=== PATIENT | male | born 1940 | race Caucasian/White ===

== ENCOUNTER 2019-05-29 08:53 | Outpatient (CLI) | payer OTHER, MEDICARE, SELFPAY | END 2019-05-29 08:54 | disposition home or self-care (01) | PROVIDERS: Family Provider Emergency Medicine Emergency Medical Services; PCP Emergency Medicine Emergency Medical Services; Visit Provider Internal Medicine Hematology & Oncology | DX: Z45.2 Encounter for adjustment and management of vascular access device (principal) | CPT/HCPCS: 96523 ==

== ENCOUNTER 2019-07-01 09:05 | Outpatient (CLI) | payer OTHER, MEDICARE, SELFPAY ==
[2019-07-01 09:50] LABS: Basophils % 0.3 %; Eosinophils # 0.1 10^3/uL (0.0-0.8); Eosinophils % 1.1 %; Hematocrit 43.2 % (42.0-52.0); Hemoglobin 13.4 g/dL (11.7-16.6); Lymphocytes # 1.9 10^3/uL (0.8-4.8); Lymphocytes % 21.9 %; Mean Corpuscular Hemoglobin 29.5 pg (28.0-34.0); Mean Corpuscular Volume 95.2 fL (80-94); Mean Platelet Volume 10.2 fL (7.4-10.4); Monocytes # 0.7 10^3/uL (0.2-0.9); Monocytes % 7.6 %; Neutrophils % 68.2 %; Nucleated Red Blood Cells % 0 %; Platelet Count 297 10^3/cmm (130-400); Red Blood Count 4.54 10^6/uL (4.1-5.3); Red Cell Distribution Width 14.9 % (12.1-15.1); White Blood Count 8.8 10^3/uL (4.0-10.0)
[2019-07-01 10:12] LABS: Alanine Aminotransferase 33 U/L (0-41); Albumin Level 4.1 g/dL (3.5-5.2); Alkaline Phosphatase 98 IU/L (40-130); Anion Gap 13.8 (5-19); Aspartate Amino Transferase 20 U/L (0-40); Blood Urea Nitrogen 27 mg/dL (8-23); Calcium 9.9 mg/dL (8.5-10.5); Carbon Dioxide 29 mmol/L (22-29); Chloride 101 mmol/L (98-107); Globulin 3.2 g/dL (1.3-4.6); Glucose 110 mg/dL (65-115); Potassium 4.8 mmol/L (3.5-5.1); Sodium 139 mmol/L (136-145); Total Bilirubin 0.2 mg/dL (0.15-1.2); Total Protein 7.3 g/dL (6.6-8.7)
--- NOTE | 2019-07-01 12:40 | ONC FU_ITS ---
Dr. Ornelas follow up note Patient: Venkat Cherry Unit #: [id number]: 1940 Dicatated By: Criss Ornelas M.D.Date of Visit:Jul 01, 2019 Onc Med Follow-up/Prog Note History of Present Illness: Mr. Cherry is a 78-year-old gentleman with a [id number] history of smoking. He had presented to his primary care at the [facility] with concerns of weakness and hemoptysis. He also reported increased shortness of breath for a month. It had significantly worsened on 2 weeks prior to his presentation to the PCP. He had had progressive fluid retention at that time as well. Dr. Noe has requested workup of his concerns which included a CT of the chest at that time he had finding of a right lung mass. The CT reported right upper lobe and lower lobe mass with mesangial lymphadenopathy. He did undergo CT-guided needle biopsy of the right lung mass on 09/13/2017. 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 The pathology reported ALK rearrangement by FISH as negative and PD-L1 IHC as negative. The PD-L1 IHC 28???8 was reported as less than 1%. Mr. Cherry had PET/CT on 09/28/2017. The findings were reported as: A 1.7 cm pulmonary nodule in the right lower lobe with SUV of 6.5. A 3 x 1.7 cm lesion in the central right upper lobe with SUV of 7.2; superior and inferior right paratracheal lymphadenopathy consistent with local metastatic disease. Inferior, right paratracheal node measures 1.9 x 2.3 cm with an SUV of 9.8; other scattered mediastinal nodes are radiographically benign and FDG negative. Bilateral pleural effusions. Malignant effusions could not be excluded. on 11/25/2017. s/p concurrent therapy with weekly carboplatin and paclitaxel and radiation.to the primary and SBRT to the right lower lobe nodule . He began his first dose of weekly carboplatin and paclitaxel on 11/25/2017. till 01/08/18 . Mr Cherry was started on maintenance immunotherapy with Imfinzi on 02/24/2018. On Synthroid 25 ???g by mouth daily for newly diagnosed hypothyroidism probably due to immunotherapy He had restaging imaging with CT of the chest on 05/30/2018. There is no evidence of disease progression with overall stable appearance of the right upper and lower lobe parenchymal opacity and not hilar lymphadenopathy. Follow-up PET CT from 09/27/2018 reports near resolution of the right lung nodules and mediastinal nodes, indicating a positive response to therapy. There was resolution of bilateral pleural effusions. Mr. Cherry continues with Imfinzi treatment every 2 weeks. and Completed 24 doses on 01/12/2019 Follow-up CT PET scan done on 03/14/2019 showed central right upper lobe nodule measures roughly 9 mm with SUV of 3.5, compared to 15 x [address] PET scan done on 09/27/2018 and there has been no change in 7 mm right lung base nodule. Mild reactive activity in bilateral hilar and mediastinum is unchanged. Came for follow-up, denies any specific complaints, no fever or chills, no nausea vomiting, no diarrhea constipation, no hemoptysis or hematemesis, no jaundice, no headaches or blurred vision. No new bony pains. Medications: Atenolol 1 Tablet (of 25 mg) Tablet Oral at bedtime, Atenolol 1 Tablet (of 50 mg) Tablet Oral daily, Furosemide 1 Tablet (of 40 mg) Oral b.i.d., HydrALAZINE HCl 1 Tablet (of 50 mg) Oral t.i.d., Lipitor 1 Tablet (of 40 mg) Oral daily, Lisinopril 1.5 Tablet (of 40 mg) Oral daily, Magnesium 1 Tablet (of 400 mg) Oral at bedtime, Norvasc 1 Tablet (of 10 mg) Oral daily, Potassium Chloride ER 0.5 Tablet (of 20 meq) Capsule, controlled release Oral b.i.d., Synthroid 1 Tablet (of 50 mcg) Oral daily, Tamsulosin HCl 1 Capsule (of 0.4 mg) Oral daily, Triamcinolone Acetonide (0.5 %) Cream Topical Take as Directed, Zinc 1 Tablet (of 50 mg) Oral daily Allergies: No Known Allergies. Review of Systems: Constitutional - His energy level is fair today and spirits are good. Appetite is fair and weight is stable. No fever, chills, hot flashes, or night sweats, ENMT - No problems with hearing, no sore throat, no sinus drainage, Hematologic/Lymphatic - No abnormal bruising or bleeding, Respiratory - No dyspnea on exertion, chest pain. Positive for cough, Cardiovascular - No anginal chest pain, palpitations or orthopnea, Gastrointestinal - No nausea, vomiting, diarrhea, GI bleeding, or constipation. No change in bowel habits, no heartburn or early satiety, Genitourinary (M) - No hematuria, dysuria, increased frequency, urgency, hesitancy or incontinence, Musculoskeletal - No joint pain, swelling or redness. No decreased range of motion, Neurologic - No headache or dizziness. No numbness/paresthesias or other focal neurologic symptoms, Psychiatric - No anxiety or depression. He has chronic insomnia. Vital Signs: Performed on Jul 01, 2019 11:31 Height - 65.50 in Weight - 248.0 lbs (HIGH) BSA - 2.18 sq.m BMI - 40.64 (HIGH) Temperature - 97.8 F (LOW) Pulse - 59 /min (LOW) Respiration - 26 /min BP - 146/58 mm(hg) (HIGH) O2 Sat - 96 % Pain - 0 Performance Status: 0 - Fully active, able to carry on all predisease activities without restrictions. (ECOG) Physical Examination: ENMT - No oral exudates, ulcers, masses, thrush or mucositis. Oropharynx clear. Tongue normal, Respiratory - Lungs are clear to auscultation without rhonchi or wheezing, Cardiovascular - Regular rate and rhythm of heart, Abdomen - Non-tender, non-distended, Good bowel sounds. No guarding or rebound tenderness. No pulsatile masses, Extremities - no edema. Lab/Imaging: Test performed on Apr 01, 2019 13:03 Sodium 142 mmol/L Potassium 4.2 mmol/L Chloride 99 mmol/L CO2 31 mmol/L Anion Gap 16.2 BUN 17 mg/dL Creatinine 0.8 mg/dL Cr Clearance (Est) 123.9800 mL/min Glucose 162 mg/dl Calcium 9.7 mg/dL Protein, Total 6.8 g/dL Albumin 3.5 g/dL Globulin 3.3 gm/dL Bilirubin, Total 0.2 mg/dL ALT (SGPT) 42 U/L AST (SGOT) 22 U/L Alkaline Phosphatase 110 U/L WBC 7.8 10 3/uL RBC 3.86 10 6/uL HGB 11.7 g/dL HCT 37.9 % MCV 98.2 fl MCH 30.3 pg MCHC 30.9 g/dl RDW 13.5 % Platelet Count 262 10 3/cmm MPV 10.2 fl Neutrophils 5.7 10 3/uL Lymphocytes 1.4 10 3/uL Monocytes 0.5 10 3/uL Eosinophils 0.2 10 3/uL Basophils 0.0 10 3/uL Neutrophil % 72.8 % Lymphocyte % 17.4 % Monocyte % 6.8 % Eosinophil % 2.0 % Basophils % 0.4 % Test performed on Feb 04, 2019 11:32 TSH 2.13 uIU/mL Impression: Mr. Cherry is a 78-year-old gentleman with right upper lobe lung cancer: invasive poorly differentiated squamous cell carcinoma. This diagnosis was confirmed by CT guided biopsy of the right upper lobe on 09/13/2017. He also had an abnormal PET/CT done on 09/28/2017. The PET showed a 1.7 cm pulmonary nodule in the right lower lobe with an SUV of 6.5. There was a 3 x 1.7 cm mass in the central right upper lobe with SUV of 7.2. There was superior and inferior right paratracheal lymphadenopathy with increased FDG uptake. Although scattered the mediastinal nodules were radiographically benign and FDG negative. It was noted that he did have bilateral pleural effusion with the right being larger than the left. He underwent MRI I of the brain on 11/01/2017 there was no evidence of metastatic disease at that time. The arrangement I Fish on the lung biopsy from 11/01/2017 is reported as negative the PDL???L1 IHC is negative there is no PD-L1 expression. PD-L1 IHC 28???8 was also reported as less than 1%. Clinical stage T4 ipsilateral satellite lesion in different lobe. N 1 or 2 ,Mx stage IIIA 2. COPD 3. Glaucoma and cataracts 4. Hypercholesterolemia/hyperlipidemia 5. Hypertension 6. Chronic, controlled depression s/p combined therapy with radiation and chemotherapy. to the primary and SB RT to the right lower lobe first chemotherapy treatment on 11/25/2017. till 01/08/18 On week 4, 30 minutes after starting the Carboplatin, he developed hypertension, shortness of breath and chest pain. The Carboplatin was stopped and he was given sublingual nitroglycerin and his symptoms resolved. The Carboplatin has been stopped. He continued with paclitaxel with his last dose on 01/06/2018. He had recent admission for pneumonia and is labs at that time showed progressive anemia/dermal cytopenia. started on maintenance therapy with durvalumab. He began his first dose on 02/24/2018. The maintenance plan at this point will be every 2 weeks for 12 months. . He had restaging imaging with CT of the chest on 05/30/2018. There is no evidence of disease progression with overall stable appearance of the right upper and lower lobe parenchymal opacity and not hilar lymphadenopathy. He continues with treatment at this time. He did have elevation of the TSH is now on Synthroid. His TSH remained stable .Follow-up CT PET scan done on 09/27/2018 showed the right lower lobe nodule seen on prior study done on 09/28/2017, is now subcentimeter in size and FDG negative The central right upper lobe lesion measures 1.5 x 0.7 cm with FDG activity frequent to mediastinal blood pool, this pattern is typical for inflammation Although a small amount of residual disease cannot be excluded The inferior right paratracheal node is now largely calcified, with mild residual activity activity that may be inflammatory Sup Right paratracheal node is calcified and FDG negative Findings are indicative of good response to the therapy. He continues to tolerate the durvalumab well. Plan: Discussed with patient regarding his labs white blood count 8.8 hemoglobin 13.4 crit 43.2 platelets 297,000 with normal differential CMP within normal limit except creatinine 1.2 compared to 0.8 on 04/01/2019 Clinically, patient is doing well with no signs symptom suggestive of recurrence of disease. Lab workup within normal limit except change in creatinine, patient is on diuretics/antihypertensive combination. Patient was advised to maintain good hydration or discussed with PMD regarding adjusting diuretic dose. X At this point we'll consider follow-up CT PET scan and compare with previous PET scan done on 03/14/2019 which showed right upper lobe nodule with SUV of 3.5 and concern was recurrence. Patient return to clinic [address] PET scan done for further discussion. Signed By: Criss Ornelas M.D. <<Signature on File>>
== END 2019-07-01 09:06 | disposition home or self-care (01) ==
LOC: ONCMED 09:07
PROVIDERS: Family Provider Emergency Medicine Emergency Medical Services; PCP Emergency Medicine Emergency Medical Services; Visit Provider Internal Medicine Hematology & Oncology
DX: C34.11 Malignant neoplasm of upper lobe, right bronchus or lung (principal); E03.2 Hypothyroidism due to medicaments and other exogenous substances; T45.1X5A Adverse effect of antineoplastic and immunosuppressive drugs, initial encounter; J44.9 Chronic obstructive pulmonary disease, unspecified; H40.9 Unspecified glaucoma; H26.9 Unspecified cataract; E78.00 Pure hypercholesterolemia, unspecified; E78.5 Hyperlipidemia, unspecified; I10 Essential (primary) hypertension; F32.9 Major depressive disorder, single episode, unspecified; Z79.899 Other long term (current) drug therapy; Z92.21 Personal history of antineoplastic chemotherapy; Z92.3 Personal history of irradiation
CPT/HCPCS: 36591; 80053; 85025; 99214

== ENCOUNTER 2019-07-15 10:55 | Outpatient (CLI) | payer OTHER, MEDICARE, SELFPAY ==
[2019-07-15 11:33] LABS: Basophils % 0.4 %; Eosinophils # 0.1 10^3/uL (0.0-0.8); Eosinophils % 1.3 %; Hematocrit 40.9 % (42.0-52.0); Hemoglobin 12.7 g/dL (11.7-16.6); Lymphocytes # 1.6 10^3/uL (0.8-4.8); Lymphocytes % 19.7 %; Mean Corpuscular HGB Conc 31.1 g/dL (30.0-36.0); Mean Corpuscular Hemoglobin 30.6 pg (28.0-34.0); Mean Corpuscular Volume 98.6 fL (80-94); Mean Platelet Volume 10.2 fL (7.4-10.4); Monocytes # 0.5 10^3/uL (0.2-0.9); Monocytes % 6.7 %; Neutrophils # 5.6 10^3/uL (1.8-7.7); Neutrophils % 70.8 %; Nucleated Red Blood Cells % 0 %; Platelet Count 280 10^3/cmm (130-400); Red Blood Count 4.15 10^6/uL (4.1-5.3); Red Cell Distribution Width 14.4 % (12.1-15.1); White Blood Count 7.9 10^3/uL (4.0-10.0)
[2019-07-15 11:59] LABS: Alanine Aminotransferase 35 U/L (0-41); Albumin Level 3.3 g/dL (3.5-5.2); Alkaline Phosphatase 99 IU/L (40-130); Anion Gap 11.7 (5-19); Aspartate Amino Transferase 17 U/L (0-40); Blood Urea Nitrogen 16 mg/dL (8-23); Calcium 9.7 mg/dL (8.5-10.5); Carbon Dioxide 29 mmol/L (22-29); Chloride 102 mmol/L (98-107); Globulin 3.4 g/dL (1.3-4.6); Glucose 89 mg/dL (65-115); Potassium 4.7 mmol/L (3.5-5.1); Sodium 138 mmol/L (136-145); Total Bilirubin 0.2 mg/dL (0.15-1.2); Total Protein 6.7 g/dL (6.6-8.7)
--- NOTE | 2019-07-15 13:27 | ONC FU_ITS ---
Dr. Ornelas follow up note Patient: Venkat Cherry Unit #: [id number]: 1940 Dicatated By: Criss Ornelas M.D.Date of Visit:Jul 15, 2019 Onc Med Follow-up/Prog Note History of Present Illness: Mr. Cherry is a 78-year-old gentleman with a [id number] history of smoking. He had presented to his primary care at the [facility] with concerns of weakness and hemoptysis. He also reported increased shortness of breath for a month. It had significantly worsened on 2 weeks prior to his presentation to the PCP. He had had progressive fluid retention at that time as well. Dr. Noe has requested workup of his concerns which included a CT of the chest at that time he had finding of a right lung mass. The CT reported right upper lobe and lower lobe mass with mesangial lymphadenopathy. He did undergo CT-guided needle biopsy of the right lung mass on 09/13/2017. 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 The pathology reported ALK rearrangement by FISH as negative and PD-L1 IHC as negative. The PD-L1 IHC 28???8 was reported as less than 1%. Mr. Cherry had PET/CT on 09/28/2017. The findings were reported as: A 1.7 cm pulmonary nodule in the right lower lobe with SUV of 6.5. A 3 x 1.7 cm lesion in the central right upper lobe with SUV of 7.2; superior and inferior right paratracheal lymphadenopathy consistent with local metastatic disease. Inferior, right paratracheal node measures 1.9 x 2.3 cm with an SUV of 9.8; other scattered mediastinal nodes are radiographically benign and FDG negative. Bilateral pleural effusions. Malignant effusions could not be excluded. on 11/25/2017. s/p concurrent therapy with weekly carboplatin and paclitaxel and radiation.to the primary and SBRT to the right lower lobe nodule . He began his first dose of weekly carboplatin and paclitaxel on 11/25/2017. till 01/08/18 . Mr Cherry was started on maintenance immunotherapy with Imfinzi on 02/24/2018. On Synthroid 25 ???g by mouth daily for newly diagnosed hypothyroidism probably due to immunotherapy He had restaging imaging with CT of the chest on 05/30/2018. There is no evidence of disease progression with overall stable appearance of the right upper and lower lobe parenchymal opacity and not hilar lymphadenopathy. Follow-up PET CT from 09/27/2018 reports near resolution of the right lung nodules and mediastinal nodes, indicating a positive response to therapy. There was resolution of bilateral pleural effusions. Mr. Cherry continues with Imfinzi treatment every 2 weeks. and Completed 24 doses on 01/12/2019 Follow-up CT PET scan done on 03/14/2019 showed central right upper lobe nodule measures roughly 9 mm with SUV of 3.5, compared to 15 x [address] PET scan done on 09/27/2018 and there has been no change in 7 mm right lung base nodule. Mild reactive activity in bilateral hilar and mediastinum is unchanged. Follow-up CT PET scan done on 07/11/2019, showed decreasing FDG uptake in the right upper lobe nodule, sporting and inflammatory diagnosis, no change in reactive mediastinal lymph nodes, no evidence of distant metastatic disease. Came for follow-up, pain patient denies any specific complaints, no hemoptysis or hematemesis, no fever or chills, no nausea or vomiting, appetite is good, weight is stable. Medications: Atenolol 1 Tablet (of 50 mg) Oral daily, Atenolol 1 Tablet (of 25 mg) Tablet Oral at bedtime, Atorvastatin Calcium 1 Tablet (of 40 mg) Oral daily, Furosemide 1 Tablet (of 40 mg) Oral daily, HydrALAZINE HCl 1 Tablet (of 50 mg) Oral t.i.d., Lisinopril 1.5 Tablet (of 40 mg) Oral daily, Magnesium 1 Tablet (of 400 mg) Oral at bedtime, Potassium Chloride ER 0.5 Tablet (of 20 meq) Capsule, controlled release Oral b.i.d., Spironolactone 0.5 Tablet (of 25 mg) Oral b.i.d., Tamsulosin HCl 1 Capsule (of 0.4 mg) Oral daily, Triamcinolone Acetonide (0.5 %) Cream Topical Take as Directed, Zinc 1 Tablet (of 50 mg) Oral daily Allergies: No Known Allergies. Review of Systems: Constitutional - His energy level is fair today and spirits are good. Appetite is fair and weight is stable. No fever, chills, hot flashes, or night sweats, ENMT - No problems with hearing, no sore throat, no sinus drainage, Hematologic/Lymphatic - No abnormal bruising or bleeding, Respiratory - No dyspnea on exertion, chest pain. Positive for cough, Cardiovascular - No anginal chest pain, palpitations or orthopnea, Gastrointestinal - No nausea, vomiting, diarrhea, GI bleeding, or constipation. No change in bowel habits, no heartburn or early satiety, Genitourinary (M) - No hematuria, dysuria, increased frequency, urgency, hesitancy or incontinence, Musculoskeletal - No joint pain, swelling or redness. No decreased range of motion, Neurologic - No headache or dizziness. No numbness/paresthesias or other focal neurologic symptoms, Psychiatric - No anxiety or depression. He has chronic insomnia. Vital Signs: Performed on Jul 15, 2019 12:52 Height - 65.50 in Weight - 250.8 lbs (HIGH) BSA - 2.19 sq.m BMI - 41.10 (HIGH) Temperature - 98.6 F Pulse - 70 /min Respiration - 26 /min BP - 115/54 mm(hg) O2 Sat - 95 % (LOW) Pain - 0 Performance Status: 0 - Fully active, able to carry on all predisease activities without restrictions. (ECOG) Physical Examination: ENMT - . No oral exudates, ulcers, masses, thrush or mucositis. Oropharynx clear. Tongue normal, Respiratory - Lungs are clear to auscultation without rhonchi or wheezing, Cardiovascular - Regular rate and rhythm of heart, Abdomen - Non-tender, non-distended, Good bowel sounds. No guarding or rebound tenderness. No pulsatile masses, Extremities - no edema. Lab/Imaging: Test performed on Jul 01, 2019 09:33 Sodium 139 mmol/L Potassium 4.8 mmol/L Chloride 101 mmol/L CO2 29 mmol/L Anion Gap 13.8 BUN 27 mg/dL Creatinine 1.2 mg/dL Cr Clearance (Est) 82.6600 mL/min Glucose 110 mg/dL Calcium 9.9 mg/dL Protein, Total 7.3 g/dL Albumin 4.1 g/dL Globulin 3.2 g/dL Bilirubin, Total 0.2 mg/dL ALT (SGPT) 33 U/L AST (SGOT) 20 U/L Alkaline Phosphatase 98 IU/L WBC 8.8 10 3/uL RBC 4.54 10 6/uL HGB 13.4 g/dL HCT 43.2 % MCV 95.2 fL MCH 29.5 pg MCHC 31.0 g/dL RDW 14.9 % Platelet Count 297 10 3/cmm MPV 10.2 fL Neutrophils 6.0 10 3/uL Lymphocytes 1.9 10 3/uL Monocytes 0.7 10 3/uL Eosinophils 0.1 10 3/uL Basophils 0.0 10 3/uL Neutrophil % 68.2 % Lymphocyte % 21.9 % Monocyte % 7.6 % Eosinophil % 1.1 % Basophils % 0.3 % Test performed on Feb 04, 2019 11:32 TSH 2.13 uIU/mL Impression: Mr. Cherry is a 78-year-old gentleman with right upper lobe lung cancer: invasive poorly differentiated squamous cell carcinoma. This diagnosis was confirmed by CT guided biopsy of the right upper lobe on 09/13/2017. He also had an abnormal PET/CT done on 09/28/2017. The PET showed a 1.7 cm pulmonary nodule in the right lower lobe with an SUV of 6.5. There was a 3 x 1.7 cm mass in the central right upper lobe with SUV of 7.2. There was superior and inferior right paratracheal lymphadenopathy with increased FDG uptake. Although scattered the mediastinal nodules were radiographically benign and FDG negative. It was noted that he did have bilateral pleural effusion with the right being larger than the left. He underwent MRI I of the brain on 11/01/2017 there was no evidence of metastatic disease at that time. The arrangement I Fish on the lung biopsy from 11/01/2017 is reported as negative the PDL???L1 IHC is negative there is no PD-L1 expression. PD-L1 IHC 28???8 was also reported as less than 1%. Clinical stage T4 ipsilateral satellite lesion in different lobe. N 1 or 2 ,Mx stage IIIA 2. COPD 3. Glaucoma and cataracts 4. Hypercholesterolemia/hyperlipidemia 5. Hypertension 6. Chronic, controlled depression s/p combined therapy with radiation and chemotherapy. to the primary and SB RT to the right lower lobe first chemotherapy treatment on 11/25/2017. till 01/08/18 On week 4, 30 minutes after starting the Carboplatin, he developed hypertension, shortness of breath and chest pain. The Carboplatin was stopped and he was given sublingual nitroglycerin and his symptoms resolved. The Carboplatin has been stopped. He continued with paclitaxel with his last dose on 01/06/2018. He had recent admission for pneumonia and is labs at that time showed progressive anemia/dermal cytopenia. started on maintenance therapy with durvalumab. He began his first dose on 02/24/2018. The maintenance plan at this point will be every 2 weeks for 12 months. . He had restaging imaging with CT of the chest on 05/30/2018. There is no evidence of disease progression with overall stable appearance of the right upper and lower lobe parenchymal opacity and not hilar lymphadenopathy. He continues with treatment at this time. He did have elevation of the TSH is now on Synthroid. His TSH remained stable .Follow-up CT PET scan done on 09/27/2018 showed the right lower lobe nodule seen on prior study done on 09/28/2017, is now subcentimeter in size and FDG negative The central right upper lobe lesion measures 1.5 x 0.7 cm with FDG activity frequent to mediastinal blood pool, this pattern is typical for inflammation Although a small amount of residual disease cannot be excluded The inferior right paratracheal node is now largely calcified, with mild residual activity activity that may be inflammatory Sup Right paratracheal node is calcified and FDG negative Findings are indicative of good response to the therapy. He continues to tolerate the durvalumab well. Plan: Discussed with patient regarding his labs white blood count 7.9 hemoglobin 12.7 hematocrit 40.9 platelets 280,000 CMP within normal limits creatinine 0.9 compared to 1.2 on 07/01/2019 Clinically, patient is doing well with no signs symptoms distant recurrence of disease and his follow-up CT PET scan confirmed that, persistent right upper lobe nodule now improving SUV, finding consistent with inflammatory and stable reactive mediastinal lymphadenopathy and no new lesion seen Follow-up lab shows improvement in his renal function test with gentle oral hydration. At this point we'll continue monitor he will return to clinic in 4 months with CBC CMP and at that time we'll plan for follow-up CT PET scan in the meantime continue with monthly port maintenance Signed By: Criss Ornelas M.D. <<Signature on File>>
== END 2019-07-15 10:56 | disposition home or self-care (01) ==
LOC: ONCMED 10:57
PROVIDERS: Family Provider Emergency Medicine Emergency Medical Services; PCP Emergency Medicine Emergency Medical Services; Visit Provider Internal Medicine Hematology & Oncology
DX: Z08 Encounter for follow-up examination after completed treatment for malignant neoplasm (principal); Z85.118 Personal history of other malignant neoplasm of bronchus and lung; E03.2 Hypothyroidism due to medicaments and other exogenous substances; T45.1X5A Adverse effect of antineoplastic and immunosuppressive drugs, initial encounter; J44.9 Chronic obstructive pulmonary disease, unspecified; H40.9 Unspecified glaucoma; H26.9 Unspecified cataract; E78.00 Pure hypercholesterolemia, unspecified; E78.5 Hyperlipidemia, unspecified; I10 Essential (primary) hypertension; F32.9 Major depressive disorder, single episode, unspecified; Z92.21 Personal history of antineoplastic chemotherapy; Z92.3 Personal history of irradiation; Z92.25 Personal history of immunosuppression therapy
CPT/HCPCS: 36591; 80053; 85025; G0463

== ENCOUNTER 2019-08-25 09:06 | Outpatient (CLI) | payer OTHER, MEDICARE, SELFPAY | END 2019-08-25 09:07 | disposition home or self-care (01) | LOC: ONCMED 09:06 | PROVIDERS: Family Provider Emergency Medicine Emergency Medical Services; PCP Emergency Medicine Emergency Medical Services; Visit Provider Internal Medicine Hematology & Oncology | DX: Z45.2 Encounter for adjustment and management of vascular access device (principal) | CPT/HCPCS: 96523 ==

== ENCOUNTER 2019-09-25 08:21 | Outpatient (CLI) | payer OTHER, MEDICARE, SELFPAY | END 2019-09-25 08:22 | disposition home or self-care (01) | LOC: ONCMED 08:22 | PROVIDERS: PCP Emergency Medicine Emergency Medical Services; Visit Provider Internal Medicine Hematology & Oncology | DX: Z45.2 Encounter for adjustment and management of vascular access device (principal); C34.11 Malignant neoplasm of upper lobe, right bronchus or lung | CPT/HCPCS: 36591 ==

== ENCOUNTER 2019-10-26 10:25 | Emergency (ER) | payer OTHER, MEDICARE, SELFPAY ==
[2019-10-26 10:27] VITALS: BP 140/50; PULSE 50; RESP 26; TEMP 37; O2SAT 98; BMI 37.1
--- NOTE | 2019-10-26 11:21 | XR_ITS ---
WS: [id number] PORTABLE CHEST HISTORY: dyspnea/cough COMPARISON: 01/21/2018 LEFT subclavian Port-A-Cath tip in the distal SVC. Mild chronic emphysema. No pneumonia. No pleural effusion or pneumothorax. Cardiac size: Moderately enlarged cardiac silhouette. Mediastinum/Aorta: Normal mediastinum. No osseous abnormality seen. XR/XR chest 1V portable [id number] IMPRESSION: 1. Chronic emphysema. No no pneumonia. 2. No suspicious nodules on today's examination.
[2019-10-26 11:40] VITALS: PULSE 56; RESP 16; O2SAT 92
[2019-10-26 11:43] LABS: Basophils % 0.3 %; Hematocrit 38.6 % (42.0-52.0); Lymphocytes # 0.4 10^3/uL (0.8-4.8); Mean Corpuscular HGB Conc 31.1 g/dL (30.0-36.0); Mean Corpuscular Hemoglobin 30.8 pg (28.0-34.0); Mean Corpuscular Volume 99.2 fL (80-94); Neutrophils # 10.5 10^3/uL (1.8-7.7); Nucleated Red Blood Cells % 0 %; Platelet Count 182 10^3/cmm (130-400); Red Blood Count 3.89 10^6/uL (4.1-5.3); Red Cell Distribution Width 14.6 % (12.1-15.1); White Blood Count 11.9 10^3/uL (4.0-10.0)
--- NOTE | 2019-10-26 11:52 | PC.NURSE ---
pt concerned about insurance. registration notified pt would like to speak to them regarding [employer] insurance. registration in room at this time.
[2019-10-26] MEDS: ipratropium-albuterol 3 mL Neb INHALATION (11:55)
[2019-10-26 11:57] LABS: Alanine Aminotransferase 36 U/L (0-41); Albumin Level 3.5 g/dL (3.5-5.2); Alkaline Phosphatase 97 IU/L (40-130); Anion Gap 14.8 (5-19); Aspartate Amino Transferase 29 U/L (0-40); Blood Urea Nitrogen 26 mg/dL (8-23); Calcium 8.7 mg/dL (8.5-10.5); Carbon Dioxide 29 mmol/L (22-29); Chloride 95 mmol/L (98-107); Globulin 2.9 g/dL (1.3-4.6); Glucose 127 mg/dL (65-115); Lipase 17 U/L (13-60); Osmolality Calculated 276 mOsm/kg (285-295); Potassium 4.8 mmol/L (3.5-5.1); Sodium 134 mmol/L (136-145); Total Bilirubin 0.3 mg/dL (0.15-1.2); Total Protein 6.4 g/dL (6.6-8.7)
--- NOTE | 2019-10-26 11:57 | ED_ITS ---
HPI - Fever General: Chief Complaint: Fever Stated Complaint: fever Time Seen by Provider: 10/26/19 10:34 History of Present Illness: HPI Narrative: 73-year-old male comes in complaining of a temp up to 102 last night he did taken Tylenol and it came down. He is not complaining any specific pain denies dysuria urgency or frequency he does have chronic loose stools and sometimes doing some mild fecal incontinence during exam he shifted his weight and actually passed some stool. States he has a chronic nonproductive cough that has not really changed at all. 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 He denies any nausea vomiting or diarrhea denies any GI blood loss denies any dysuria urgency or frequency. Denies any skin sores or open areas or pressure wounds. No other family members have been sick. He is not been exposed to anyone who is known to have COVID-19. MD elicited complaint: fever Onset (ago): day(s) Measured temperature: 102 F Exacerbating factors: nothing Relieving factors: acetaminophen Associated symptoms: Reports cough (Chronic nonproductive cough unchanged); Deny abdominal pain, flank pain, chills, chest pain, confusion, diarrhea, dysuria, extremity pain, headache(s), myalgias, nasal congestion, nausea, night sweats, rash, rhinorrhea, short of breath, sinus pain, stiffness, sore throat or vomiting Treatments prior to arrival fever: acetaminophen Review of Systems Const: Denies: chills or night sweats ENMT: Denies: nasal congestion or sinus pain Card: Denies: chest pain Resp: Denies: dyspnea, productive cough or non-productive cough GI: Denies: abdominal pain, nausea, vomiting or diarrhea : Denies: flank pain or dysuria Musc: Denies: extremity pain Skin/Breast: Denies: rash or pruritus Neuro: Denies: headache(s) or confusion PFS ED PFSH: Medical History (Updated 10/26/19 @ 13:30 by Marquez Denney DO) Lung cancer Normal colonoscopy In 2018 2019 Social History Smoking and tobacco status: current every day smoker Physical Exam Const: COMMON NORMALS: no acute distress GENERAL APPEARANCE: cooperative and comfortable ORIENTATION/CONSCIOUSNESS: Yes awake, Yes oriented to person, Yes oriented to place and Yes oriented to time HENMT: COMMON NORMALS: normocephalic, atraumatic, hearing grossly normal bilaterally, external ears normal, EAC's normal, TM's normal bilaterally, Normal nasal mucous membranes and turbinates present, moist oral mucous membranes and oropharynx normal HEAD & SCALP: normocephalic and atraumatic NOSE: Normal nasal mucous membranes and turbinates present EXTERNAL EAR: Yes external ears normal EXTERNAL AUDITORY CANAL: EAC's normal TYMPANIC MEMBRANE: TM's normal bilaterally Eye: COMMON NORMALS: Equal, round and reactive pupils present, EOMs intact bilaterally, conjunctivae normal and no scleral icterus CONJUNCTIVA: Yes conjunctivae normal PUPIL: Yes Equal, round and reactive pupils present Neck/C-Spine: COMMON NORMALS: full ROM, no lymphadenopathy, supple and no JVD Lymph: LYMPHATIC: no lymphadenopathy noted and no lymphedema noted Resp: COMMON NORMALS: normal respiratory effort, No retractions, No use of accessory muscles and clear to auscultation bilaterally AUSCULTATION: clear to auscultation bilaterally Cardio: COMMON NORMALS: no JVD, regular rate, regular rhythm and No murmurs present (Cardio) RATE: regular rate RHYTHM: regular rhythm GI: COMMON NORMALS: Soft to palpation and No hepatosplenomegaly present AUSCULTATION: Yes normoactive bowel sounds PALPATION: Yes Soft to palpation, No Tenderness to palpation present (GI), No Guarding due to palpation present (GI) and Yes No hepatosplenomegaly present OTHER: Examination of the gluteal cleft there is a chronic abscess with violaceous discoloration no fluctuance nontender to the left mid buttock adjacent to the gluteal cleft. Rectal exam superficially is normal no evidence of abscess. There is moderate amount of stool present from mild fecal incontinence no GI bleeding noted grossly. No sacral ulcers noted Extremity: COMMON NORMALS: normal to inspection, capillary refill normal, no clubbing, cyanosis or edema, no calf tenderness and no pedal edema Neuro: SENSORIUM/ORIENTATION: Yes oriented to person, Yes oriented to place and Yes oriented to time Skin: COMMON NORMALS: no rashes or lesions noted GENERAL SKIN EXAM: no rashes or lesions noted Course Vital Signs: Vital signs: Vital Signs Temperature 98.6 F 10/26/19 10:27 Pulse Rate 60 10/26/19 13:52 Respiratory Rate 15 10/26/19 13:52 Blood Pressure 115/75 10/26/19 13:52 Pulse Oximetry 98 10/26/19 13:52 MDM - Fever MDM Narrative: Medical decision making narrative: Discussed the findings with the patient. A little bit concerned with his chronic cough and reported fever so we did go ahead and swab him for COVID. He does have a cystitis. He got a dose of Rocephin here will start Cipro tonight. Discussed him to remain quarantine until we call him with the results of his COVID testing. Lab Data: Labs: Lab Results 10/26/19 10/26/19 10/26/19 Range/Units 10:50 10:50 10:50 WBC 11.9 H (4.0-10.0) 10^3/ uL RBC 3.89 L (4.1-5.3) 10^6/u L Hgb 12.0 (11.7-16.6) g/dL Hct 38.6 L (42.0-52.0) % MCV 99.2 H (80-94) fL MCH 30.8 (28.0-34.0) pg MCHC 31.1 (30.0-36.0) g/dL RDW 14.6 (12.1-15.1) % Plt Count 182 (130-400) 10^3/c mm MPV 11.0 H (7.4-10.4) fL Neut % (Auto) 88.0 % Lymph % (Auto) 3.0 % [place] % (Auto) 8.0 % Eos % (Auto) 0.0 % Baso % (Auto) 0.3 % Neut # (Auto) 10.5 H (1.8-7.7) 10^3/u L Lymph # (Auto) 0.4 L (0.8-4.8) 10^3/u L [place] # (Auto) 1.0 H (0.2-0.9) 10^3/u L Eos # (Auto) 0.0 (0.0-0.8) 10^3/u L Baso # (Auto) 0.0 (0.0-0.1) 10^3/u L Nucleated RBC % (a uto) 0 % Nucleated RBCs # 0.0 /100WBC Specimen Type Sample Site ABG pH (7.35-7.45) ABG pCO2 (35-45) mmHg ABG pO2 (80.0-100.0) mmH g ABG HCO3 (22-26) mmol/L ABG O2 Saturation ABG Base Excess (-2.0-2.0) mmol/ L Edson Test A-a O2 Gradient (5-10) mmHg Hematocrit (42-52) % Hgb O2 Saturation (95-100) % Carboxyhemoglobin (0.4-20.1) %THgb Methemoglobin (0.4-1.5) % Total Hemoglobin (14-18) g/dL Ionized Calcium (1.1-1.4) mmol/L O2 Delivery Device O2 Liters/Min % FiO2 % Layout Mechanic ID Sodium 134 L (136-145) mmol/L Potassium 4.8 (3.5-5.1) mmol/L Chloride 95 L (98-107) mmol/L Carbon Dioxide 29 (22-29) mmol/L Anion Gap 14.8 (5-19) BUN 26 H (8-23) mg/dL Creatinine 1.3 H (0.7-1.2) mg/dL Glucose 127 H (65-115) mg/dL Calculated Osmolal ity 276 L (285-295) mOsm/k g Lactate (0.5-2.2) mmol/L Calcium 8.7 (8.5-10.5) mg/dL Total Bilirubin 0.3 (0.15-1.2) mg/dL AST 29 (0-40) U/L ALT 36 (0-41) U/L Alkaline Phosphata se 97 (40-130) IU/L Troponin T Baselin e 17 H (0-15) ng/L Troponin T 120 Min tejon (0-15) ng/L Delta Troponin T (0-10) ABS# Total Protein 6.4 L (6.6-8.7) g/dL Albumin 3.5 (3.5-5.2) g/dL Globulin 2.9 (1.3-4.6) g/dL Lipase 17 (13-60) U/L Urine Color (Yellow) Urine Appearance (CLEAR) Urine pH (5-7) Ur Specific Gravit y (1.005-1.030) Urine Protein (Negative) Urine Glucose (UA) (Normal) Urine Ketones (Negative) Urine Blood (Negative) Urine Nitrate (Negative) Urine Bilirubin (NEGATIVE) Urine Urobilinogen (Negative) mg/dL Ur Leukocyte Ghada ase (Negative) Urine RBC (0-2) /hpf Urine WBC (0-5) /hpf Ur Squamous Epith Cells (0-5) Amorphous Sediment Urine Bacteria (NONE) Fine Granular Cast s /lpf Urine Mucus 10/26/19 10/26/19 10/26/19 Range/Units 11:37 11:54 12:15 WBC (4.0-10.0) 10^3/ uL RBC (4.1-5.3) 10^6/u L Hgb (11.7-16.6) g/dL Hct (42.0-52.0) % MCV (80-94) fL MCH (28.0-34.0) pg MCHC (30.0-36.0) g/dL RDW (12.1-15.1) % Plt Count (130-400) 10^3/c mm MPV (7.4-10.4) fL Neut % (Auto) % Lymph % (Auto) % [place] % (Auto) % Eos % (Auto) % Baso % (Auto) % Neut # (Auto) (1.8-7.7) 10^3/u L Lymph # (Auto) (0.8-4.8) 10^3/u L [place] # (Auto) (0.2-0.9) 10^3/u L Eos # (Auto) (0.0-0.8) 10^3/u L Baso # (Auto) (0.0-0.1) 10^3/u L Nucleated RBC % (a uto) % Nucleated RBCs # /100WBC Specimen Type Arterial Sample Site Brachial, left ABG pH 7.36 (7.35-7.45) ABG pCO2 54.8 H (35-45) mmHg ABG pO2 67.8 L (80.0-100.0) mmH g ABG HCO3 31.2 H (22-26) mmol/L ABG O2 Saturation 94.2 ABG Base Excess 4.5 H (-2.0-2.0) mmol/ L Edson Test Pos A-a O2 Gradient 62.2 H (5-10) mmHg Hematocrit 37.9 L (42-52) % Hgb O2 Saturation 92.0 L (95-100) % Carboxyhemoglobin 1.6 (0.4-20.1) %THgb Methemoglobin 0.8 (0.4-1.5) % Total Hemoglobin 12.4 L (14-18) g/dL Ionized Calcium 1.2 (1.1-1.4) mmol/L O2 Delivery Device Nc O2 Liters/Min 2.0 % FiO2 28.0 % Layout Mechanic ID cak Sodium 133.0 (136-145) mmol/L Potassium 5.1 H (3.5-5.1) mmol/L Chloride (98-107) mmol/L Carbon Dioxide (22-29) mmol/L Anion Gap (5-19) BUN (8-23) mg/dL Creatinine (0.7-1.2) mg/dL Glucose 111.0 (65-115) mg/dL Calculated Osmolal ity (285-295) mOsm/k g Lactate 0.9 (0.5-2.2) mmol/L Calcium (8.5-10.5) mg/dL Total Bilirubin (0.15-1.2) mg/dL AST (0-40) U/L ALT (0-41) U/L Alkaline Phosphata se (40-130) IU/L Troponin T Baselin e (0-15) ng/L Troponin T 120 Min tejon (0-15) ng/L Delta Troponin T (0-10) ABS# Total Protein (6.6-8.7) g/dL Albumin (3.5-5.2) g/dL Globulin (1.3-4.6) g/dL Lipase (13-60) U/L Urine Color Yellow (Yellow) Urine Appearance Cloudy A (CLEAR) Urine pH 5 (5-7) Ur Specific Gravit y 1.025 (1.005-1.030) Urine Protein 1+ H (Negative) Urine Glucose (UA) Norm (Normal) Urine Ketones Negative (Negative) Urine Blood 2+ H (Negative) Urine Nitrate Negative (Negative) Urine Bilirubin 1+ H (NEGATIVE) Urine Urobilinogen 1 H (Negative) mg/dL Ur Leukocyte Ghada ase Negative (Negative) Urine RBC 0-4 H (0-2) /hpf Urine WBC 15-25 H (0-5) /hpf Ur Squamous Epith Cells 0-4 H (0-5) Amorphous Sediment 1+ Urine Bacteria 3+ H (NONE) Fine Granular Cast s 0-4 H /lpf Urine Mucus 1+ /01/06 Range/Units 12:55 WBC (4.0-10.0) 10^3/ uL RBC (4.1-5.3) 10^6/u L Hgb (11.7-16.6) g/dL Hct (42.0-52.0) % MCV (80-94) fL MCH (28.0-34.0) pg MCHC (30.0-36.0) g/dL RDW (12.1-15.1) % Plt Count (130-400) 10^3/c mm MPV (7.4-10.4) fL Neut % (Auto) % Lymph % (Auto) % [place] % (Auto) % Eos % (Auto) % Baso % (Auto) % Neut # (Auto) (1.8-7.7) 10^3/u L Lymph # (Auto) (0.8-4.8) 10^3/u L [place] # (Auto) (0.2-0.9) 10^3/u L Eos # (Auto) (0.0-0.8) 10^3/u L Baso # (Auto) (0.0-0.1) 10^3/u L Nucleated RBC % (a uto) % Nucleated RBCs # /100WBC Specimen Type Sample Site ABG pH (7.35-7.45) ABG pCO2 (35-45) mmHg ABG pO2 (80.0-100.0) mmH g ABG HCO3 (22-26) mmol/L ABG O2 Saturation ABG Base Excess (-2.0-2.0) mmol/ L Edson Test A-a O2 Gradient (5-10) mmHg Hematocrit (42-52) % Hgb O2 Saturation (95-100) % Carboxyhemoglobin (0.4-20.1) %THgb Methemoglobin (0.4-1.5) % Total Hemoglobin (14-18) g/dL Ionized Calcium (1.1-1.4) mmol/L O2 Delivery Device O2 Liters/Min % FiO2 % Layout Mechanic ID Sodium (136-145) mmol/L Potassium (3.5-5.1) mmol/L Chloride (98-107) mmol/L Carbon Dioxide (22-29) mmol/L Anion Gap (5-19) BUN (8-23) mg/dL Creatinine (0.7-1.2) mg/dL Glucose (65-115) mg/dL Calculated Osmolal ity (285-295) mOsm/k g Lactate (0.5-2.2) mmol/L Calcium (8.5-10.5) mg/dL Total Bilirubin (0.15-1.2) mg/dL AST (0-40) U/L ALT (0-41) U/L Alkaline Phosphata se (40-130) IU/L Troponin T Baselin e (0-15) ng/L Troponin T 120 Min tejon 17.24 H (0-15) ng/L Delta Troponin T 0.24 (0-10) ABS# Total Protein (6.6-8.7) g/dL Albumin (3.5-5.2) g/dL Globulin (1.3-4.6) g/dL Lipase (13-60) U/L Urine Color (Yellow) Urine Appearance (CLEAR) Urine pH (5-7) Ur Specific Gravit y (1.005-1.030) Urine Protein (Negative) Urine Glucose (UA) (Normal) Urine Ketones (Negative) Urine Blood (Negative) Urine Nitrate (Negative) Urine Bilirubin (NEGATIVE) Urine Urobilinogen (Negative) mg/dL Ur Leukocyte Ghada ase (Negative) Urine RBC (0-2) /hpf Urine WBC (0-5) /hpf Ur Squamous Epith Cells (0-5) Amorphous Sediment Urine Bacteria (NONE) Fine Granular Cast s /lpf Urine Mucus Discharge Plan Discharge Patient Disposition: Home, Self-Care Clinical Impression: Cystitis Condition: Stable Prescriptions: New Cipro 500 mg tablet 500 mg PO Q12H Qty: 14 RF: 0 No Action latanoprost 0.005 % Drops 1 drp OPHTHALMIC (EYE) DAILY RF: 0 atorvastatin 40 mg Tablet 20 mg PO DAILY RF: 0 atenolol 100 mg Tablet 100 mg PO DAILY RF: 0 lisinopril 20 mg Tablet 20 mg PO DAILY RF: 0 potassium chloride 10 mEq Tablet Extended Release 10 meq PO BID RF: 0 spironolactone 25 mg Tablet 12.5 mg PO BID RF: 0 Flomax 0.4 mg Capsule 0.4 mg PO DAILY RF: 0 levothyroxine 50 mcg Tablet 50 mcg PO DAILY RF: 0 zinc 50 mg Tablet 50 mg PO DAILY RF: 0 hydralazine 50 mg Tablet 50 mg PO TID RF: 0 magnesium 250 mg Tablet 250 mg PO DAILY RF: 0 Discharge Orders: Discharge Order (Routine); Ordered 10/26/19 Ordered By: Marquez Denney Referrals: Jose Martin Noe, [Primary Care Provider] - Discharge Diet: Advance as tolerated Discharge Activity: Increase activity as tolerated Activity Restrictions/Additional Instructions: Follow-up with your primary care doctor as needed if you are not improving or worsen recheck Discharge Date/Time: 10/26/19 13:53 Coding Level of Care Code ED [employer] Specialist for Chg Fwd Exam Comprehensive
[2019-10-26 11:59] LABS: Troponin(5th) Baseline 17 ng/L (0-15)
[2019-10-26 12:02] VITALS: PULSE 58
[2019-10-26 12:06] LABS: ABG PCO2 54.8 mmHg (35-45); ABG PH Result 7.36 (7.35-7.45); Alveolar-Arterial Oxygen Gradi 62.2 mmHg (5-10); Arterial Blood Gas Hematocrit 37.9 % (42-52); Base Excess ABG 4.5 mmol/L (-2.0-2.0); Blood Gas Allen Test Pos; Blood Gas Sample Site Brachial, left; Blood Gas Sample Type Arterial; Carboxyhemoglobin 1.6 %THgb (0.4-20.1); HCO3 ABG 31.2 mmol/L (22-26); Ionized Calcium Level - ABG 1.2 mmol/L (1.1-1.4); Methemoglobin 0.8 % (0.4-1.5); Oxygen Device NC; Oxygen Saturation ABG 94.2; PO2 ABG 67.8 mmHg (80.0-100.0); Potassium Level - ABG 5.1 mmol/L (3.5-5.0); Total Hemoglobin 12.4 g/dL (14-18)
[2019-10-26 12:08] LABS: Lactate (Lactic Acid level) 0.9 mmol/L (0.5-2.2)
--- NOTE | 2019-10-26 12:12 | PC.NURSE ---
Read and agree with assessment
--- NOTE | 2019-10-26 12:13 | PC.NURSE ---
pt given urinal at this time
[2019-10-26 12:48] LABS: Bilirubin Urine 1+ (NEGATIVE); Blood Urine 2+ (Negative); Glucose Urine UA Norm (Normal); Ketones Urine Negative (Negative); Leukocyte Esterase Urine Negative (Negative); Nitrate Urine Negative (Negative); Protein Urine 1+ (Negative); Specific Gravity, Urine 1.025 (1.005-1.030); Urine Appearance Cloudy (CLEAR); Urine Color Yellow (Yellow); Urobilinogen Urine 1 mg/dL (Negative); pH Urine 5 (5-7)
[2019-10-26 12:49] LABS: Add Urine Microscopic? YES
[2019-10-26 12:56] LABS: RBC Urine 0-4 /hpf (0-2); Squamous Epithelial Cell Urine 0-4 (0-5); WBC Urine 15-25 /hpf (0-5)
[2019-10-26 12:57] LABS: Add Urine Culture? Yes; Amorphous Sediment Urine 1+; Bacteria Urine 3+; Fine Granular Casts Urine 0-4 /lpf; Mucus Urine 1+
--- NOTE | 2019-10-26 13:21 | ECG_ITS ---
Measurements Intervals [place] Rate: 62 P: 68 NC: 203 QRS: 49 QRSD: 98 T: 123 QT: 401 QTc: [address] DEVIATION AND MODERATE T-WAVE ABNORMALITY, CONSIDER LATERAL ISCHEMIA [-0.1+ mV T WAVE IN I/aVL/V5/V6] Compared to ECG 01/19/2018 06:14:44 No significant changes Electronically Signed On 10-26-2019 19:31:41 CDT by Tita Obregon M.D. [email or web address]
[2019-10-26 13:24] LABS: Troponin 5 2HR 17.24 ng/L (0-15); Troponin 5 2HR Delta 0.24 ABS# (0-10)
[2019-10-26] MEDS: cefTRIAXone 1,000 MG in sodium chloride 0.9% (plus) 50 ML 100 MG IV (13:32)
[2019-10-26 13:52] VITALS: BP 115/75; PULSE 60; RESP 15; O2SAT 98
--- NOTE | 2019-10-26 17:21 | ECG_ITS ---
Measurements Intervals [place] Rate: 58 P: 69 MD: 192 QRS: 52 QRSD: 101 T: 136 QT: 403 QTc: [address] DEVIATION AND MODERATE T-WAVE ABNORMALITY, CONSIDER LATERAL ISCHEMIA [-0.1+ mV T WAVE IN I/aVL/V5/V6] Compared to ECG 01/19/2018 06:14:44 Sinus rhythm no longer present T-wave abnormality still present Possible ischemia still present Electronically Signed On 10-26-2019 19:31:30 CDT by Tita Obregon M.D. [email or web address]
[2019-10-27 23:02] LABS: Quest SARS-CoV-2 RNA NOT DETECTED (NOT DETECTED)
--- NOTE | 2019-10-28 14:17 | PC.NURSE ---
pt contacted and given his COVID result
== END 2019-10-26 13:53 | disposition home or self-care (01) ==
PROVIDERS: Emergency Provider Family Medicine; PCP Emergency Medicine Emergency Medical Services
DX: N30.90 Cystitis, unspecified without hematuria (principal); Z85.118 Personal history of other malignant neoplasm of bronchus and lung; F17.210 Nicotine dependence, cigarettes, uncomplicated
CPT/HCPCS: 12345; 36415; 36600; 71045; 80051; 80053; 81001; 82810; 83605; 83690; 83986; 84484; 85025; 87040; 87077; 87086; 87186; 87205; 87635; 93005; 94640; 96365; 99283; 99284; J0696

== ENCOUNTER 2019-10-28 17:37 | Inpatient (IN) | payer OTHER, MEDICARE, SELFPAY ==
[2019-10-28] VITALS (11 sets, daily range): BP systolic 99–202; BP diastolic 43–107; PULSE 49–96; RESP 10–22; TEMP 36.8–37.3; O2SAT 94–97; BMI 40.5
--- NOTE | 2019-10-28 18:19 | XR_ITS ---
WS: [id number] Chest 2 views, 10/28/2019 Clinical Data: COUGH Comparison: Orbital chest, 10/26/2019. Findings: No nodules, masses or effusions are seen. The heart is slightly enlarged. The pulmonary vas cularity is not increased. No pneumonia or pneumothorax is seen. The left Port-A-Cath is in good posi tion. XR/XR chest 2V* [id number] Impression: Cardiomegaly
--- NOTE | 2019-10-28 18:21 | ECG_ITS ---
Measurements Intervals [place] Rate: 56 P: 53 IN: 181 QRS: 48 QRSD: 101 T: 101 QT: 390 QTc: [address] & T-WAVE ABNORMALITY Compared to ECG 10/26/2019 13:28:53 Sinus rhythm no longer present Possible ischemia no longer present T-wave abnormality still present Electronically Signed On 10-29-2019 20:52:55 CDT by Sariah Donnelly M.D. [id number]
[2019-10-28] MEDS: piperacillin-tazobactam 3.375 GM in sodium chloride 0.9% (plus) 50 ML IV (18:36)
--- NOTE | 2019-10-28 18:37 | ED_ITS ---
HPI - General Adult General: Chief complaint: General Medical Stated complaint: infection/confusion Time Seen by Provider: 10/28/19 18:07 Source: patient and family Mode of arrival: ambulatory Limitations: no limitations History of Present Illness: HPI narrative: Venkat is a nice 79-year-old male who is brought in by his family after he was contacted by us for preliminary positive blood cultures. Patient was seen here 2 days ago and blood cultures were drawn. Blood culture results are gram-positive cocci in 4 out of 4 bottles. Patient states he still feels chilled but otherwise he does not feel any more ill than before. He did previously have a fever with a T-max of 102. Family states that the patient is more confused and somnolent than normal. Patient was placed on Cipro empirically but has no other symptoms that have developed since then. He was placed on Cipro for a presumptive diagnosis of cystitis. Family does state that he has had a cough but has not had a fever since leaving here on the eighth.. Has not had any known exposures to anyone ill specifically no covert exposures. A COVID test was sent from his last visit. Patient specifically denies any headache, neck pain, chest pain, worsening shortness of breath than normal. He denies abdominal pain, back pain, diarrhea or skin rashes. Patient does have a chronic wound on his buttock but he states it is no different or worse than usual. Associated symptoms: Deny chest pain, confusion, diaphoresis, dyspnea, headache(s), malaise, nausea, rash, palpitations, syncope or vomiting Review of Systems Const: Reports: chills; Denies: fever(s), body aches, fatigue, malaise or diaphoresis Eyes: Denies: change in vision, blurry vision, blind spots or photophobia ENMT: Denies: throat pain, odynophagia, hoarseness, swelling of lips/tongue, ear or mastoid pain, ear discharge, change in hearing or nasal discharge Card: Denies: chest pain, palpitations, irregular heart rhythm, edema, lightheadedness, syncope, pre-syncope, dyspnea on exertion or orthopnea Resp: Reports: non-productive cough; Denies: dyspnea, productive cough, wheezing, hemoptysis or chest congestion GI: Denies: abdominal pain, nausea, vomiting, hematemesis, coffee ground emesis, heartburn, diarrhea, constipation, GI cramping, hematochezia or melena : Denies: flank pain, dysuria, urinary frequency, urinary urgency or hematuria Musc: Denies: neck pain, back pain, extremity pain, extremity swelling, joint pain, joint swelling, joint redness, joint warmth or joint stiffness Skin/Breast: Denies: rash, pruritus, erythema, skin tenderness or jaundice Neuro: Denies: headache(s), numbness in extremities, weakness in extremities, sensory changes, lack of coordination, difficulty walking, dizziness, vertigo, confusion or Slurred speech present Murtaza/Lymph: Denies: easy bruising, easy bleeding, petechiae, purpura or enlarged lymph nodes All/Imm: Denies: urticaria, throat swelling, tongue swelling, facial swelling or acute wheezing PFSH ED PFSH: Medical History (Updated 10/28/19 @ 22:37 by Tita Thacker MD) BPH (benign prostatic hyperplasia) Cholelithiasis Depression Glaucoma Heart failure with preserved ejection fraction Hyperlipidemia Hypertension Hypothyroidism Lung cancer Lung cancer 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 Clinical stage IV ipsilateral satellite lesion in different lobes Currently in remission Normal colonoscopy In 2018 2019 Port-A-Cath in place Sigmoid diverticulosis Surgical History (Updated 10/28/19 @ 22:33 by Tita Thacker MD) No pertinent past surgical history Family History (Updated 10/28/19 @ 22:33 by Tita Thacker MD) Denies family history of Lung disease Hypertension Social History (Updated 10/28/19 @ 22:33 by Tita Thacker MD) Smoking and tobacco status: former smoker Alcohol intake: never Substance/Drug Use: never Household members: spouse Housing: House Physical Exam Const: COMMON NORMALS: no acute distress, patient oriented x3, no limitations, healthy appearing and well nourished GENERAL APPEARANCE: cooperative, well kempt and well developed HENMT: COMMON NORMALS: normocephalic, atraumatic, external ears normal, EAC's normal and Normal external nose present HEAD & SCALP: normal to inspection, normocephalic and atraumatic FACE & SINUS: normal facial exam and face symmetric NOSE: Normal external nose present and Normal nares present EXTERNAL EAR: Yes external ears normal EXTERNAL AUDITORY CANAL: EAC's normal MOUTH: Normal oral and palatal mucosa present, lip normal and tongue normal Eye: COMMON NORMALS: Equal, round and reactive pupils present and conjunctivae normal GENERAL EYE: appearance normal, both eyes and all related structures ALIGNMENT: Yes alignment normal PERIORBITAL: periorbital findings normal EYELID: eyelids normal CONJUNCTIVA: Yes conjunctivae normal SCLERA: scle justina normal PUPIL: Yes Equal, round and reactive pupils present Neck/C-Spine: COMMON NORMALS: full ROM, no lymphadenopathy, supple, no meningeal signs and no JVD GENERAL: Yes normal visual inspection and Yes trachea midline Chest: COMMONS NORMALS: normal inspection of the chest and normal palpation of entire chest wall Resp: COMMON NORMALS: normal respiratory effort, No retractions and No use of accessory muscles EFFORT & INSPECTION: Yes able to speak in complete sentences AUSCULTATION: rhonchi, wheezes and diminished lung sounds Cardio: COMMON NORMALS: no JVD, regular rate, regular rhythm, S1 normal heart sound present and S2 normal heart sound present RATE: regular rate RHYTHM: regular rhythm HEART SOUNDS: S1 normal heart sound present, S2 normal heart sound present, no click, no gallops, no murmurs, no rubs and abnormal split S2 GI: COMMON NORMALS: Soft to palpation and No hepatosplenomegaly present PALPATION: Yes Soft to palpation, No Tenderness to palpation present (GI), No Guarding due to palpation present (GI), No Rigid due to palpation, Yes No hepatosplenomegaly present, No Hernia present, No Palpable mass present and No Pulsatile mass present : COMMON NORMALS: Yes no CVA tenderness BLADDER/KIDNEY EXAM: Yes no CVA tenderness Back/Pelvis: COMMON NORMALS: no CVA tenderness, thoracic and lumbar spine normal to inspection, no thoracic nor lumbar tenderness and thoraco-lumbar ROM normal Extremity: COMMON NORMALS: normal to inspection, full ROM, capillary refill normal, no joint enlargement, no clubbing, cyanosis or edema and no calf tenderness Neuro: COMMON NORMALS: patient oriented x3, CN's II-XII intact bilaterally, moves all extremities, no focal motor deficits and no sensory deficits noted MENINGEAL SIGNS: Yes no meningeal signs SPEECH: speech normal Psych: COMMON NORMALS: mental status grossly normal, Normal thought process present, cooperative, normal affect, speech normal and activity/motor behavior normal APPEARANCE: Yes well kempt SPEECH: Yes normal speech THOUGHT PROCESS: Normal thought process present Skin: COMMON NORMALS: turgor normal, no jaundice, no petechiae and no mottling NARRATIVE SKIN EXAM: Small area of induration on left buttock. No abscess palpated or seen. GENERAL SKIN EXAM: turgor normal Course Vital Signs: Vital signs: Vital Signs Temperature 99.2 F 10/28/19 22:55 Pulse Rate 49 L 10/28/19 23:00 Respiratory Rate 22 H 10/28/19 22:55 Blood Pressure 120/53 10/28/19 22:56 Pulse Oximetry 94 10/28/19 23:00 MDM - General Adult MDM Narrative: Medical decision making narrative: Arrival -Venkat is a nice 79-year-old male who arrives with stable vital signs with a complaint of chills. He was a call back for positive blood cultures which did reveal 4 out of 4 positive blood cultures for gram-positive cocci. Patient did have a negative COVID test as well. Differential for his symptoms is concerning including se psis, pneumonia, UTI, skin abscess, occult bacteremia amongst many others. I will direct work-up toward a infectious disease type of exposure and also treat his breathing as he is wheezing. Admission -patient appears to have bacteremia and is likely septic. Is unclear whether this is a urinary source more likely a pulmonary source. He was covered with Zosyn and doxycycline anticipate the hospitalist will add vancomycin. At this time he is improved on BiPAP. I believe he will need to go to the ICU for now. The case was reviewed entirely with Dr. Thacker he is agreeable to do so. Lab Data: Labs: Lab Results 10/28/19 10/28/19 10/28/19 Range/Units 18:35 18:46 18:46 WBC 8.7 (4.0-10.0) 10^3/ uL RBC 3.88 L (4.1-5.3) 10^6/u L Hgb 11.7 (11.7-16.6) g/dL Hct 39.3 L (42.0-52.0) % MCV 101.3 H (80-94) fL MCH 30.2 (28.0-34.0) pg MCHC 29.8 L (30.0-36.0) g/dL RDW 14.7 (12.1-15.1) % Plt Count 194 (130-400) 10^3/c mm MPV 11.0 H (7.4-10.4) fL Neut % (Auto) 75.1 % Lymph % (Auto) 10.7 % Mobile % (Auto) 12.6 % Eos % (Auto) 0.7 % Baso % (Auto) 0.3 % Neut # (Auto) 6.5 (1.8-7.7) 10^3/u L Lymph # (Auto) 0.9 (0.8-4.8) 10^3/u L Mobile # (Auto) 1.1 H (0.2-0.9) 10^3/u L Eos # (Auto) 0.1 (0.0-0.8) 10^3/u L Baso # (Auto) 0.0 (0.0-0.1) 10^3/u L Nucleated RBC % (a uto) 0 % Nucleated RBCs # 0.0 /100WBC PT (10.5-13.3) SECO NDS INR (0.8-1.2) Specimen Type Arterial Sample Site Brachial, left ABG pH 7.31 L (7.35-7.45) ABG pCO2 59.2 H (35-45) mmHg ABG pO2 71.5 L (80.0-100.0) mmH g ABG HCO3 30.0 H (22-26) mmol/L ABG Base Excess 2.5 H (-2.0-2.0) mmol/ L Edson Test Pos Hematocrit 36.4 L (42-52) % O2 Delivery Device Nc O2 Liters/Min 0.0 % Room Designer ID monro Sodium 132 L (136-145) mmol/L Potassium 5.5 H (3.5-5.1) mmol/L Chloride 95 L (98-107) mmol/L Carbon Dioxide 29 (22-29) mmol/L Anion Gap 13.5 (5-19) BUN 49 H (8-23) mg/dL Creatinine 1.2 (0.7-1.2) mg/dL Glucose 104 (65-115) mg/dL Calculated Osmolal ity 272 L (285-295) mOsm/k g Lactic Acid (0.5-2.2) mmol/L Calcium 9.0 (8.5-10.5) mg/dL Magnesium 3.1 H (1.7-2.3) mg/dL Total Bilirubin 0.2 (0.15-1.2) mg/dL AST 33 (0-40) U/L ALT 48 H (0-41) U/L Alkaline Phosphata se 111 (40-130) IU/L Troponin T Baselin e (0-15) ng/L Troponin T 120 Min [place] (0-15) ng/L Delta Troponin T (0-10) ABS# NT-Pro-B Natriuret Pep 972 H (0-450) pg/mL Total Protein 6.7 (6.6-8.7) g/dL Albumin 3.5 (3.5-5.2) g/dL Globulin 3.2 (1.3-4.6) g/dL TSH (0.27-4.20) uIU/ mL 10/28/19 10/28/19 10/28/19 Range/Units 18:46 18:46 19:00 WBC (4.0-10.0) 10^3/ uL RBC (4.1-5.3) 10^6/u L Hgb (11.7-16.6) g/dL Hct (42.0-52.0) % MCV (80-94) fL MCH (28.0-34.0) pg MCHC (30.0-36.0) g/dL RDW (12.1-15.1) % Plt Count (130-400) 10^3/c mm MPV (7.4-10.4) fL Neut % (Auto) % Lymph % (Auto) % Mobile % (Auto) % Eos % (Auto) % Baso % (Auto) % Neut # (Auto) (1.8-7.7) 10^3/u L Lymph # (Auto) (0.8-4.8) 10^3/u L Mobile # (Auto) (0.2-0.9) 10^3/u L Eos # (Auto) (0.0-0.8) 10^3/u L Baso # (Auto) (0.0-0.1) 10^3/u L Nucleated RBC % (a uto) % Nucleated RBCs # /100WBC PT 12.80 (10.5-13.3) SECO NDS INR 0.93 (0.8-1.2) Specimen Type Sample Site ABG pH (7.35-7.45) ABG pCO2 (35-45) mmHg ABG pO2 (80.0-100.0) mmH g ABG HCO3 (22-26) mmol/L ABG Base Excess (-2.0-2.0) mmol/ L Edson Test Hematocrit (42-52) % O2 Delivery Device O2 Liters/Min % Room Designer ID Sodium (136-145) mmol/L Potassium (3.5-5.1) mmol/L Chloride (98-107) mmol/L Carbon Dioxide (22-29) mmol/L Anion Gap (5-19) BUN (8-23) mg/dL Creatinine (0.7-1.2) mg/dL Glucose (65-115) mg/dL Calculated Osmolal ity (285-295) mOsm/k g Lactic Acid 0.7 (0.5-2.2) mmol/L Calcium (8.5-10.5) mg/dL Magnesium (1.7-2.3) mg/dL Total Bilirubin (0.15-1.2) mg/dL AST (0-40) U/L ALT (0-41) U/L Alkaline Phosphata se (40-130) IU/L Troponin T Baselin e 13 (0-15) ng/L Troponin T 120 Min [place] (0-15) ng/L Delta Troponin T (0-10) ABS# NT-Pro-B Natriuret Pep (0-450) pg/mL Total Protein (6.6-8.7) g/dL Albumin (3.5-5.2) g/dL Globulin (1.3-4.6) g/dL TSH (0.27-4.20) uIU/ mL 10/28/19 10/28/19 Range/Units 20:55 20:55 WBC (4.0-10.0) 10^3/ uL RBC (4.1-5.3) 10^6/u L Hgb (11.7-16.6) g/dL Hct (42.0-52.0) % MCV (80-94) fL MCH (28.0-34.0) pg MCHC (30.0-36.0) g/dL RDW (12.1-15.1) % Plt Count (130-400) 10^3/c mm MPV (7.4-10.4) fL Neut % (Auto) % Lymph % (Auto) % Mobile % (Auto) % Eos % (Auto) % Baso % (Auto) % Neut # (Auto) (1.8-7.7) 10^3/u L Lymph # (Auto) (0.8-4.8) 10^3/u L Mobile # (Auto) (0.2-0.9) 10^3/u L Eos # (Auto) (0.0-0.8) 10^3/u L Baso # (Auto) (0.0-0.1) 10^3/u L Nucleated RBC % (a uto) % Nucleated RBCs # /100WBC PT (10.5-13.3) SECO NDS INR (0.8-1.2) Specimen Type Sample Site ABG pH (7.35-7.45) ABG pCO2 (35-45) mmHg ABG pO2 (80.0-100.0) mmH g ABG HCO3 (22-26) mmol/L ABG Base Excess (-2.0-2.0) mmol/ L Edson Test Hematocrit (42-52) % O2 Delivery Device O2 Liters/Min % Room Designer ID Sodium (136-145) mmol/L Potassium (3.5-5.1) mmol/L Chloride (98-107) mmol/L Carbon Dioxide (22-29) mmol/L Anion Gap (5-19) BUN (8-23) mg/dL Creatinine (0.7-1.2) mg/dL Glucose (65-115) mg/dL Calculated Osmolal ity (285-295) mOsm/k g Lactic Acid (0.5-2.2) mmol/L Calcium (8.5-10.5) mg/dL Magnesium (1.7-2.3) mg/dL Total Bilirubin (0.15-1.2) mg/dL AST (0-40) U/L ALT (0-41) U/L Alkaline Phosphata se (40-130) IU/L Troponin T Baselin e (0-15) ng/L Troponin T 120 Min [place] 15.55 H (0-15) ng/L Delta Troponin T 2.55 (0-10) ABS# NT-Pro-B Natriuret Pep (0-450) pg/mL Total Protein (6.6-8.7) g/dL Albumin (3.5-5.2) g/dL Globulin (1.3-4.6) g/dL TSH 2.34 (0.27-4.20) uIU/ mL Imaging Data^: CXR: My impression: No acute cardiopulmonary findings. EKG Data^: EKG 1: Attestation: I personally reviewed and interpreted this EKG as follows: EKG interpretation date: 10/28/19 EKG interpretation time: 19:13 Interpretation: Sinus bradycardia at 56 beats a minute, T wave inversions in aVL, otherwise nonspecific ST and T wave changes. Findings are consistent with previous EKGs. Computer generated interpretation: Head CT 10/28/19 18:44 IMPRESSION: Nonacute. Radiation Dose CTDIVOL = (mGy): DLP = 889.98 (mGy-cm) Discharge Plan Discharge Patient Disposition: Admitted As Inpatient Admit Provider: Tita Thacker Clinical Impression: Sepsis, Acute hypercapnic respiratory failure Condition: Stable Referrals: Jose Martin Noe DO [Primary Care Provider] - Discharge Date/Time: 10/28/19 22:17 Coding Level of Care Code ED Float Remover for Chg Fwd Exam Comprehensive
[2019-10-28] MEDS: ipratropium-albuterol 3 mL Neb 9 ML INHALATION (18:39)
--- NOTE | 2019-10-28 18:44 | CTR_ITS ---
PROCEDURE INFORMATION: Exam: CT Head Without Contrast Exam date and time: 10/28/2019 7:14 PM Age: 79 years old Clinical indication: Altered mental status/memory loss; Confusion or disorientation TECHNIQUE: Imaging protocol: Computed tomography of the head without contrast. Radiation optimization: All CT scans at this facility use at least one of these dose optimization techniques: automated exposure control; mA and/or kV adjustment per patient size (includes targeted exams where dose is matched to clinical indication); or iterative reconstruction. COMPARISON: No relevant prior studies available. RADIATION DOSE METRICS: Total DLP: 889.98 mGy-cm FINDINGS: Brain: No visible evidence of active or acute intracranial pathologic process. No visible intracranial hemorrhagic event. No mass effect. No generalized edema. Potential mild small vessel ischemic disease. No visible acute or subacute infarction. Ventricles: Normal. No ventriculomegaly. Bones/joints: Unremarkable. No acute fracture. Sinuses: Visualized sinuses are unremarkable. No fluid levels. Mastoid air cells: Visualized mastoid air cells are well aerated. Vasculature: Mild cerebral arterial sclerosis. Soft tissues: Unremarkable. CT/CT head wo con* [id number] IMPRESSION: Nonacute. Radiation Dose CTDIVOL = (mGy): DLP = 889.98 (mGy-cm)
[2019-10-28 18:49] LABS: ABG PCO2 59.2 mmHg (35-45); ABG PH Result 7.31 (7.35-7.45); Arterial Blood Gas Hematocrit 36.4 % (42-52); Base Excess ABG 2.5 mmol/L (-2.0-2.0); Blood Gas Allen Test Pos; Blood Gas Sample Site Brachial, left; Blood Gas Sample Type Arterial; Oxygen Device NC; PO2 ABG 71.5 mmHg (80.0-100.0)
[2019-10-28 18:55] LABS: Basophils % 0.3 %; Eosinophils # 0.1 10^3/uL (0.0-0.8); Eosinophils % 0.7 %; Hematocrit 39.3 % (42.0-52.0); Hemoglobin 11.7 g/dL (11.7-16.6); Lymphocytes # 0.9 10^3/uL (0.8-4.8); Lymphocytes % 10.7 %; Mean Corpuscular HGB Conc 29.8 g/dL (30.0-36.0); Mean Corpuscular Hemoglobin 30.2 pg (28.0-34.0); Mean Corpuscular Volume 101.3 fL (80-94); Monocytes # 1.1 10^3/uL (0.2-0.9); Monocytes % 12.6 %; Neutrophils # 6.5 10^3/uL (1.8-7.7); Neutrophils % 75.1 %; Nucleated Red Blood Cells % 0 %; Platelet Count 194 10^3/cmm (130-400); Red Blood Count 3.88 10^6/uL (4.1-5.3); Red Cell Distribution Width 14.7 % (12.1-15.1); White Blood Count 8.7 10^3/uL (4.0-10.0)
--- NOTE | 2019-10-28 19:01 | ECG_ITS ---
Measurements Intervals Pep Rate: 51 P: 75 TN: 174 QRS: 55 QRSD: 101 T: 116 QT: 396 QTc: [address] & T-WAVE ABNORMALITY Compared to ECG 10/26/2019 13:28:53 Sinus rhythm no longer present Possible ischemia no longer present T-wave abnormality still present Electronically Signed On 10-29-2019 20:53:10 CDT by Sariah Donnelly M.D. [email or web address]
[2019-10-28 19:07] LABS: INR 0.93 (0.8-1.2)
[2019-10-28 19:13] LABS: Lactic Sepsis W/Reflex 0.7 mmol/L (0.5-2.2)
[2019-10-28 19:23] LABS: Alanine Aminotransferase 48 U/L (0-41); Albumin Level 3.5 g/dL (3.5-5.2); Alkaline Phosphatase 111 IU/L (40-130); Anion Gap 13.5 (5-19); Aspartate Amino Transferase 33 U/L (0-40); Blood Urea Nitrogen 49 mg/dL (8-23); Carbon Dioxide 29 mmol/L (22-29); Chloride 95 mmol/L (98-107); Creatinine Clr Calc Pharmacy 61.1193; Globulin 3.2 g/dL (1.3-4.6); Glucose 104 mg/dL (65-115); Magnesium 3.1 mg/dL (1.7-2.3); NT Pro B Type Natriuretic Pept 972 pg/mL (0-450); Osmolality Calculated 272 mOsm/kg (285-295); Potassium 5.5 mmol/L (3.5-5.1); Sodium 132 mmol/L (136-145); Total Bilirubin 0.2 mg/dL (0.15-1.2); Total Protein 6.7 g/dL (6.6-8.7)
[2019-10-28] MEDS: doxycycline 100 MG in sodium chloride 0.9% (plus) 100 ML IV (19:48)
[2019-10-28 19:54] LABS: Troponin(5th) Baseline 13 ng/L (0-15)
--- NOTE | 2019-10-28 20:50 | PM.HP ---
Providers/Chief Complaint Primary Care Provider: Jose Martin Noe DO Chief Complaint: infection/confusion History of Present Illness Venkat Cherry is a 79 year old male who has history of poorly differentiated invasive squamous cell cancer status post chemoradiotherapy, follows up with Dr. Ornelas, was brought in by the family when ER called him after reviewing blood culture report today. He was seen in the ER 2 days ago for fever of 102, was discharged on ciprofloxacin for cystitis after COVID testing, blood and urine culture. Today his blood culture grew 4/4 gram-positive cocci, urine culture positive for staph aureus, COVID negative. is stating that since his previous visit to the ER he did not spike temperature at home, but he was more drowsy and somnolent today. Patient is stating that he has not noticed any dysuria, abdominal pain, chest pain, productive cough. He has been having loose stools for couple of years, his last colonoscopy was 1 year ago which was benign, he has had ulcers around his left gluteal region for quite some time, as per the they had been draining purulent material. Patient does not wear CPAP, uses 3 L of oxygen at baseline, today noticed that he was more confused and drowsy. No sleep study done yet. Diagnostics in the ER revealed bradycardia, blood pressure ranging between 100-120s, patient was awake and alert at the time of my interview, he was on BiPAP settings 20 and 8, awake alert oriented x3, Heart rate ranging between 50-59 Patient has a MediPort, site is nontender Review of Systems Const: Reports: fatigue, malaise and change in sleep pattern; Denies: fever(s), chills, body aches or diaphoresis Eyes: Denies: change in vision ENMT: Denies: throat pain Card: Reports: dyspnea on exertion and orthopnea; Denies: chest pain, irregular heart rhythm, edema or swelling of feet/ankles Resp: Reports: dyspnea and non-productive cough GI: Denies: abdominal pain, nausea or vomiting : Denies: flank pain Musc: Denies: neck pain or back pain Skin/Breast: Reports: new lesions and lesions (Around buttocks region) Neuro: Denies: headache(s) Psych: Denies: anxiety Endo: Denies: polyuria Murtaza/Lymph: Denies: easy bruising All/Imm: Denies: urticaria Medications/Allergies Home Medications Medication Instructions Recorded Confirmed Last Taken Type atenolol 100 mg PO DAILY 10/26/19 10/26/19 10/26/19 History atorvastatin 20 mg PO DAILY 10/26/19 10/26/19 10/25/19 History ciprofloxacin HCl [Cipro] 500 mg PO Q12H #14 tab 10/26/19 Unknown Rx hydralazine 50 mg PO TID 10/26/19 10/26/19 10/26/19 History latanoprost 1 drp OPHTHALMIC (EYE) DAILY 10/26/19 10/26/19 10/26/19 History levothyroxine 50 mcg PO DAILY 10/26/19 10/26/19 10/26/19 History lisinopril 20 mg PO DAILY 10/26/19 10/26/19 10/26/19 History magnesium 250 mg PO DAILY 10/26/19 10/26/19 10/26/19 History potassium chloride 10 meq PO BID 10/26/19 10/26/19 10/26/19 History spironolactone 12.5 mg PO BID 10/26/19 10/26/19 10/26/19 History tamsulosin [Flomax] 0.4 mg PO DAILY 10/26/19 10/26/19 10/25/19 History zinc 50 mg PO DAILY 10/26/19 10/26/19 10/26/19 History Allergies Allergy/AdvReac Type Severity Reaction Status Date / Time No Known Allergies Allergy Verified 10/28/19 17:59 PFSH Acute PFSH: Medical History (Updated 10/28/19 @ 22:37 by Tita Thacker MD) BPH (benign prostatic hyperplasia) Cholelithiasis Depression Glaucoma Heart failure with preserved ejection fraction Hyperlipidemia Hypertension Hypothyroidism Lung cancer Lung cancer 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 Clinical stage IV ipsilateral satellite lesion in different lobes Currently in remission Normal colonoscopy In 2018 2019 Port-A-Cath in place Sigmoid diverticulosis Surgical History (Updated 10/28/19 @ 22:33 by Tita Thacker MD) No pertinent past surgical history Family History (Updated 10/28/19 @ 22:33 by Tita Thacker MD) Denies family history of Lung disease Hypertension Social History (Updated 10/28/19 @ 22:33 by Tita Thacker MD) Smoking and tobacco status: former smoker Alcohol intake: never Substance/Drug Use: never Household members: spouse Housing: House Vitals/I&O/Wt Last Vital Signs Temp 98.2 F 10/28/19 17:54 Pulse 58 L 10/28/19 19:56 Resp 10 L 10/28/19 19:56 BP 99/52 10/28/19 19:56 Pulse Ox 95 10/28/19 19:56 10/28/19 10/28/19 10/28/19 06:59 14:59 22:59 Intake Total 50 / 50 Balance 50 / 50 Weight last 48 hrs Weight 113.852 kg Physical Exam Narrative: EXAM NARRATIVE: Head to toe examination Morbidly obese male lying comfortably in his bed Awake oriented x3 GCS 15 EOMI, PERRLA Neurologically nonfocal exam Multiple open skin ulcers around left gluteal region with hyperemia, I have not noticed any purulent drainage Lower extremity without any signs of edema Abdomen distended, bloated, nontender S1, S2 sinus bradycardia Thick supple neck Hard to assess JVD Bilateral assisted breath sounds BiPAP settings 20/8, good tidal volume, Data : 10/28/19 18:46 10/28/19 18:46 Micro: Microbiology 10/28/19 18:47 Blood Culture - Preliminary Blood SPECIMEN COLLECTED 10/28/19 18:46 Blood Culture - Preliminary Blood SPECIMEN COLLECTED A&P Assessment and plan (1) Bacteremia: Patient spiked fever 2 days ago 102 He was treated with ciprofloxacin Since then he has been afebrile, currently no leukocytosis, he has sinus bradycardia with normal blood pressure Most likely source of infection is open skin wound around left gluteal region and urological Patient is denying dysuria, he carries history of BPH, he has normal creatinine without leukocytosis Urine culture is growing staph aureus: It is very unusual, no recent Little catheter placement, no recent colonoscopy or cystoscopy, will get renal ultrasound to rule out hydronephrosis Blood culture 4/4 gram-positive cocci: Monitor for signs of sepsis in ICU I will start him on vancomycin and gentamicin as an empirical treatment for endocarditis Get echo in the am If his blood cultures as staph aureus Mediport will need to be removed He has received Zosyn in the ER, I would not continue anaerobic or gram-negative coverage at this point Status: Acute (2) Skin ulcer: Multiple skin ulcers at left gluteal region with mild hyperemia without purulent drainage, management as stated above Status: Acute (3) Acute hypercapnic respiratory failure: Acute hypercapnic respiratory failure with underlying CHF exacerbation Tolerating BiPAP His baseline bicarb is on 29, baseline PCO2 seems to be around 50-54 He will need sleep study on outpatient setting He is not on narcotics at home He has nonpitting edema with cushingoid appearance, I am not sure if hypothyroidism is contributing towards his symptoms Check TSH Status: Acute (4) Hypothyroidism: Dr. Ornelas recently started him on levothyroxine We will follow-up with the TSH level Status: Acute (5) Sinus bradycardia: Hold atenolol, blood pressure ranging between 100 to 120 mmHg, he is awake alert Status: Acute (6) Psoriasis: Status: Acute (7) CHF exacerbation: Preserved ejection fraction heart failure I believe is secondary to undiagnosed sleep apnea Would avoid using Lasix because of soft blood pressure at this point Clinically he has nonpitting edema Status: Acute Additional A&P Information DVT prophylaxis: Lovenox Consistent carb diet Type 2 diabetes: Moderate sliding scale BPH: Continue tamsulosin Hyperkalemia: Hold spironolactone Attestations Medical Necessity Statement*: Anticipating stay in the hospital cross more than 2 midnights currently need IV antibiotics and need echo in the morning to rule out endocarditis Time Spent in Patient Care: 60mins Coding Level of Care Code Acute Newspaper Photo Editor for Chg Fwd Diagnoses Bacteremia R78.81 Skin ulcer L98.499 Acute hypercapnic respiratory failure J96.02 Hypothyroidism E03.9 Sinus bradycardia R00.1 Psoriasis L40.9 CHF exacerbation I50.9
[2019-10-28 21:19] LABS: Troponin 5 2HR 15.55 ng/L (0-15); Troponin 5 2HR Delta 2.55 ABS# (0-10)
[2019-10-28] MEDS: enoxaparin 40 mg/0.4 mL Syringe SUBCUT (23:32)
[2019-10-28 23:53] LABS: Thyroid Stimulating Hormone 2.34 uIU/mL (0.27-4.20)
--- NOTE | 2019-10-28 23:53 | PC.PHAR ---
Vancomycin is dosed at 1000mg IVPB every 12 hours to produce a predicted trough level of 18.94 (population based pharmacokinetic analysis). A trough level has been ordered from the lab to be obtained before the fourth dose to confirm and adjust if needed.
[2019-10-29] VITALS (25 sets, daily range): BP systolic 124–165; BP diastolic 52–101; PULSE 49–76; RESP 13–36; TEMP 36.4–36.7; O2SAT 91–99
--- NOTE | 2019-10-29 | PC.PHAR ---
Gentamicin is dosed at 100mg IVPB every 8 hours with peak and trough levels to be obtained around the third dose.
[2019-10-29 00:07] LABS: Add Urine Culture? Yes; Bacteria Urine 2+; Bilirubin Urine Neg (NEGATIVE); Blood Urine Neg (Negative); Calcium Oxalate Crystals Urine 25-40 /hpf; Glucose Urine UA Norm (Normal); Ketones Urine Negative (Negative); Leukocyte Esterase Urine 2+ (Negative); Nitrate Urine Negative (Negative); Protein Urine Trace (Negative); RBC Urine 0-4 /hpf (0-2); Specific Gravity, Urine 1.025 (1.005-1.030); Squamous Epithelial Cell Urine 0-4 (0-5); Urine Appearance Cloudy (CLEAR); Urine Color Yellow (Yellow); Urobilinogen Urine Norm (Negative); WBC Urine 55-80 /hpf (0-5); pH Urine 5 (5-7)
[2019-10-29] MEDS: vancomycin 1,000 MG in sodium chloride 0.9% 250 ML 250 MG IV ×3 (00:14→23:39)
--- NOTE | 2019-10-29 00:27 | PC.NURSE ---
2229 Report taken from [employer]. Patient brought to room via stretcher by Carley. In no apparent distress. Transferred to ICU bed and connected to monitors. Patient is bradycardic and has been in ER as well per report given. He is currently asymptomatic and is resting comfortably. Will continue to monitor. Bed in lowest position, call light in place. 0000 Accessed patient's port-a-cath. Site was cleaned with chloraprep. Port-a-cath needle used to access, good blood return. Port was flushed. Patient tolerated well.
--- NOTE | 2019-10-29 01:01 | ECG_ITS ---
Measurements Intervals [place] Rate: 46 P: 64 LA: 182 QRS: 49 QRSD: 101 T: 104 QT: 421 QTc: 371 SINUS BRADYCARDIA NONSPECIFIC T-WAVE ABNORMALITY WARNING: DATA QUALITY MAY AFFECT INTERPRETATION INTERPRETATION BASED ON A DEFAULT AGE OF 40 YEARS Compared to ECG 10/26/2019 13:28:53 Sinus rhythm no longer present Possible ischemia no longer present T-wave abnormality still present Electronically Signed On 10-29-2019 21:08:30 CDT by Sariah Donnelly M.D. [id number]
[2019-10-29 01:37] LABS: Troponin 5 6HR 11.88 ng/L (0-15)
[2019-10-29 02:13] LABS: Troponin 5 6HR Delta -1.12 ng/L (0-12)
[2019-10-29] MEDS: ipratropium-albuterol 3 mL Neb INHALATION ×3 (02:16→19:47)
--- NOTE | 2019-10-29 04:23 | PC.NURSE ---
Patient has had low urine output since arriving on the unit. Per Dr. Tahcker order this nurse performed a bladder scan. There was 0 mL of urine noted in the bladder. Will continue to monitor.
[2019-10-29 05:13] LABS: ABG PH Result 7.27 (7.35-7.45); Arterial Blood Gas Hematocrit 33.6 % (42-52); Base Excess ABG 0.1 mmol/L (-2.0-2.0); Blood Gas Allen Test Pos; Blood Gas Sample Site Radial, right; Blood Gas Sample Type Arterial; HCO3 ABG 27.9 mmol/L (22-26); Oxygen Device BIPAP; PO2 ABG 85.1 mmHg (80.0-100.0)
[2019-10-29 05:15] LABS: ABG PCO2 60.7 mmHg (35-45)
[2019-10-29 05:29] LABS: Basophils % 0.2 %; Hematocrit 37.3 % (42.0-52.0); Hemoglobin 10.8 g/dL (11.7-16.6); Lymphocytes # 0.4 10^3/uL (0.8-4.8); Lymphocytes % 7.3 %; Mean Corpuscular Hemoglobin 30.3 pg (28.0-34.0); Mean Corpuscular Volume 104.8 fL (80-94); Mean Platelet Volume 10.7 fL (7.4-10.4); Monocytes # 0.1 10^3/uL (0.2-0.9); Monocytes % 2.8 %; Neutrophils # 4.5 10^3/uL (1.8-7.7); Neutrophils % 89.3 %; Nucleated Red Blood Cells % 0 %; Platelet Count 185 10^3/cmm (130-400); Red Blood Count 3.56 10^6/uL (4.1-5.3); Red Cell Distribution Width 14.6 % (12.1-15.1); White Blood Count 5.1 10^3/uL (4.0-10.0)
[2019-10-29 05:38] LABS: ABG PCO2 54.7 mmHg (35-45); ABG PH Result 7.32 (7.35-7.45); Base Excess ABG 0.9 mmol/L (-2.0-2.0); HCO3 ABG 27.9 mmol/L (22-26)
[2019-10-29 05:39] LABS: Arterial Blood Gas Hematocrit 35.6 % (42-52); BIPAP 16/8; Blood Gas Allen Test pos; Oxygen Device bipap
[2019-10-29 06:01] LABS: Anion Gap 17.7 (5-19); Blood Urea Nitrogen 51 mg/dL (8-23); Calcium 8.9 mg/dL (8.5-10.5); Carbon Dioxide 23 mmol/L (22-29); Chloride 99 mmol/L (98-107); Glucose 158 mg/dL (65-115); Osmolality Calculated 278 mOsm/kg (285-295); Sodium 133 mmol/L (136-145)
[2019-10-29 06:07] LABS: Potassium 6.7 mmol/L (3.5-5.1)
--- NOTE | 2019-10-29 06:12 | PC.NURSE ---
Lab called critical value for potassium of 6.7. Dr. Thacker notified and he will put in orders.
[2019-10-29 06:13] LABS: ABG PCO2 57.6 mmHg (35-45); ABG PH Result 7.28 (7.35-7.45); Arterial Blood Gas Hematocrit 34.1 % (42-52); Base Excess ABG -0.2 mmol/L (-2.0-2.0); Blood Gas Allen Test Pos; Blood Gas Sample Site Radial, right; Blood Gas Sample Type Arterial; HCO3 ABG 27.3 mmol/L (22-26); Oxygen Device BIPAP; PO2 ABG 79.8 mmHg (80.0-100.0)
[2019-10-29] MEDS: calcium gluconate 0.1 gm/mL 10% SDV 10mL 1 GM IVP (06:47)
[2019-10-29] MEDS: dextrose 50% syringe 50 mL 25 ML IVP (06:48)
[2019-10-29] MEDS: FUROsemide 10 mg/mL SDV 2mL 20 MG IVP (06:48)
[2019-10-29] MEDS: sodium polystyrene sulfonate 15 gm/60 mL Btl PO (06:48)
[2019-10-29] MEDS: insulin regular-human 10 UNIT in SYRINGE 1 EACH IVP (06:54)
[2019-10-29] MEDS: tamsulosin 0.4 mg Capsule PO (08:30)
[2019-10-29] MEDS: atorvastatin 40 mg Tablet 20 MG PO (08:30)
[2019-10-29] MEDS: levothyroxine 50 mcg Tablet PO (08:30)
[2019-10-29] MEDS: latanoprost 0.005% Op Soln 2.5 mL Btl 1 DROP EYE-BOTH ×2 (08:30→20:29)
--- NOTE | 2019-10-29 10:21 | P.PN_ITS ---
Subjective Subjective: Interval history: Chart extensively reviewed, hemodynamically stable though noted to be bradycardic overnight, afebrile. Resting in bed, on BiPAP (FiO2-30%), very pleasant. Requested additional blood cx to be drawn from port-A-cath site. HR seems to be more stable. Medications: Reviewed: Yes Medication Review Details: Active Medications Generic Name Dose Route Start Last Admin Trade Name Freq PRN Reason Stop Dose Admin Albuterol/Ipratrop ium 3 ml 10/28/19 22:46 10/29/19 02:16 Duoneb INHALATION 3 ml Q6H.RESPIRATORY P RN Administration SHORTNESS OF ELIUD TH Atorvastatin Calci um 20 mg 10/29/19 09:00 10/29/19 08:30 Lipitor PO 20 mg DAILY ANTONIA Administration Enoxaparin Sodium 40 mg 10/28/19 22:46 10/28/19 23:32 Lovenox SUBCUT 40 mg Q24H ANTONIA Administration Vancomycin HCl 1,0 00 mg/ 250 mls @ 250 mls /hr 10/29/19 00:00 10/29/19 01:14 Sodium Chloride IV Infused Q12H ANTONIA Infusion Protocol As Directed Gentamicin Sulfate 100 mg/ 102.5 mls @ 100 m ls/hr 10/29/19 01:00 10/29/19 09:50 Sodium Chloride IV 100 mls/hr Q8H ANTONIA Administration As Directed Latanoprost 1 drop 10/29/19 09:00 10/29/19 09:50 Xalatan EYE-BOTH Not Given DAILY ANTONIA Levothyroxine Sodi um 50 mcg 10/29/19 09:00 10/29/19 08:30 Synthroid PO 50 mcg DAILY ANTONIA Administration Tamsulosin HCl 0.4 mg 10/29/19 09:00 10/29/19 08:30 Flomax PO 0.4 mg DAILY ANTONIA Administration No Known Allergies Allergy (Verified 10/28/19 17:59) Vitals/I&O/Wt Last Vital Signs Temp 98.1 F 10/29/19 02:32 Pulse 63 10/29/19 09:38 Resp 19 H 10/29/19 06:06 BP 140/64 10/29/19 06:06 Pulse Ox 95 10/29/19 09:38 10/28/19 10/29/19 10/29/19 22:59 06:59 14:59 Intake Total 150 / 150 352.5 / 502.5 Output Total 200 / 200 Balance 150 / 150 152.5 / 302.5 Weight last 48 hrs Weight 113.852 kg Physical Exam Const: COMMON NORMALS: no acute distress, patient oriented x3 and alert GENERAL APPEARANCE: cooperative and comfortable NUTRITIONAL APPEARANCE: obese morbidly obese ORIENTATION/CONSCIOUSNESS: Yes awake HENMT: COMMON NORMALS: normocephalic, atraumatic, hearing grossly normal bilaterally and moist oral mucous membranes HEAD & SCALP: normocephalic and atraumatic TEETH & GINGIVA: Yes edentulous Eye: COMMON NORMALS: Equal, round and reactive pupils present, EOMs intact bilaterally and conjunctivae normal CONJUNCTIVA: Yes conjunctivae normal PUPIL: Yes Equal, round and reactive pupils present Neck/C-Spine: COMMON NORMALS: full ROM GENERAL: Yes normal visual inspection and Yes trachea midline Chest: CHEST: Yes Symmetrical chest wall rise and Yes Vascular access present (port-A-cath on L) Resp: COMMON NORMALS: normal respiratory effort, No retractions and No use of accessory muscles EFFORT & INSPECTION: Yes able to speak in complete sentences, Yes symmetric chest movement and No tachypneic AUSCULTATION: diminished lung sounds OTHER: -on BiPAP (30%/20/8) -Auscultation limited by body habitus Cardio: COMMON NORMALS: regular rate, regular rhythm, S1 normal heart sound present, S2 normal heart sound present and No murmurs present (Cardio) RATE: regular rate and bradycardic (intermittently) RHYTHM: regular rhythm HEART SOUNDS: S1 normal heart sound present and S2 normal heart sound present GI: COMMON NORMALS: Normal to inspection, nondistended, normoactive bowel sounds present, Soft to palpation and non-tender INSPECTION: Yes central obesity PALPATION: Yes Soft to palpation RECTAL EXAM: Yes other (skin tag x 1) : BLADDER/KIDNEY EXAM: Yes catheter in place Catheter type (Male): urethral Back/Pelvis: COMMON NORMALS: thoracic and lumbar spine normal to inspection Extremity: COMMON NORMALS: normal to inspection, full ROM, no clubbing, cyanosis or edema and no pedal edema Neuro: COMMON NORMALS: patient oriented x3, moves all extremities, no focal motor deficits and no sensory deficits noted SENSORIUM/ORIENTATION: Yes alert Psych: COMMON NORMALS: mental status grossly normal, Normal thought process present, cooperative, normal affect and speech normal SPEECH: Yes normal speech THOUGHT PROCESS: Normal thought process present Skin: COMMON NORMALS: no rashes or lesions noted, no jaundice, no petechiae and no mottling NARRATIVE SKIN EXAM: -has noted well circumscribed lesion on R gluteal area just medial to gluteal cleft, no drainage, minimal erythema GENERAL SKIN EXAM: no rashes or lesions noted Urinary Catheter Management^: Little: Cath Placed During This Visit: yes Urethral Indwelling: Yes Reason for Continuing Indwelling Catheter: Accurate Measurement of Urinary Output in Critically Ill Patients Urinary Catheter Date of Insertion: 10/29/19 Urinary Catheter Time of Insertion: 06:42 Data : 10/29/19 05:15 10/29/19 05:15 Micro: Microbiology 10/28/19 18:47 Blood Culture - Preliminary Blood SPECIMEN COLLECTED 10/28/19 18:46 Blood Culture - Preliminary Blood SPECIMEN COLLECTED A&P Assessment and plan (1) Bacteremia: -Noted to have 4 out of 4 bottles of blood cultures done on 10/25 + for gram-positive cocci, pending ID and sensitivity. 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, currently in remission -Repeat set of blood cultures ordered from peripheral source as well as from Port-A-Cath source -We will continue empiric IV vancomycin at this time, discontinue gentamicin particularly due to potential for nephrotoxicity -Echo: limited study, EF=55%, G2DD, may need to discuss getting LUPE to definitely r/o vegetation; has no history of prosthetic valve placement, no recent instrumentation including GI/ -Afebrile so far, no leukocytosis -Continue to monitor vital signs closely -had been on ciprofloxacin; received dose of Zosyn, doxycycline in ED -renal US unremarkable Status: Acute (2) Cystitis: -previously found to have UA indicative of infection (10/25), urine cx-staph aureus -repeat UA shows persistent infection, repeat urine cx pending -on Vanc Status: Acute (3) Sinus bradycardia: -likely medication induced as he in on BB; on hold -telemetry monitoring -asymptomatic Status: Acute (4) Acute hypercapnic respiratory failure: -Patient is oxygen dependent at baseline, 3 L requirement -ABGs noted, done while on BiPAP -Continue supplemental oxygen as needed; wean to baseline if possible -has prior hx of lung cancer as noted above -likely has undiagnosed MARBIN; sleep study as outpatient -closely monitor respiratory status Status: Acute (5) BPH (benign prostatic hyperplasia): -on Flomax Status: Chronic Qualifiers: Lower urinary tract symptom presence: unspecified whether lower urinary tract symptoms present Qualified Code(s): N40.0 - Benign prostatic hyperplasia without lower urinary tract symptoms (6) Heart failure with preserved ejection fraction: -BNP-972 -last Echo on record (2017): EF=55-60%, G1DD, mild LVH, trace to mild TR -required BiPAP initially -CXR with noted cardiomegaly, -received 20 mg dose of Lasix, may need additional diuresis -monitor Is & Os Status: Acute Qualifiers: Heart failure chronicity: acute on chronic Qualified Code(s): I50.33 - Acute on chronic diastolic (congestive) heart failure (7) Hypertension: Status: Chronic Qualifiers: Hypertension type: essential hypertension Qualified Code(s): I10 - Essential (primary) hypertension (8) Hypothyroidism: -on levothyroxine, TSH wnl Status: Chronic Qualifiers: Hypothyroidism type: unspecified Qualified Code(s): E03.9 - Hypothyroidism, unspecified (9) Hyperlipidemia: -on statin Status: Chronic Qualifiers: Hyperlipidemia type: unspecified Qualified Code(s): E78.5 - Hype rlipidemia, unspecified (10) Morbid obesity: -BMI-41 kg/m2 Status: Chronic (11) Depression: Status: Chronic Qualifiers: Depression Type: unspecified Qualified Code(s): F32.9 - Major depressive disorder, single episode, unspecified (12) Glaucoma: Status: Chronic Qualifiers: Glaucoma type: unspecified Laterality: unspecified laterality Qualified Code(s): H40.9 - Unspecified glaucoma (13) Lung cancer: -no evidence of distant metastasis per PET scan in 06/2019 -in remission -f/u with Dr. Ornelas Status: Chronic Qualifiers: Laterality: right Lung location: upper lobe of lung Qualified Code(s): C34.11 - Malignant neoplasm of upper lobe, right bronchus or lung (14) Macrocytic anemia: -Has a chronic microcytic anemia, acutely presenting with macrocytic anemia -Baseline hemoglobin is around 12 -continue to monitor H/H -check folate, vitamin B12 -had colonoscopy done in 11/2018 Status: Acute (15) Chronic kidney disease: -has some degree of CKD, unknown stage -superimposed BOOGIE -baseline Cr around 0.9 -monitor renal function, avoid nephrotoxins, renally dose meds Status: Acute Qualifiers: Chronic kidney disease stage: unspecified stage Qualified Code(s): N18.9 - Chronic kidney disease, unspecified Additional A&P Information -Hyperkalemia; monitor K -cardiac diet as tolerated -DVT ppx with Lovenox -Dispo: home -Code status: FULL code -transfer to [facility] Attestations Medical Necessity Statement*: Patient requires hospitalization for continued management of bacteremia on broad-spectrum IV antibiotics pending further work- up. Time Spent in Patient Care: Greater than 35 minutes (>than 50% of time spent in counselling and/or direct pt care on unit) . Coding Level of Care Code Acute Machine Set Up Technician for g Fwd Exam Comprehensive Diagnoses Bacteremia R78.81 Cystitis N30.90 Sinus bradycardia R00.1 Acute hypercapnic respiratory failure J96.02 BPH (benign prostatic hyperplasia) N40.0 Lower urinary tract symptom presence: unspecified whether lower urinary tract symptoms present Heart failure with preserved ejection fraction I50.33 Heart failure chronicity: acute on chronic Hypertension I10 Hypertension type: essential hypertension Hypothyroidism E03.9 Hypothyroidism type: unspecified Hyperlipidemia E78.5 Hyperlipidemia type: unspecified Morbid obesity E66.01 Depression F32.9 Depression Type: unspecified Glaucoma H40.9 Glaucoma type: unspecified Laterality: unspecified laterality Lung cancer C34.11 Laterality: right Lung location: upper lobe of lung Macrocytic anemia D53.9 Chronic kidney disease N18.9 Chronic kidney disease stage: unspecified stage
[2019-10-29] MEDS: acetaminophen 325 mg Tablet 650 MG PO (16:18)
--- NOTE | 2019-10-29 18:40 | PC.NURSE ---
Discussed with Dr Andrade, on unit, pt seems to beem 100% alert and oriented. But if you speak to him long enough there is a touch of confusion or memory loss. He told his on the phone that he had a tube in his bottom. informed otherwise, when she called this nurse, pt has cadet cath.
--- NOTE | 2019-10-29 19:19 | PC.NURSE ---
Report faxed to [facility]. Verbal report given to RIZWAN Mclaughlin. All questions answered.
[2019-10-29 19:38] LABS: Potassium 5.5 mmol/L (3.5-5.1)
[2019-10-29] MEDS: enoxaparin 40 mg/0.4 mL Syringe SUBCUT (22:12)
[2019-10-29] MEDS: phenazopyridine 100 mg Tablet PO (22:12)
--- NOTE | 2019-10-29 22:29 | PC.NURSE ---
Report given to RIZWAN Mclaughlin. Patient transported to Room 111 via wheelchair with all of his personal belongings including his wallet. Nurse at bedside. Patient safely transported to new bed. Call light in place. Nursing at bedside.
--- NOTE | 2019-10-29 22:46 | USCV_ITS ---
Venkat Cherry Age: 79 Gender: M : 1940 Exam Date: 10/29/2019 05:42 Ordering Phys: Tita Thacker MD Technologist: Esther Stone Exam Location: [facility] [place] Indication: GRAM POSITIVE BACTEREMIA BP: 126 / 58 HR: 48 Rhythm: Sinus Technical Quality: Very technically difficult study MEASUREMENTS (Male / Female) Normal Values 2D ECHO LV Diastolic Diameter PLAX 4.7 cm 4.2 - 5.9 / 3.9 - 5.3 cm LV Systolic Diameter PLAX 2.7 cm LV Chamber Size 3.8 cm IVS Diastolic Thickness 1.0 cm 0.6 - 1.0 / 0.6 - 0.9 cm IVS Systolic Thickness 1.8 cm LVPW Diastolic Thickness 1.4 cm 0.6 - 1.0 / 0.6 - 0.9 cm LVPW Systolic Thickness 1.8 cm RV Chamber Size 3.0 cm LVOT Diameter 2.1 cm LV Ejection Fraction 2D Teich 73.7 % LA Diameter 5.2 cm LA Width 3.8 cm LA Height 5.1 cm RA Width 3.8 cm RA Height 4.4 cm Aorta at Sinotubular Diameter 2.9 cm M-MODE LV Diastolic Diameter MM 5.7 cm 4.2 - 5.9 / 3.9 - 5.3 cm LV Systolic Diameter MM 4.3 cm LV Ejection Fraction MM Teich 46.7 % IVS Diastolic Thickness MM 1.2 cm 0.6 - 1.0 / 0.6 - 0.9 cm IVS Systolic Thickness MM 1.5 cm LVPW Diastolic Thickness MM 1.5 cm 0.6 - 1.0 / 0.6 - 0.9 cm LVPW Systolic Thickness MM 1.7 cm RV Diastolic Diameter MM 1.4 cm Aortic Annulus Diameter 3.3 cm LA Ao Ratio MM 1.5 MV E Point Septal Separation 0.9 cm DOPPLER AV Peak Velocity 151.0 cm/s LVOT Peak Velocity 74.0 cm/s AV Area Cont Eq vti 2.1 cm squared AV Area Cont Eq pk 1.6 cm squared MV Area PHT 3.7 cm squared Mitral E to A Ratio 1.3 MV E' Velocity 8.0 cm/s Mitral E to MV E' Ratio 11.7 Mitral E to LV E' Lateral Ratio 10.3 Mitral E to LV E' Septal Ratio 13.6 TR Peak Velocity 253.0 cm/s TR Peak Gradient 25.5 mmHg TV Peak E Velocity 49.0 cm/s PV Peak Velocity 53.0 cm/s RV Acceleration Time 0.2 s RV Ejection Time 0.4 s RV AcT/ET 0.4 FINDINGS Left Ventricle Normal left ventricular cavity size. No regional wall motion abnormalities. Normal left ventricular systolic function. Left ventricular ejection fraction is estimated at 55 %. Grade II/IV diastolic dysfunction, moderately elevated filling pressures. Right Ventricle The right ventricle is normal in size and function. Right Atrium The right atrium is normal in size. Left Atrium The left atrium is normal in size. Mitral Valve Not well visualized may be normal Aortic Valve Not well visualized probably normal Tricuspid Valve Not well visualized Pulmonic Valve Not well visualized Pericardium Normal pericardium without effusion. Aorta Normal ascending aorta dimension. CONCLUSIONS 1-Normal left ventricular cavity size. No regional wall motion abnormalities. Normal left ventricular systolic function. Left ventricular ejection fraction is estimated at 55 %. Grade II/IV diastolic dysfunction, moderately elevated filling pressures. 2-Please note that due to technical difficulty perhaps poor windows this study is suboptimal, all valves are not well visualized if clinically indicated transesophageal echocardiogram will be a better modality to assess vegetation 3-There is no pericardial effusion. 4-Due to suboptimal quality study it cannot be compared with prior transthoracic echocardiogram Tita Obregon MD (Electronically Signed) Final Date: 29 October 2019 15:02 S
--- NOTE | 2019-10-29 23:13 | US_ITS ---
WS: [id number] RENAL ULTRASOUND HISTORY: Concern for hydronephrosis COMPARISON: None available. TECHNIQUE: 2-D and color Doppler imaging of the kidney submitted. Right kidney: 11.2 cm x 6.4 cm x 5.4 cm. Normal echogenicity with no hydronephrosis or mass. Left kidney: 12.9 cm x 6.7 cm x 7.6 cm. Normal echogenicity with no hydronephrosis or mass. Aorta: Poorly visualized. Urinary Bladder: Mild distention. No intraluminal filling defect. US/US renal BI* [id number] IMPRESSION: Normal renal ultrasound. No hydronephrosis.
[2019-10-30] VITALS (16 sets, daily range): BP systolic 132–159; BP diastolic 46–87; PULSE 58–97; RESP 12–24; TEMP 36.4–37.3; O2SAT 90–96
--- NOTE | 2019-10-30 01:15 | PC.NURSE ---
2200 received patient to room. Patient pleasant, talkative and denies complaints. Patient spoke with about transfer and is in great spirits.
--- NOTE | 2019-10-30 02:23 | PC.NURSE ---
0200 Patient awake a bit more restless, Lung Sounds are coarse, SPO2 89-92% discussed need for bipap and patient agreed for Bipap. RT made aware and bipap applied.
[2019-10-30 05:16] LABS: Basophils % 0.1 %; Eosinophils % 0.1 %; Hematocrit 35.3 % (42.0-52.0); Hemoglobin 10.8 g/dL (11.7-16.6); Lymphocytes # 0.8 10^3/uL (0.8-4.8); Lymphocytes % 8.1 %; Mean Corpuscular HGB Conc 30.6 g/dL (30.0-36.0); Mean Corpuscular Hemoglobin 30.9 pg (28.0-34.0); Mean Corpuscular Volume 100.9 fL (80-94); Mean Platelet Volume 10.8 fL (7.4-10.4); Monocytes # 0.9 10^3/uL (0.2-0.9); Monocytes % 8.9 %; Neutrophils # 8.4 10^3/uL (1.8-7.7); Neutrophils % 82.1 %; Nucleated Red Blood Cells % 0 %; Platelet Count 229 10^3/cmm (130-400); Red Cell Distribution Width 14.6 % (12.1-15.1); White Blood Count 10.2 10^3/uL (4.0-10.0)
--- NOTE | 2019-10-30 05:16 | PC.NURSE ---
0315 Urine dark jon color Pyridium started last night
[2019-10-30 05:50] LABS: Anion Gap 13.7 (5-19); Blood Urea Nitrogen 40 mg/dL (8-23); Calcium 9.2 mg/dL (8.5-10.5); Carbon Dioxide 30 mmol/L (22-29); Chloride 103 mmol/L (98-107); Glucose 106 mg/dL (65-115); Osmolality Calculated 290 mOsm/kg (285-295); Potassium 5.7 mmol/L (3.5-5.1); Sodium 141 mmol/L (136-145)
[2019-10-30 05:54] LABS: Vitamin B12 364 pg/mL (232-1245)
[2019-10-30 06:00] LABS: Folate Level 7.3 ng/mL (4.5-32.2)
--- NOTE | 2019-10-30 06:34 | PC.NURSE ---
0630 Patient using bipap unable to wear mask
--- NOTE | 2019-10-30 09:23 | PC.CHAP ---
Pastoral Care Encounter/Spiritual Assessment Type of Contact [] Declined brand representative visit [] Patient/Family/Request visit [] Outpatient visit [] Follow-up visit [] Physician referral [] Code/Alert [x] Routine visit [] Staff referral [] Actively dying [] Patient sleeping [] Family support [] [] Out of room [] Palliative care [] [] Receiving care in room [] Pre-surgical visit [] Trauma [] Long length of stay [] ICU visit [] Other: Relational/Emotional Strength [] Patient feels connected with others/family/visitors/staff [] Distress [] Loneliness/isolation [] Abandonment Spirituality of Patient [] Person of Ebony [] Attends Congregation of their Ebony [] Believes in Prayer [] Reads Bible or Jewish materials [] There are Spiritual issues to be addressed Roundhouse Firer/Fireman Interventions [x] Prayer [] Active listening [] Non-anxious presence [] Spiritual/emotional support [] Crisis/trauma care [] Spiritual counseling [] Bereavement support [] Provided bereavement packet [] Provided Bible/devotional materials [] Provided toy/stuffed animal, coloring book to patient or family member [] Provided Communion [] Anointing/[place] [] Salvation [x] Completed spiritual assessment [] Other: Impact on Illness or Injury [] Angry [] Fearful [] Anxious [] Often cries [] Exhaustion [] Unable to work [] Unable to attend anabaptism [] Unable to walk/stand [] Unable to read [] Unable to drive [] Unable to eat/drink [] Unable to sleep [] Unable to be with family [] Patient intubated [] Other: Summary Patient rested well. Setting on side of bed, complete breakfast Time spent with patient 10 min
[2019-10-30] MEDS: levothyroxine 50 mcg Tablet PO (10:17)
[2019-10-30] MEDS: atorvastatin 40 mg Tablet 20 MG PO (10:17)
[2019-10-30] MEDS: tamsulosin 0.4 mg Capsule PO (10:18)
--- NOTE | 2019-10-30 11:58 | PC.NURSE ---
Vancomycin Trough per Pharmacy dosing Talked to Mich in pharmacy. He called and said to hold noon dose until Vancomycin Trough blood is drawn.
--- NOTE | 2019-10-30 12:13 | PC.RESP ---
Pulmonary Rehab information sent to patient.
--- NOTE | 2019-10-30 13:07 | P.PN_ITS ---
Subjective Subjective: Interval history: Had 800 mL urine output overnight, oxygen requirement down to 2.5 L nasal cannula, heart rate improved, afebrile, noticed increase in leukocytosis, hyperkalemia, improved renal function. UA indicative of infection so we will add ceftriaxone. Very talkative but quite confused. Medications: Reviewed: Yes Medication Review Details: Active Medications Generic Name Dose Route Start Last Admin Trade Name Freq PRN Reason Stop Dose Admin Acetaminophen 650 mg 10/29/19 15:52 10/29/19 16:18 Tylenol PO 650 mg Q6H PRN Administration MILD PAIN Albuterol/Ipratrop ium 3 ml 10/28/19 22:46 10/29/19 19:47 Duoneb INHALATION 3 ml Q6H.RESPIRATORY P RN Administration SHORTNESS OF ELIUD TH Atorvastatin Calci um 20 mg 10/29/19 09:00 10/30/19 10:17 Lipitor PO 20 mg DAILY ANTONIA Administration Enoxaparin Sodium 40 mg 10/28/19 22:46 10/29/19 22:12 Lovenox SUBCUT 40 mg Q24H ANTONIA Administration Vancomycin HCl 1,0 00 mg/ 250 mls @ 250 mls /hr 10/29/19 00:00 10/30/19 00:40 Sodium Chloride IV Infused Q12H ANTONIA Infusion Protocol As Directed Ceftriaxone Sodium 1,000 mg/ 50 mls @ 100 mls/ hr 10/30/19 13:30 Sodium Chloride IV Q24H ANTONIA Protocol Latanoprost 1 drop 10/29/19 21:00 10/29/19 20:29 Xalatan EYE-BOTH 1 drop BEDTIME ANTONIA Administration Levothyroxine Sodi um 50 mcg 10/29/19 09:00 10/30/19 10:17 Synthroid PO 50 mcg DAILY ANTONIA Administration Phenazopyridine HC l 100 mg 10/29/19 19:01 10/29/19 22:12 Pyridium PO 100 mg TID PRN Administration DYSURIA Tamsulosin HCl 0.4 mg 10/29/19 09:00 10/30/19 10:18 Flomax PO 0.4 mg DAILY ANTONIA Administration No Known Allergies Allergy (Verified 10/28/19 17:59) Vitals/I&O/Wt Last Vital Signs Temp 97.5 F L 10/30/19 04:00 Pulse 61 10/30/19 10:24 Resp 20 H 10/30/19 10:24 BP 152/87 10/30/19 09:02 Pulse Ox 93 10/30/19 10:24 10/29/19 10/30/19 10/30/19 22:59 06:59 14:59 Intake Total 450 / 1602.500 370 / 1972.500 560 / 560 Output Total 1175 / 1175 800 / 1975 Balance -725 / 427.500 -430 / -2.500 560 / 560 Weight last 48 hrs Weight 113.852 kg Physical Exam Const: COMMON NORMALS: no acute distress and alert GENERAL APPEARANCE: cooperative and comfortable NUTRITIONAL APPEARANCE: obese morbidly obese ORIENTATION/CONSCIOUSNESS: Yes awake and Yes confused OTHER: -sitting in chair by bedside HENMT: COMMON NORMALS: normocephalic, atraumatic, hearing grossly normal bilaterally and moist oral mucous membranes HEAD & SCALP: normocephalic and atraumatic TEETH & GINGIVA: Yes edentulous Eye: COMMON NORMALS: Equal, round and reactive pupils present, EOMs intact bilaterally and conjunctivae normal CONJUNCTIVA: Yes conjunctivae normal PUPIL: Yes Equal, round and reactive pupils present Neck/C-Spine: COMMON NORMALS: full ROM GENERAL: Yes normal visual inspection and Yes trachea midline Chest: CHEST: Yes Symmetrical chest wall rise and Yes Vascular access present (port-A-cath on L) Resp: COMMON NORMALS: normal respiratory effort, No retractions and No use of accessory muscles EFFORT & INSPECTION: Yes able to speak in complete sentences, Yes symmetric chest movement and Yes tachypneic AUSCULTATION: diminished lung sounds OTHER: -on 2 L NC -Auscultation limited by body habitus Cardio: COMMON NORMALS: regular rate, regular rhythm, S1 normal heart sound present, S2 normal heart sound present and No murmurs present (Cardio) RATE: regular rate RHYTHM: regular rhythm HEART SOUNDS: S1 normal heart sound present and S2 normal heart sound present GI: COMMON NORMALS: Normal to inspection, nondistended, normoactive bowel sounds present, Soft to palpation and non-tender INSPECTION: Yes central obesity PALPATION: Yes Soft to palpation RECTAL EXAM: Yes other (skin tag x 1) : BLADDER/KIDNEY EXAM: Yes catheter in place Back/Pelvis: COMMON NORMALS: thoracic and lumbar spine normal to inspection Extremity: COMMON NORMALS: normal to inspection, full ROM, no clubbing, cyanosis or edema and no pedal edema Neuro: COMMON NORMALS: moves all extremities, no focal motor deficits and no sensory deficits noted SENSORIUM/ORIENTATION: Yes alert Psych: COMMON NORMALS: mental status grossly normal, Normal thought process present, cooperative, normal affect and speech normal SPEECH: Yes normal speech THOUGHT PROCESS: Normal thought process present Skin: COMMON NORMALS: no rashes or lesions noted, no jaundice, no petechiae and no mottling NARRATIVE SKIN EXAM: -has noted well circumscribed lesion on R gluteal area just medial to gluteal cleft, no drainage, minimal erythema GENERAL SKIN EXAM: no rashes or lesions noted Urinary Catheter Management^: Little: Cath Placed During This Visit: yes Urethral Indwelling: Yes Reason for Continuing Indwelling Catheter: Accurate Measurement of Urinary Output in Critically Ill Patients Urinary Catheter Date of Insertion: 10/29/19 Urinary Catheter Time of Insertion: 06:42 Data : 10/30/19 04:28 10/30/19 04:28 Micro: Microbiology 10/28/19 18:47 Blood Culture - Preliminary Blood NEGATIVE TO DATE 10/28/19 18:46 Blood Culture - Preliminary Blood NEGATIVE TO DATE 10/29/19 13:54 Blood Culture - Preliminary Blood SPECIMEN COLLECTED 10/29/19 13:40 Blood Culture - Preliminary Blood SPECIMEN COLLECTED A&P Assessment and plan (1) Bacteremia: -Noted to have 4 out of 4 bottles of blood cultures done on 10/25 + for sta ph aureus. 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 Prelim negative (from both sources) -We will continue empiric IV vancomycin at this time, discontinue gentamicin particularly due to potential for nephrotoxicity. Added ceftriaxone for appropriate coverage of UTI -Echo: limited study, EF=55%, G2DD, may need to discuss getting LUPE to definitely r/o vegetation; has no history of prosthetic valve placement, no recent instrumentation including GI/ -Afebrile so far, mild leukocytosis -Continue to monitor vital signs closely -had been on ciprofloxacin; received dose of Zosyn, doxycycline in ED -renal US unremarkable Status: Acute (2) Cystitis: -previously found to have UA indicative of infection (6/8), urine cx-staph aureus -repeat UA shows persistent infection, repeat urine cx prelim negative -on Vanc, added ceftriaxone Status: Acute (3) Sinus bradycardia: -likely medication induced as he in on BB; on hold, improved -telemetry monitoring -asymptomatic Status: Acute (4) Acute hypercapnic respiratory failure: -Patient is oxygen dependent at baseline, 3 L requirement -ABGs noted, done while on BiPAP -Continue supplemental oxygen as needed; wean to baseline if possible -has prior hx of lung cancer as noted above -likely has undiagnosed MARBIN; sleep study as outpatient -closely monitor respiratory status Status: Acute (5) BPH (benign prostatic hyperplasia): -on Flomax Status: Chronic Qualifiers: Lower urinary tract symptom presence: unspecified whether lower urinary tract symptoms present Qualified Code(s): N40.0 - Benign prostatic hyperplasia without lower urinary tract symptoms (6) Heart failure with preserved ejection fraction: -BNP-972 -last Echo on record (2017): EF=55-60%, G1DD, mild LVH, trace to mild TR -required BiPAP initially -CXR with noted cardiomegaly, -received 20 mg dose of Lasix, may need additional diuresis -monitor Is & Os Status: Acute Qualifiers: Heart failure chronicity: acute on chronic Qualified Code(s): I50.33 - Acute on chronic diastolic (congestive) heart failure (7) Hypertension: Status: Chronic Qualifiers: Hypertension type: essential hypertension Qualified Code(s): I10 - Essential (primary) hypertension (8) Hypothyroidism: -on levothyroxine, TSH wnl Status: Chronic Qualifiers: Hypothyroidism type: unspecified Qualified Code(s): E03.9 - Hypothyroidism, unspecified (9) Hyperlipidemia: -on statin Status: Chronic Qualifiers: Hyperlipidemia type: unspecified Qualified Code(s): E78.5 - Hyperlipidemia, unspecified (10) Morbid obesity: -BMI-41 kg/m2 Status: Chronic (11) Depression: Status: Chronic Qualifiers: Depression Type: unspecified Qualified Code(s): F32.9 - Major depressive disorder, single episode, unspecified (12) Glaucoma: Status: Chronic Qualifiers: Glaucoma type: unspecified Laterality: unspecified laterality Qualified Code(s): H40.9 - Unspecified glaucoma (13) Lung cancer: -no evidence of distant metastasis per PET scan in 06/2019 -in remission -f/u with Dr. Ornelas Status: Chronic Qualifiers: Laterality: right Lung location: upper lobe of lung Qualified Code(s): C34.11 - Malignant neoplasm of upper lobe, right bronchus or lung (14) Macrocytic anemia: -Has a chronic microcytic anemia, acutely presenting with macrocytic anemia -Baseline hemoglobin is around 12 -continue to monitor H/H -Low normal folate, vitamin B12; start on supplementation -had colonoscopy done in 11/2018 Status: Acute (15) Chronic kidney disease: -has some degree of CKD, unknown stage -superimposed BOOGIE, improving -baseline Cr around 0.9 -continue to monitor renal function, avoid nephrotoxins, renally dose meds Status: Acute Qualifiers: Chronic kidney disease stage: unspecified stage Qualified Code(s): N18.9 - Chronic kidney disease, unspecified Additional A&P Information -Hyperkalemia; monitor K -cardiac diet as tolerated -DVT ppx with Lovenox -Dispo: home -Code status: FULL code Attestations Medical Necessity Statement*: Patient requires hospitalization for continued treatment of gram-positive bacteremia pending identification of infectious etiology, on broad-spectrum IV antibiotics. Time Spent in Patient Care: 16 - 35 minutes (>than 50% of time spent in counselling and/or direct pt care on unit) . Coding Level of Care Code Acute Furniture [employer] for Chg Fwd Exam Comprehensive Diagnoses Bacteremia R78.81 Cystitis N30.90 Sinus bradycardia R00.1 Acute hypercapnic respiratory failure J96.02 BPH (benign prostatic hyperplasia) N40.0 Lower urinary tract symptom presence: unspecified whether lower urinary tract symptoms present Heart failure with preserved ejection fraction I50.33 Heart failure chronicity: acute on chronic Hypertension I10 Hypertension type: essential hypertension Hypothyroidism E03.9 Hypothyroidism type: unspecified Hyperlipidemia E78.5 Hyperlipidemia type: unspecified Morbid obesity E66.01 Depression F32.9 Depression Type: unspecified Glaucoma H40.9 Glaucoma type: unspecified Laterality: unspecified laterality Lung cancer C34.11 Laterality: right Lung location: upper lobe of lung Macrocytic anemia D53.9 Chronic kidney disease N18.9 Chronic kidney disease stage: unspecified stage
[2019-10-30] MEDS: vancomycin 1,000 MG in sodium chloride 0.9% 250 ML 250 MG IV (13:14)
[2019-10-30 13:19] LABS: Vancomycin Trough 9.4 ug/mL (10-15)
[2019-10-30] MEDS: cyanocobalamin 1,000 mcg Tablet 1000 MCG PO (14:18)
[2019-10-30] MEDS: folic acid 1 mg Tablet PO (14:18)
[2019-10-30] MEDS: sodium polystyrene sulfonate 15 gm/60 mL Btl PO (14:18)
[2019-10-30] MEDS: cefTRIAXone 1,000 MG in sodium chloride 0.9% (plus) 50 ML 100 MG IV (14:19)
[2019-10-30] MEDS: ipratropium-albuterol 3 mL Neb INHALATION ×2 (16:21→19:52)
[2019-10-30 17:19] LABS: Blood Gas CCRB Time 2045
--- NOTE | 2019-10-30 19:39 | PC.NURSE ---
Report received from offgoing shift. Pt ambulating to bathroom. Pt requests privacy. No complaints of pain. No further needs at this time.
--- NOTE | 2019-10-30 20:29 | PC.NURSE ---
Pt back to chair from bathroom. Requesting ointment to help his arthritis, but does not want to pay for it from pharmacy after hospital stay. Explained to patient the process and that we must have a physician order. Pt unahppy, but verbalized understanding. Boil noted to left buttoks and surrounded with redness on both right and left buttocks. Pt states it has been there for awhile. Coughs, but nonproductive. Denies wanting to go to bed at this time. Pt forgetful but able to answer questions appropriately and follows commands without any issues. No further issues noted.
[2019-10-30] MEDS: enoxaparin 40 mg/0.4 mL Syringe SUBCUT (21:53)
[2019-10-30] MEDS: latanoprost 0.005% Op Soln 2.5 mL Btl 1 DROP EYE-BOTH (21:54)
[2019-10-31] VITALS (11 sets, daily range): BP systolic 131–163; BP diastolic 54–84; PULSE 74–97; RESP 17–24; TEMP 36.6–37.1; O2SAT 91–98
[2019-10-31] MEDS: vancomycin 1,000 MG in sodium chloride 0.9% 250 ML 250 MG IV ×3 (00:24→23:57)
[2019-10-31] MEDS: sodium chloride 0.9% (100 ml) 100 ML 10 ML (01:00)
[2019-10-31 03:56] LABS: Basophils % 0.4 %; Eosinophils # 0.1 10^3/uL (0.0-0.8); Eosinophils % 0.7 %; Hematocrit 36.4 % (42.0-52.0); Hemoglobin 10.9 g/dL (11.7-16.6); Lymphocytes # 0.7 10^3/uL (0.8-4.8); Lymphocytes % 8.4 %; Mean Corpuscular HGB Conc 29.9 g/dL (30.0-36.0); Mean Corpuscular Volume 100.3 fL (80-94); Mean Platelet Volume 10.8 fL (7.4-10.4); Monocytes # 0.9 10^3/uL (0.2-0.9); Monocytes % 10.8 %; Neutrophils # 6.4 10^3/uL (1.8-7.7); Neutrophils % 79.2 %; Nucleated Red Blood Cells % 0 %; Platelet Count 234 10^3/cmm (130-400); Red Blood Count 3.63 10^6/uL (4.1-5.3); Red Cell Distribution Width 14.3 % (12.1-15.1); White Blood Count 8.1 10^3/uL (4.0-10.0)
[2019-10-31 04:34] LABS: Anion Gap 15.8 (5-19); Blood Urea Nitrogen 22 mg/dL (8-23); Calcium 9.3 mg/dL (8.5-10.5); Carbon Dioxide 28 mmol/L (22-29); Chloride 99 mmol/L (98-107); Glucose 98 mg/dL (65-115); Magnesium 2.1 mg/dL (1.7-2.3); Osmolality Calculated 283 mOsm/kg (285-295); Potassium 4.8 mmol/L (3.5-5.1); Sodium 138 mmol/L (136-145)
--- NOTE | 2019-10-31 05:09 | PC.NURSE ---
Pt restless throughout the night; rested in chair. Pt denies any pain or requests.
[2019-10-31] MEDS: folic acid 1 mg Tablet PO (08:58)
[2019-10-31] MEDS: cyanocobalamin 1,000 mcg Tablet 1000 MCG PO (08:58)
[2019-10-31] MEDS: levothyroxine 50 mcg Tablet PO (08:58)
[2019-10-31] MEDS: tamsulosin 0.4 mg Capsule PO (08:58)
--- NOTE | 2019-10-31 09:01 | PC.NURSE ---
PATIENT FOUND WATSON TO BE EXTREMELY UNCOMFORTABLE. DR ARANDA ORDERED TO REMOVE WATSON AND TO CHANGE ATORVASTATIN TO BEDTIME DOSING..
--- NOTE | 2019-10-31 10:58 | PC.SOCIAL ---
Pg 2 IMM Explained to pt Pg 2 IMM. Pt verbally understands. No questions voiced. Provided pt a copy & left on pt's bedside table. Signed, dated, & timed a copy & placed in chart.
[2019-10-31] MEDS: cefTRIAXone 1,000 MG in sodium chloride 0.9% (plus) 50 ML 100 MG IV (12:42)
--- NOTE | 2019-10-31 16:08 | PM.PN ---
Subjective Subjective: Interval history: Had 900 mL urine output overnight, stable Hg, resolved leukocytosis, improved renal function. Afebrile, hypertensive though BP consistent. Sitting in chair by bedside, very talkative but confused. Little catheter removed this AM at his insistence, has been able to void. Medications: Reviewed: Yes Medication Review Details: Active Medications Generic Name Dose Route Start Last Admin Trade Name Freq PRN Reason Stop Dose Admin Acetaminophen 650 mg 10/29/19 15:52 10/29/19 16:18 Tylenol PO 650 mg Q6H PRN Administration MILD PAIN Albuterol/Ipratrop ium 3 ml 10/28/19 22:46 10/30/19 19:52 Duoneb INHALATION 3 ml Q6H.RESPIRATORY P RN Administration SHORTNESS OF ELIUD TH Atorvastatin Calci um 20 mg 10/31/19 21:00 Lipitor PO BEDTIME ANTONIA Cyanocobalamin 1,000 mcg 10/30/19 13:15 10/31/19 08:58 Vitamin B-12 PO 1,000 mcg DAILY ANTONIA Administration Enoxaparin Sodium 40 mg 10/28/19 22:46 10/30/19 21:53 Lovenox SUBCUT 40 mg Q24H ANTONIA Administration Folic Acid 1 mg 10/30/19 13:15 10/31/19 08:58 Folic Acid PO 1 mg DAILY ANTONIA Administration Vancomycin HCl 1,0 00 mg/ 250 mls @ 250 mls /hr 10/29/19 00:00 10/31/19 12:42 Sodium Chloride IV Infused Q12H ANTONIA Infusion Protocol As Directed Ceftriaxone Sodium 1,000 mg/ 50 mls @ 100 mls/ hr 10/30/19 13:30 10/31/19 13:57 Sodium Chloride IV Infused Q24H ANTONIA Infusion Protocol Latanoprost 1 drop 10/29/19 21:00 10/30/19 21:54 Xalatan EYE-BOTH 1 drop BEDTIME ANTONIA Administration Levothyroxine Sodi um 50 mcg 10/29/19 09:00 10/31/19 08:58 Synthroid PO 50 mcg DAILY ANTONIA Administration Phenazopyridine HC l 100 mg 10/29/19 19:01 10/29/19 22:12 Pyridium PO 100 mg TID PRN Administration DYSURIA Tamsulosin HCl 0.4 mg 10/29/19 09:00 06/13/20 08:58 Flomax PO 0.4 mg DAILY ANTONIA Administration No Known Allergies Allergy (Verified 10/28/19 17:59) Vitals/I&O/Wt Last Vital Signs Temp 97.9 F 10/31/19 15:21 Pulse 79 10/31/19 15:21 Resp 18 10/31/19 15:21 BP 161/68 10/31/19 15:21 Pulse Ox 94 10/31/19 15:21 10/31/19 10/31/19 10/31/19 06:59 14:59 22:59 Intake Total 370 / 1688 900 / 900 Output Total 900 / 1650 250 / 250 Balance -530 / 38 650 / 650 Physical Exam Const: COMMON NORMALS: no acute distress and alert GENERAL APPEARANCE: cooperative and comfortable NUTRITIONAL APPEARANCE: obese morbidly obese ORIENTATION/CONSCIOUSNESS: Yes awake and Yes confused OTHER: -sitting in chair by bedside HENMT: COMMON NORMALS: normocephalic, atraumatic, hearing grossly normal bilaterally and moist oral mucous membranes HEAD & SCALP: normocephalic and atraumatic TEETH & GINGIVA: Yes edentulous Eye: COMMON NORMALS: Equal, round and reactive pupils present, EOMs intact bilaterally and conjunctivae normal CONJUNCTIVA: Yes conjunctivae normal PUPIL: Yes Equal, round and reactive pupils present Neck/C-Spine: COMMON NORMALS: full ROM GENERAL: Yes normal visual inspection and Yes trachea midline Chest: CHEST: Yes Symmetrical chest wall rise and Yes Vascular access present (port-A-cath on L) Resp: COMMON NORMALS: normal respiratory effort, No retractions and No use of accessory muscles EFFORT & INSPECTION: Yes able to speak in complete sentences, Yes symmetric chest movement and Yes tachypneic AUSCULTATION: diminished lung sounds OTHER: -on 2.5 L NC -Auscultation limited by body habitus Cardio: COMMON NORMALS: regular rate, regular rhythm, S1 normal heart sound present, S2 normal heart sound present and No murmurs present (Cardio) RATE: regular rate RHYTHM: regular rhythm HEART SOUNDS: S1 normal heart sound present and S2 normal heart sound present GI: COMMON NORMALS: Normal to inspection, nondistended, normoactive bowel sounds present, Soft to palpation and non-tender INSPECTION: Yes central obesity PALPATION: Yes Soft to palpation RECTAL EXAM: Yes other (skin tag x 1) : BLADDER/KIDNEY EXAM: Yes catheter in place Back/Pelvis: COMMON NORMALS: thoracic and lumbar spine normal to inspection Extremity: COMMON NORMALS: normal to inspection, full ROM, no clubbing, cyanosis or edema and no pedal edema Neuro: COMMON NORMALS: moves all extremities, no focal motor deficits and no sensory deficits noted SENSORIUM/ORIENTATION: Yes alert Psych: COMMON NORMALS: mental status grossly normal, Normal thought process present, cooperative, normal affect and speech normal SPEECH: Yes normal speech THOUGHT PROCESS: Normal thought process present Skin: COMMON NORMALS: no rashes or lesions noted, no jaundice, no petechiae and no mottling NARRATIVE SKIN EXAM: -has noted well circumscribed lesion on R gluteal area just medial to gluteal cleft, no drainage, minimal erythema GENERAL SKIN EXAM: no rashes or lesions noted Urinary Catheter Management^: Little: Cath Placed During This Visit: yes, but has since been removed by the nurse Urethral Indwelling: Yes Reason for Continuing Indwelling Catheter: Acute Urinary Retention or Obstruction Urinary Catheter Date of Insertion: 10/29/19 Urinary Catheter Time of Insertion: 06:42 Date Urinary Catheter Removed: 10/31/19 Time Urinary Catheter Discontinued: 09:03 Data : 10/31/19 03:28 10/31/19 03:28 Micro: Microbiology 10/28/19 23:45 Urine Culture - Final Urine,Clean Catch 10/29/19 13:54 Blood Culture - Preliminary Blood NEGATIVE TO DATE 10/29/19 13:40 Blood Culture - Preliminary Blood NEGATIVE TO DATE A&P Assessment and plan (1) Bacteremia: -Noted to have 4 out of 4 bottles of blood cultures done on 10/25 + for staph aureus. 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 Prelim negative (from both sources) -We will continue empiric IV vancomycin at this time, discontinue gentamicin particularly due to potential for nephrotoxicity. Added ceftriaxone for appropriate coverage of UTI -Echo: limited study, EF=55%, G2DD, may need to discuss getting LUPE to definitely r/o vegetation; has no history of prosthetic valve placement, no recent instrumentation including GI/ -Afebrile so far, mild leukocytosis -Continue to monitor vital signs closely -had been on ciprofloxacin; received dose of Zosyn, doxycycline in ED -renal US unremarkable Status: Acute (2) Cystitis: -previously found to have UA indicative of infection (10/25), urine cx-staph aureus -repeat UA shows persistent infection, repeat urine cx prelim negative -on Vanc, ceftriaxone Status: Acute (3) Sinus bradycardia: -likely medication induced as he in on BB; on hold, improved -telemetry monitoring -asymptomatic Status: Acute (4) Acute hypercapnic respiratory failure: -Patient is oxygen dependent at baseline, 3 L requirement -ABGs noted, done while on BiPAP -Continue supplemental oxygen as needed; wean to baseline if possible -has prior hx of lung cancer as noted above -likely has undiagnosed MARBIN; sleep study as outpatient -closely monitor respiratory status Status: Acute (5) BPH (benign prostatic hyperplasia): -on Flomax Status: Chronic Qualifiers: Lower urinary tract symptom presence: unspecified whether lower urinary tract symptoms present Qualified Code(s): N40.0 - Benign prostatic hyperplasia without lower urinary tract symptoms (6) Heart failure with preserved ejection fraction: -BNP-972 -last Echo on record (2017): EF=55-60%, G1DD, mild LVH, trace to mild TR -required BiPAP initially -CXR with noted cardiomegaly, -received 20 mg dose of Lasix, may need additional diuresis -monitor Is & Os Status: Acute Qualifiers: Heart failure chronicity: acute on chronic Qualified Code(s): I50.33 - Acute on chronic diastolic (congestive) heart failure (7) Hypertension: -resume lasix, low dose hydralazine and lisinopril; titrate as needed for optimal BP control -continue to monitor vital signs Status: Chronic Qualifiers: Hypertension type: essential hypertension Qualified Code(s): I10 - Essential (primary) hypertension (8) Hypothyroidism: -on levothyroxine, TSH wnl Status: Chronic Qualifiers: Hypothyroidism type: unspecified Qualified Code(s): E03.9 - Hypothyroidism, unspecified (9) Hyperlipidemia: -on statin Status: Chronic Qualifiers: Hyperlipidemia type: unspecified Qualified Code(s): E78.5 - Hyperlipidemia, unspecified (10) Morbid obesity: -BMI-41 kg/m2 Status: Chronic (11) Depression: Status: Chronic Qualifiers: Depression Type: unspecified Qualified Code(s): F32.9 - Major depressive disorder, single episode, unspecified (12) Glaucoma: Status: Chronic Qualifiers: Glaucoma type: unspecified Laterality: unspecified laterality Qualified Code(s): H40.9 - Unspecified glaucoma (13) Lung cancer: -no evidence of distant metastasis per PET scan in 06/2019 -in remission -f/u with Dr. Ornelas Status: Chronic Qualifiers: Laterality: right Lung location: upper lobe of lung Qualified Code(s): C34.11 - Malignant neoplasm of upper lobe, right bronchus or lung (14) Macrocytic anemia: -Has a chronic microcytic anemia, acutely presenting with macrocytic anemia -Baseline hemoglobin is around 12 -continue to monitor H/H -Low normal folate, vitamin B12; start on supplementation -had colonoscopy done in 11/2018 Status: Acute (15) Chronic kidney disease: -has some degree of CKD, unknown stage -superimposed BOOGIE, resolved -baseline Cr around 0.9 -continue to monitor renal function, avoid nephrotoxins, renally dose meds Status: Acute Qualifiers: Chronic kidney disease stage: unspecified stage Qualified Code(s): N18.9 - Chronic kidney disease, unspecified Additional A&P Information -Hyperkalemia; monitor K -cardiac diet as tolerated -DVT ppx with Lovenox -Dispo: home -Code status: FULL code Attestations Medical Necessity Statement*: Patient requires hospitalization for continued IV antibiotic treatment pending completion of workup including LUPE given gram positive bactermia. Time Spent in Patient Care: 16 - 35 minutes (>than 50% of time spent in counselling and/or direct pt care on unit). Coding Level of Care Code Acute Lane Attendant for [facility] Fwd Exam Comprehensive Diagnoses Bacteremia R78.81 Cystitis N30.90 Sinus bradycardia R00.1 Acute hypercapnic respiratory failure J96.02 BPH (benign prostatic hyperplasia) N40.0 Lower urinary tract symptom presence: unspecified whether lower urinary tract symptoms present Heart failure with preserved ejection fraction I50.33 Heart failure chronicity: acute on chronic Hypertension I10 Hypertension type: essential hypertension Hypothyroidism E03.9 Hypothyroidism type: unspecified Hyperlipidemia E78.5 Hyperlipidemia type: unspecified Morbid obesity E66.01 Depression F32.9 Depression Type: unspecified Glaucoma H40.9 Glaucoma type: unspecified Laterality: unspecified laterality Lung cancer C34.11 Laterality: right Lung location: upper lobe of lung Macrocytic anemia D53.9 Chronic kidney disease N18.9 Chronic kidney disease stage: unspecified stage
[2019-10-31] MEDS: lisinopril 20 mg Tablet PO (16:47)
--- NOTE | 2019-10-31 18:40 | PC.NURSE ---
SHIFT SUMMARY PATIENT HAS NOT BEEN CONFUSED THIS SHIFT, HOWEVER HE IS STILL MILDLY CONFUSED TO SITUATION. PATIENT IS NOW REQUIRING 2.5 LNC, WEANING TO BASELINE OF 2 LNC IS STILL UNDERWAY. PATIENT WALKED TO THE END OF THE CSU HALLWAY AND BACK WITH LITTLE DIFFICULTY. PATIENT HAS VOIDED THREE TIMES SINCE WATSON CATHETER REMOVAL, HE IS NONCOMPLIANT WITH HIS URINAL AND MOSTLY USES THE TOILET. HE WAS INCONTINENT OF URINE X1 TODAY IN HIS BRIEF, WHICH HE CHANGED HIMSELF. PATIENT UNDERSTANDS HIS PLAN OF CARE AT THIS TIME AND IS AGREEABLE TO HAVING A LUPE ON SATURDAY. PATIENT'S RADHA AND SISTER IN LAW, DANK, HAVE BEEN UPDATED AND AGREE WITH HIS PLAN OF CARE.
--- NOTE | 2019-10-31 19:42 | PC.NURSE ---
Pt resting in chair. States that he is feeling much better today especially after cadet removed. Denies any needs. Pt stable. Will continue to monitor throughout shift.
[2019-10-31] MEDS: ipratropium-albuterol 3 mL Neb INHALATION (20:57)
[2019-10-31] MEDS: atorvastatin 40 mg Tablet 20 MG PO (21:49)
[2019-10-31] MEDS: hyDRALAzine 10 mg Tablet PO (21:49)
[2019-10-31] MEDS: latanoprost 0.005% Op Soln 2.5 mL Btl 1 DROP EYE-BOTH (21:49)
[2019-10-31] MEDS: enoxaparin 40 mg/0.4 mL Syringe SUBCUT (21:50)
[2019-11-01] VITALS (7 sets, daily range): BP systolic 135–172; BP diastolic 47–75; PULSE 70–101; RESP 16–24; TEMP 36.6–37.2; O2SAT 90–96
--- NOTE | 2019-11-01 05:51 | PC.NURSE ---
Pt rested well overnight. Remains forgetful at times, but easily redirected. On 2 L home O2. Boil vs abcess on left buttocks continues to cause irritation and concern for patient. IV atb (vanc, rocephin) continue. Awaiting further blood culture results.
--- NOTE | 2019-11-01 07:13 | ECG_ITS ---
Measurements Intervals [place] Rate: 67 P: 56 OK: 182 QRS: 44 QRSD: 96 T: 141 QT: 374 QTc: [address] DEVIATION AND MODERATE T-WAVE ABNORMALITY, CONSIDER LATERAL ISCHEMIA [-0.1+ mV T WAVE IN I/aVL/V5/V6] Compared to ECG 10/29/2019 01:01:36 Possible ischemia now present Sinus bradycardia no longer present T-wave abnormality still present Electronically Signed On 11-01-2019 21:07:48 CDT by Sariah Donnelly M.D. [email or web address]
--- NOTE | 2019-11-01 07:39 | PC.NURSE ---
PATIENT HAD TELEMETRY CHANGES THAT OCCURRED LAST NIGHT. EKG OBTAINED, MILD CHANGES NOTED FROM PREVIOUS EKG ON OCTOBER 27. DR ARANDA NOTIFIED. PATIENT IS ASYMPTOMATIC.
[2019-11-01] MEDS: hyDRALAzine 10 mg Tablet PO ×3 (10:00→21:51)
[2019-11-01] MEDS: levothyroxine 50 mcg Tablet PO (10:00)
[2019-11-01] MEDS: FUROsemide 40 mg Tablet PO (10:00)
[2019-11-01] MEDS: tamsulosin 0.4 mg Capsule PO (10:00)
[2019-11-01] MEDS: folic acid 1 mg Tablet PO (10:01)
[2019-11-01] MEDS: cyanocobalamin 1,000 mcg Tablet 1000 MCG PO (10:01)
[2019-11-01] MEDS: lisinopril 20 mg Tablet PO (10:01)
--- NOTE | 2019-11-01 10:55 | PM.PN ---
Subjective Subjective: Interval history: Hemodynamically stable, voiding though unable to use urinal correctly for accurate ins and outs, stable hemoglobin, leukocytosis resolved, improved and normalized renal function. Remains on dual antibiotics with ceftriaxone and vancomycin. Remains confused, almost seems to be confabulating. Case discussed with Dr. Donnelly with respect to LUPE. Medications: Reviewed: Yes Medication Review Details: Active Medications Generic Name Dose Route Start Last Admin Trade Name Freq PRN Reason Stop Dose Admin Acetaminophen 650 mg 10/29/19 15:52 10/29/19 16:18 Tylenol PO 650 mg Q6H PRN Administration MILD PAIN Albuterol/Ipratrop ium 3 ml 10/28/19 22:46 10/31/19 20:57 Duoneb INHALATION 3 ml Q6H.RESPIRATORY P RN Administration SHORTNESS OF ELIUD TH Atorvastatin Calci um 20 mg 10/31/19 21:00 10/31/19 21:49 Lipitor PO 20 mg BEDTIME ANTONIA Administration Cyanocobalamin 1,000 mcg 10/30/19 13:15 11/01/19 10:01 Vitamin B-12 PO 1,000 mcg DAILY ANTONIA Administration Enoxaparin Sodium 40 mg 10/28/19 22:46 10/31/19 21:50 Lovenox SUBCUT 40 mg Q24H ANTONIA Administration Folic Acid 1 mg 10/30/19 13:15 11/01/19 10:01 Folic Acid PO 1 mg DAILY ANTONIA Administration Furosemide 40 mg 11/01/19 08:00 11/01/19 10:00 Lasix PO 40 mg DAILY@0800 ANTONIA Administration Hydralazine HCl 10 mg 10/31/19 21:00 11/01/19 10:00 Apresoline PO 10 mg TID ANTONIA Administration Vancomycin HCl 1,0 00 mg/ 250 mls @ 250 mls /hr 10/29/19 00:00 10/31/19 23:57 Sodium Chloride IV 250 mls/hr Q12H ANTONIA Administration Protocol As Directed Ceftriaxone Sodium 1,000 mg/ 50 mls @ 100 mls/ hr 10/30/19 13:30 10/31/19 13:57 Sodium Chloride IV Infused Q24H ANTONIA Infusion Protocol Latanoprost 1 drop 10/29/19 21:00 10/31/19 21:49 Xalatan EYE-BOTH 1 drop BEDTIME ANTONIA Administration Levothyroxine Sodi um 50 mcg 10/29/19 09:00 11/01/19 10:00 Synthroid PO 50 mcg DAILY ANTONIA Administration Lisinopril 20 mg 10/31/19 16:15 11/01/19 10:01 Prinivil PO 20 mg DAILY ANTONIA Administration Phenazopyridine HC l 100 mg 10/29/19 19:01 10/29/19 22:12 Pyridium PO 100 mg TID PRN Administration DYSURIA Tamsulosin HCl 0.4 mg 10/29/19 09:00 11/01/19 10:00 Flomax PO 0.4 mg DAILY ANTONIA Administration No Known Allergies Allergy (Verified 10/28/19 17:59) Vitals/I&O/Wt Last Vital Signs Temp 98.1 F 11/01/19 07:29 Pulse 71 11/01/19 07:29 Resp 18 11/01/19 07:29 BP 135/47 11/01/19 07:29 Pulse Ox 92 11/01/19 07:29 10/31/19 11/01/19 11/01/19 22:59 06:59 14:59 Intake Total 240 / 1140 120 / 1260 360 / 360 Output Total 0 / 250 Balance 240 / 890 120 / 1010 360 / 360 Physical Exam Const: COMMON NORMALS: no acute distress and alert GENERAL APPEARANCE: cooperative and comfortable NUTRITIONAL APPEARANCE: obese morbidly obese ORIENTATION/CONSCIOUSNESS: Yes awake and Yes confused OTHER: -sitting in chair by bedside HENMT: COMMON NORMALS: normocephalic, atraumatic, hearing grossly normal bilaterally and moist oral mucous membranes HEAD & SCALP: normocephalic and atraumatic TEETH & GINGIVA: Yes edentulous Eye: COMMON NORMALS: Equal, round and reactive pupils present, EOMs intact bilaterally and conjunctivae normal CONJUNCTIVA: Yes conjunctivae normal PUPIL: Yes Equal, round and reactive pupils present Neck/C-Spine: COMMON NORMALS: full ROM GENERAL: Yes normal visual inspection and Yes trachea midline Chest: CHEST: Yes Symmetrical chest wall rise and Yes Vascular access present (port-A-cath on L) Resp: COMMON NORMALS: normal respiratory effort, No retractions and No use of accessory muscles EFFORT & INSPECTION: Yes able to speak in complete sentences, Yes symmetric chest movement and Yes tachypneic AUSCULTATION: diminished lung sounds OTHER: -on 2 L NC -Auscultation limited by body habitus Cardio: COMMON NORMALS: regular rate, regular rhythm, S1 normal heart sound present, S2 normal heart sound present and No murmurs present (Cardio) RATE: regular rate RHYTHM: regular rhythm HEART SOUNDS: S1 normal heart sound present and S2 normal heart sound present GI: COMMON NORMALS: Normal to inspection, nondistended, normoactive bowel sounds present, Soft to palpation and non-tender INSPECTION: Yes central obesity PALPATION: Yes Soft to palpation RECTAL EXAM: Yes other (skin tag x 1) : BLADDER/KIDNEY EXAM: Yes catheter in place Back/Pelvis: COMMON NORMALS: thoracic and lumbar spine normal to inspection Extremity: COMMON NORMALS: normal to inspection, full ROM, no clubbing, cyanosis or edema and no pedal edema Neuro: COMMON NORMALS: moves all extremities, no focal motor deficits and no sensory deficits noted SENSORIUM/ORIENTATION: Yes alert Psych: COMMON NORMALS: mental status grossly normal, Normal thought process present, cooperative, normal affect and speech normal SPEECH: Yes normal speech THOUGHT PROCESS: Normal thought process present Skin: COMMON NORMALS: no rashes or lesions noted, no jaundice, no petechiae and no mottling NARRATIVE SKIN EXAM: -has noted well circumscribed lesion on R gluteal area just medial to gluteal cleft, no drainage, minimal erythema GENERAL SKIN EXAM: no rashes or lesions noted Urinary Catheter Management^: Little: Cath Placed During This Visit: yes, but has since been removed by the nurse Urethral Indwelling: Yes Reason for Continuing Indwelling Catheter: Not indwelling catheter Urinary Catheter Date of Insertion: 10/29/19 Urinary Catheter Time of Insertion: 06:42 Date Urinary Catheter Removed: 10/31/19 Time Urinary Catheter Discontinued: 19:00 Data : 10/31/19 03:28 10/31/19 03:28 Micro: Microbiology 10/28/19 23:45 Urine Culture - Final Urine,Clean Catch A&P Assessment and plan (1) Bacteremia: -Noted to have 4 out of 4 bottles of blood cultures done on 10/25 + for staph aureus. 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 Prelim negative (from both sources) -continue IV vancomycin and Ceftriaxone at this time, off gentamicin particularly due to potential for nephrotoxicity. -Echo: limited study, EF=55%, G2DD, discussed need for LUPE to definitely r/o vegetation with Dr. Donnelly, scheduled for tomorrow; has no history of prosthetic valve placement, no recent instrumentation including GI/ -Afebrile so far, mild leukocytosis -Continue to monitor vital signs closely -had been on ciprofloxacin; received dose of Zosyn, doxycycline in ED -renal US unremarkable Status: Acute (2) Cystitis: -previously found to have UA indicative of infection (10/25), urine cx-staph aureus -repeat UA shows persistent infection, repeat urine cx prelim negative -on Vanc, ceftriaxone Status: Acute (3) Sinus bradycardia: -likely medication induced as he in on BB; on hold, improved -telemetry monitoring -asymptomatic Status: Acute (4) Acute hypercapnic respiratory failure: -Patient is oxygen dependent at baseline, 3 L requirement -ABGs noted, done while on BiPAP -Continue supplemental oxygen as needed; wean to baseline if possible -has prior hx of lung cancer as noted above -likely has undiagnosed MARBIN; sleep study as outpatient -closely monitor respiratory status Status: Acute (5) BPH (benign prostatic hyperplasia): -on Flomax Status: Chronic Qualifiers: Lower urinary tract symptom presence: unspecified whether lower urinary tract symptoms present Qualified Code(s): N40.0 - Benign prostatic hyperplasia without lower urinary tract symptoms (6) Heart failure with preserved ejection fraction: -[id number] -Echo: limited study, EF=55%, G2DD -required BiPAP initially, now on NC -CXR with noted cardiomegaly, -resumed Lasix, will resume Aldactone -difficult to monitor Is & Os due to inability to consistently use urinal Status: Acute Qualifiers: Heart failure chronicity: acute on chronic Qualified Code(s): I50.33 - Acute on chronic diastolic (congestive) heart failure (7) Hypertension: -on lasix, low dose hydralazine and lisinopril; titrate as needed for optimal BP control -continue to monitor vital signs; stable Status: Chronic Qualifiers: Hypertension type: essential hypertension Qualified Code(s): I10 - Essential (primary) hypertension (8) Hypothyroidism: -on levothyroxine, TSH wnl Status: Chronic Qualifiers: Hypothyroidism type: unspecified Qualified Code(s): E03.9 - Hypothyroidism, unspecified (9) Hyperlipidemia: -on statin Status: Chronic Qualifiers: Hyperlipidemia type: unspecified Qualified Code(s): E78.5 - Hyperlipidemia, unspecified (10) Morbid obesity: -BMI-41 kg/m2 Status: Chronic (11) Depression: Status: Chronic Qualifiers: Depression Type: unspecified Qualified Code(s): F32.9 - Major depressive disorder, single episode, unspecified (12) Glaucoma: Status: Chronic Qualifiers: Glaucoma type: unspecified Laterality: unspecified laterality Qualified Code(s): H40.9 - Unspecified glaucoma (13) Lung cancer: -no evidence of distant metastasis per PET scan in 06/2019 -in remission -f/u with Dr. Ornelas Status: Chronic Qualifiers: Laterality: right Lung location: upper lobe of lung Qualified Code(s): C34.11 - Malignant neoplasm of upper lobe, right bronchus or lung (14) Macrocytic anemia: -Has a chronic microcytic anemia, acutely presenting with macrocytic anemia -Baseline hemoglobin is around 12 -continue to monitor H/H -Low normal folate, vitamin B12; on supplementation -had colonoscopy done in 11/2018 Status: Acute (15) Chronic kidney disease: -has some degree of CKD, unknown stage -superimposed BOOGIE, resolved -baseline Cr around 0.9 -continue to monitor renal function, avoid nephrotoxins, renally dose meds Status: Acute Qualifiers: Chronic kidney disease stage: unspecified stage Qualified Code(s): N18.9 - Chronic kidney disease, unspecified Additional A&P Information -Hyperkalemia; monitor K -cardiac diet as tolerated -DVT ppx with Lovenox -Dispo: home -Code status: FULL code Attestations Medical Necessity Statement*: Patient requires hospitalization for continued IV antibiotics pending completion of workup including LUPE. Time Spent in Patient Care: 16 - 35 minutes (>than 50% of time spent in counselling and/or direct pt care on unit). 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 Comprehensive Diagnoses Bacteremia R78.81 Cystitis N30.90 Sinus bradycardia R00.1 Acute hypercapnic respiratory failure J96.02 BPH (benign prostatic hyperplasia) N40.0 Lower urinary tract symptom presence: unspecified whether lower urinary tract symptoms present Heart failure with preserved ejection fraction I50.33 Heart failure chronicity: acute on chronic Hypertension I10 Hypertension type: essential hypertension Hypothyroidism E03.9 Hypothyroidism type: unspecified Hyperlipidemia E78.5 Hyperlipidemia type: unspecified Morbid obesity E66.01 Depression F32.9 Depression Type: unspecified Glaucoma H40.9 Glaucoma type: unspecified Laterality: unspecified laterality Lung cancer C34.11 Laterality: right Lung location: upper lobe of lung Macrocytic anemia D53.9 Chronic kidney disease N18.9 Chronic kidney disease stage: unspecified stage
--- NOTE | 2019-11-01 11:11 | PC.NURSE ---
PATIENT PREFERS TO HAVE HIS BLOOD PRESSURE TAKEN MANUALLY THAN WITH THE VITAL MONITOR.
[2019-11-01] MEDS: spironolactone 25 mg Tablet 12.5 MG PO (12:12)
[2019-11-01] MEDS: vancomycin 1,000 MG in sodium chloride 0.9% 250 ML 250 MG IV (12:12)
[2019-11-01] MEDS: cefTRIAXone 1,000 MG in sodium chloride 0.9% (plus) 50 ML 100 MG IV (13:31)
--- NOTE | 2019-11-01 18:53 | P.CONIM_ITS ---
Providers/Reason For Consult Consulting Physican/Specialty*: Kvng Donnelly MD/cardiology Reason for Consult*: Patient with gram-positive bacteremia, requesting LUPE to rule out endocarditis Attending Physician: Zoey Avina MD Primary Care Provider: Jose Martin Noe DO History of Present Illness History of Present Illness Venkat Cherry is a 79 year old male admitted to hospital with gram-positive bacteremia. 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 He presented to the emergency room 4 days ago with fever and chills. He had a temperature 102. His blood culture was drawn at that time. He was sent home with antibiotics for possible UTI. The blood culture subsequently grew gram- positive cocci, 4 out of 4 bottles. For this reason, patient is advised to come back to the hospital. He is admitted to the hospital for further evaluation management. He has no previous history for endocarditis. He has a chronic skin fracture in the left buttock. He has a history of diarrhea off and on for couple of years. He had some altered mental status prior to hospital admission which is mostly resolved at this time. He was found to have some features of diastolic heart failure. He denies any chest pain or palpitation. No dizziness or syncopal episode. He has no history for hematemesis or melena. No difficulty in swallowing. No history for any CVA. He is being followed up at the oncology clinic by Dr. Ornelas. Review of Systems Narrative: CONSTITUTIONAL: History of recent fever and lethargy. EYES: No blurring of vision or other visual disturbances lately. ENT: No hoarseness of voice, auditory disturbances or sore throat. CARDIOVASCULAR: As mentioned above. RESPIRATORY: History of undifferentiated, cell carcinoma of the lung and hemoptysis. GASTROINTESTINAL: Diarrhea intermittently for couple of years. GENITOURINARY: Questionable history of UTI INTEGUMENTARY: No skin rashes or history of skin cancer. NEURO: Had some altered mental status prior to the hospital admission. PSYCHIATRIC: No history of psychosis or major depression. HEMATOLOGIC: Anemia of chronic illness ENDOCRINE: Hypothyroidism MUSCULOSKELETAL: No recent joint pain or swelling. ALLERGY/IMMUNOLOGY: As mentioned above. Meds/Allergies Home Medications and Allergies Home Medications Medication Instructions Recorded Confirmed Last Taken Type atorvastatin 20 mg PO DAILY 10/26/19 10/29/19 10/28/19 History ciprofloxacin HCl [Cipro] 500 mg PO Q12H #14 tab 10/26/19 Unknown Rx hydralazine 50 mg PO TID 10/26/19 10/29/19 10/28/19 History latanoprost 1 drp OPHTHALMIC (EYE) BEDTIME 10/26/19 10/29/19 10/27/19 History levothyroxine 50 mcg PO DAILY 10/26/19 10/29/19 10/28/19 History magnesium 250 mg PO BEDTIME 10/26/19 10/29/19 10/28/19 History potassium chloride 10 meq PO BID 10/26/19 10/29/19 10/28/19 History spironolactone 12.5 mg PO BID 10/26/19 10/29/19 10/28/19 History tamsulosin [Flomax] 0.4 mg PO BEDTIME 10/26/19 10/29/19 10/27/19 History zinc 50 mg PO DAILY 10/26/19 10/29/19 10/28/19 History atenolol 50 mg PO DAILY 10/29/19 10/29/19 10/28/19 History furosemide 40 mg PO QAM 10/29/19 10/29/19 10/27/19 History lisinopril 60 mg PO DAILY 10/29/19 10/29/19 10/28/19 History Allergies Allergy/AdvReac Type Severity Reaction Status Date / Time No Known Allergies Allergy Verified 10/28/19 17:59 Current Medications Current Medications Generic Name Dose Route Start Last Admin Trade Name Freq PRN Reason Stop Dose Admin Acetaminophen 650 mg 10/29/19 15:52 10/29/19 16:18 Tylenol PO 650 mg Q6H PRN Administration MILD PAIN Albuterol/Ipratropium 3 ml 10/28/19 22:46 10/31/19 20:57 Duoneb INHALATION 3 ml Q6H.RESPIRATORY PRN Administration SHORTNESS OF BREATH Atorvastatin Calcium 20 mg 10/31/19 21:00 10/31/19 21:49 Lipitor PO 20 mg BEDTIME ANTONIA Administration Cyanocobalamin 1,000 mcg 10/30/19 13:15 11/01/19 10:01 Vitamin B-12 PO 1,000 mcg DAILY ANTONIA Administration Enoxaparin Sodium 40 mg 10/28/19 22:46 10/31/19 21:50 Lovenox SUBCUT 40 mg Q24H ANTONIA Administration Folic Acid 1 mg 10/30/19 13:15 11/01/19 10:01 Folic Acid PO 1 mg DAILY ANTONIA Administration Furosemide 40 mg 11/01/19 08:00 11/01/19 10:00 Lasix PO 40 mg DAILY@0800 ANTONIA Administration Hydralazine HCl 10 mg 10/31/19 21:00 11/01/19 16:09 Apresoline PO 10 mg TID ANTONIA Administration Vancomycin HCl 1,000 mg/ 250 mls @ 250 mls/hr 10/29/19 00:00 11/01/19 13:31 Sodium Chloride IV Infused Q12H ANTONIA Infusion Protocol As Directed Ceftriaxone Sodium 1,000 mg/ 50 mls @ 100 mls/hr 10/30/19 13:30 11/01/19 13:31 Sodium Chloride IV 100 mls/hr Q24H ANTONIA Administration Protocol Latanoprost 1 drop 10/29/19 21:00 10/31/19 21:49 Xalatan EYE-BOTH 1 drop BEDTIME ANTONIA Administration Levothyroxine Sodium 50 mcg 10/29/19 09:00 11/01/19 10:00 Synthroid PO 50 mcg DAILY ANTONIA Administration Lisinopril 20 mg 10/31/19 16:15 11/01/19 10:01 Prinivil PO 20 mg DAILY ANTONIA Administration Phenazopyridine HCl 100 mg 10/29/19 19:01 10/29/19 22:12 Pyridium PO 100 mg TID PRN Administration DYSURIA Spironolactone 12.5 mg 11/01/19 11:00 11/01/19 12:12 Aldactone PO 12.5 mg DAILY ANTONIA Administration Tamsulosin HCl 0.4 mg 10/29/19 09:00 11/01/19 10:00 Flomax PO 0.4 mg DAILY ANTONIA Administration PFSH Acute 2 PFSH: Medical History Acute on chronic diastolic (congestive) heart failure BPH (benign prostatic hyperplasia) Cholelithiasis Depression Glaucoma Gram-positive bacteremia Heart failure with preserved ejection fraction Hyperlipidemia Hypertension Hypothyroidism Lung cancer Lung cancer Morbid obesity Normal colonoscopy In 2018 2019 Port-A-Cath in place Sigmoid diverticulosis Surgical History No pertinent past surgical history Family History Denies family history of Lung disease Hypertension Social History Smoking and tobacco status: former smoker Alcohol intake: never Substance/Drug Use: never Household members: spouse Housing: House Vitals/I&O/Wt Last Vital Signs Temp 98.9 F 11/01/19 11:01 Pulse 70 11/01/19 15:43 Resp 18 11/01/19 15:43 BP 140/60 11/01/19 15:43 Pulse Ox 96 11/01/19 15:43 11/01/19 11/01/19 11/01/19 06:59 14:59 22:59 Intake Total 370 / 1510 1090 / 1090 240 / 1330 Balance 370 / 1260 1090 / 1090 240 / 1330 Physical Exam Narrative: EXAM NARRATIVE: GENERAL: The patient is alert and oriented times three. Not in any acute distress. HEENT: No significant pallor, icterus or lymphadenopathy. The pupils are reactant to light. Oral cavity: There are no mucous membrane lesions. Funduscopic examination: Fundus is not visualized NECK: Trachea appears to be central. No masses noted. No JVD or thyromegaly appreciated. No carotid bruit. RESPIRATORY: Chest is symmetrical. No intercostals muscle retraction or any accessory muscle activation. There is no chest wall tenderness. Breath sounds are heard bilaterally. Scattered coarse crackles. No evidence of consolidation BREASTS: Deferred. HEART: T the PMI could not be palpated. First and second heart sounds are normal. No S3. Short systolic murmur in the left sternal border. Early diastolic murmur in the second aortic area of grade 2/6 ABDOMEN: No vessel pulsations or distention. No tenderness. No organomegaly appreciated. No abdominal bruit. Bowel sounds are normally heard. : Deferred. RECTAL: Deferred. LYMPHATIC: No lymphadenopathy noted in the neck . EXTREMITIES: 1-2+ edema both lower extremities. No cyanosis. Peripheral pulses are palpable but weak bilaterally. MUSCULOSKELETAL: No acute joint deformities or swelling. SKIN: Hyperpigmented skin lesion in the right buttock. Minimal ulceration. NEUROPSYCHIATRIC: The patient is alert and oriented x3. Appears to be in a good mood. The higher functions are grossly within normal limits. No tremors or rigidity noted. Urinary Catheter Management^: Little: Cath Placed During This Visit: yes, but has since been removed by the nurse Urethral Indwelling: Yes Reason for Continuing Indwelling Catheter: Not indwelling catheter Urinary Catheter Date of Insertion: 10/29/19 Urinary Catheter Time of Insertion: 06:42 Date Urinary Catheter Removed: 10/31/19 Time Urinary Catheter Discontinued: 19:00 Data Labs: Other Labs: Laboratory Last Values WBC 8.1 10^3/uL (4.0- 10.0) 10/31/19 03:28 RBC 3.63 10^6/uL (4.1 -5.3) L 10/31/19 03:28 Hgb 10.9 g/dL (11.7-1 6.6) L 10/31/19 03:28 Hct 36.4 % (42.0-52.0 ) L 10/31/19 03:28 MCV 100.3 fL (80-94) H 10/31/19 03:28 MCH 30.0 pg (28.0-34. 0) 10/31/19 03:28 MCHC 29.9 g/dL (30.0-3 6.0) L 10/31/19 03:28 RDW 14.3 % (12.1-15.1 ) 10/31/19 03:28 Plt Count 234 10^3/cmm (130 -400) 10/31/19 03:28 MPV 10.8 fL (7.4-10.4 ) H 10/31/19 03:28 Neut % (Auto) 79.2 % 10/31/19 03:28 Lymph % (Auto) 8.4 % 10/31/19 03:28 Arroyo % (Auto) 10.8 % 10/31/19 03:28 Eos % (Auto) 0.7 % 10/31/19 03:28 Baso % (Auto) 0.4 % 10/31/19 03:28 Neut # (Auto) 6.4 10^3/uL (1.8- 7.7) 10/31/19 03:28 Lymph # (Auto) 0.7 10^3/uL (0.8- 4.8) L 10/31/19 03:28 Arroyo # (Auto) 0.9 10^3/uL (0.2- 0.9) 10/31/19 03:28 Eos # (Auto) 0.1 10^3/uL (0.0- 0.8) 10/31/19 03:28 Baso # (Auto) 0.0 10^3/uL (0.0- 0.1) 10/31/19 03:28 Nucleated RBC % (a uto) 0 % 10/31/19 03:28 Nucleated RBCs # 0.0 /100WBC 10/31/19 03:28 PT 12.80 SECONDS (10 .5-13.3) 10/28/19 18:46 INR 0.93 (0.8-1.2) 10/28/19 18:46 Specimen Type Arterial 10/29/19 06:05 Sample Site Radial, right 10/29/19 06:05 ABG pH 7.28 (7.35-7.45) L 10/29/19 06:05 ABG pCO2 57.6 mmHg (35-45) H 10/29/19 06:05 ABG pO2 79.8 mmHg (80.0-1 00.0) L 10/29/19 06:05 ABG HCO3 27.3 mmol/L (22-2 6) H 10/29/19 06:05 ABG Base Excess -0.2 mmol/L (-2.0 -2.0) 10/29/19 06:05 Edson Test Pos 10/29/19 06:05 Hematocrit 34.1 % (42-52) L 10/29/19 06:05 O2 Delivery Device Bipap 10/29/19 06:05 O2 Liters/Min 0.0 % 10/28/19 18:35 FiO2 30.0 % 10/29/19 06:05 Mode BiPAP 16/8 10/28/19 20:35 Specimen Drawn By betsey 10/28/19 20:35 Music Publicist ID betsey 10/29/19 06:05 Blood Gas Notified Time 204410/28/19 20:35 Sodium 138 mmol/L (136-1 45) 10/31/19 03:28 Potassium 4.8 mmol/L (3.5-5 .1) 10/31/19 03:28 Chloride 99 mmol/L (98-107 ) 10/31/19 03:28 Carbon Dioxide 28 mmol/L (22-29) 10/31/19 03:28 Anion Gap 15.8 (5-19) 10/31/19 03:28 BUN 22 mg/dL (8-23) 10/31/19 03:28 Creatinine 0.8 mg/dL (0.7-1. 2) 10/31/19 03:28 Glucose 98 mg/dL (65-115) 10/31/19 03:28 Calculated Osmolal ity 283 mOsm/kg (285- 295) L 10/31/19 03:28 Lactic Acid 0.7 mmol/L (0.5-2 .2) 10/28/19 18:46 Calcium 9.3 mg/dL (8.5-10 .5) 10/31/19 03:28 Magnesium 2.1 mg/dL (1.7-2. 3) 10/31/19 03:28 Total Bilirubin 0.2 mg/dL (0.15-1 .2) 10/28/19 18:46 AST 33 U/L (0-40) 10/28/19 18:46 ALT 48 U/L (0-41) H 10/28/19 18:46 Alkaline Phosphata se 111 IU/L (40-130) 10/28/19 18:46 Troponin I 6 Hour 11.88 ng/L (0-15) 10/29/19 01:10 Troponin I Hi Sens Del -1.12 ng/L (0-12) L 10/29/19 01:10 Troponin T Baselin e 13 ng/L (0-15) 10/28/19 19:00 Troponin T 120 Min minto 15.55 ng/L (0-15) H 10/28/19 20:55 Delta Troponin T 2.55 ABS# (0-10) 10/28/19 20:55 NT-Pro-B Natriuret Pep 972 pg/mL (0-450) H 10/28/19 18:46 Total Protein 6.7 g/dL (6.6-8.7 ) 10/28/19 18:46 Albumin 3.5 g/dL (3.5-5.2 ) 10/28/19 18:46 Globulin 3.2 g/dL (1.3-4.6 ) 10/28/19 18:46 Vitamin B12 364 pg/mL (232-12 45) 10/30/19 04:28 Folate 7.3 ng/mL (4.5-32 .2) 10/30/19 04:28 TSH 2.34 uIU/mL (0.27 -4.20) 10/28/19 20:55 Urine Color Yellow (Yellow) 10/28/19 23:45 Urine Appearance Cloudy (CLEAR) 10/28/19 23:45 Urine pH 5 (5-7) 10/28/19 23:45 Ur Specific Gravit y 1.025 (1.005-1.0 30) 10/28/19 23:45 Urine Protein Trace (Negative) 10/28/19 23:45 Urine Glucose (UA) Norm (Normal) 10/28/19 23:45 Urine Ketones Negative (Negati ve) 10/28/19 23:45 Urine Blood Neg (Negative) 10/28/19 23:45 Urine Nitrate Negative (Negati ve) 10/28/19 23:45 Urine Bilirubin Neg (NEGATIVE) 10/28/19 23:45 Urine Urobilinogen Norm mg/dL (Negat migue) 10/28/19 23:45 Ur Leukocyte Ghada ase 2+ (Negative) H 10/28/19 23:45 Urine RBC 0-4 /hpf (0-2) H 10/28/19 23:45 Urine WBC 55-80 /hpf (0-5) H 10/28/19 23:45 Ur Squamous Epith Cells 0-4 (0-5) H 10/28/19 23:45 Calcium Oxalate Cr ystal 25-40 /hpf H 10/28/19 23:45 Urine Bacteria 2+ (NONE) H 10/28/19 23:45 Vancomycin Trough 9.4 ug/mL (10-15) L 10/30/19 12:50 The blood culture and urine culture from 10/26/2019 grew gram-positive cocci-staph aureus. Imaging^: Echo: My impression: 10/27/2019 1-Normal left ventricular cavity size. No regional wall motion abnormalities. Normal left ventricular systolic function. Left ventricular ejection fraction is estimated at 55 %. Grade II/IV diastolic dysfunction, moderately elevated filling pressures. 2-Please note that due to technical difficulty perhaps poor windows this study is suboptimal, all valves are not well visualized if clinically indicated transesophageal echocardiogram will be a better modality to assess vegetation 3-There is no pericardial effusion. 4-Due to suboptimal quality study it cannot be compared with prior transthoracic echocardiogram EKG^: EKG 1: My Interpretation: EKG showed sinus rhythm with a T inversions in lead V5 V6, 1 and aVL. The subsequent EKG shows upright T waves in lead V5 and V6. A&P Assessment and plan (1) Gram-positive bacteremia: The source of infection is not clear at this time. Patient has no peripheral signs of endocarditis. Blood culture and the urine culture grew staph aureus. Endocarditis is a possibility. For further evaluation, it would be appropriate to do a transesophageal echocardiogram. The transthoracic echocardiogram was of suboptimal quality. No obvious masses or vegetations were noted. Status: Acute (2) Acute on chronic diastolic (congestive) heart failure: Patient is elevated BNP may suggest diastolic heart failure. Currently he seems to be stable. The EKG changes may suggest lateral wall ischemia. This needs to be further evaluated. Echocardiogram revealed no significant wall motion normalities. Status: Acute (3) Macrocytic anemia: This could be multifactorial. Malignancy, hemoptysis, chemotherapy, etc. are contributing factors. Hemoglobin seems to be stable. The current infection also might be playing a role Status: Acute (4) Lung cancer: Patient is being followed by oncology service. Status: Chronic Qualifiers: Laterality: right Lung location: upper lobe of lung Qualified Code(s): C34.11 - Malignant neoplasm of upper lobe, right bronchus or lung (5) Hypothyroidism: Clinically euthyroid. He is on thyroid replacement. Status: Chronic Qualifiers: Hypothyroidism type: unspecified Qualified Code(s): E03.9 - Hypothyroidism, unspecified (6) Hypertension: Currently has stage II hypertension. Antihypertensive medications need to be optimized Status: Chronic Qualifiers: Hypertension type: essential hypertension Qualified Code(s): I10 - Essential (primary) hypertension Additional A&P Information At this point, the patient has no current indication for the transesophageal echocardiogram. The possible risk and benefits of the procedure were discussed with patient in detail which he understood well. The risk of aspiration, bleeding, soft tissue injury, perforation of the stomach/esophagus and other concomitant complications were explained to the patient in detail. The patient understood this well and consented to proceed. We will go ahead and schedule for the procedure tomorrow. Based on the results, further recommendations will be made. Consult Attestations Medical Necessity Statement: Patient requires continued hospital stay for close monitoring and further management Coding Level of Care Code Acute Operations Research Scientist for [facility] Fwd Diagnoses Gram-positive bacteremia R78.81 Acute on chronic diastolic (congestive) heart failure I50.33 Macrocytic anemia D53.9 Lung cancer C34.11 Laterality: right Lung location: upper lobe of lung Hypothyroidism E03.9 Hypothyroidism type: unspecified Hypertension I10 Hypertension type: essential hypertension
[2019-11-01] MEDS: amlodipine 5 mg Tablet PO (21:51)
[2019-11-01] MEDS: atorvastatin 40 mg Tablet 20 MG PO (21:51)
[2019-11-01] MEDS: enoxaparin 40 mg/0.4 mL Syringe SUBCUT (21:52)
[2019-11-01] MEDS: latanoprost 0.005% Op Soln 2.5 mL Btl 1 DROP EYE-BOTH (21:52)
--- NOTE | 2019-11-01 22:15 | PC.NURSE ---
Pt resting in bed. No complaints of pain. Dr. Donnelly at bedside at 1910 and discussed procedure with pt. Pt remains forgetful. No complaints or needs at this time. Pt resting in bed.
[2019-11-02] VITALS (41 sets, daily range): BP systolic 108–180; BP diastolic 47–87; PULSE 65–106; RESP 17–28; TEMP 36.6–37.1; O2SAT 88–96
[2019-11-02] MEDS: vancomycin 1,000 MG in sodium chloride 0.9% 250 ML 250 MG IV ×2 (01:00→16:07)
[2019-11-02 05:06] LABS: Basophils # 0.1 10^3/uL (0.0-0.1); Basophils % 0.7 %; Eosinophils # 0.2 10^3/uL (0.0-0.8); Eosinophils % 2.1 %; Hematocrit 37.3 % (42.0-52.0); Hemoglobin 11.4 g/dL (11.7-16.6); Lymphocytes # 0.8 10^3/uL (0.8-4.8); Lymphocytes % 9.5 %; Mean Corpuscular HGB Conc 30.6 g/dL (30.0-36.0); Mean Corpuscular Hemoglobin 30.3 pg (28.0-34.0); Mean Corpuscular Volume 99.2 fL (80-94); Mean Platelet Volume 10.4 fL (7.4-10.4); Monocytes # 0.8 10^3/uL (0.2-0.9); Monocytes % 9.3 %; Neutrophils # 6.1 10^3/uL (1.8-7.7); Neutrophils % 74.1 %; Nucleated Red Blood Cells % 0 %; Platelet Count 267 10^3/cmm (130-400); Red Blood Count 3.76 10^6/uL (4.1-5.3); Red Cell Distribution Width 14.1 % (12.1-15.1); White Blood Count 8.3 10^3/uL (4.0-10.0)
[2019-11-02 05:23] LABS: Anion Gap 13.6 (5-19); Blood Urea Nitrogen 11 mg/dL (8-23); Calcium 9.2 mg/dL (8.5-10.5); Carbon Dioxide 31 mmol/L (22-29); Chloride 96 mmol/L (98-107); Glucose 104 mg/dL (65-115); Osmolality Calculated 278 mOsm/kg (285-295); Potassium 4.6 mmol/L (3.5-5.1); Sodium 136 mmol/L (136-145)
--- NOTE | 2019-11-02 06:31 | PC.NURSE ---
Pt stable during this shift. IV atbs continue. NPO at midnight for LUPE today.
[2019-11-02] MEDS: cyanocobalamin 1,000 mcg Tablet 1000 MCG PO (08:25)
[2019-11-02] MEDS: levothyroxine 50 mcg Tablet PO (08:26)
[2019-11-02] MEDS: lisinopril 20 mg Tablet PO (08:26)
[2019-11-02] MEDS: FUROsemide 40 mg Tablet PO (08:26)
[2019-11-02] MEDS: folic acid 1 mg Tablet PO (08:26)
[2019-11-02] MEDS: spironolactone 25 mg Tablet 12.5 MG PO (08:27)
[2019-11-02] MEDS: amlodipine 5 mg Tablet PO (08:27)
[2019-11-02] MEDS: tamsulosin 0.4 mg Capsule PO (08:27)
[2019-11-02] MEDS: hyDRALAzine 10 mg Tablet PO ×3 (08:29→21:59)
[2019-11-02] MEDS: phenazopyridine 100 mg Tablet PO (08:29)
--- NOTE | 2019-11-02 08:39 | ECG_ITS ---
Measurements Intervals Edna Rate: 80 P: 57 MN: 185 QRS: 51 QRSD: 101 T: 89 QT: 365 QTc: [address] & T-WAVE ABNORMALITY Compared to ECG 11/01/2019 07:25:12 Possible ischemia no longer present T-wave abnormality still present Electronically Signed On 11-02-2019 20:35:38 CDT by Sariah Donnelly M.D. [email or web address]
--- NOTE | 2019-11-02 09:54 | P.PN_ITS ---
Subjective Subjective: Interval history: Patient denies any chest pain. No fever or chills. No cough. No significant arrhythmias on the monitor. Had a myocardial perfusion imaging and LUPE today. The LUPE did not reveal any evidence of endocarditis. Myocardial perfusion imaging revealed evidence of ischemia in the distribution of the right coronary artery and possible circumflex artery. 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 Medications: Reviewed: Yes Medication Review Details: Current Medications Acetaminophen (Tylenol) 650 mg PO Q6H PRN PRN Reason: MILD PAIN Last Admin: 10/29/19 16:18 Dose: 650 mg Documented by: Albuterol/Ipratropium (Duoneb) 3 ml INHALATION Q6H.RESPIRATORY PRN PRN Reason: SHORTNESS OF BREATH Last Admin: 10/31/19 20:57 Dose: 3 ml Documented by: Amlodipine Besylate (Norvasc) 5 mg PO DAILY [facility] Last Admin: 11/02/19 08:27 Dose: 5 mg Documented by: Atorvastatin Calcium (Lipitor) 20 mg PO BEDTIME [facility] Last Admin: 11/01/19 21:51 Dose: 20 mg Documented by: Cyanocobalamin (Vitamin B-12) 1,000 mcg PO DAILY [facility] Last Admin: 11/02/19 08:25 Dose: 1,000 mcg Documented by: Enoxaparin Sodium (Lovenox) 40 mg SUBCUT Q24H [facility] Last Admin: 11/01/19 21:52 Dose: 40 mg Documented by: Folic Acid (Folic Acid) 1 mg PO DAILY [facility] Last Admin: 11/02/19 08:26 Dose: 1 mg Documented by: Furosemide (Lasix) 40 mg PO DAILY@0800 [facility] Last Admin: 11/02/19 08:26 Dose: 40 mg Documented by: Hydralazine HCl (Apresoline) 10 mg PO TID [facility] Last Admin: 11/02/19 08:29 Dose: 10 mg Documented by: Vancomycin HCl 1,000 mg/ (Sodium Chloride) 250 mls @ 250 mls/hr IV Q12H [facility]; Protocol Last Admin: 11/02/19 01:00 Dose: 250 mls/hr Documented by: Ceftriaxone Sodium 1,000 mg/ (Sodium Chloride) 50 mls @ 100 mls/hr IV Q24H [facility]; Protocol Last Admin: 11/01/19 13:31 Dose: 100 mls/hr Documented by: Latanoprost (Xalatan) 1 drop EYE-BOTH BEDTIME [facility] Last Admin: 11/01/19 21:52 Dose: 1 drop Documented by: Levothyroxine Sodium (Synthroid) 50 mcg PO DAILY [facility] Last Admin: 11/02/19 08:26 Dose: 50 mcg Documented by: Lisinopril (Prinivil) 20 mg PO DAILY [facility] Last Admin: 11/02/19 08:26 Dose: 20 mg Documented by: Phenazopyridine HCl (Pyridium) 100 mg PO TID PRN PRN Reason: DYSURIA Last Admin: 11/02/19 08:29 Dose: 100 mg Documented by: Spironolactone (Aldactone) 12.5 mg PO DAILY [facility] Last Admin: 11/02/19 08:27 Dose: 12.5 mg Documented by: Tamsulosin HCl (Flomax) 0.4 mg PO DAILY [facility] Last Admin: 11/02/19 08:27 Dose: 0.4 mg Documented by: Vitals/I&O/Wt Last Vital Signs Temp 98.4 F 11/02/19 05:00 Pulse 91 11/02/19 09:21 Resp 18 11/02/19 09:21 BP 140/60 11/02/19 07:48 Pulse Ox 95 11/02/19 09:21 11/01/19 11/02/19 11/02/19 22:59 06:59 14:59 Intake Total 440 / 1530 0 / 1530 Balance 440 / 1530 0 / 1530 Physical Exam Narrative: EXAM NARRATIVE: GENERAL: The patient is alert and oriented times three. Not in any acute distress. HEENT: No significant pallor, icterus or lymphadenopathy. NECK: Trachea appears to be central. No masses noted. No JVD or thyromegaly appreciated. No carotid bruit. RESPIRATORY: Chest is symmetrical. No intercostals muscle retraction or any accessory muscle activation. There is no chest wall tenderness. Breath sounds are heard bilaterally. Scattered coarse crackles. No evidence of consolidation BREASTS: Deferred. HEART: T the PMI could not be palpated. First and second heart sounds are normal. No S3. Short systolic murmur in the left sternal border. Early diastolic murmur in the second aortic area of grade 2/6 ABDOMEN: No vessel pulsations or distention. No tenderness. No organomegaly appreciated. No abdominal bruit. Bowel sounds are normally heard. : Deferred. RECTAL: Deferred. LYMPHATIC: No lymphadenopathy noted in the neck . EXTREMITIES: 1-2+ edema both lower extremities. No cyanosis. Peripheral pulses are palpable but weak bilaterally. MUSCULOSKELETAL: No acute joint deformities or swelling. SKIN: Hyperpigmented skin lesion in the right buttock. Minimal ulceration. NEUROPSYCHIATRIC: The patient is alert and oriented x3. Appears to be in a good mood. The higher functions are grossly within normal limits. No tremors or rigidity noted. Urinary Catheter Management^: Little: Cath Placed During This Visit: yes, but has since been removed by the nurse Urethral Indwelling: Yes Reason for Continuing Indwelling Catheter: Not indwelling catheter Urinary Catheter Date of Insertion: 10/29/19 Urinary Catheter Time of Insertion: 06:42 Date Urinary Catheter Removed: 10/31/19 Time Urinary Catheter Discontinued: 19:00 Data : 11/02/19 04:34 11/02/19 04:34 A&P Assessment and plan (1) Abnormal cardiovascular stress test: Patient is currently remaining stable with no chest pain. View of his high blood pressure and ischemia, I may start him on Imdur 30 mg p.o. daily. For further evaluation of his coronary status, he requires a cardiac catheterization. However since the patient seems to be stable with no specific cardiac symptoms, I may hold off on that especially because of the bacteremia. After appropriately treating the bacteremia, we may consider invasive cardiac work-up. Status: Acute (2) Gram-positive bacteremia: No evidence of endocarditis based on the LUPE. Management as per the primary. Status: Acute (3) Acute on chronic diastolic (congestive) heart failure: The heart failure is currently compensated. May continue on the current medications. Status: Acute (4) Macrocytic anemia: This could be multifactorial. Malignancy, hemoptysis, chemotherapy, etc. are contributing factors. Hemoglobin seems to be stable. The current infection also might be playing a role Status: Acute (5) Lung cancer: Patient is being followed by oncology service. Status: Chronic Qualifiers: Laterality: right Lung location: upper lobe of lung Qualified Code(s): C34.11 - Malignant neoplasm of upper lobe, right bronchus or lung (6) Hypothyroidism: Clinically euthyroid. He is on thyroid replacement. Status: Chronic Qualifiers: Hypothyroidism type: unspecified Qualified Code(s): E03.9 - Hypothyroidism, unspecified (7) Hypertension: Currently has stage II hypertension. The blood pressure seems to be getting under control. We will continue to optimize medications. Status: Chronic Qualifiers: Hypertension type: essential hypertension Qualified Code(s): I10 - Essential (primary) hypertension Additional A&P Information May continue on the current medications. Hold off on invasive cardiac work-up for the time being. Attestations Medical Necessity Statement*: Disposition as per the primary Coding Level of Care Code Acute Logistics System Engineer for [facility] Fwd Diagnoses Abnormal cardiovascular stress test R94.39 Gram-positive bacteremia R78.81 Acute on chronic diastolic (congestive) heart failure I50.33 Macrocytic anemia D53.9 Lung cancer C34.11 Laterality: right Lung location: upper lobe of lung Hypothyroidism E03.9 Hypothyroidism type: unspecified Hypertension I10 Hypertension type: essential hypertension
--- NOTE | 2019-11-02 10:29 | NMCV_ITS ---
NM el perf SPECT r/s* [id number] Venkat Cherry Age: 79 Gender: M : 1940 Exam Date: 11/02/2019 11:11 Ordering Phys: Sariah Donnelly MD ([email or web address]) Technologist: PHYLICIA Hensley Exam Location: [facility] Indications: INFECTION CONFUSION SHORTNESS OF BREATH STRESS TEST Please see separate stress test report in [facility] for full findings IMAGE PROTOCOL Rest/Stress 1 Lexiscan Day Radiopharmaceutical Dose (mCi) Administration Site Administered by Rest: Tc-99m 11.0 IV PHYLICIA Hensley Sestamibi Stress:Tc-99m 32.6 IV PHYLICIA Hensley Sestamibi Rest: 02-Nov-2019 60 Discovery 630 Stress: 02-Nov-2019 30 Discovery 630 0.4mg Lexiscan. Supine position only as patient was unable to lay prone. SPECT RESULTS Technical Quality: Good Raw Data Analysis: Normal Image Corrections: No attenuation or motion correction applied Summed Stress Score: 6 Summed Rest Score: 2 Summed Difference Score: 4 PERFUSION FINDINGS Small to moderate area of decreased tracer uptake in the mid and apical inferior, mid inferolateral and apical lateral regions. Some reversibility was noted in the inferior and apical lateral regions. FUNCTIONAL RESULTS (calculated via Gated SPECT) Stress Image LV EF (%): 56 Stress EDV (mL):86 TID: 1.24 Stress ESV (mL):38 FUNCTIONAL FINDINGS: Segmental wall motion analysis revealed mild hypokinesia of the LV apex IMPRESSIONS 1. Myocardial perfusion may revealing a small to moderate area of decreased tracer uptake in the mid and apical inferior, mid inferolateral and apical lateral regions, with some reversibility in the inferior and apical lateral regions, suggestive of myocardial scarring with ischemia in the distribution of the right coronary artery predominantly with some involvement of the circumflex artery. 2. Normal LV ejection fraction 56%. 3. Wall motion abnormalities as mentioned above. 4. Normal LV volume. 5. Elevated transient ischemic dilatation ratio also may suggest endocardial ischemia. No similar previous studies are available for comparison Dr Sariah Donnelly MD [facility] (Electronically Signed) Final Date: 02 November 2019 15:11 S
--- NOTE | 2019-11-02 10:48 | PC.SOCIAL ---
IMM Updated. Updated pt Pg 2 IMM. Pt verbally understands. No questions voiced. Provided pt a copy & left on pt's bedside table. Signed, dated, & timed the copy in pt's chart.
--- NOTE | 2019-11-02 10:54 | ECG_ITS ---
NAME OF STUDY: LEXISCAN SESTAMIBI STRESS TEST INDICATION: Chest Pain PROCEDURE: At the baseline, the EKG revealed normal sinus rhythm with a poor R wave progression. Nonspecific ST-T changes in the inferior leads.. The baseline blood pressure was 211/51 mm Hg with a heart rate of 79 beats/min. Lexiscan was infused over a period of 20 seconds. A total of 0.4 milligrams of Lexiscan was infused. The stress phase was continued for a total of 5 minutes. Heart rate at the end of the stress phase was 94 with a blood pressure 147/41. The EKG at the peak infusion revealed no significant changes. Sestamibi was injected 20 seconds after the Lexiscan infusion. Blood pressure at the end of the recovery phase was 142/51 with a heart rate of 93 per minute. CONCLUSION: 1. No significant EKG changes with the LexiScan infusion 2. No LexiScan induced chest pain or cardiac arrhythmia 3. Normal blood pressure and heart rate response 4. Sestamibi/sestamibi perfusion scan pending; see separate report. Electronically Signed On 11-02-2019 20:28:51 CDT by Sariah Donnelly M.D. [email or web address]
--- NOTE | 2019-11-02 12:29 | SUR.PREOP ---
Patient reports no pain or discomfort prior to the start of the procedure.
[2019-11-02] MEDS: regadenoson 0.4 Mg/5 ml Syringe IVP (12:31)
--- NOTE | 2019-11-02 13:04 | PM.PN ---
Subjective Subjective: Interval history: Stress testing and LUPE today, labs stable, hemodynamically stable. Patient seen later in the afternoon following stress testing and LUPE. Findings discussed with Dr. Donnelly. LUPE is negative for any vegetations, stress test is positive with findings suggestive of ischemia in RCA territory. Likely source of gram-positive bacteremia is Port-A-Cath, will request removal of this. We will need to have PICC line placed for continued IV antibiotic treatment. Medications: Reviewed: Yes Medication Review Details: Active Medications Generic Name Dose Route Start Last Admin Trade Name Freq PRN Reason Stop Dose Admin Acetaminophen 650 mg 10/29/19 15:52 10/29/19 16:18 Tylenol PO 650 mg Q6H PRN Administration MILD PAIN Albuterol/Ipratrop ium 3 ml 10/28/19 22:46 10/31/19 20:57 Duoneb INHALATION 3 ml Q6H.RESPIRATORY P RN Administration SHORTNESS OF ELIUD TH Aminophylline 25 mg 11/02/19 10:17 Aminophylline IVP 11/03/19 10:16 Q2M PRN see dose instruct ions Amlodipine Besylat e 5 mg 11/01/19 20:00 11/02/19 08:27 Norvasc PO 5 mg DAILY ANTNOIA Administration Atorvastatin Calci um 20 mg 10/31/19 21:00 11/01/19 21:51 Lipitor PO 20 mg BEDTIME ANTONIA Administration Cyanocobalamin 1,000 mcg 10/30/19 13:15 11/02/19 08:25 Vitamin B-12 PO 1,000 mcg DAILY ANTONIA Administration Enoxaparin Sodium 40 mg 10/28/19 22:46 11/01/19 21:52 Lovenox SUBCUT 40 mg Q24H ANTONIA Administration Folic Acid 1 mg 10/30/19 13:15 11/02/19 08:26 Folic Acid PO 1 mg DAILY ANTONIA Administration Furosemide 40 mg 11/01/19 08:00 11/02/19 08:26 Lasix PO 40 mg DAILY@0800 ANTONIA Administration Hydralazine HCl 10 mg 10/31/19 21:00 11/02/19 08:29 Apresoline PO 10 mg TID ANTONIA Administration Vancomycin HCl 1,0 00 mg/ 250 mls @ 250 mls /hr 10/29/19 00:00 11/02/19 01:00 Sodium Chloride IV 250 mls/hr Q12H ANTONIA Administration Protocol As Directed Ceftriaxone Sodium 1,000 mg/ 50 mls @ 100 mls/ hr 10/30/19 13:30 11/01/19 13:31 Sodium Chloride IV 100 mls/hr Q24H ANTONIA Administration Protocol Latanoprost 1 drop 10/29/19 21:00 11/01/19 21:52 Xalatan EYE-BOTH 1 drop BEDTIME ANTONIA Administration Levothyroxine Sodi um 50 mcg 10/29/19 09:00 11/02/19 08:26 Synthroid PO 50 mcg DAILY ANTONIA Administration Lisinopril 20 mg 10/31/19 16:15 11/02/19 08:26 Prinivil PO 20 mg DAILY ANTONIA Administration Nitroglycerin 0.4 mg 11/02/19 10:17 Nitrostat SUBLINGUAL 11/03/19 10:16 Q5M PRN CHEST PAIN Ondansetron HCl 4 mg 11/02/19 10:17 Zofran IVP Q2M PRN NAUSEA Phenazopyridine HC l 100 mg 10/29/19 19:01 11/02/19 08:29 Pyridium PO 100 mg TID PRN Administration DYSURIA Spironolactone 12.5 mg 11/01/19 11:00 11/02/19 08:27 Aldactone PO 12.5 mg DAILY ANTONIA Administration Tamsulosin HCl 0.4 mg 10/29/19 09:00 11/02/19 08:27 Flomax PO 0.4 mg DAILY ANTONIA Administration No Known Allergies Allergy (Verified 10/28/19 17:59) Vitals/I&O/Wt Last Vital Signs Temp 98.7 F 11/02/19 11:08 Pulse 93 11/02/19 12:51 Resp 19 H 11/02/19 11:08 BP 143/51 11/02/19 12:51 Pulse Ox 96 11/02/19 11:08 11/01/19 11/02/19 11/02/19 22:59 06:59 14:59 Intake Total 440 / 1530 0 / 1530 480 / 480 Balance 440 / 1530 0 / 1530 480 / 480 Physical Exam Const: COMMON NORMALS: no acute distress and alert GENERAL APPEARANCE: cooperative and comfortable NUTRITIONAL APPEARANCE: obese morbidly obese ORIENTATION/CONSCIOUSNESS: Yes awake and Yes confused OTHER: -sitting in chair by bedside HENMT: COMMON NORMALS: normocephalic, atraumatic, hearing grossly normal bilaterally and moist oral mucous membranes HEAD & SCALP: normocephalic and atraumatic TEETH & GINGIVA: Yes edentulous Eye: COMMON NORMALS: Equal, round and reactive pupils present, EOMs intact bilaterally and conjunctivae normal CONJUNCTIVA: Yes conjunctivae normal PUPIL: Yes Equal, round and reactive pupils present Neck/C-Spine: COMMON NORMALS: full ROM GENERAL: Yes normal visual inspection and Yes trachea midline Chest: CHEST: Yes Symmetrical chest wall rise and Yes Vascular access present (port-A-cath on L) Resp: COMMON NORMALS: normal respiratory effort, No retractions and No use of accessory muscles EFFORT & INSPECTION: Yes able to speak in complete sentences, Yes symmetric chest movement and Yes tachypneic AUSCULTATION: diminished lung sounds OTHER: -on 2 L NC -Auscultation limited by body habitus Cardio: COMMON NORMALS: regular rate, regular rhythm, S1 normal heart sound present, S2 normal heart sound present and No murmurs present (Cardio) RATE: regular rate RHYTHM: regular rhythm HEART SOUNDS: S1 normal heart sound present and S2 normal heart sound present GI: COMMON NORMALS: Normal to inspection, nondistended, normoactive bowel sounds present, Soft to palpation and non-tender INSPECTION: Yes central obesity PALPATION: Yes Soft to palpation RECTAL EXAM: Yes other (skin tag x 1) : BLADDER/KIDNEY EXAM: Yes catheter in place Back/Pelvis: COMMON NORMALS: thoracic and lumbar spine normal to inspection Extremity: COMMON NORMALS: normal to inspection, full ROM, no clubbing, cyanosis or edema and no pedal edema Neuro: COMMON NORMALS: moves all extremities, no focal motor deficits and no sensory deficits noted SENSORIUM/ORIENTATION: Yes alert Psych: COMMON NORMALS: mental status grossly normal, Normal thought process present, cooperative, normal affect and speech normal SPEECH: Yes normal speech THOUGHT PROCESS: Normal thought process present Skin: COMMON NORMALS: no rashes or lesions noted, no jaundice, no petechiae and no mottling NARRATIVE SKIN EXAM: -has noted well circumscribed lesion on R gluteal area just medial to gluteal cleft, no drainage, minimal non-blanchable erythema GENERAL SKIN EXAM: no rashes or lesions noted Urinary Catheter Management^: Little: Cath Placed During This Visit: yes, but has since been removed by the nurse Urethral Indwelling: Yes Reason for Continuing Indwelling Catheter: Not indwelling catheter Urinary Catheter Date of Insertion: 10/29/19 Urinary Catheter Time of Insertion: 06:42 Date Urinary Catheter Removed: 10/31/19 Time Urinary Catheter Discontinued: 19:00 Data : 11/02/19 04:34 11/02/19 04:34 A&P Assessment and plan (1) Bacteremia: -Noted to have 4 out of 4 bottles of blood cultures done on 10/25 + for staph aureus. 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 Prelim negative (from both sources). Port-A-Cath is still likely source of infection so will request removal. Surgery consult for this requested -continue IV Ceftriaxone at this time, off gentamicin particularly due to potential for nephrotoxicity. We will discontinue vancomycin as based on culture sensitivity this is MSSA. -Echo: limited study, EF=55%, G2DD, LUPE negative for vegetation, findings discussed with Dr. Donnelly; has no history of prosthetic valve placement, no recent instrumentation including GI/ -Afebrile so far, leukocytosis resolved -Continue to monitor vital signs closely -had been on ciprofloxacin; received dose of Zosyn, doxycycline in ED -renal US unremarkable -We will need IV antibiotics for about 6 weeks so request PICC line placement. We will plan on continuing cefazolin for 6 weeks dating from 11/02 Status: Acute (2) Abnormal ECG: -noted to have T wave inversions on ECG (10/31), could indicate lateral wall ischemia, nuclear stress testing today suggestive of myocardial scarring with ischemia in distribution of RCA. Will need further evaluation of this with coronary angiogram once bacteremia has been effectively treated -telemetry monitoring -Echo as noted -Cardiology on board -troponins noted, no significant delta change Status: Acute (3) Cystitis: -previously found to have UA indicative of infection (10/25), urine cx-staph aureus -repeat UA shows persistent infection, repeat urine cx prelim negative -on Vanc, ceftriaxone Status: Acute (4) Sinus bradycardia: -likely medication induced as he in on BB; on hold, improved -telemetry monitoring -asymptomatic Status: Acute (5) Acute hypercapnic respiratory failure: -Patient is oxygen dependent at baseline, 3 L requirement -ABGs noted, done while on BiPAP -Continue supplemental oxygen as needed; wean to baseline if possible -has prior hx of lung cancer as noted above -likely has undiagnosed MARBIN; sleep study as outpatient -closely monitor respiratory status Status: Acute (6) BPH (benign prostatic hyperplasia): -on Flomax Status: Chronic Qualifiers: Lower urinary tract symptom presence: unspecified whether lower urinary tract symptoms present Qualified Code(s): N40.0 - Benign prostatic hyperplasia without lower urinary tract symptoms (7) Heart failure with preserved ejection fraction: -BNP-[id number] -Echo: limited study, EF=55%, G2DD -required BiPAP initially, now on NC -CXR with noted cardiomegaly, -on Lasix, Aldactone -difficult to monitor Is & Os due to inability to consistently use urinal Status: Acute Qualifiers: Heart failure chronicity: acute on chronic Qualified Code(s): I50.33 - Acute on chronic diastolic (congestive) heart failure (8) Hypertension: -on lasix, low dose hydralazine and lisinopril; titrate as needed for optimal BP control -continue to monitor vital signs; stable Status: Chronic Qualifiers: Hypertension type: essential hypertension Qualified Code(s): I10 - Essential (primary) hypertension (9) Hypothyroidism: -on levothyroxine, TSH wnl Status: Chronic Qualifiers: Hypothyroidism type: unspecified Qualified Code(s): E03.9 - Hypothyroidism, unspecified (10) Hyperlipidemia: -on statin Status: Chronic Qualifiers: Hyperlipidemia type: unspecified Qualified Code(s): E78.5 - Hyperlipidemia, unspecified (11) Morbid obesity: -BMI-41 kg/m2 Status: Chronic (12) Depression: Status: Chronic Qualifiers: Depression Type: unspecified Qualified Code(s): F32.9 - Major depressive disorder, single episode, unspecified (13) Glaucoma: Status: Chronic Qualifiers: Glaucoma type: unspecified Laterality: unspecified laterality Qualified Code(s): H40.9 - Unspecified glaucoma (14) Lung cancer: -no evidence of distant metastasis per PET scan in 06/2019 -in remission -f/u with Dr. Ornelas Status: Chronic Qualifiers: Laterality: right Lung location: upper lobe of lung Qualified Code(s): C34.11 - Malignant neoplasm of upper lobe, right bronchus or lung (15) Macrocytic anemia: -Has a chronic microcytic anemia, acutely presenting with macrocytic anemia -Baseline hemoglobin is around 12 -continue to monitor H/H -Low normal folate, vitamin B12; on supplementation -had colonoscopy done in 11/2018 Status: Acute (16) Chronic kidney disease: -has some degree of CKD, unknown stage -superimposed BOOGIE, resolved -baseline Cr around 0.9 -continue to monitor renal function, avoid nephrotoxins, renally dose meds Status: Acute Qualifiers: Chronic kidney disease stage: unspecified stage Qualified Code(s): N18.9 - Chronic kidney disease, unspecified Additional A&P Information -Hyperkalemia-resolved; continue to monitor K -NPO after midnight for port-A-cath removal -cardiac diet as tolerated -DVT ppx with Lovenox -Dispo: home with HH -Code status: FULL code Attestations Medical Necessity Statement*: Patient requires hospitalization for continued IV antibiotic treatment pending removal of port-A-cath and placement of PICC line. Time Spent in Patient Care: 16 - 35 minutes (>than 50% of time spent in counselling and/or direct pt care on unit). Coding Level of Care Code Acute Supervisor Plastic Sheets for Chg Fwd Exam Comprehensive Diagnoses Bacteremia R78.81 Abnormal ECG R94.31 Cystitis N30.90 Sinus bradycardia R00.1 Acute hypercapnic respiratory failure J96.02 BPH (benign prostatic hyperplasia) N40.0 Lower urinary tract symptom presence: unspecified whether lower urinary tract symptoms present Heart failure with preserved ejection fraction I50.33 Heart failure chronicity: acute on chronic Hypertension I10 Hypertension type: essential hypertension Hypothyroidism E03.9 Hypothyroidism type: unspecified Hyperlipidemia E78.5 Hyperlipidemia type: unspecified Morbid obesity E66.01 Depression F32.9 Depression Type: unspecified Glaucoma H40.9 Glaucoma type: unspecified Laterality: unspecified laterality Lung cancer C34.11 Laterality: right Lung location: upper lobe of lung Macrocytic anemia D53.9 Chronic kidney disease N18.9 Chronic kidney disease stage: unspecified stage
[2019-11-02] MEDS: cefTRIAXone 1,000 MG in sodium chloride 0.9% (plus) 50 ML 100 MG IV (14:26)
--- NOTE | 2019-11-02 14:51 | P.ANESASSM_ITS ---
Pre-Anesthetic Assessment Pre-Anesthetic Assessment: Height/Weight: Height 1.68 m Weight 113.852 kg Temp Pulse Resp BP Pulse Ox 98.7 F 93 19 H 143/51 96 11/02/19 11:08 11/02/19 12:51 11/02/19 11:08 11/02/19 12:51 11/02/19 11:08 Proposed Procedure: Operation Date: 11/02/19 14:00 Proposed Procedures p LUPE (anesthesia only, no GI team needed)(Not Applicable) - Sariah Donnelly MD Social: Social History: Tobacco (quit) and No alcohol Exam: Pre-Anes Outpt Exam: alert, oriented x 3, clear to auscultation bilaterally and regular rate & rhythm Airway: Submandibular: WNL Cervical ROM: WNL MP: 2 Dentition: False (upper) and Other (poor dentation) History/ROS: No significant history except as noted Pulmonary: Pulmonary: COPD, CARUSO and SOB CV/HEM: CV/HEM: CHF and HTN : : None reported Hepatic: Hepatic: None reported GI: GI: None reported Metabolic: Metabolic: Hyperlipidemia and Morbid obesity Musc/skel: Musc/skel: OA/DJD Neuropsych: Neuropsych: None reported Anesthetic Plan: ASA status: 4 Anesthesia: Anesthesia Evaluation and MAC Risk of > 500 ml blood loss (7ml/kg in children): No Meds/Allergies Current Medications: Current Medications Generic Name Dose Route Start Last Admin Trade Name Freq PRN Reason Stop Dose Admin Acetaminophen 650 mg 10/29/19 15:52 10/29/19 16:18 Tylenol PO 650 mg Q6H PRN Administration MILD PAIN Albuterol/Ipratrop ium 3 ml 10/28/19 22:46 10/31/19 20:57 Duoneb INHALATION 3 ml Q6H.RESPIRATORY P RN Administration SHORTNESS OF ELIUD TH Amlodipine Besylat e 5 mg 11/01/19 20:00 11/02/19 08:27 Norvasc PO 5 mg DAILY ANTONIA Administration Atorvastatin Calci um 20 mg 10/31/19 21:00 11/01/19 21:51 Lipitor PO 20 mg BEDTIME ANTONIA Administration Cyanocobalamin 1,000 mcg 10/30/19 13:15 11/02/19 08:25 Vitamin B-12 PO 1,000 mcg DAILY ANTONIA Administration Enoxaparin Sodium 40 mg 10/28/19 22:46 11/01/19 21:52 Lovenox SUBCUT 40 mg Q24H ANTONIA Administration Folic Acid 1 mg 10/30/19 13:15 11/02/19 08:26 Folic Acid PO 1 mg DAILY ANTONIA Administration Furosemide 40 mg 11/01/19 08:00 11/02/19 08:26 Lasix PO 40 mg DAILY@0800 ANTONIA Administration Hydralazine HCl 10 mg 10/31/19 21:00 11/02/19 08:29 Apresoline PO 10 mg TID ANTONIA Administration Vancomycin HCl 1,0 00 mg/ 250 mls @ 250 mls /hr 10/29/19 00:00 11/02/19 01:00 Sodium Chloride IV 250 mls/hr Q12H ANTONIA Administration Protocol As Directed Ceftriaxone Sodium 1,000 mg/ 50 mls @ 100 mls/ hr 10/30/19 13:30 11/02/19 14:26 Sodium Chloride IV 100 mls/hr Q24H ANTONIA Administration Protocol Latanoprost 1 drop 10/29/19 21:00 11/01/19 21:52 Xalatan EYE-BOTH 1 drop BEDTIME ANTONIA Administration Levothyroxine Sodi um 50 mcg 10/29/19 09:00 11/02/19 08:26 Synthroid PO 50 mcg DAILY ANTONIA Administration Lisinopril 20 mg 10/31/19 16:15 11/02/19 08:26 Prinivil PO 20 mg DAILY ANTONIA Administration Phenazopyridine HC l 100 mg 10/29/19 19:01 11/02/19 08:29 Pyridium PO 100 mg TID PRN Administration DYSURIA Spironolactone 12.5 mg 11/01/19 11:00 11/02/19 08:27 Aldactone PO 12.5 mg DAILY ANTONIA Administration Tamsulosin HCl 0.4 mg 10/29/19 09:00 11/02/19 08:27 Flomax PO 0.4 mg DAILY ANTONIA Administration Additional Medication Information: Active Medications Generic Name Dose Route Start Last Admin Trade Name Freq PRN Reason Stop Dose Admin Acetaminophen 650 mg 10/29/19 15:52 10/29/19 16:18 Tylenol PO 650 mg Q6H PRN Administration MILD PAIN Albuterol/Ipratrop ium 3 ml 10/28/19 22:46 10/31/19 20:57 Duoneb INHALATION 3 ml Q6H.RESPIRATORY P RN Administration SHORTNESS OF ELIUD TH Aminophylline 25 mg 11/02/19 10:17 Aminophylline IVP 11/03/19 10:16 Q2M PRN see dose instruct ions Amlodipine Besylat e 5 mg 11/01/19 20:00 11/02/19 08:27 Norvasc PO 5 mg DAILY ANTONIA Administration Atorvastatin Calci um 20 mg 10/31/19 21:00 11/01/19 21:51 Lipitor PO 20 mg BEDTIME ANTONIA Administration Cyanocobalamin 1,000 mcg 10/30/19 13:15 11/02/19 08:25 Vitamin B-12 PO 1,000 mcg DAILY ANTONIA Administration Enoxaparin Sodium 40 mg 10/28/19 22:46 11/01/19 21:52 Lovenox SUBCUT 40 mg Q24H ANTONIA Administration Folic Acid 1 mg 10/30/19 13:15 11/02/19 08:26 Folic Acid PO 1 mg DAILY ANTONIA Administration Furosemide 40 mg 11/01/19 08:00 11/02/19 08:26 Lasix PO 40 mg DAILY@0800 ANTONIA Administration Hydralazine HCl 10 mg 10/31/19 21:00 11/02/19 08:29 Apresoline PO 10 mg TID ANTONIA Administration Vancomycin HCl 1,0 00 mg/ 250 mls @ 250 mls /hr 10/29/19 00:00 11/02/19 01:00 Sodium Chloride IV 250 mls/hr Q12H ANTONIA Administration Protocol As Directed Ceftriaxone Sodium 1,000 mg/ 50 mls @ 100 mls/ hr 10/30/19 13:30 11/01/19 13:31 Sodium Chloride IV 100 mls/hr Q24H ANTONIA Administration Protocol Latanoprost 1 drop 10/29/19 21:00 11/01/19 21:52 Xalatan EYE-BOTH 1 drop BEDTIME ANTONIA Administration Levothyroxine Sodi um 50 mcg 10/29/19 09:00 11/02/19 08:26 Synthroid PO 50 mcg DAILY ANTONIA Administration Lisinopril 20 mg 10/31/19 16:15 11/02/19 08:26 Prinivil PO 20 mg DAILY ANTONIA Administration Nitroglycerin 0.4 mg 11/02/19 10:17 Nitrostat SUBLINGUAL 11/03/19 10:16 Q5M PRN CHEST PAIN Ondansetron HCl 4 mg 11/02/19 10:17 Zofran IVP Q2M PRN NAUSEA Phenazopyridine HC l 100 mg 10/29/19 19:01 11/02/19 08:29 Pyridium PO 100 mg TID PRN Administration DYSURIA Spironolactone 12.5 mg 11/01/19 11:00 11/02/19 08:27 Aldactone PO 12.5 mg DAILY ANTONAI Administration Tamsulosin HCl 0.4 mg 10/29/19 09:00 11/02/19 08:27 Flomax PO 0.4 mg DAILY ANTONIA Administration No Known Allergies Allergy (Verified 10/28/19 17:59) PFSH Anesthesia PFSH: Medical History Acute on chronic diastolic (congestive) heart failure BPH (benign prostatic hyperplasia) Cholelithiasis Depression Glaucoma Gram-positive bacteremia Heart failure with preserved ejection fraction Hyperlipidemia Hypertension Hypothyroidism Lung cancer Lung cancer Morbid obesity Normal colonoscopy In 2018 2019 Port-A-Cath in place Sigmoid diverticulosis Surgical History No pertinent past surgical history Family History Denies family history of Lung disease Hypertension Social History Smoking and tobacco status: former smoker Alcohol intake: never Substance/Drug Use: never Household members: spouse Housing: House Data Anesthesia CBC & Chem 7: 11/02/19 04:34 11/02/19 04:34 Other Labs: Laboratory Results - last 48 hr 11/02/19 11/02/19 04:34 04:34 WBC 8.3 RBC 3.76 L Hgb 11.4 L Hct 37.3 L MCV 99.2 H MCH 30.3 MCHC 30.6 RDW 14.1 Plt Count 267 MPV 10.4 Neut % (Auto) 74.1 Lymph % (Auto) 9.5 [place] % (Auto) 9.3 Eos % (Auto) 2.1 Baso % (Auto) 0.7 Neut # (Auto) 6.1 Lymph # (Auto) 0.8 [place] # (Auto) 0.8 Eos # (Auto) 0.2 Baso # (Auto) 0.1 Nucleated RBC % (auto) 0 Nucleated RBCs # 0.0 Sodium 136 Potassium 4.6 Chloride 96 L Carbon Dioxide 31 H Anion Gap 13.6 BUN 11 Creatinine 0.7 Glucose 104 Calculated Osmolality 278 L Calcium 9.2 Cardiac Studies: No Data to Display
--- NOTE | 2019-11-02 15:30 | USCV_ITS ---
Venkat Cherry Age: 79 Gender: M : 1940 Exam Date: 11/02/2019 15:41 Ordering Phys: Sariah Donnelly MD ([email or web address]) Technologist: Esther Stone [place] [facility] [place]ication: ENDOCARDITITS BP: / HR: Rhythm: Sinus Technical Quality: MEASUREMENTS (Male / Female) Normal Values Medications Patient given IV sedation by anesthesia service, for details please refer to the anesthesia report. Complications None. Proc. Components LUPE was performed at multiple levels. FINDINGS Left Ventricle Normal left ventricular size and systolic function, EF 60 % . Concentric left ventricular hypertrophy Right Ventricle Normal RV size and ejection fraction. Right Atrium No cavitary masses. The eustachian valve was visualized with no masses or thrombi Left Atrium No intracavitary masses LA Appendage Free of any masses or thrombi IA Septum Appears to be intact by color-flow Doppler examination Mitral Valve Trace to mild mitral valve regurgitation. No masses or vegetation Aortic Valve Tricuspid valve with no masses or vegetations Tricuspid Valve Mild tricuspid valve regurgitation. Pulmonic Valve No masses or vegetations noted Pericardium No effusion Aorta Appears to be of normal size with no evidence of dissection CONCLUSIONS 1. No intracardiac masses or vegetations 2. Normal LV size and ejection fraction. 3. Mild tricuspid with trace to mild mitral regurgitation 4. No intracardiac shunt by color-flow Doppler examination Dr Sariah Donnelly MD FACC (Electronically Signed) Final Date: 02 November 2019 19:13 S
[2019-11-02] MEDS: sodium chloride 0.9% 1,000 ML 75 ML IV (16:31)
[2019-11-02] MEDS: isosorbide mononitrate ER 30 mg Tablet PO (18:02)
--- NOTE | 2019-11-02 18:03 | PC.NURSE ---
Imdur delayed due to patient recovering from LUPE.
--- NOTE | 2019-11-02 18:27 | PM.CONSULT ---
Providers/Reason For Consult Consulting Physican/Specialty*: Best Rosas MD Reason for Consult*: Infected port-a-cath Attending Physician: Zoey Avina MD Primary Care Provider: Jose Martin Noe DO History of Present Illness History of Present Illness Chief Complaint: I need my port out History of present illness: Mr. Venkat Cherry is a pleasant 79 year old male patient admitted on the hospitalist service and worked up and found to have a positive blood culture concerned that the Port-A-Cath placed about 6 months ago is the reason for bloodstream infection, general surgery was consulted for potential explantation of left upper chest Port-A-Cath. LUPE was done yesterday per cardiac services and was found to have: CONCLUSIONS 1. No intracardiac masses or vegetations 2. Normal LV size and ejection fraction. 3. Mild tricuspid with trace to mild mitral regurgitation 4. No intracardiac shunt by color-flow Doppler examination Review of Systems General: Reports: 10 or more systems reviewed and unremarkable except in HPI and below Meds/Allergies Home Medications and Allergies Home Medications Medication Instructions Recorded Confirmed Last Taken Type atorvastatin 20 mg PO DAILY 10/26/19 10/29/19 10/28/19 History ciprofloxacin HCl [Cipro] 500 mg PO Q12H #14 tab 10/26/19 Unknown Rx hydralazine 50 mg PO TID 10/26/19 10/29/19 10/28/19 History latanoprost 1 drp OPHTHALMIC (EYE) BEDTIME 10/26/19 10/29/19 10/27/19 History levothyroxine 50 mcg PO DAILY 10/26/19 10/29/19 10/28/19 History magnesium 250 mg PO BEDTIME 10/26/19 10/29/19 10/28/19 History potassium chloride 10 meq PO BID 10/26/19 10/29/19 10/28/19 History spironolactone 12.5 mg PO BID 10/26/19 10/29/19 10/28/19 History tamsulosin [Flomax] 0.4 mg PO BEDTIME 10/26/19 10/29/19 10/27/19 History zinc 50 mg PO DAILY 10/26/19 10/29/19 10/28/19 History atenolol 50 mg PO DAILY 10/29/19 10/29/19 10/28/19 History furosemide 40 mg PO QAM 10/29/19 10/29/19 10/27/19 History lisinopril 60 mg PO DAILY 10/29/19 10/29/19 10/28/19 History Allergies Allergy/AdvReac Type Severity Reaction Status Date / Time No Known Allergies Allergy Verified 11/03/19 08:47 Current Medications Current Medications Generic Name Dose Route Start Last Admin Trade Name Freq PRN Reason Stop Dose Admin Acetaminophen 650 mg 10/29/19 15:52 10/29/19 16:18 Tylenol PO 650 mg Q6H PRN Administration MILD PAIN Albuterol/Ipratropium 3 ml 10/28/19 22:46 10/31/19 20:57 Duoneb INHALATION 3 ml Q6H.RESPIRATORY PRN Administration SHORTNESS OF BREATH Amlodipine Besylate 5 mg 11/01/19 20:00 11/02/19 08:27 Norvasc PO 5 mg DAILY ANTONIA Administration Atorvastatin Calcium 20 mg 10/31/19 21:00 11/01/19 21:51 Lipitor PO 20 mg BEDTIME ANTONIA Administration Cyanocobalamin 1,000 mcg 10/30/19 13:15 11/02/19 08:25 Vitamin B-12 PO 1,000 mcg DAILY ANTONIA Administration Enoxaparin Sodium 40 mg 10/28/19 22:46 11/01/19 21:52 Lovenox SUBCUT 40 mg Q24H ANTONIA Administration Folic Acid 1 mg 10/30/19 13:15 11/02/19 08:26 Folic Acid PO 1 mg DAILY ANTONIA Administration Furosemide 40 mg 11/01/19 08:00 11/02/19 08:26 Lasix PO 40 mg DAILY@0800 ANTONIA Administration Hydralazine HCl 10 mg 10/31/19 21:00 11/02/19 15:14 Apresoline PO 10 mg TID ANTONIA Administration Ceftriaxone Sodium 1,000 mg/ 50 mls @ 100 mls/hr 10/30/19 13:30 11/02/19 14:26 Sodium Chloride IV 100 mls/hr Q24H ANTONIA Administration Protocol Sodium Chloride 1,000 mls @ 75 mls/hr 11/02/19 15:45 11/02/19 16:31 Sodium Chloride 0.9% IV 75 mls/hr .[id number] ANTONIA Administration Isosorbide Mononitrate 30 mg 11/02/19 16:15 11/02/19 18:02 Imdur PO 30 mg DAILY ANTONIA Administration Latanoprost 1 drop 10/29/19 21:00 11/01/19 21:52 Xalatan EYE-BOTH 1 drop BEDTIME ANTONIA Administration Levothyroxine Sodium 50 mcg 10/29/19 09:00 11/02/19 08:26 Synthroid PO 50 mcg DAILY ANTONIA Administration Lisinopril 20 mg 10/31/19 16:15 11/02/19 08:26 Prinivil PO 20 mg DAILY ANTONIA Administration Phenazopyridine HCl 100 mg 10/29/19 19:01 11/02/19 08:29 Pyridium PO 100 mg TID PRN Administration DYSURIA Spironolactone 12.5 mg 11/01/19 11:00 11/02/19 08:27 Aldactone PO 12.5 mg DAILY ANTONIA Administration Tamsulosin HCl 0.4 mg 10/29/19 09:00 11/02/19 08:27 Flomax PO 0.4 mg DAILY ANTONIA Administration PFSH Acute PFSH: Medical History Abnormal cardiovascular stress test Acute on chronic diastolic (congestive) heart failure BPH (benign prostatic hyperplasia) Cholelithiasis Depression Glaucoma Gram-positive bacteremia Heart failure with preserved ejection fraction Hyperlipidemia Hypertension Hypothyroidism Lung cancer Lung cancer Morbid obesity Normal colonoscopy In 2018 2019 Port-A-Cath in place Sigmoid diverticulosis Surgical History No pertinent past surgical history Family History Denies family history of Lung disease Hypertension Social History Smoking and tobacco status: former smoker Alcohol intake: never Substance/Drug Use: never Household members: spouse Housing: House Vitals/I&O/Wt Last Vital Signs Temp 97.8 F 11/02/19 15:21 Pulse 65 11/02/19 15:21 Resp 18 11/02/19 15:21 BP 154/61 11/02/19 15:21 Pulse Ox 93 11/02/19 15:21 11/02/19 11/02/19 11/02/19 06:59 14:59 22:59 Intake Total 0 / 1580 480 / 480 240 / 720 Balance 0 / 1580 480 / 480 240 / 720 Physical Exam Narrative: EXAM NARRATIVE: Patient is conscious alert oriented X3 BMI 42 Head and neck examination PERRLA no masses no cervical lymphadenopathy no jaundice Cardiac examination audible S1-S2 no murmurs no gallops no arrhythmias Chest is clear bilateral,abscence of Rhonchi or wheezes,no surgical emphysema Left upper chest Port-A-Cath in place Abdomen nontender nondistended soft no organomegaly guarding or rigidity/no signs of peritonitis Morbidly obese Urinary Catheter Management^: Little: Cath Placed During This Visit: yes, but has since been removed by the nurse Urethral Indwelling: Yes Reason for Continuing Indwelling Catheter: Not indwelling catheter Urinary Catheter Date of Insertion: 10/29/19 Urinary Catheter Time of Insertion: 06:42 Date Urinary Catheter Removed: 10/31/19 Time Urinary Catheter Discontinued: 19:00 A&P Assessment and plan (1) Gram-positive bacteremia: Plan of care; After thorough history physical examination and reviewing the chart, I counseled the patient for Port-A-Cath explantation, indications, risks including pneumothorax and injury of major vascular structures, benefits,indications and alternatives were all discussed with the patient, patient understands and is interested to proceed. Rationale was carefully and clearly discussed with the patient.Appropriate informed consent have been reviewed and signed. Status: Acute Consult Attestations Medical Necessity Statement: Per hospitalist service Time Spent in Patient Care: 16 - 35 minutes (>than 50% of time spent in counselling and/or direct pt care on unit). Coding Level of Care Code Acute Sleep Technician for [facility] Kizzy Diagnoses Gram-positive bacteremia R78.81
--- NOTE | 2019-11-02 20:14 | PC.NURSE ---
Pt resting in chair. Physician at bedside and explained procedure and risks to patient. Verbalized understanding. No complaints of pain. Remains on 2 L O2.
[2019-11-02] MEDS: atorvastatin 40 mg Tablet 20 MG PO (21:59)
[2019-11-02] MEDS: latanoprost 0.005% Op Soln 2.5 mL Btl 1 DROP EYE-BOTH (21:59)
[2019-11-02] MEDS: heparin 5,000 unit/mL INJ 1 mL 5000 UNIT SUBCUT (23:29)
[2019-11-03] VITALS (11 sets, daily range): BP systolic 94–148; BP diastolic 41–72; PULSE 56–900; RESP 16–26; TEMP 36.7–37.2; O2SAT 90–99
--- NOTE | 2019-11-03 05:58 | PC.NURSE ---
END OF SHIFT NOTE: No acute changes overnight. Fluids infused per orders. No pain. Pt ready to get port removed and picc line inserted so he can potentially be discharged. Remains on 2 L NC. rocephin continues.
--- NOTE | 2019-11-03 08:18 | PM.PN ---
Subjective Subjective: Interval history: Patient is remained stable with no chest pain or shortness of breath. The Port-A-Cath was removed today. He is awaiting PICC line in the morning. Denies any new symptoms. Medications: Reviewed: Yes Medication Review Details: Current Medications Acetaminophen (Tylenol) 650 mg PO Q6H PRN PRN Reason: MILD PAIN Last Admin: 10/29/19 16:18 Dose: 650 mg Documented by: Albuterol/Ipratropium (Duoneb) 3 ml INHALATION Q6H.RESPIRATORY PRN PRN Reason: SHORTNESS OF BREATH Last Admin: 10/31/19 20:57 Dose: 3 ml Documented by: Aminophylline (Aminophylline) 25 mg IVP Q2M PRN PRN Reason: see dose instructions Stop: 11/03/19 10:16 Amlodipine Besylate (Norvasc) 5 mg PO DAILY [facility] Last Admin: 11/02/19 08:27 Dose: 5 mg Documented by: Atorvastatin Calcium (Lipitor) 20 mg PO BEDTIME [facility] Last Admin: 11/02/19 21:59 Dose: 20 mg Documented by: Cyanocobalamin (Vitamin B-12) 1,000 mcg PO DAILY [facility] Last Admin: 11/02/19 08:25 Dose: 1,000 mcg Documented by: Enoxaparin Sodium (Lovenox) 40 mg SUBCUT Q24H [facility] Last Admin: 11/02/19 23:17 Dose: Not Given Documented by: Folic Acid (Folic Acid) 1 mg PO DAILY [facility] Last Admin: 11/02/19 08:26 Dose: 1 mg Documented by: Furosemide (Lasix) 40 mg PO DAILY@0800 [facility] Last Admin: 11/02/19 08:26 Dose: 40 mg Documented by: Hydralazine HCl (Apresoline) 10 mg PO TID [facility] Last Admin: 11/02/19 21:59 Dose: 10 mg Documented by: Ceftriaxone Sodium 1,000 mg/ (Sodium Chloride) 50 mls @ 100 mls/hr IV Q24H [facility]; Protocol Last Admin: 11/02/19 14:26 Dose: 100 mls/hr Documented by: Sodium Chloride (Sodium Chloride 0.9%) 1,000 mls @ 75 mls/hr IV .[id number] [facility] Last Admin: 11/03/19 05:53 Dose: Not Given Documented by: Isosorbide Mononitrate (Imdur) 30 mg PO DAILY [facility] Last Admin: 11/02/19 18:02 Dose: 30 mg Documented by: Latanoprost (Xalatan) 1 drop EYE-BOTH BEDTIME [facility] Last Admin: 11/02/19 21:59 Dose: 1 drop Documented by: Levothyroxine Sodium (Synthroid) 50 mcg PO DAILY [facility] Last Admin: 11/02/19 08:26 Dose: 50 mcg Documented by: Lisinopril (Prinivil) 20 mg PO DAILY [facility] Last Admin: 11/02/19 08:26 Dose: 20 mg Documented by: Nitroglycerin (Nitrostat) 0.4 mg SUBLINGUAL Q5M PRN PRN Reason: CHEST PAIN Stop: 11/03/19 10:16 Ondansetron HCl (Zofran) 4 mg IVP Q2M PRN PRN Reason: NAUSEA Phenazopyridine HCl (Pyridium) 100 mg PO TID PRN PRN Reason: DYSURIA Last Admin: 11/02/19 08:29 Dose: 100 mg Documented by: Spironolactone (Aldactone) 12.5 mg PO DAILY [facility] Last Admin: 11/02/19 08:27 Dose: 12.5 mg Documented by: Tamsulosin HCl (Flomax) 0.4 mg PO DAILY [facility] Last Admin: 11/02/19 08:27 Dose: 0.4 mg Documented by: Vitals/I&O/Wt Last Vital Signs Temp 98.0 F 11/03/19 07:00 Pulse 78 11/03/19 07:00 Resp 18 11/03/19 07:00 BP 130/50 11/03/19 07:00 Pulse Ox 91 11/03/19 03:22 11/02/19 11/03/19 11/03/19 22:59 06:59 14:59 Intake Total 680 / 1160 1000 / 2160 Balance 680 / 1160 1000 / 2160 Weight last 48 hrs Weight 260 lb 11.2 oz Physical Exam Narrative: EXAM NARRATIVE: GENERAL: The patient is alert and oriented times three. Not in any acute distress. HEENT: No significant pallor, icterus or lymphadenopathy. NECK: Trachea appears to be central. No masses noted. No JVD or thyromegaly appreciated. No carotid bruit. RESPIRATORY: Chest is symmetrical. No intercostals muscle retraction or any accessory muscle activation. There is no chest wall tenderness. Breath sounds are heard bilaterally. No rales or rhonchi. No evidence of consolidation. No hematoma or bleeding at the surgical site. BREASTS: Deferred. HEART: T the PMI could not be palpated. First and second heart sounds are normal. No S3. Short systolic murmur in the left sternal border. Early diastolic murmur in the second aortic area of grade 2/6 ABDOMEN: No vessel pulsations or distention. No tenderness. No organomegaly appreciated. No abdominal bruit. Bowel sounds are normally heard. : Deferred. RECTAL: Deferred. LYMPHATIC: No lymphadenopathy noted in the neck . EXTREMITIES: 1+ edema both lower extremities. No cyanosis. Peripheral pulses are palpable but weak bilaterally. MUSCULOSKELETAL: No acute joint deformities or swelling. SKIN: Hyperpigmented skin lesion in the right buttock. Minimal ulceration. NEUROPSYCHIATRIC: The patient is alert and oriented x3. Appears to be in a good mood. The higher functions are grossly within normal limits. No tremors or rigidity noted. Urinary Catheter Management^: Little: Cath Placed During This Visit: yes, but has since been removed by the nurse Urethral Indwelling: Yes Reason for Continuing Indwelling Catheter: Not indwelling catheter Urinary Catheter Date of Insertion: 10/29/19 Urinary Catheter Time of Insertion: 06:42 Date Urinary Catheter Removed: 10/31/19 Time Urinary Catheter Discontinued: 19:00 Data : 11/02/19 04:34 11/02/19 04:34 Micro: Microbiology 10/28/19 18:47 Blood Culture - Final Blood NO GROWTH AFTER 5 DAYS 10/28/19 18:46 Blood Culture - Final Blood NO GROWTH AFTER 5 DAYS A&P Assessment and plan (1) Abnormal cardiovascular stress test: Patient is currently remaining stable with no chest pain. May continue the current medications. Consider cardiac authorization after finishing the IV antibiotic treatment Status: Acute (2) Gram-positive bacteremia: No evidence of endocarditis based on the LUPE. Management as per the primary. Most likely from the indwelling catheter which is currently removed. Status: Acute (3) Acute on chronic diastolic (congestive) heart failure: The heart failure is currently compensated. May continue on the current medications. Status: Acute (4) Macrocytic anemia: This could be multifactorial. Malignancy, hemoptysis, chemotherapy, etc. are contributing factors. Hemoglobin seems to be stable. The current infection also might be playing a role Status: Acute (5) Lung cancer: Patient is being followed by oncology service. Status: Chronic Qualifiers: Laterality: right Lung location: upper lobe of lung Qualified Code(s): C34.11 - Malignant neoplasm of upper lobe, right bronchus or lung (6) Hypothyroidism: Clinically euthyroid. He is on thyroid replacement. Status: Chronic Qualifiers: Hypothyroidism type: unspecified Qualified Code(s): E03.9 - Hypothyroidism, unspecified (7) Hypertension: Currently he is somewhat hypotensive. IV hydration . May continue the current medications. Status: Chronic Qualifiers: Hypertension type: essential hypertension Qualified Code(s): I10 - Essential (primary) hypertension Additional A&P Information If the patient continues to remain stable, may be discharged home tomorrow, from a cardiac standpoint. Attestations Medical Necessity Statement*: Disposition as per the primary Coding Level of Care Code Acute Non Profit Financial Controller for [facility] Fwd Diagnoses Abnormal cardiovascular stress test R94.39 Gram-positive bacteremia R78.81 Acute on chronic diastolic (congestive) heart failure I50.33 Macrocytic anemia D53.9 Lung cancer C34.11 Laterality: right Lung location: upper lobe of lung Hypothyroidism E03.9 Hypothyroidism type: unspecified Hypertension I10 Hypertension type: essential hypertension
[2019-11-03] MEDS: spironolactone 25 mg Tablet 12.5 MG PO (08:23)
[2019-11-03] MEDS: amlodipine 5 mg Tablet PO (08:23)
[2019-11-03] MEDS: isosorbide mononitrate ER 30 mg Tablet PO (08:23)
[2019-11-03] MEDS: cyanocobalamin 1,000 mcg Tablet 1000 MCG PO (08:23)
[2019-11-03] MEDS: lisinopril 20 mg Tablet PO (08:23)
[2019-11-03] MEDS: FUROsemide 40 mg Tablet PO (08:24)
[2019-11-03] MEDS: tamsulosin 0.4 mg Capsule PO (08:24)
[2019-11-03] MEDS: levothyroxine 50 mcg Tablet PO (08:24)
[2019-11-03] MEDS: folic acid 1 mg Tablet PO (08:24)
[2019-11-03] MEDS: hyDRALAzine 10 mg Tablet PO ×2 (08:25→21:50)
--- NOTE | 2019-11-03 10:04 | PC.NURSE ---
SPOKE WITH NEEDING TO ADD PATIENT GLENNA TO CONTACT LIST ; PATIENT VERIFIED AND AGREED ; FACE SHEET WITH INFORMATION FAXED TO MAIN ADMISSIONS
--- NOTE | 2019-11-03 10:56 | PM.PN ---
Subjective Subjective: Interval history: Port-A-Cath removal today. Hemodynamically stable and afebrile, remains on 2 L. Labs reviewed. Patient seen after return from OR, discussed with Dr. Rosas, tip of Port-A-Cath sent for culture. Patient seems to be much more alert, oriented, appropriate and very easy to engage in conversation, in very good spirits today. PICC line placement tomorrow. Medications: Reviewed: Yes Medication Review Details: Active Medications Generic Name Dose Route Start Last Admin Trade Name Freq PRN Reason Stop Dose Admin Acetaminophen 650 mg 10/29/19 15:52 10/29/19 16:18 Tylenol PO 650 mg Q6H PRN Administration MILD PAIN Albuterol/Ipratrop ium 3 ml 10/28/19 22:46 10/31/19 20:57 Duoneb INHALATION 3 ml Q6H.RESPIRATORY P RN Administration SHORTNESS OF ELIUD TH Amlodipine Besylat e 5 mg 11/01/19 20:00 11/03/19 08:23 Norvasc PO 5 mg DAILY ANTONIA Administration Atorvastatin Calci um 20 mg 10/31/19 21:00 11/02/19 21:59 Lipitor PO 20 mg BEDTIME ANTONIA Administration Cyanocobalamin 1,000 mcg 10/30/19 13:15 11/03/19 08:23 Vitamin B-12 PO 1,000 mcg DAILY ANTONIA Administration Enoxaparin Sodium 40 mg 10/28/19 22:46 11/02/19 23:17 Lovenox SUBCUT Not Given Q24H ANTONIA Folic Acid 1 mg 10/30/19 13:15 11/03/19 08:24 Folic Acid PO 1 mg DAILY ANTONIA Administration Furosemide 40 mg 11/01/19 08:00 11/03/19 08:24 Lasix PO 40 mg DAILY@0800 ANTONIA Administration Hydralazine HCl 10 mg 10/31/19 21:00 11/03/19 08:25 Apresoline PO 10 mg TID ANTONIA Administration Ceftriaxone Sodium 1,000 mg/ 50 mls @ 100 mls/ hr 10/30/19 13:30 11/02/19 14:26 Sodium Chloride IV 100 mls/hr Q24H ANTONIA Administration Protocol Sodium Chloride 1,000 mls @ 75 ml s/hr 11/02/19 15:45 11/03/19 05:53 Sodium Chloride 0.9% IV Not Given .[id number] ANTONIA Isosorbide Mononit rate 30 mg 11/02/19 16:15 11/03/19 08:23 Imdur PO 30 mg DAILY ANTONIA Administration Latanoprost 1 drop 10/29/19 21:00 11/02/19 21:59 Xalatan EYE-BOTH 1 drop BEDTIME ANTONIA Administration Levothyroxine Sodi um 50 mcg 10/29/19 09:00 11/03/19 08:24 Synthroid PO 50 mcg DAILY ANTONIA Administration Lisinopril 20 mg 10/31/19 16:15 11/03/19 08:23 Prinivil PO 20 mg DAILY ANTONIA Administration Ondansetron HCl 4 mg 11/02/19 10:17 Zofran IVP Q2M PRN NAUSEA Phenazopyridine HC l 100 mg 10/29/19 19:01 11/02/19 08:29 Pyridium PO 100 mg TID PRN Administration DYSURIA Spironolactone 12.5 mg 11/01/19 11:00 11/03/19 08:23 Aldactone PO 12.5 mg DAILY ANTONIA Administration Tamsulosin HCl 0.4 mg 10/29/19 09:00 11/03/19 08:24 Flomax PO 0.4 mg DAILY ANTONIA Administration No Known Allergies Allergy (Verified 11/03/19 08:47) Vitals/I&O/Wt Last Vital Signs Temp 98.0 F 11/03/19 07:00 Pulse 78 11/03/19 07:00 Resp 18 11/03/19 07:00 BP 130/50 11/03/19 07:00 Pulse Ox 91 11/03/19 03:22 11/02/19 11/03/19 11/03/19 22:59 06:59 14:59 Intake Total 680 / 1160 1000 / 2160 Balance 680 / 1160 1000 / 2160 Weight last 48 hrs Weight 118.252 kg Physical Exam Const: COMMON NORMALS: no acute distress and alert GENERAL APPEARANCE: cooperative and comfortable NUTRITIONAL APPEARANCE: obese morbidly obese ORIENTATION/CONSCIOUSNESS: Yes awake and Yes confused OTHER: -sitting in chair by bedside HENMT: COMMON NORMALS: normocephalic, atraumatic, hearing grossly normal bilaterally and moist oral mucous membranes HEAD & SCALP: normocephalic and atraumatic TEETH & GINGIVA: Yes edentulous Eye: COMMON NORMALS: Equal, round and reactive pupils present, EOMs intact bilaterally and conjunctivae normal CONJUNCTIVA: Yes conjunctivae normal PUPIL: Yes Equal, round and reactive pupils present Neck/C-Spine: COMMON NORMALS: full ROM GENERAL: Yes normal visual inspection and Yes trachea midline Chest: CHEST: Yes Symmetrical chest wall rise OTHER: -clean/dry/intact dressing in place over previous port-A-cath site Resp: COMMON NORMALS: normal respiratory effort, No retractions and No use of accessory muscles EFFORT & INSPECTION: Yes able to speak in complete sentences and Yes symmetric chest movement AUSCULTATION: diminished lung sounds OTHER: -on 2 L NC -Auscultation limited by body habitus Cardio: COMMON NORMALS: regular rate, regular rhythm, S1 normal heart sound present, S2 normal heart sound present and No murmurs present (Cardio) RATE: regular rate RHYTHM: regular rhythm HEART SOUNDS: S1 normal heart sound present and S2 normal heart sound present GI: COMMON NORMALS: Normal to inspection, nondistended, normoactive bowel sounds present, Soft to palpation and non-tender INSPECTION: Yes central obesity PALPATION: Yes Soft to palpation RECTAL EXAM: Yes other (skin tag x 1) Back/Pelvis: COMMON NORMALS: thoracic and lumbar spine normal to inspection Extremity: COMMON NORMALS: normal to inspection, full ROM, no clubbing, cyanosis or edema and no pedal edema Neuro: COMMON NORMALS: moves all extremities, no focal motor deficits and no sensory deficits noted SENSORIUM/ORIENTATION: Yes alert Psych: COMMON NORMALS: mental status grossly normal, Normal thought process present, cooperative, normal affect and speech normal SPEECH: Yes normal speech THOUGHT PROCESS: Normal thought process present Skin: COMMON NORMALS: no rashes or lesions noted, no jaundice, no petechiae and no mottling NARRATIVE SKIN EXAM: -has noted well circumscribed lesion on R gluteal area just medial to gluteal cleft, no drainage, minimal non-blanchable erythema GENERAL SKIN EXAM: no rashes or lesions noted Urinary Catheter Management^: Little: Cath Placed During This Visit: yes, but has since been removed by the nurse Urethral Indwelling: Yes Reason for Continuing Indwelling Catheter: Not indwelling catheter Urinary Catheter Date of Insertion: 10/29/19 Urinary Catheter Time of Insertion: 06:42 Date Urinary Catheter Removed: 10/31/19 Time Urinary Catheter Discontinued: 19:00 Data : 11/02/19 04:34 11/02/19 04:34 Micro: Microbiology 10/28/19 18:47 Blood Culture - Final Blood NO GROWTH AFTER 5 DAYS 10/28/19 18:46 Blood Culture - Final Blood NO GROWTH AFTER 5 DAYS A&P Assessment and plan (1) Bacteremia: -Noted to have 4 out of 4 bottles of blood cultures done on 10/25 + for staph aureus. 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 Prelim negative (from both sources). Port-A-Cath removed today as likely source of infection, tip sent for culture. Surgery consult for this requested -continue IV Ceftriaxone at this time, off gentamicin particularly due to potential for nephrotoxicity. We will discontinue vancomycin as based on culture sensitivity this is MSSA. -Echo: limited study, EF=55%, G2DD, LUPE negative for vegetation, findings discussed with Dr. Donnelly; has no history of prosthetic valve placement, no recent instrumentation including GI/ -Afebrile so far, leukocytosis resolved -Continue to monitor vital signs closely -had been on ciprofloxacin; received dose of Zosyn, doxycycline in ED -renal US unremarkable -We will need IV antibiotics for about 6 weeks so request PICC line placement. We will plan on continuing cefazolin for 6 weeks dating from 11/02 (day of port-A-cath removal) Status: Acute (2) Abnormal ECG: -noted to have T wave inversions on ECG (10/31), could indicate lateral wall ischemia, nuclear stress testing today suggestive of myocardial scarring with ischemia in distribution of RCA. Will need further evaluation of this with coronary angiogram once bacteremia has been effectively treated -telemetry monitoring -Echo as noted -Cardiology on board -troponins noted, no significant delta change Status: Acute (3) Cystitis: -previously found to have UA indicative of infection (10/25), urine cx-staph aureus -repeat UA shows persistent infection, repeat urine cx prelim negative -on ceftriaxone Status: Inactive (4) Sinus bradycardia: -likely medication induced as he in on BB; on hold, improved -telemetry monitoring -asymptomatic Status: Acute (5) Acute hypercapnic respiratory failure: -Patient is oxygen dependent at baseline, 3 L requirement -ABGs noted, done while on BiPAP -Continue supplemental oxygen as needed; wean to baseline if possible -has prior hx of lung cancer as noted above -likely has undiagnosed MARBIN; sleep study as outpatient -closely monitor respiratory status Status: Acute (6) BPH (benign prostatic hyperplasia): -on Flomax Status: Chronic Qualifiers: Lower urinary tract symptom presence: unspecified whether lower urinary tract symptoms present Qualified Code(s): N40.0 - Benign prostatic hyperplasia without lower urinary tract symptoms (7) Heart failure with preserved ejection fraction: -BNP-972 -Echo: limited study, EF=55%, G2DD -required BiPAP initially, now on NC -CXR with noted cardiomegaly, -on Lasix, Aldactone -difficult to monitor Is & Os due to inability to consistently use urinal Status: Acute Qualifiers: Heart failure chronicity: acute on chronic Qualified Code(s): I50.33 - Acute on chronic diastolic (congestive) heart failure (8) Hypertension: -on lasix, low dose hydralazine and lisinopril; titrate as needed for optimal BP control -continue to monitor vital signs; stable Status: Chronic Qualifiers: Hypertension type: essential hypertension Qualified Code(s): I10 - Essential (primary) hypertension (9) Hypothyroidism: -on levothyroxine, TSH wnl Status: Chronic Qualifiers: Hypothyroidism type: unspecified Qualified Code(s): E03.9 - Hypothyroidism, unspecified (10) Hyperlipidemia: -on statin Status: Chronic Qualifiers: Hyperlipidemia type: unspecified Qualified Code(s): E78.5 - Hyperlipidemia, unspecified (11) Morbid obesity: -BMI-41 kg/m2 Status: Chronic (12) Depression: Status: Chronic Qualifiers: Depression Type: unspecified Qualified Code(s): F32.9 - Major depressive disorder, single episode, unspecified (13) Glaucoma: Status: Chronic Qualifiers: Glaucoma type: unspecified Laterality: unspecified laterality Qualified Code(s): H40.9 - Unspecified glaucoma (14) Lung cancer: -no evidence of distant metastasis per PET scan in 06/2019 -in remission -f/u with Dr. Ornelas Status: Chronic Qualifiers: Laterality: right Lung location: upper lobe of lung Qualified Code(s): C34.11 - Malignant neoplasm of upper lobe, right bronchus or lung (15) Macrocytic anemia: -Has a chronic microcytic anemia, acutely presenting with macrocytic anemia -Baseline hemoglobin is around 12 -continue to monitor H/H -Low normal folate, vitamin B12; on supplementation -had colonoscopy done in 11/2018 Status: Acute (16) Chronic kidney disease: -has some degree of CKD, unknown stage -superimposed BOOGIE, resolved -baseline Cr around 0.9 -continue to monitor renal function, avoid nephrotoxins, renally dose meds Status: Acute Qualifiers: Chronic kidney disease stage: unspecified stage Qualified Code(s): N18.9 - Chronic kidney disease, unspecified Additional A&P Information -Hyperkalemia-resolved; continue to monitor K -NPO after midnight for port-A-cath removal -cardiac diet as tolerated -DVT ppx with Lovenox -Dispo: home with HH for IV antibiotics, PT -Code status: FULL code Attestations Medical Necessity Statement*: Patient requires hospitalization for continued IV antibiotics pending PICC line placement, s/p port-A-cath removal. Time Spent in Patient Care: 16 - 35 minutes (>than 50% of time spent in counselling and/or direct pt care on unit). Coding Level of Care Code Acute Jde Developer for Chg Fwd Exam Comprehensive Diagnoses Bacteremia R78.81 Abnormal ECG R94.31 Cystitis N30.90 Sinus bradycardia R00.1 Acute hypercapnic respiratory failure J96.02 BPH (benign prostatic hyperplasia) N40.0 Lower urinary tract symptom presence: unspecified whether lower urinary tract symptoms present Heart failure with preserved ejection fraction I50.33 Heart failure chronicity: acute on chronic Hypertension I10 Hypertension type: essential hypertension Hypothyroidism E03.9 Hypothyroidism type: unspecified Hyperlipidemia E78.5 Hyperlipidemia type: unspecified Morbid obesity E66.01 Depression F32.9 Depression Type: unspecified Glaucoma H40.9 Glaucoma type: unspecified Laterality: unspecified laterality Lung cancer C34.11 Laterality: right Lung location: upper lobe of lung Macrocytic anemia D53.9 Chronic kidney disease N18.9 Chronic kidney disease stage: unspecified stage
--- NOTE | 2019-11-03 12:42 | ANES.PAUD2 ---
Pre-Anesthetic Update Pre-Anesthetic Assessment: Date of Surgery/Procedure: 11/03/19 Proposed Procedure: Operation Date: 11/03/19 13:45 Proposed Procedures p Explanation of left upper chest port-a-cath(Left) - Best Rosas MD Any changes to Pre-Anesthetic Assessment?: No Last Intake: NPO > 8 hrs Labs Last 48hrs: Laboratory Results - last 48 hr 11/02/19 11/02/19 04:34 04:34 WBC 8.3 RBC 3.76 L Hgb 11.4 L Hct 37.3 L MCV 99.2 H MCH 30.3 MCHC 30.6 RDW 14.1 Plt Count 267 MPV 10.4 Neut % (Auto) 74.1 Lymph % (Auto) 9.5 Whiteside % (Auto) 9.3 Eos % (Auto) 2.1 Baso % (Auto) 0.7 Neut # (Auto) 6.1 Lymph # (Auto) 0.8 Whiteside # (Auto) 0.8 Eos # (Auto) 0.2 Baso # (Auto) 0.1 Nucleated RBC % (a uto) 0 Nucleated RBCs # 0.0 Sodium 136 Potassium 4.6 Chloride 96 L Carbon Dioxide 31 H Anion Gap 13.6 BUN 11 Creatinine 0.7 Glucose 104 Calculated Osmolal ity 278 L Calcium 9.2 Vitals: Temperature 98.6 F 11/03/19 11:00 Temperature Source Oral 11/03/19 11:00 Pulse Rate 56 L 11/03/19 11:00 Pulse Rhythm 11/03/19 08:00 Pulse Strength 3+ Normal 11/03/19 08:00 Respiratory Rate 18 11/03/19 11:00 Respiratory Effort 11/03/19 08:00 Respiratory Depth Normal 11/03/19 08:00 Respiratory Patter n 10/28/19 22:48 Blood Pressure 121/55 11/03/19 11:00 Blood Pressure Kerry n 77 11/03/19 11:00 Blood Pressure Pos ition Sitting 11/02/19 12:51 Pulse Oximetry 95 11/03/19 11:00 Oxygen Delivery Me thod 11/03/19 03:22 Oxygen Flow Rate 2 11/03/19 03:22 Fraction of Inspir ed Oxygen 30 11/03/19 08:00 Sepsis Recent Feve r Within 48 Hours No 10/28/19 17:54 Sepsis Action Take n by Nursing Physician Notifie d 10/28/19 19:56 Exam: Pre-Anes Outpt Exam: alert, oriented x 3, clear to auscultation bilaterally and regular rate & rhythm Cardiac Studies: No Data to Display
--- NOTE | 2019-11-03 13:30 | PC.NURSE ---
Patient taken to OR on carrier.
[2019-11-03] MEDS: sodium chloride 0.9% 1,000 ML 30 ML (14:22)
[2019-11-03] MEDS: lidocaine 2% INJ 20 mL INJECTION (14:40)
--- NOTE | 2019-11-03 14:51 | P.OP_ITS ---
Operative Report Date of procedure: November 03, 2019 Pre-op Diagnosis: Blood stream infection Post-op diagnosis: same Post-op Findings: Normal-looking left upper chest Port-A-Cath Procedure Done: Explantation of left upper chest Port-A-Cath Specimens removed/disposition: Tip of the Port-A-Cath catheter sent for cultures and sensitivities Surgeon: Best Rosas Road Roller Engineer: mechanical manufacturing technician Liz Circulating nurse Evon Anesthesia: MAC (Giles Pagan) Estimated blood loss (mL): 5 Condition: stable Disposition: floor Brief History: This is a pleasant 79 years old gentleman was admitted to the hospitalist service and was found to have bloodstream infection, patient had a left upper chest Port-A-Cath was placed few months ago for chemotherapy, and general surgery was consulted for potential explantation of left upper chest Port-A-Cath due to the bloodstream infection potentially that would be the source. After thorough history physical examination and reviewing the chart patient was counseled for removal of the Port-A-Cath and agreed to proceed accordingly, informed consent per chart Procedure: After identifying the patient in the holding area, informed consent per chart ,patient was then transferred to the operative suite, was placed in supine position, IV propofol was infused by the anesthesia provider and both arms were tucked, prep and drape of left upper chest region was done usual sterile technique. Time-out was done verifying the patient's name/date of /planned procedure and destination after the procedure, all were in agreement. I started by injection of lidocaine 2% at the site of the planned incision started by an transverse incision including the previous scar of the catheter placement located at the left upper chest, after removal of the sutures and dissection at the site of exit the Port-A-Cath catheter was then explanted, at this point the catheter was removed as well as the port at the same time direct pressure for at least 5 minutes was applied at the site of the left subclavian stick to prevent bleeding. The tip of the catheter of the port was sent for microbiology for cultures and sensitivities. Thorough irrigation of the left upper chest Port-A-Cath was done followed by hemostasis,closure using 3/0 Vicryl as subdermal sutures was achieved , followed by loose closure using 4-0 Monocryl to approximate skin edges Followed by pressure dressing Patient tolerated the procedure well, count of instruments, needles and sponges were completed at the end of the procedure.And then patient was transferred to the recovery area in stable condition. I Was present for the whole entire procedure
--- NOTE | 2019-11-03 19:26 | PC.NURSE ---
Rounding: Patient is up to chair. watching TV. Patient can be confused at times but is excited to go home. assessment completed. call light is within reach. Will continue to monitor.
[2019-11-03] MEDS: atorvastatin 40 mg Tablet 20 MG PO (21:49)
[2019-11-03] MEDS: enoxaparin 40 mg/0.4 mL Syringe SUBCUT (21:50)
[2019-11-03] MEDS: latanoprost 0.005% Op Soln 2.5 mL Btl 1 DROP EYE-BOTH (21:50)
--- NOTE | 2019-11-03 23:47 | PC.NURSE ---
Received report. No acute signs or symtpoms of distress at this time. Pt denies needs. Resting in bed comfortably.
[2019-11-04 03:00] VITALS: BP 136/48; PULSE 82; RESP 18; O2SAT 92
--- NOTE | 2019-11-04 04:59 | PC.NURSE ---
Pt stable during this shift- however bilateral lower legs noted to be more edematous and lungs coarse compared to 11/01 shift. No signs or symptoms of distress and no complaints of dyspnea when ambulating. Pt does not like to use the urinal, but educated on the importance of use. Expected to have PICC line placed today and possible discharge to home with home health and continuation of IV atb for 6 weeks per physician notes.
[2019-11-04 08:00] VITALS: BP 119/58; PULSE 92; RESP 18; TEMP 36.4; O2SAT 91
--- NOTE | 2019-11-04 08:24 | P.PN_ITS ---
Subjective Subjective: Interval history: Patient continues remain afebrile. Denies any chest pain. No unusual shortness of breath. Vital signs remained stable. Had a few short runs of PAT on the telemetry. Medications: Reviewed: Yes Medication Review Details: Current Medications Acetaminophen (Tylenol) 650 mg PO Q6H PRN PRN Reason: MILD PAIN Last Admin: 10/29/19 16:18 Dose: 650 mg Documented by: Albuterol/Ipratropium (Duoneb) 3 ml INHALATION Q6H.RESPIRATORY PRN PRN Reason: SHORTNESS OF BREATH Last Admin: 10/31/19 20:57 Dose: 3 ml Documented by: Amlodipine Besylate (Norvasc) 5 mg PO DAILY [facility] Last Admin: 11/03/19 08:23 Dose: 5 mg Documented by: Atorvastatin Calcium (Lipitor) 20 mg PO BEDTIME [facility] Last Admin: 11/03/19 21:49 Dose: 20 mg Documented by: Cyanocobalamin (Vitamin B-12) 1,000 mcg PO DAILY [facility] Last Admin: 11/03/19 08:23 Dose: 1,000 mcg Documented by: Enoxaparin Sodium (Lovenox) 40 mg SUBCUT Q24H [facility] Last Admin: 11/03/19 21:50 Dose: 40 mg Documented by: Folic Acid (Folic Acid) 1 mg PO DAILY [facility] Last Admin: 11/03/19 08:24 Dose: 1 mg Documented by: Furosemide (Lasix) 40 mg PO DAILY@0800 [facility] Last Admin: 11/03/19 08:24 Dose: 40 mg Documented by: Hydralazine HCl (Apresoline) 10 mg PO TID [facility] Last Admin: 11/03/19 21:50 Dose: 10 mg Documented by: Ceftriaxone Sodium 1,000 mg/ (Sodium Chloride) 50 mls @ 100 mls/hr IV Q24H [facility]; Protocol Last Admin: 11/03/19 15:21 Dose: Not Given Documented by: Isosorbide Mononitrate (Imdur) 30 mg PO DAILY [facility] Last Admin: 11/03/19 08:23 Dose: 30 mg Documented by: Latanoprost (Xalatan) 1 drop EYE-BOTH BEDTIME [facility] Last Admin: 11/03/19 21:50 Dose: 1 drop Documented by: Levothyroxine Sodium (Synthroid) 50 mcg PO DAILY [facility] Last Admin: 11/03/19 08:24 Dose: 50 mcg Documented by: Lisinopril (Prinivil) 20 mg PO DAILY [facility] Last Admin: 11/03/19 08:23 Dose: 20 mg Documented by: Ondansetron HCl (Zofran) 4 mg IVP Q2M PRN PRN Reason: NAUSEA Phenazopyridine HCl (Pyridium) 100 mg PO TID PRN PRN Reason: DYSURIA Last Admin: 11/02/19 08:29 Dose: 100 mg Documented by: Spironolactone (Aldactone) 12.5 mg PO DAILY [facility] Last Admin: 11/03/19 08:23 Dose: 12.5 mg Documented by: Tamsulosin HCl (Flomax) 0.4 mg PO DAILY [facility] Last Admin: 11/03/19 08:24 Dose: 0.4 mg Documented by: Vitals/I&O/Wt Last Vital Signs Temp 98.9 F 11/03/19 23:00 Pulse 82 11/04/19 03:00 Resp 18 11/04/19 03:00 BP 136/48 11/04/19 03:00 Pulse Ox 92 11/04/19 03:00 11/03/19 11/04/19 11/04/19 22:59 06:59 14:59 Intake Total 240 / 290 400 / 690 Balance 240 / 290 400 / 690 Weight last 48 hrs Weight 260 lb 11.2 oz Physical Exam Narrative: EXAM NARRATIVE: GENERAL: The patient is alert and oriented times three. Not in any acute distress. HEENT: No significant pallor, icterus or lymphadenopathy. NECK: Trachea appears to be central. No masses noted. No JVD or thyromegaly appreciated. No carotid bruit. RESPIRATORY: Chest is symmetrical. No intercostals muscle retraction or any accessory muscle activation. There is no chest wall tenderness. Breath sounds are heard bilaterally. No rales or rhonchi. No evidence of consolidation. No hematoma or bleeding at the surgical site. BREASTS: Deferred. HEART: T the PMI could not be palpated. First and second heart sounds are normal. No S3. Short systolic murmur in the left sternal border. Early diastolic murmur in the second aortic area of grade 2/6 ABDOMEN: No vessel pulsations or distention. No tenderness. No organomegaly appreciated. No abdominal bruit. Bowel sounds are normally heard. : Deferred. RECTAL: Deferred. LYMPHATIC: No lymphadenopathy noted in the neck . EXTREMITIES: 1+ edema both lower extremities. No cyanosis. Peripheral pulses are palpable but weak bilaterally. MUSCULOSKELETAL: No acute joint deformities or swelling. SKIN: Hyperpigmented skin lesion in the right buttock. Minimal ulceration. NEUROPSYCHIATRIC: The patient is alert and oriented x3. Appears to be in a good mood. The higher functions are grossly within normal limits. No tremors or rigidity noted. Urinary Catheter Management^: Little: Cath Placed During This Visit: yes, but has since been removed by the nurse Urethral Indwelling: Yes Reason for Continuing Indwelling Catheter: Not indwelling catheter Urinary Catheter Date of Insertion: 10/29/19 Urinary Catheter Time of Insertion: 06:42 Date Urinary Catheter Removed: 10/31/19 Time Urinary Catheter Discontinued: 19:00 Data : 11/02/19 04:34 11/02/19 04:34 Micro: Microbiology 10/29/19 13:54 Blood Culture - Final Blood NO GROWTH AFTER 5 DAYS 10/29/19 13:40 Blood Culture - Final Blood NO GROWTH AFTER 5 DAYS A&P Assessment and plan (1) Abnormal cardiovascular stress test: Patient is currently remaining stable with no chest pain. May continue the current medications. Consider cardiac catheterization after finishing the IV antibiotic treatment Status: Acute (2) Gram-positive bacteremia: No evidence of endocarditis based on the LUPE. Management as per the primary. Most likely from the indwelling catheter which is currently removed. Status: Acute (3) Acute on chronic diastolic (congestive) heart failure: The heart failure is currently compensated. May continue on the current medications. Status: Resolved (4) Macrocytic anemia: This could be multifactorial. Malignancy, hemoptysis, chemotherapy, etc. are contributing factors. Hemoglobin seems to be stable. The current infection also might be playing a role (5) Lung cancer: Patient is being followed by oncology service. Qualifiers: Laterality: right Lung location: upper lobe of lung Qualified Code(s): C34.11 - Malignant neoplasm of upper lobe, right bronchus or lung (6) Hypothyroidism: Clinically euthyroid. He is on thyroid replacement. Qualifiers: Hypothyroidism type: unspecified Qualified Code(s): E03.9 - Hypo thyroidism, unspecified (7) Hypertension: Currently of stage II hypertension. In view of the arrhythmia, I may start him on metoprolol 25 mg p.o. twice daily. 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
[2019-11-04] MEDS: amlodipine 5 mg Tablet PO (08:25)
[2019-11-04] MEDS: tamsulosin 0.4 mg Capsule PO (08:25)
[2019-11-04] MEDS: cyanocobalamin 1,000 mcg Tablet 1000 MCG PO (08:25)
[2019-11-04] MEDS: FUROsemide 40 mg Tablet PO (08:25)
[2019-11-04] MEDS: lisinopril 20 mg Tablet PO (08:25)
[2019-11-04] MEDS: hyDRALAzine 10 mg Tablet PO ×2 (08:25→15:38)
[2019-11-04] MEDS: isosorbide mononitrate ER 30 mg Tablet PO (08:25)
[2019-11-04] MEDS: folic acid 1 mg Tablet PO (08:25)
[2019-11-04] MEDS: levothyroxine 50 mcg Tablet PO (08:25)
[2019-11-04] MEDS: spironolactone 25 mg Tablet 12.5 MG PO (08:25)
[2019-11-04 08:53] VITALS: PULSE 88; RESP 18; O2SAT 90
--- NOTE | 2019-11-04 09:50 | PC.SOCIAL ---
IMM Updated Page 2 of IMM updated and given to patient. Initialed, dated, and timed and placed back in chart.
--- NOTE | 2019-11-04 10:43 | XR_ITS ---
WS: [id number] XR chest 1V portable [id number] REASON FOR EXAM: PICC PLACEMENT FINDINGS: PICC line placement extends from the right side the tip of the PICC tube is seen in the low er superior vena cava. Satisfactory position. The peripheral lungs are well aerated. There is no pneumothorax seen. The heart is borderline enlarged. XR/XR chest 1V portable [id number] IMPRESSION: Satisfactory position PIC line placement on the right.
[2019-11-04 11:37] VITALS: BP 162/77; PULSE 77; RESP 20; TEMP 36.7; O2SAT 94
--- NOTE | 2019-11-04 11:41 | P.DS_ITS ---
Discharge Providers Date of Admission: 10/28/19 21:01 Date of Discharge: November 04, 2019 Attending Provider at Admission: Tita Thacker MD Attending Provider at Discharge: Zoey Avina MD Primary Care Provider: Jose Martin Noe DO Diagnoses at Discharge Discharge Diagnosis (1) Abnormal cardiovascular stress test: Status: Acute Problem details: -noted to have T wave inversions on ECG (10/31), could indicate lateral wall ischemia, nuclear stress testing today suggestive of myocardial scarring with ischemia in distribution of RCA. Will need further evaluation of this with coronary angiogram once bacteremia has been effectively treated -telemetry monitoring -Echo as noted -Cardiology on board -troponins noted, no significant delta change (2) Gram-positive bacteremia: Status: Acute Problem details: -Noted to have 4 out of 4 bottles of blood cultures done on 10/25 + for staph aureus. 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 Prelim negative (from both sources). Port-A-Cath removed today as likely source of infection, tip sent for culture. Surgery consult for this requested -continue IV Ceftriaxone at this time, off gentamicin particularly due to potential for nephrotoxicity. We will discontinue vancomycin as based on culture sensitivity this is MSSA. (3) Macrocytic anemia: Status: Acute (4) Lung cancer: Status: Chronic Qualifiers: Laterality: right Lung location: upper lobe of lung Qualified Code(s): C34.11 - Malignant neoplasm of upper lobe, right bronchus or lung (5) Hypothyroidism: Status: Chronic Problem details: Qualifiers: Hypothyroidism type: unspecified Qualified Code(s): E03.9 - Hypothyroidism, unspecified (6) Hypertension: Status: Chronic Qualifiers: Hypertension type: essential hypertension Qualified Code(s): I10 - Essential (primary) hypertension (7) Sinus bradycardia: Status: Resolved Problem details: -likely medication induced as he in on BB; on hold, improved -telemetry monitoring -asymptomatic (8) Acute hypercapnic respiratory failure: Status: Resolved Problem details: -Patient is oxygen dependent at baseline, 2 L requirement -ABGs noted, done while on BiPAP -Continue supplemental oxygen as needed; wean to baseline if possible -has prior hx of lung cancer as noted above -likely has undiagnosed MARBIN; sleep study as outpatient -closely monitor respiratory status (9) BPH (benign prostatic hyperplasia): Status: Chronic Problem details: -on Flomax Qualifiers: Lower urinary tract symptom presence: unspecified whether lower urinary tract symptoms present Qualified Code(s): N40.0 - Benign prostatic hyperplasia without lower urinary tract symptoms (10) Hyperlipidemia: Status: Chronic Problem details: -on statin Qualifiers: Hyperlipidemia type: unspecified Qualified Code(s): E78.5 - Hyperlipidemia, unspecified (11) Heart failure with preserved ejection fraction: Status: Acute Problem details: -BNP-972 -Echo: limited study, EF=55%, G2DD -required BiPAP initially, now on NC -CXR with noted cardiomegaly, -on Lasix, Aldactone -difficult to monitor Is & Os due to inability to consistently use urinal Qualifiers: Heart failure chronicity: acute on chronic Qualified Code(s): I50.33 - Acute on chronic diastolic (congestive) heart failure (12) Glaucoma: Status: Chronic Qualifiers: Glaucoma type: unspecified Laterality: unspecified laterality Qualified Code(s): H40.9 - Unspecified glaucoma (13) Depression: Status: Chronic Qualifiers: Depression Type: unspecified Qualified Code(s): F32.9 - Major depressive disorder, single episode, unspecified (14) Morbid obesity: Status: Chronic (15) Chronic kidney disease: Status: Chronic Problem details: -has some degree of CKD, unknown stage -superimposed BOOGIE, resolved -baseline Cr around 0.9 -continue to monitor renal function, avoid nephrotoxins, renally dose meds Qualifiers: Chronic kidney disease stage: unspecified stage Qualified Code(s): N18.9 - Chronic kidney disease, unspecified Reason for Visit Reason for Visit: infection/confusion Hospital Course Hospital Course: Patient was initially admitted to ICU due to need for close monitoring of his hemodynamic status due to noted gram-positive bacteremia. Repeat set of blood cultures from peripheral source as well as port-A-cath were obtained and both have been prelim negative. Echo was done as noted above and due to need to rule out endocarditis, LUPE was done as well which was negative for vegetation. Due to need for LUPE cardiology was formally consulted and transiently now patient was noted to have an abnormal EKG with recommendation made by Dr. Donnelly to evaluate this further with nuclear stress testing which is positive for possible ischemia in the RCA distribution. This will require further evaluation with an angiogram but due to active gram-positive bacteremia this will need to be held off until completion of antibiotic treatment. P ort-A-Cath is likely source of infection given MSSA so port removal is requested which was done by Dr. Rosas yesterday. Patient was covered with ceftriaxone and vancomycin while hospitalized and plan is for continued treatment with cefazolin for 6 weeks starting today since port was removed yesterday. As such PICC line has been placed for continued extended IV antibiotic treatment; home health services has been arranged for this purpose. Mental status of the patient seemed to wax and wane and is possible that patient has some degree of dementia at baseline. Interestingly following removal of his port his mentation seemed to clear up significantly. He has been hemodynamically stable, afebrile, leukocytosis has resolved, he is tolerating oral intake without difficulty. Little catheter had been placed on admission but per patient request and following improvement this was removed and he has been able to void independently. He has been working with physical therapy and has been am bulatory with a walker. He has been maintained on his baseline oxygen requirement of 2 L nasal cannula. I have discussed his clinical status with both his Rose ([phone]) and his sister Abena ([phone]) and answered their questions to their satisfaction. Patient will need to follow-up with his primary care provider Dr. Noe within 1 week and will require regular follow-up thereafter due to continued IV antibiotic treatment. He will also need follow-up with cardiology once completed antibiotic course to determine timing of angiogram for further evaluation of his positive stress test findings. Patient is advised to seek medical attention immediately should he have fever/chills, chest pain, worsening shortness of breath, syncope or fall. Discharge Summary: -Patient to follow up with primary care provider within 1 week -Patient to follow up with cardiology in 8 weeks to determine timing of coronary angiogram Physical Exam Const: COMMON NORMALS: no acute distress and alert GENERAL APPEARANCE: cooperative and comfortable NUTRITIONAL APPEARANCE: obese morbidly obese ORIENTATION/CONSCIOUSNESS: Yes awake and Yes confused OTHER: -sitting in chair by bedside HENMT: COMMON NORMALS: normocephalic, atraumatic, hearing grossly normal bilaterally and moist oral mucous membranes HEAD & SCALP: normocephalic and atraumatic TEETH & GINGIVA: Yes edentulous Eye: COMMON NORMALS: Equal, round and reactive pupils present, EOMs intact bilaterally and conjunctivae normal CONJUNCTIVA: Yes conjunctivae normal PUPIL: Yes Equal, round and reactive pupils present Neck/C-Spine: COMMON NORMALS: full ROM GENERAL: Yes normal visual inspection and Yes trachea midline Chest: CHEST: Yes Symmetrical chest wall rise OTHER: -clean/dry/intact dressing in place over previous port-A-cath site Resp: COMMON NORMALS: normal respiratory effort, No retractions and No use of accessory muscles EFFORT & INSPECTION: Yes able to speak in complete sentences and Yes symmetric chest movement AUSCULTATION: diminished lung sounds OTHER: -on 2 L NC -Auscultation limited by body habitus Cardio: COMMON NORMALS: regular rate, regular rhythm, S1 normal heart sound present, S2 normal heart sound present and No murmurs present (Cardio) RATE: regular rate RHYTHM: regular rhythm HEART SOUNDS: S1 normal heart sound present and S2 normal heart sound present GI: COMMON NORMALS: Normal to inspection, nondistended, normoactive bowel sounds present, Soft to palpation and non-tender INSPECTION: Yes central obesity PALPATION: Yes Soft to palpation RECTAL EXAM: Yes other (skin tag x 1) : BLADDER/KIDNEY EXAM: Yes catheter in place Back/Pelvis: COMMON NORMALS: thoracic and lumbar spine normal to inspection Extremity: COMMON NORMALS: normal to inspection, full ROM, no clubbing, cyanosis or edema and no pedal edema NARRATIVE EXTREMITY EXAM: -PICC line in place (RUE) Neuro: COMMON NORMALS: moves all extremities, no focal motor deficits and no sensory deficits noted SENSORIUM/ORIENTATION: Yes alert Psych: COMMON NORMALS: mental status grossly normal, Normal thought process present, cooperative, normal affect and speech normal SPEECH: Yes normal speech THOUGHT PROCESS: Normal thought process present Skin: COMMON NORMALS: no rashes or lesions noted, no jaundice, no petechiae and no mottling NARRATIVE SKIN EXAM: -has noted well circumscribed lesion on R gluteal area just medial to gluteal cleft, no drainage, minimal non-blanchable erythema GENERAL SKIN EXAM: no rashes or lesions noted Urinary Catheter Management^: Little: Cath Placed During This Visit: yes, but has since been removed by the nurse Urethral Indwelling: Yes Reason for Continuing Indwelling Catheter: Not indwelling catheter Urinary Catheter Date of Insertion: 10/29/19 Urinary Catheter Time of Insertion: 06:42 Date Urinary Catheter Removed: 10/31/19 Time Urinary Catheter Discontinued: 19:00 Discharge Data Data Completed and Pending: Completed Studies During Hospitalization Category Date Time Status CT head wo con* 7 0450 Stat Cat Scan 10/28/19 18:[address] MIBI [Sestamibi Stress Test Reque st Exams 11/02/19 10:54 Completed ] Routine XR chest 1V zhen ble [id number] Routine Exams 11/04/19 10:43 Completed XR chest 2V* 7104 6 Stat Exams 10/28/19 18:19 Completed NM el perf SPECT r/s* [id number] Routin e Nuc Med 11/02/19 10:29 Completed CV echo complete* [id number] Routine Ultrasound 10/29/19 22:46 Completed CV echo transesop hageal 20105 Routi ne Ultrasound 11/02/19 15:30 Completed US renal BI* 7677 0 Routine Ultrasound 10/29/19 23:13 Completed Pending at discharge Category Date Time Status Anaerobic Culture Routine Lab 11/03/19 14:40 Received Wound Culture and Gram Stain Routin e Lab 11/03/19 14:40 Results Vitals: Last Vital Signs Temp 97.5 F L 11/04/19 08:00 Pulse 88 11/04/19 08:53 Resp 18 11/04/19 08:53 BP 119/58 11/04/19 08:00 Pulse Ox 90 11/04/19 08:53 Discharge Plan Discharge Patient Disposition: Home Health Service Condition: Stable Prescriptions: New hydralazine 10 mg Tablet 10 mg PO TID 30 Days Qty: 90 RF: 0 isosorbide mononitrate 30 mg Tablet Extended Release 24 Hr 30 mg PO DAILY 30 Days Qty: 30 RF: 0 Vitamin B-12 1,000 mcg Tablet 1,000 mcg PO DAILY 30 Days Qty: 30 RF: 0 amlodipine 5 mg Tablet 5 mg PO DAILY 30 Days Qty: 30 RF: 0 folic acid 1 mg Tablet 1 mg PO DAILY 30 Days Qty: 30 RF: 0 lisinopril 20 mg Tablet 20 mg PO DAILY 30 Days Qty: 30 RF: 0 cefazolin in 0.9% sod chloride 2 gram/100 mL solution 2 gm IVP Q8H 42 Days Qty: 04873 RF: 0 metoprolol tartrate 25 mg Tablet 25 mg PO BID 30 Days Qty: 60 RF: 0 Continued latanoprost 0.005 % Drops 1 drp OPHTHALMIC (EYE) BEDTIME RF: 0 atorvastatin 40 mg Tablet 20 mg PO DAILY RF: 0 potassium chloride 10 mEq Tablet Extended Release 10 meq PO BID RF: 0 tamsulosin [Flomax] 0.4 mg Capsule 0.4 mg PO BEDTIME RF: 0 levothyroxine 50 mcg Tablet 50 mcg PO DAILY RF: 0 zinc 50 mg Tablet 50 mg PO DAILY RF: 0 magnesium 250 mg Tablet 250 mg PO BEDTIME RF: 0 furosemide 40 mg Tablet 40 mg PO QAM 30 Days Qty: 30 RF: 0 spironolactone 25 mg Tablet 12.5 mg PO BID 30 Days Qty: 30 RF: 0 Discontinued ciprofloxacin HCl [Cipro] 500 mg tablet 500 mg PO Q12H Qty: 14 RF: 0 hydralazine 50 mg Tablet 50 mg PO TID RF: 0 lisinopril 40 mg Tablet 60 mg PO DAILY RF: 0 atenolol 50 mg Tablet 50 mg PO DAILY RF: 0 Discharge Orders: Discharge Order (Routine); Ordered 11/04/19 Ordered By: Zoey Avina Referrals: [facility] [Other] (This is the home health company that will be helping administer your IV medication. If you have any questions you may call them at the number provided.) [facility] [Other] (This is the infusion pharmacy that will be providing your IV medication. If you have questions about delivery/etc. you may call them at the phone number provided.) Sariah Donnelly MD [Physician] - 2 months (You have an follow-up appointment with on January 04 at 3:45p.m. If you have any questions or need to reschedule. Please, call ) Jose Martin Noe DO [Primary Care Provider] - 4-7 days (You have an follow-up appointment by telephone with Dr. Noe on November 09 at 1:30p.m. If you have any questions or need to reschedule. Please, call ) Discharge Diet: Cardiac Discharge Activity: Increase activity as tolerated and As per PT/OT instructions Patient Instructions: Lisinopril (By mouth), Folic Acid (By mouth), Hydralazine (By mouth), Amlodipine (By mouth), Cefazolin (Injection), Isosorbide Mononitrate (By mouth), Vitamin B-12 (Cyanocobalamin) (By mouth), Heart Failure (DC), Chronic Kidney Disease (DC), CHF Stoplight Discharge Attestations Time Spent in Discharge Care*: greater than 30 min Specific Discharge Activities: Specific discharge activities: educating patient, educating and/or supporting family/caregiver, discussing with patient case coordinator/social workers/dc planners, documenting/other paperwork and evaluating patient/reviewing data Status at Discharge: Cognitive status at discharge: cognitively intact , Behavioral status at discharge: cooperative , Functional status at discharge: uses cane/walker Overall status at discharge: patient is progressing back to baseline Quality Metrics Clinical Quality Measures During this hospital stay, did patient experience: None Coding Level of Care Code Acute 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 [facility] Fwd Exam Comprehensive Diagnoses Abnormal cardiovascular stress test R94.39 Gram-positive bacteremia R78.81 Macrocytic anemia D53.9 Lung cancer C34.11 Laterality: right Lung location: upper lobe of lung Hypothyroidism E03.9 Hypothyroidism type: unspecified Hypertension I10 Hypertension type: essential hypertension Sinus bradycardia R00.1 Acute hypercapnic respiratory failure J96.02 BPH (benign prostatic hyperplasia) N40.0 Lower urinary tract symptom presence: unspecified whether lower urinary tract symptoms present Hyperlipidemia E78.5 Hyperlipidemia type: unspecified Heart failure with preserved ejection fraction I50.33 Heart failure chronicity: acute on chronic Glaucoma H40.9 Glaucoma type: unspecified Laterality: unspecified laterality Depression F32.9 Depression Type: unspecified Morbid obesity E66.01 Chronic kidney disease N18.9 Chronic kidney disease stage: unspecified stage
[2019-11-04 14:58] VITALS: BP 162/77; PULSE 77; RESP 20; TEMP 36.7; O2SAT 94
[2019-11-04] MEDS: metoprolol tartrate 25 mg Tablet PO (15:38)
[2019-11-04 16:00] VITALS: BP 120/48; PULSE 63; RESP 18; TEMP 36.7; O2SAT 92
== END 2019-11-04 17:03 | disposition home health service (06) | DRG 314 ==
LOC: ER 18:51 → ICU 21:39 → CSU 10-29 19:22
PROVIDERS: Emergency Medicine; Internal Medicine Cardiovascular Disease; Surgery; Admitting Provider Internal Medicine; PCP Emergency Medicine Emergency Medical Services; Visit Provider Family Medicine
PROC: (CPT 93312; principal; 2019-11-03 07:00)
PROC: 0JPT3WZ Removal of Totally Implantable Vascular Access Device from Trunk Subcutaneous Tissue and Fascia, Percutaneous Approach (ICD-10-PCS; CPT 36589; principal; 2019-11-03 13:35)
DX: T80.211A Bloodstream infection due to central venous catheter, initial encounter (principal); J96.02 Acute respiratory failure with hypercapnia; I50.33 Acute on chronic diastolic (congestive) heart failure; N17.9 Acute kidney failure, unspecified; Z68.41 Body mass index [BMI] 40.0-44.9, adult; R78.81 Bacteremia; C34.11 Malignant neoplasm of upper lobe, right bronchus or lung; I13.0 Hypertensive heart and chronic kidney disease with heart failure and stage 1 through stage 4 chronic kidney disease, or unspecified chronic kidney disease; N30.00 Acute cystitis without hematuria; E78.5 Hyperlipidemia, unspecified; F32.9 Major depressive disorder, single episode, unspecified; E66.01 Morbid (severe) obesity due to excess calories; E03.9 Hypothyroidism, unspecified; D53.9 Nutritional anemia, unspecified; R00.1 Bradycardia, unspecified; N40.0 Benign prostatic hyperplasia without lower urinary tract symptoms; H40.9 Unspecified glaucoma; N18.9 Chronic kidney disease, unspecified; Y84.8 Other medical procedures as the cause of abnormal reaction of the patient, or of later complication, without mention of misadventure at the time of the procedure; Y92.009 Unspecified place in unspecified non-institutional (private) residence as the place of occurrence of the external cause; B95.61 Methicillin susceptible Staphylococcus aureus infection as the cause of diseases classified elsewhere; F03.90 Unspecified dementia, unspecified severity, without behavioral disturbance, psychotic disturbance, mood disturbance, and anxiety; Z92.21 Personal history of antineoplastic chemotherapy; E87.5 Hyperkalemia; Z20.828 Contact with and (suspected) exposure to other viral communicable diseases; Z87.891 Personal history of nicotine dependence; L40.9 Psoriasis, unspecified
CPT/HCPCS: 12345; 36415; 36569; 36591; 36600; 51702; 70450; 71045; 71046; 76770; 78452; 80048; 80053; 80202; 81001; 82607; 82746; 82803; 83605; 83735; 83880; 84132; 84443; 84484; 85025; 85610; 87040; 87070; 87075; 87086; 87205; 93005; 93017; 93306; 93312; 93320; 93325; 94640; 94660; 96372; 96375; 99283; A9270; A9500; J0610; J0690; J0696; J1580; J1644; J1650; J1815; J1940; J2001; J2543; J2704; J2785; J2930; J3010; J3370; J3490; J7030; J7050

== ENCOUNTER 2019-11-25 08:44 | Day surgery (SDC) | payer OTHER, MEDICARE, SELFPAY ==
[2019-11-24 14:10] VITALS: BMI 39.4
[2019-11-25 09:14] VITALS: BP 130/57; PULSE 75; RESP 20; TEMP 36.8; O2SAT 95
--- NOTE | 2019-11-25 09:23 | W.PM.OPSUD ---
Surgery/Procedure H&P Update DATE OF PROCEDURE: November 25, 2019 DATE H&P PERFORMED: 11/17/19 H&P UPDATE INFORMATION: I have reviewed H&P completed within last 30 days, I have examined patient prior to procedure and No changes to prior documentation PREOP DIAGNOSIS: Gluteal abscess PLANNED PROCEDURE: Operation Date: 11/25/19 10:30 Proposed Procedures p 33916 excision of gluteal cyst R22.9(Not Applicable) - Travis Cuello MD
[2019-11-25] MEDS: sodium chloride 0.9% 1,000 ML 30 ML IV (09:43)
--- NOTE | 2019-11-25 09:47 | ANES.PREANE2 ---
Pre-Anesthetic Assessment Pre-Anesthetic Assessment: Height/Weight: Height 1.68 m Weight 110.677 kg Temp Pulse Resp BP Pulse Ox 98.3 F 75 20 H 130/57 95 11/25/19 09:14 11/25/19 09:14 11/25/19 09:14 11/25/19 09:14 11/25/19 09:14 Preop Diagnosis: Gluteal abscess Proposed Procedure: Operation Date: 11/25/19 10:30 Proposed Procedures p 00005 excision of gluteal cyst R22.9(Not Applicable) - Travis Cuello MD Last intake: Intake Last Liquid Date 11/24/19 Last Liquid Time 22:30 Last Solid Date 11/24/19 Last Solid Time 21:00 Social: Social History: Tobacco (quit) and No alcohol Exam: Pre-Anes Outpt Exam: alert, oriented x 3, clear to auscultation bilaterally and regular rate & rhythm Airway: Submandibular: WNL Cervical ROM: WNL MP: 2 Dentition: False (upper) and Other (poor dentation) History/ROS: No significant history except as noted Pulmonary: Pulmonary: COPD and CARUSO Comments: lung CA CV/HEM: CV/HEM: CHF and HTN : : Chronic renal Insufficiency Comments: BPH Hepatic: Hepatic: None reported GI: GI: None reported Metabolic: Metabolic: Hyperlipidemia, Morbid obesity and Thyroid Musc/skel: Musc/skel: OA/DJD Neuropsych: Neuropsych: None reported Anesthetic Plan: ASA status: 3 Anesthesia: Anesthesia Evaluation, General and MAC Risk of > 500 ml blood loss (7ml/kg in children): No Meds/Allergies Current Medications: Current Medications Generic Name Dose Route Start Last Admin Trade Name Freq PRN Reason Stop Dose Admin Sodium Chloride 1,000 mls @ 30 ml s/hr 11/25/19 09:00 11/25/19 09:43 Sodium Chloride 0.9% IV 11/26/19 08:59 30 mls/hr .Q24H ANTONIA Administration PFSH Anesthesia PFSH: Medical History Acute on chronic diastolic (congestive) heart failure BPH (benign prostatic hyperplasia) -on Flomax Cholelithiasis Chronic kidney disease -has some degree of CKD, unknown stage -superimposed BOOGIE, resolved -baseline Cr around 0.9 -continue to monitor renal function, avoid nephrotoxins, renally dose meds Depression Glaucoma Heart failure with preserved ejection fraction -[id number]-[id number] -Echo: limited study, EF=55%, G2DD -required BiPAP initially, now on NC -CXR with noted cardiomegaly, -on Lasix, Aldactone -difficult to monitor Is & Os due to inability to consistently use urinal Hyperlipidemia -on statin Hypertension Hypothyroidism Lung cancer Lung cancer Macrocytic anemia Morbid obesity Normal colonoscopy In 2018 2019 Port-A-Cath in place Psoriasis Sigmoid diverticulosis Skin ulcer Surgical History No pertinent past surgical history Family History Denies family history of Anesthesia complication Bleeding disorder Lung disease Hypertension Social History Smoking and tobacco status: former smoker Alcohol intake: never Household members: spouse Housing: House Data Anesthesia Cardiac Studies: No Data to Display
[2019-11-25] MEDS: neomycin-poly-bacitracin oint 28 gm 1 APPLIC TOPICAL (10:48)
--- NOTE | 2019-11-25 10:52 | PM.OP ---
Operative Report Date of procedure: November 25, 2019 Pre-op Diagnosis: Chronically inflamed sebaceous cyst left gluteal area, skin tag gluteal cleft, skin tag right thigh x2 Procedure Done: Excision of chronically inflamed sebaceous cyst left gluteal area Excision of skin tag from gluteal cleft Excision of skin tags x2 from right thigh Pathology: Skin tags and cyst gluteal area Surgeon: Travis Cuello Anesthesia: MAC Estimated blood loss (mL): 5 Condition: stable Disposition: same day Procedure: The patient is taken to the operating room and placed in left lateral position under MAC. Patient is on therapeutic IV antibiotics for bloodstream infection. The area around the chronically inflamed sebaceous cyst on the left gluteal area was prepped and draped in a sterile manner. The area around the skin tags on the right thigh as well as the gluteal cleft was prepped and draped in a sterile manner. 1% lidocaine mixed with .5% Marcaine was infiltrated around for all 4 lesions. Using 15 blade and an elliptical incision was made around the 2 puncti on the left gluteal region and using electrocautery the subcutaneous tissue was from the chronically inflamed cyst and excised completely. Hemostasis ensured and superior and inferior skin flaps were raised and the subcu tissue was approximated using interrupted 3-0 Vicryl suture and skin was closed using vertical mattress 3-0 Prolene suture. 1 x 1 cm skin tag in the gluteal cleft was then excised using electrocautery and hemostasis ensured. 1 x 1 cm skin tag on the superior aspect of the right thigh was excised using electrocautery and hemostat ensured. 1.5 x 1.5 cm skin tag on inferior to the prior tag was excised using electrocautery and hemostasis ensured. Antibiotic with sterile dressings were used to cover the incision where the cyst was excised and the other separate sites were covered with Band-Aids. Patient was transferred to recovery room in stable condition.
[2019-11-25 11:11] VITALS: BP 138/66; PULSE 71; RESP 18; TEMP 36.9; O2SAT 96
[2019-11-25] MEDS: lidocaine 1% INJ 20 mL SUBCUT (11:14)
[2019-11-25 11:31] VITALS: BP 132/58; PULSE 71; RESP 18; O2SAT 96
== END 2019-11-25 11:56 | disposition home or self-care (01) ==
PROVIDERS: PCP Emergency Medicine Emergency Medical Services; Visit Provider Surgery
PROC: (CPT 11200; principal; 2019-11-25 10:20)
DX: L72.3 Sebaceous cyst (principal); L91.8 Other hypertrophic disorders of the skin; J44.9 Chronic obstructive pulmonary disease, unspecified; I13.0 Hypertensive heart and chronic kidney disease with heart failure and stage 1 through stage 4 chronic kidney disease, or unspecified chronic kidney disease; N18.9 Chronic kidney disease, unspecified; I50.9 Heart failure, unspecified; E78.5 Hyperlipidemia, unspecified; E66.01 Morbid (severe) obesity due to excess calories; Z68.39 Body mass index [BMI] 39.0-39.9, adult; N40.0 Benign prostatic hyperplasia without lower urinary tract symptoms; M19.90 Unspecified osteoarthritis, unspecified site; F32.9 Major depressive disorder, single episode, unspecified; E03.9 Hypothyroidism, unspecified; Z85.118 Personal history of other malignant neoplasm of bronchus and lung; Z87.891 Personal history of nicotine dependence
CPT/HCPCS: 11200; 11401; 12345; 88304; J2001; J2704; J3490; J7030

== ENCOUNTER 2020-01-13 07:39 | Outpatient (CLI) | payer OTHER, MEDICARE, SELFPAY ==
[2020-01-13 08:11] LABS: Hemoglobin 12.5 g/dL (11.7-16.6); Mean Corpuscular HGB Conc 31.3 g/dL (30.0-36.0); Mean Corpuscular Hemoglobin 30.7 pg (28.0-34.0); Mean Corpuscular Volume 98.3 fL (80-94); Mean Platelet Volume 10.2 fL (7.4-10.4); Platelet Count 300 10^3/cmm (130-400); Red Blood Count 4.07 10^6/uL (4.1-5.3); Red Cell Distribution Width 13.8 % (12.1-15.1); White Blood Count 9.2 10^3/uL (4.0-10.0)
[2020-01-13 09:03] LABS: Absolute Segmented Neutrophil 6.1 10/cmm (1.6-7.1); Band Neutrophils Absolute 0.7 10^3/cmm (0.0-1.2); Eosinophils 1 %; Lymphocytes 14 %; Lymphocytes Absolute 1.5 10^3/cmm (1.2-3.4); Monocytes Absolute 0.8 10^3/cmm (0.1-0.6); Segmented Neutrophils 66 %; Total Cells Counted 100 (0-100)
[2020-01-13 09:04] LABS: Absolute Neutrophil 6.8 10^3/cmm (1.4-6.5); Platelet Estimate Normal (Normal)
== END 2020-01-13 07:40 | disposition home or self-care (01) ==
PROVIDERS: PCP Emergency Medicine Emergency Medical Services; Visit Provider Internal Medicine Cardiovascular Disease
DX: D64.9 Anemia, unspecified (principal); R78.81 Bacteremia
CPT/HCPCS: 36415; 85007; 85027; 87040

== ENCOUNTER 2020-02-23 12:07 | Outpatient (CLI) | payer OTHER, MEDICARE, SELFPAY ==
[2020-02-23 13:17] LABS: Alanine Aminotransferase 22 U/L (0-41); Albumin Level 3.7 g/dL (3.5-5.2); Alkaline Phosphatase 99 IU/L (40-130); Anion Gap 12.6 (5-19); Aspartate Amino Transferase 16 U/L (0-40); Blood Urea Nitrogen 13 mg/dL (8-23); Calcium 9.2 mg/dL (8.5-10.5); Carbon Dioxide 28 mmol/L (22-29); Chloride 96 mmol/L (98-107); Glucose 98 mg/dL (65-115); Osmolality Calculated 274 mOsm/kg (285-295); Potassium 4.6 mmol/L (3.5-5.1); Sodium 132 mmol/L (136-145); Total Bilirubin 0.2 mg/dL (0.15-1.2); Total Protein 6.7 g/dL (6.6-8.7)
[2020-02-23 13:26] LABS: Basophils % 0.5 %; Eosinophils # 0.1 10^3/uL (0.0-0.8); Eosinophils % 0.8 %; Hematocrit 42.1 % (42.0-52.0); Hemoglobin 12.8 g/dL (11.7-16.6); Lymphocytes # 1.7 10^3/uL (0.8-4.8); Lymphocytes % 20.3 %; Mean Corpuscular HGB Conc 30.4 g/dL (30.0-36.0); Mean Corpuscular Hemoglobin 31.2 pg (28.0-34.0); Mean Corpuscular Volume 102.7 fL (80-94); Mean Platelet Volume 10.4 fL (7.4-10.4); Monocytes # 0.9 10^3/uL (0.2-0.9); Neutrophils # 5.57 10^3/uL (1.8-7.7); Neutrophils % 66.7 %; Nucleated Red Blood Cells % 0 %; Platelet Count 254 10^3/cmm (130-400); Red Cell Distribution Width 13.7 % (12.1-15.1); White Blood Count 8.4 10^3/uL (4.0-10.0)
--- NOTE | 2020-02-23 16:59 | ONC FU_ITS ---
Dr. Ornelas follow up note Patient: Venkat Cherry Unit #: [id number]: 1940 Dicatated By: Criss Ornelas M.D.Date of Visit:Feb 23, 2020 Onc Med Follow-up/Prog Note History of Present Illness: Mr. Cherry is a 79-year-old gentleman with a [id number] history of smoking. He had presented to his primary care at the [facility] with concerns of weakness and hemoptysis. He also reported increased shortness of breath for a month. It had significantly worsened on 2 weeks prior to his presentation to the PCP. He had had progressive fluid retention at that time as well. Dr. Noe has requested workup of his concerns which included a CT of the chest at that time he had finding of a right lung mass. The CT reported right upper lobe and lower lobe mass with mesangial lymphadenopathy. He did undergo CT-guided needle biopsy of the right lung mass on 09/13/2017. 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 The pathology reported ALK rearrangement by FISH as negative and PD-L1 IHC as negative. The PD-L1 IHC 28???8 was reported as less than 1%. Mr. Cherry had PET/CT on 09/28/2017. The findings were reported as: A 1.7 cm pulmonary nodule in the right lower lobe with SUV of 6.5. A 3 x 1.7 cm lesion in the central right upper lobe with SUV of 7.2; superior and inferior right paratracheal lymphadenopathy consistent with local metastatic disease. Inferior, right paratracheal node measures 1.9 x 2.3 cm with an SUV of 9.8; other scattered mediastinal nodes are radiographically benign and FDG negative. Bilateral pleural effusions. Malignant effusions could not be excluded. on 11/25/2017. s/p concurrent therapy with weekly carboplatin and paclitaxel and radiation.to the primary and SBRT to the right lower lobe nodule . He began his first dose of weekly carboplatin and paclitaxel on 11/25/2017. till 01/08/18 . Mr Cherry was started on maintenance immunotherapy with Imfinzi on 02/24/2018. On Synthroid 25 ???g by mouth daily for newly diagnosed hypothyroidism probably due to immunotherapy He had restaging imaging with CT of the chest on 05/30/2018. There is no evidence of disease progression with overall stable appearance of the right upper and lower lobe parenchymal opacity and not hilar lymphadenopathy. Follow-up PET CT from 09/27/2018 reports near resolution of the right lung nodules and mediastinal nodes, indicating a positive response to therapy. There was resolution of bilateral pleural effusions. Mr. Cherry continues with Imfinzi treatment every 2 weeks. and Completed 24 doses on 01/12/2019 Follow-up CT PET scan done on 03/14/2019 showed central right upper lobe nodule measures roughly 9 mm with SUV of 3.5, compared to 15 x [address] PET scan done on 09/27/2018 and there has been no change in 7 mm right lung base nodule. Mild reactive activity in bilateral hilar and mediastinum is unchanged. Follow-up CT PET scan done on 07/11/2019, showed decreasing FDG uptake in the right upper lobe nodule, sporting and inflammatory diagnosis, no change in reactive mediastinal lymph nodes, no evidence of distant metastatic disease. Came for follow-up, denies any specific complaints, no fever chills, no nausea or vomiting, no diarrhea constipation, no hemoptysis, no new bony pains as per patient in October 2019 he was admitted to hospital with septicemia was treated with IV antibiotic and was discharged home on November 03, 2021 continue intravenous antibiotic at home for 6 additional weeks. And at that time Port-A-Cath was removed. Medications: Atenolol 1 Tablet (of 50 mg) Oral daily, Atenolol 1 Tablet (of 25 mg) Tablet Oral at bedtime, Atorvastatin Calcium 1 Tablet (of 40 mg) Oral daily, Cholecalciferol 1 Tablet (of 5000 Units) Oral daily, Furosemide 1 Tablet (of 40 mg) Oral daily, HydrALAZINE HCl 1 Tablet (of 50 mg) Oral t.i.d., Lisinopril 1.5 Tablet (of 40 mg) Oral daily, Magnesium 1 Tablet (of 400 mg) Oral at bedtime, Potassium Chloride ER 0.5 Tablet (of 20 meq) Capsule, controlled release Oral b.i.d., Spironolactone 0.5 Tablet (of 25 mg) Oral b.i.d., Tamsulosin HCl 1 Capsule (of 0.4 mg) Oral daily, Triamcinolone Acetonide (0.5 %) Cream Topical Take as Directed, Vitamin C 1 Capsule (of 500 mg) Oral daily, Zinc 1 Tablet (of 50 mg) Oral daily Allergies: No Known Allergies. Review of Systems: Review of Systems is not available for this patient. Vital Signs: Performed on Feb 23, 2020 13:56 Height - 65.50 in Weight - 246.8 lbs (LOW) BSA - 2.18 sq.m BMI - 40.45 (HIGH) Temperature - 98.4 F Pulse - 85 /min Respiration - 26 /min BP - 163/74 mm(hg) (HIGH) O2 Sat - 93 % (LOW) Pain - 0 Performance Status: 0 - Fully active, able to carry on all predisease activities without restrictions. (ECOG) Physical Examination: ENMT - No mouth sores, no thrush, no jaundice, Respiratory - Lungs are clear to auscultation, Cardiovascular - Regular rate and rhythm of heart, Abdomen - Soft, bowel sounds present, Extremities - No visible edema. Lab/Imaging: Most recent lab results are not available for this patient. Impression: Mr. Cherry is a 78-year-old gentleman with right upper lobe lung cancer: invasive poorly differentiated squamous cell carcinoma. This diagnosis was confirmed by CT guided biopsy of the right upper lobe on 09/13/2017. He also had an abnormal PET/CT done on 09/28/2017. The PET showed a 1.7 cm pulmonary nodule in the right lower lobe with an SUV of 6.5. There was a 3 x 1.7 cm mass in the central right upper lobe with SUV of 7.2. There was superior and inferior right paratracheal lymphadenopathy with increased FDG uptake. Although scattered the mediastinal nodules were radiographically benign and FDG negative. It was noted that he did have bilateral pleural effusion with the right being larger than the left. He underwent MRI I of the brain on 11/01/2017 there was no evidence of metastatic disease at that time. The arrangement I Fish on the lung biopsy from 11/01/2017 is reported as negative the PDL???L1 IHC is negative there is no PD-L1 expression. PD-L1 IHC 28???8 was also reported as less than 1%. Clinical stage T4 ipsilateral satellite lesion in different lobe. N 1 or 2 ,Mx stage IIIA 2. COPD 3. Glaucoma and cataracts 4. Hypercholesterolemia/hyperlipidemia 5. Hypertension 6. Chronic, controlled depression s/p combined therapy with radiation and chemotherapy. to the primary and SB RT to the right lower lobe first chemotherapy treatment on 11/25/2017. till 01/08/18 On week 4, 30 minutes after starting the Carboplatin, he developed hypertension, shortness of breath and chest pain. The Carboplatin was stopped and he was given sublingual nitroglycerin and his symptoms resolved. The Carboplatin has been stopped. He continued with paclitaxel with his last dose on 01/06/2018. He had recent admission for pneumonia and is labs at that time showed progressive anemia/dermal cytopenia. started on maintenance therapy with durvalumab. He began his first dose on 02/24/2018. The maintenance plan at this point will be every 2 weeks for 12 months. . He had restaging imaging with CT of the chest on 05/30/2018. There is no evidence of disease progression with overall stable appearance of the right upper and lower lobe parenchymal opacity and not hilar lymphadenopathy. He continues with treatment at this time. He did have elevation of the TSH is now on Synthroid. His TSH remained stable .Follow-up CT PET scan done on 09/27/2018 showed the right lower lobe nodule seen on prior study done on 09/28/2017, is now subcentimeter in size and FDG negative The central right upper lobe lesion measures 1.5 x 0.7 cm with FDG activity frequent to mediastinal blood pool, this pattern is typical for inflammation Although a small amount of residual disease cannot be excluded The inferior right paratracheal node is now largely calcified, with mild residual activity activity that may be inflammatory Sup Right paratracheal node is calcified and FDG negative Findings are indicative of good response to the therapy. He continues to tolerate the durvalumab well. Plan: Discussed with patient regarding his labs white blood count 8.4 hemoglobin 12.8 hematocrit 41.2 platelets 254,000 CMP within normal limit except sodium 132 Clinically, patient doing well with no new signs symptoms. His lab work-up looks reasonable except mild hyponatremia probably due to excessive water intake. Patient was advised to cut down free water intake in the meantime we will order follow-up CT scan of chest then he will return to clinic in 2 months with CBC CMP and as mentioned earlier follow-up CT scan of chest. Patient is on thyroid supplement since he was on maintenance immunotherapy for the lung cancer. We will repeat his TSH and if is normal range we will consider tapering of his thyroid supplement as long as he maintains normal thyroid function test. Signed By: Criss Ornelas M.D. <<Signature on File>>
[2020-02-23 21:59] LABS: Thyroid Stimulating Hormone 1.22 uIU/mL (0.27-4.20)
== END 2020-02-23 12:08 | disposition home or self-care (01) ==
PROVIDERS: PCP Emergency Medicine Emergency Medical Services; Visit Provider Internal Medicine Hematology & Oncology
DX: C34.11 Malignant neoplasm of upper lobe, right bronchus or lung (principal); R94.6 Abnormal results of thyroid function studies; J44.9 Chronic obstructive pulmonary disease, unspecified; H40.9 Unspecified glaucoma; H26.9 Unspecified cataract; E78.5 Hyperlipidemia, unspecified; E78.00 Pure hypercholesterolemia, unspecified; I10 Essential (primary) hypertension; F32.9 Major depressive disorder, single episode, unspecified; E87.1 Hypo-osmolality and hyponatremia; Z79.899 Other long term (current) drug therapy
CPT/HCPCS: 80053; 84443; 85025; 99214

== ENCOUNTER 2020-04-20 08:58 | Outpatient (CLI) | payer OTHER, SELFPAY ==
--- NOTE | 2020-04-20 09:04 | CT_ITS ---
WS: [id number] CT CHEST TECHNIQUE: Contrast enhanced CT of the chest with coronal and sagittal reformatted images. CLINICAL INFORMATION: LUNG CANCER COMPARISON: Multiple prior CTs including CT chest May 30, 2018, , . DLP: 968.[address] scans at [facility] use at least one of these dose optimization techniques: automat ed exposure control; mA and/or kV adjustment per patient size (includes targeted exams where dose is matched to clinical indication); or iterative reconstruction. FINDINGS: Spiculated right upper lobe neoplasm has progressed since the prior examinations. Today this measures approximately 1.6 x 2.1 x 1.8 cm. Previously this measured 1.2 x 1.1 x 0.8 cm. Surrounding infiltrat es are similar in appearance. Enlarged right hilar lymph node measuring 1.5 CM. No other lymphadenopa thy. Right lower lobe opacity along the posterior mediastinum measures 7 mm unchanged from . Moderate chronic emphysematous changes. No axillary lymphadenopathy. Adrenal glands are normal. Diffu se fatty infiltration of the liver. Cholelithiasis. Gallbladder is contracted. Multinodular thyroid u nchanged. IMPRESSION: 1. Right upper lobe spiculated neoplasm has progressed since the prior examination today measuring 1 .6 x 2.1 x 1.8 cm 2. Stable 7 mm opacity right lower lobe. 3. Enlarged right hilar lymph node measuring 1.5 cm. No other lymphadenopathy. 4. Cholelithiasis. Gallbladder is contracted. 5. Multinodular thyroid is unchanged.
[2020-04-20 09:28] LABS: Basophils % 0.4 %; Eosinophils # 0.1 10^3/uL (0.0-0.8); Eosinophils % 0.8 %; Hematocrit 42.9 % (42.0-52.0); Hemoglobin 13.6 g/dL (11.7-16.6); Lymphocytes # 1.5 10^3/uL (0.8-4.8); Mean Corpuscular HGB Conc 31.7 g/dL (30.0-36.0); Mean Corpuscular Hemoglobin 30.6 pg (28.0-34.0); Mean Corpuscular Volume 96.6 fL (80-94); Mean Platelet Volume 9.9 fL (7.4-10.4); Monocytes # 0.7 10^3/uL (0.2-0.9); Monocytes % 7.7 %; Neutrophils # 6.89 10^3/uL (1.8-7.7); Neutrophils % 74.6 %; Nucleated Red Blood Cells % 0 %; Platelet Count 274 10^3/cmm (130-400); Red Blood Count 4.44 10^6/uL (4.1-5.3); Red Cell Distribution Width 13.5 % (12.1-15.1); White Blood Count 9.2 10^3/uL (4.0-10.0)
[2020-04-20 09:59] LABS: Alanine Aminotransferase 27 U/L (0-41); Albumin Level 3.8 g/dL (3.5-5.2); Alkaline Phosphatase 110 IU/L (40-130); Anion Gap 11.4 (5-19); Aspartate Amino Transferase 13 U/L (0-40); Blood Urea Nitrogen 9 mg/dL (8-23); Calcium 9.6 mg/dL (8.5-10.5); Carbon Dioxide 35 mmol/L (22-29); Chloride 99 mmol/L (98-107); Globulin 2.7 g/dL (1.3-4.6); Glucose 97 mg/dL (65-115); Osmolality Calculated 291 mOsm/kg (285-295); Potassium 4.4 mmol/L (3.5-5.1); Sodium 141 mmol/L (136-145); Total Bilirubin 0.2 mg/dL (0.15-1.2); Total Protein 6.5 g/dL (6.6-8.7)
[2020-04-20] MEDS: iohexol 300 mg/mL 100 mL Btl IV (10:18)
== END 2020-04-20 08:59 | disposition home or self-care (01) ==
LOC: CT 08:59
PROVIDERS: PCP Emergency Medicine Emergency Medical Services; Visit Provider Internal Medicine Hematology & Oncology
DX: C34.11 Malignant neoplasm of upper lobe, right bronchus or lung (principal); E04.2 Nontoxic multinodular goiter; K80.20 Calculus of gallbladder without cholecystitis without obstruction
CPT/HCPCS: 36415; 71260; 80053; 85025

== ENCOUNTER 2020-04-26 12:59 | Outpatient (CLI) | payer OTHER, SELFPAY ==
--- NOTE | 2020-04-26 14:15 | ONC FU_ITS ---
Dr. Ornelas follow up note Patient: Venkat Cherry Unit #: [id number]: 1940 Dicatated By: Criss Ornelas M.D.Date of Visit:Apr 26, 2020 Onc Med Follow-up/Prog Note History of Present Illness: Mr. Cherry is a 79-year-old gentleman with a [id number] history of smoking. He had presented to his primary care at the [facility] with concerns of weakness and hemoptysis. He also reported increased shortness of breath for a month. It had significantly worsened on 2 weeks prior to his presentation to the PCP. He had had progressive fluid retention at that time as well. Dr. [facility] has requested workup of his concerns which included a CT of the chest at that time he had finding of a right lung mass. The CT reported right upper lobe and lower lobe mass with mesangial lymphadenopathy. He did undergo CT-guided needle biopsy of the right lung mass on 09/13/2017. 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 The pathology reported ALK rearrangement by FISH as negative and PD-L1 IHC as negative. The PD-L1 IHC 28???8 was reported as less than 1%. Mr. Cherry had PET/CT on 09/28/2017. The findings were reported as: A 1.7 cm pulmonary nodule in the right lower lobe with SUV of 6.5. A 3 x 1.7 cm lesion in the central right upper lobe with SUV of 7.2; superior and inferior right paratracheal lymphadenopathy consistent with local metastatic disease. Inferior, right paratracheal node measures 1.9 x 2.3 cm with an SUV of 9.8; other scattered mediastinal nodes are radiographically benign and FDG negative. Bilateral pleural effusions. Malignant effusions could not be excluded. on 11/25/2017. s/p concurrent therapy with weekly carboplatin and paclitaxel and radiation.to the primary and SBRT to the right lower lobe nodule . He began his first dose of weekly carboplatin and paclitaxel on 11/25/2017. till 01/08/18 . Mr Cherry was started on maintenance immunotherapy with Imfinzi on 02/24/2018. On Synthroid 25 ???g by mouth daily for newly diagnosed hypothyroidism probably due to immunotherapy He had restaging imaging with CT of the chest on 05/30/2018. There is no evidence of disease progression with overall stable appearance of the right upper and lower lobe parenchymal opacity and not hilar lymphadenopathy. Follow-up PET CT from 09/27/2018 reports near resolution of the right lung nodules and mediastinal nodes, indicating a positive response to therapy. There was resolution of bilateral pleural effusions. Mr. Cherry continues with Imfinzi treatment every 2 weeks. and Completed 24 doses on 01/12/2019 Follow-up CT PET scan done on 03/14/2019 showed central right upper lobe nodule measures roughly 9 mm with SUV of 3.5, compared to 15 x [address] PET scan done on 09/27/2018 and there has been no change in 7 mm right lung base nodule. Mild reactive activity in bilateral hilar and mediastinum is unchanged. Follow-up CT PET scan done on 07/11/2019, showed decreasing FDG uptake in the right upper lobe nodule, sporting and inflammatory diagnosis, no change in reactive mediastinal lymph nodes, no evidence of distant metastatic disease. Follow-up CT scan of chest done on April 20, 2020 showed spiculated right upper lobe neoplasm has progressed, now measures 1.6 x 2.1 x 1.8 compared to 1.2 x 1.1 x 0.8 cm previously and surrounding infiltrates are similar in appearance. Enlarged right hilar lymph node measuring 1.5 cm. No other lymphadenopathy. Right lower lobe opacity along posterior mediastinum measures 7 mm, unchanged since January 2018. Moderate chronic emphysematous changes. No other abnormality seen Came for follow-up, denies any specific complaints, no fever chills, no nausea or vomiting, no diarrhea or constipation, no hemoptysis or hematemesis, no chest pain, no shortness of breath, no headaches, appetite is good, still smoking about half pack a day. Medications: Atenolol 1 Tablet (of 50 mg) Oral daily, Atenolol 1 Tablet (of 25 mg) Tablet Oral at bedtime, Atorvastatin Calcium 1 Tablet (of 40 mg) Oral daily, Cholecalciferol 1 Tablet (of 5000 Units) Oral daily, Furosemide 1 Tablet (of 40 mg) Oral daily, HydrALAZINE HCl 1 Tablet (of 50 mg) Oral t.i.d., Lisinopril 1.5 Tablet (of 40 mg) Oral daily, Magnesium 1 Tablet (of 400 mg) Oral at bedtime, Potassium Chloride ER 0.5 Tablet (of 20 meq) Capsule, controlled release Oral b.i.d., Spironolactone 0.5 Tablet (of 25 mg) Oral b.i.d., Tamsulosin HCl 1 Capsule (of 0.4 mg) Oral daily, Triamcinolone Acetonide (0.5 %) Cream Topical Take as Directed, Vitamin C 1 Capsule (of 500 mg) Oral daily, Zinc 1 Tablet (of 50 mg) Oral daily Allergies: No Known Allergies. Review of Systems: Constitutional - His energy level is fair today and spirits are good. Appetite is fair and weight is stable. No fever, chills, hot flashes, or night sweats, ENMT - No problems with hearing, no sore throat, positive for sinus drainage, Hematologic/Lymphatic - No abnormal bruising or bleeding, Respiratory - Positive for dyspnea on exertion, no chest pain. Positive for cough, Cardiovascular - No anginal chest pain, palpitations or orthopnea, Gastrointestinal - No nausea, vomiting, diarrhea, GI bleeding, or constipation. No change in bowel habits, no heartburn or early satiety, Genitourinary (M) - No hematuria, dysuria, increased frequency, urgency, hesitancy or incontinence, Musculoskeletal - No joint pain, swelling or redness. No decreased range of motion, Neurologic - No headache or dizziness. No numbness/paresthesias or other focal neurologic symptoms, Psychiatric - No anxiety or depression. He has chronic insomnia. Vital Signs: Performed on Apr 26, 2020 13:31 Height - 65.50 in Weight - 236.6 lbs (LOW) BSA - 2.14 sq.m BMI - 38.77 (HIGH) Temperature - 99.2 F (HIGH) Pulse - 98 /min Respiration - 24 /min BP - 150/72 mm(hg) (HIGH) O2 Sat - 98 % Pain - 0 Performance Status: 1 - No physically strenuous activity, but ambulatory and able to carry out light or sedentary work (e.g. office work, light house work). (ECOG) Physical Examination: ENMT - No mouth sores, no thrush, no jaundice, Respiratory - Poor air entry, mild wheezing bilaterally, Cardiovascular - Regular rate and rhythm of heart, Abdomen - Soft, bowel sounds present, Extremities - No visible edema. Lab/Imaging: Test performed on Apr 20, 2020 09:18 Sodium 141 mmol/L Potassium 4.4 mmol/L Chloride 99 mmol/L CO2 35 mmol/L Anion Gap 11.4 BUN 9 mg/dL Creatinine 0.8 mg/dL Cr Clearance (Est) 122.0500 mL/min Glucose 97 mg/dL Osmolality - Calculated 291 mOsm/kg Calcium 9.6 mg/dL Protein, Total 6.5 g/dL Albumin 3.8 g/dL Globulin 2.7 g/dL Bilirubin, Total 0.2 mg/dL ALT (SGPT) 27 U/L AST (SGOT) 13 U/L Alkaline Phosphatase 110 IU/L WBC 9.2 10 3/uL RBC 4.44 10 6/uL HGB 13.6 g/dL HCT 42.9 % MCV 96.6 fL MCH 30.6 pg MCHC 31.7 g/dL RDW 13.5 % Platelet Count 274 10 3/cmm MPV 9.9 fL Neutrophils 6.89 10 3/uL Lymphocytes 1.5 10 3/uL Monocytes 0.7 10 3/uL Eosinophils 0.1 10 3/uL Basophils 0.0 10 3/uL Neutrophil % 74.6 % Lymphocyte % 16.0 % Monocyte % 7.7 % Eosinophil % 0.8 % Basophils % 0.4 % NRBC % 0 % Test performed on Feb 23, 2020 12:36 TSH 1.22 uIU/mL Impression: Mr. Cherry is a 78-year-old gentleman with right upper lobe lung cancer: invasive poorly differentiated squamous cell carcinoma. This diagnosis was confirmed by CT guided biopsy of the right upper lobe on 09/13/2017. He also had an abnormal PET/CT done on 09/28/2017. The PET showed a 1.7 cm pulmonary nodule in the right lower lobe with an SUV of 6.5. There was a 3 x 1.7 cm mass in the central right upper lobe with SUV of 7.2. There was superior and inferior right paratracheal lymphadenopathy with increased FDG uptake. Although scattered the mediastinal nodules were radiographically benign and FDG negative. It was noted that he did have bilateral pleural effusion with the right being larger than the left. He underwent MRI I of the brain on 11/01/2017 there was no evidence of metastatic disease at that time. The arrangement I Fish on the lung biopsy from 11/01/2017 is reported as negative the PDL???L1 IHC is negative there is no PD-L1 expression. PD-L1 IHC 28???8 was also reported as less than 1%. Clinical stage T4 ipsilateral satellite lesion in different lobe. N 1 or 2 ,Mx stage IIIA 2. COPD 3. Glaucoma and cataracts 4. Hypercholesterolemia/hyperlipidemia 5. Hypertension 6. Chronic, controlled depression s/p combined therapy with radiation and chemotherapy. to the primary and SB RT to the right lower lobe first chemotherapy treatment on 11/25/2017. till 01/08/18 On week 4, 30 minutes after starting the Carboplatin, he developed hypertension, shortness of breath and chest pain. The Carboplatin was stopped and he was given sublingual nitroglycerin and his symptoms resolved. The Carboplatin has been stopped. He continued with paclitaxel with his last dose on 01/06/2018. He had recent admission for pneumonia and is labs at that time showed progressive anemia/dermal cytopenia. started on maintenance therapy with durvalumab. He began his first dose on 02/24/2018. The maintenance plan at this point will be every 2 weeks for 12 months. . He had restaging imaging with CT of the chest on 05/30/2018. There is no evidence of disease progression with overall stable appearance of the right upper and lower lobe parenchymal opacity and not hilar lymphadenopathy. He continues with treatment at this time. He did have elevation of the TSH is now on Synthroid. His TSH remained stable .Follow-up CT PET scan done on 09/27/2018 showed the right lower lobe nodule seen on prior study done on 09/28/2017, is now subcentimeter in size and FDG negative The central right upper lobe lesion measures 1.5 x 0.7 cm with FDG activity frequent to mediastinal blood pool, this pattern is typical for inflammation Although a small amount of residual disease cannot be excluded The inferior right paratracheal node is now largely calcified, with mild residual activity activity that may be inflammatory Sup Right paratracheal node is calcified and FDG negative Findings are indicative of good response to the therapy. He continues to tolerate the durvalumab well. Plan: Discussed with patient regarding his labs white blood count 9.2 hemoglobin 13.6 crit 42.9 platelets 274,000 CMP within normal limits and follow-up CT scan of chest findings which shows right upper lobe nodule has increased in size and there is a right hilar lymph node measuring 1.5 cm and no other abnormality seen Clinically, patient is doing well with no new signs symptom suggestive of recurrence of disease but his follow-up CT scan of chest shows right upper lobe mass has increased in size and now there is a right hilar lymph node seen, at this point will consider follow-up CT PET scan to confirm if there is a recurrence of disease. Patient return to clinic after CT PET scan for further discussion. Patient was advised to quit smoking, was offered any assistance he may need Signed By: Criss Ornelas M.D. <<Signature on File>>
== END 2020-04-26 13:00 | disposition home or self-care (01) ==
LOC: ONCMED 13:00
PROVIDERS: PCP Emergency Medicine Emergency Medical Services; Visit Provider Internal Medicine Hematology & Oncology
DX: Z08 Encounter for follow-up examination after completed treatment for malignant neoplasm (principal); Z85.118 Personal history of other malignant neoplasm of bronchus and lung; J44.9 Chronic obstructive pulmonary disease, unspecified; H40.9 Unspecified glaucoma; H26.9 Unspecified cataract; E78.00 Pure hypercholesterolemia, unspecified; E78.5 Hyperlipidemia, unspecified; I10 Essential (primary) hypertension; F32.9 Major depressive disorder, single episode, unspecified; Z92.21 Personal history of antineoplastic chemotherapy; Z92.3 Personal history of irradiation
CPT/HCPCS: G0463

== ENCOUNTER 2020-08-18 08:16 | Outpatient (CLI) | payer OTHER, SELFPAY ==
[2020-08-18 09:14] LABS: Basophils % 0.5 %; Eosinophils # 0.1 10^3/uL (0.0-0.8); Eosinophils % 1.1 %; Hematocrit 45.6 % (42.0-52.0); Hemoglobin 14.2 g/dL (11.7-16.6); Lymphocytes # 1.7 10^3/uL (0.8-4.8); Lymphocytes % 19.2 %; Mean Corpuscular HGB Conc 31.1 g/dL (30.0-36.0); Mean Corpuscular Hemoglobin 30.5 pg (28.0-34.0); Mean Corpuscular Volume 98.1 fL (80-94); Mean Platelet Volume 10.1 fL (7.4-10.4); Monocytes # 0.7 10^3/uL (0.2-0.9); Monocytes % 8.4 %; Neutrophils # 6.13 10^3/uL (1.8-7.7); Neutrophils % 70.1 %; Nucleated Red Blood Cells % 0 %; Platelet Count 292 10^3/cmm (130-400); Red Blood Count 4.65 10^6/uL (4.1-5.3); Red Cell Distribution Width 13.9 % (12.1-15.1); White Blood Count 8.7 10^3/uL (4.0-10.0)
[2020-08-18 09:38] LABS: Alanine Aminotransferase 18 U/L (0-41); Albumin Level 3.9 g/dL (3.5-5.2); Alkaline Phosphatase 102 IU/L (40-130); Anion Gap 11.1 (5-19); Aspartate Amino Transferase 14 U/L (0-40); Blood Urea Nitrogen 15 mg/dL (8-23); Calcium 9.1 mg/dL (8.5-10.5); Carbon Dioxide 34 mmol/L (22-29); Chloride 98 mmol/L (98-107); Globulin 3.1 g/dL (1.3-4.6); Glucose 95 mg/dL (65-115); Osmolality Calculated 289 mOsm/kg (285-295); Potassium 4.1 mmol/L (3.5-5.1); Sodium 139 mmol/L (136-145); Total Bilirubin 0.2 mg/dL (0.15-1.2)
--- NOTE | 2020-08-18 16:47 | ONC FU_ITS ---
Dr. Ornelas follow up note Patient: Venkat Cherry Unit #: [id number]: 1940 Dicatated By: Criss Ornelas M.D.Date of Visit:Aug 18, 2020 Onc Med Follow-up/Prog Note History of Present Illness: Mr. Cherry is a 79-year-old gentleman with a [id number] history of smoking. He had presented to his primary care at the [facility] with concerns of weakness and hemoptysis. He also reported increased shortness of breath for a month. It had significantly worsened on 2 weeks prior to his presentation to the PCP. He had had progressive fluid retention at that time as well. Dr. Noe has requested workup of his concerns which included a CT of the chest at that time he had finding of a right lung mass. The CT reported right upper lobe and lower lobe mass with mesangial lymphadenopathy. He did undergo CT-guided needle biopsy of the right lung mass on 09/13/2017. 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 The pathology reported ALK rearrangement by FISH as negative and PD-L1 IHC as negative. The PD-L1 IHC 28???8 was reported as less than 1%. Mr. Cherry had PET/CT on 09/28/2017. The findings were reported as: A 1.7 cm pulmonary nodule in the right lower lobe with SUV of 6.5. A 3 x 1.7 cm lesion in the central right upper lobe with SUV of 7.2; superior and inferior right paratracheal lymphadenopathy consistent with local metastatic disease. Inferior, right paratracheal node measures 1.9 x 2.3 cm with an SUV of 9.8; other scattered mediastinal nodes are radiographically benign and FDG negative. Bilateral pleural effusions. Malignant effusions could not be excluded. on 11/25/2017. s/p concurrent therapy with weekly carboplatin and paclitaxel and radiation.to the primary and SBRT to the right lower lobe nodule . He began his first dose of weekly carboplatin and paclitaxel on 11/25/2017. till 01/08/18 . Mr Cherry was started on maintenance immunotherapy with Imfinzi on 02/24/2018. On Synthroid 25 ???g by mouth daily for newly diagnosed hypothyroidism probably due to immunotherapy He had restaging imaging with CT of the chest on 05/30/2018. There is no evidence of disease progression with overall stable appearance of the right upper and lower lobe parenchymal opacity and not hilar lymphadenopathy. Follow-up PET CT from 09/27/2018 reports near resolution of the right lung nodules and mediastinal nodes, indicating a positive response to therapy. There was resolution of bilateral pleural effusions. Mr. Cherry continues with Imfinzi treatment every 2 weeks. and Completed 24 doses on 01/12/2019 Follow-up CT PET scan done on 03/14/2019 showed central right upper lobe nodule measures roughly 9 mm with SUV of 3.5, compared to 15 x [address] PET scan done on 09/27/2018 and there has been no change in 7 mm right lung base nodule. Mild reactive activity in bilateral hilar and mediastinum is unchanged. Follow-up CT PET scan done on 07/11/2019, showed decreasing FDG uptake in the right upper lobe nodule, sporting and inflammatory diagnosis, no change in reactive mediastinal lymph nodes, no evidence of distant metastatic disease. Follow-up CT scan of chest done on April 20, 2020 showed spiculated right upper lobe neoplasm has progressed, now measures 1.6 x 2.1 x 1.8 compared to 1.2 x 1.1 x 0.8 cm previously and surrounding infiltrates are similar in appearance. Enlarged right hilar lymph node measuring 1.5 cm. No other lymphadenopathy. Right lower lobe opacity along posterior mediastinum measures 7 mm, unchanged since January 2018. Moderate chronic emphysematous changes. No other abnormality seen , still smoking about half pack a day. Follow-up CT PET scan done on July 30, 2020 showed right upper lobe nodule now measures 2.4 x 2.1 cm with SUV of 13.9 compared to 1.8 cm with SUV of 14.5 previously, indicates progression of disease. Came for follow-up, denies any specific complaints, no fever chills, no nausea or vomiting, no diarrhea or constipation, no hemoptysis or hematemesis, still smoking about half pack a day. Medications: Atenolol 1 Tablet (of 50 mg) Oral daily, Atenolol 1 Tablet (of 25 mg) Tablet Oral at bedtime, Atorvastatin Calcium 1 Tablet (of 40 mg) Oral daily, Cholecalciferol 1 Tablet (of 5000 Units) Oral daily, Furosemide 1 Tablet (of 40 mg) Oral daily, HydrALAZINE HCl 1 Tablet (of 50 mg) Oral t.i.d., Lisinopril 1.5 Tablet (of 40 mg) Oral daily, Magnesium 1 Tablet (of 400 mg) Oral at bedtime, Potassium Chloride ER 0.5 Tablet (of 20 meq) Capsule, controlled release Oral b.i.d., Spironolactone 0.5 Tablet (of 25 mg) Oral b.i.d., Tamsulosin HCl 1 Capsule (of 0.4 mg) Oral daily, Triamcinolone Acetonide (0.5 %) Cream Topical Take as Directed, Vitamin C 1 Capsule (of 500 mg) Oral daily, Zinc 1 Tablet (of 50 mg) Oral daily Allergies: No Known Allergies. Review of Systems: Review of Systems is not available for this patient. Vital Signs: Performed on Aug 18, 2020 10:44 Height - 65.50 in Weight - 238.2 lbs (HIGH) BSA - 2.14 sq.m BMI - 39.04 (HIGH) Temperature - 98.6 F Pulse - 76 /min Respiration - 18 /min BP - 180/61 mm(hg) (HIGH) O2 Sat - 91 % (LOW) Pain - 0 Performance Status: 1 - No physically strenuous activity, but ambulatory and able to carry out light or sedentary work (e.g. office work, light house work). (ECOG) Physical Examination: ENMT - no Mouth sores, no thrush, no jaundice, Respiratory - Poor air entry otherwise clear, Cardiovascular - Regular rate and rhythm of heart, Abdomen - Soft, bowel sounds present, Extremities - No visible edema. Lab/Imaging: Test performed on Apr 20, 2020 09:18 Sodium 141 mmol/L Potassium 4.4 mmol/L Chloride 99 mmol/L CO2 35 mmol/L Anion Gap 11.4 BUN 9 mg/dL Creatinine 0.8 mg/dL Cr Clearance (Est) 122.0500 mL/min Glucose 97 mg/dL Osmolality - Calculated 291 mOsm/kg Calcium 9.6 mg/dL Protein, Total 6.5 g/dL Albumin 3.8 g/dL Globulin 2.7 g/dL Bilirubin, Total 0.2 mg/dL ALT (SGPT) 27 U/L AST (SGOT) 13 U/L Alkaline Phosphatase 110 IU/L WBC 9.2 10 3/uL RBC 4.44 10 6/uL HGB 13.6 g/dL HCT 42.9 % MCV 96.6 fL MCH 30.6 pg MCHC 31.7 g/dL RDW 13.5 % Platelet Count 274 10 3/cmm MPV 9.9 fL Neutrophils 6.89 10 3/uL Lymphocytes 1.5 10 3/uL Monocytes 0.7 10 3/uL Eosinophils 0.1 10 3/uL Basophils 0.0 10 3/uL Neutrophil % 74.6 % Lymphocyte % 16.0 % Monocyte % 7.7 % Eosinophil % 0.8 % Basophils % 0.4 % NRBC % 0 % Test performed on Feb 23, 2020 12:36 TSH 1.22 uIU/mL Impression: Mr. Cherry is a 79-year-old gentleman with right upper lobe lung cancer: invasive poorly differentiated squamous cell carcinoma. This diagnosis was confirmed by CT guided biopsy of the right upper lobe on 09/13/2017. He also had an abnormal PET/CT done on 09/28/2017. The PET showed a 1.7 cm pulmonary nodule in the right lower lobe with an SUV of 6.5. There was a 3 x 1.7 cm mass in the central right upper lobe with SUV of 7.2. There was superior and inferior right paratracheal lymphadenopathy with increased FDG uptake. Although scattered the mediastinal nodules were radiographically benign and FDG negative. It was noted that he did have bilateral pleural effusion with the right being larger than the left. He underwent MRI I of the brain on 11/01/2017 there was no evidence of metastatic disease at that time. The arrangement I Fish on the lung biopsy from 11/01/2017 is reported as negative the PDL???L1 IHC is negative there is no PD-L1 expression. PD-L1 IHC 28???8 was also reported as less than 1%. Clinical stage T4 ipsilateral satellite lesion in different lobe. N 1 or 2 ,Mx stage IIIA 2. COPD 3. Glaucoma and cataracts 4. Hypercholesterolemia/hyperlipidemia 5. Hypertension 6. Chronic, controlled depression s/p combined therapy with radiation and chemotherapy. to the primary and SB RT to the right lower lobe, first chemotherapy treatment on 11/25/2017. till 01/08/18 On week 4, 30 minutes after starting the Carboplatin, he developed hypertension, shortness of breath and chest pain. The Carboplatin was stopped and he was given sublingual nitroglycerin and his symptoms resolved. The Carboplatin has been stopped. He continued with paclitaxel with his last dose on 01/06/2018. He had recent admission for pneumonia and is labs at that time showed progressive anemia/dermal cytopenia. started on maintenance therapy with durvalumab. He began his first dose on 02/24/2018. And completed on January 12, 2019 . He had restaging imaging with CT of the chest on 05/30/2018. There is no evidence of disease progression with overall stable appearance of the right upper and lower lobe parenchymal opacity and not hilar lymphadenopathy. He continues with treatment at this time. He did have elevation of the TSH is now on Synthroid. His TSH remained stable .Follow-up CT PET scan done on 09/27/2018 showed the right lower lobe nodule seen on prior study done on 09/28/2017, is now subcentimeter in size and FDG negative The central right upper lobe lesion measures 1.5 x 0.7 cm with FDG activity frequent to mediastinal blood pool, this pattern is typical for inflammation Although a small amount of residual disease cannot be excluded The inferior right paratracheal node is now largely calcified, with mild residual activity activity that may be inflammatory Sup Right paratracheal node is calcified and FDG negative Findings are indicative of good response to the therapy. Follow-up CT PET scan done on April 30, 2020 showed 1.8 cm right upper lobe nodule with SUV of 14.5 Patient was referred to [facility] for evaluation where he was seen by Dr. Wolf, who recommended follow-up CT PET scan as patient was not a candidate for surgical resection or further radiation therapy and if follow-up CT PET scan done in 3 months shows disease progression, consider systemic chemotherapy with Taxotere or Navelbine. Follow-up CT PET scan done on July 30, 2020 shows right upper lobe nodule now measures 2.4 x 2.1 cm with SUV of 13.9 compared to 1.8 cm with SUV 14.5 previously Plan: Discussed with patient regarding his labs white blood count 8.7 hemoglobin 14.2 hematocrit 45.6 platelets 292,000 CMP within normal limits and follow-up CT PET scan which shows disease progression as right upper lobe mass is now 2.4 x 2.1 cm compared to 1.8 cm previously and SUV 13.9 compared to 14.5 previously. Clinically, patient doing well with no new signs symptom suggestive of disease progression but his follow-up CT PET scan shows disease progression in the right upper lobe, at this point we will consider guardant 360 to identify targetable therapeutic mutations, if unremarkable, will consider either weekly Navelbine or docetaxel. We will also discuss his case with Dr. Dacosta at [facility]. Signed By: Criss Ornelas M.D. <<Signature on File>>
== END 2020-08-18 08:17 | disposition home or self-care (01) ==
LOC: ONCMED 08:17
PROVIDERS: PCP Emergency Medicine Emergency Medical Services; Visit Provider Internal Medicine Hematology & Oncology
DX: C34.11 Malignant neoplasm of upper lobe, right bronchus or lung (principal); Z79.899 Other long term (current) drug therapy; J44.9 Chronic obstructive pulmonary disease, unspecified; I10 Essential (primary) hypertension; E78.5 Hyperlipidemia, unspecified; E78.00 Pure hypercholesterolemia, unspecified; F32.9 Major depressive disorder, single episode, unspecified; H40.9 Unspecified glaucoma; F17.210 Nicotine dependence, cigarettes, uncomplicated; Z92.3 Personal history of irradiation
CPT/HCPCS: 36415; 80053; 85025; 99215

== ENCOUNTER 2020-09-08 08:20 | Outpatient (CLI) | payer OTHER, SELFPAY ==
--- NOTE | 2020-09-08 15:18 | ONC FU_ITS ---
Dr. Ornelas follow up note Patient: Venkat Cherry Unit #: [id number]: 1940 Dicatated By: Criss Ornelas M.D.Date of Visit:Sep 08, 2020 Onc Med Follow-up/Prog Note History of Present Illness: Mr. Cherry is a 79-year-old gentleman with a [id number] history of smoking. He had presented to his primary care at the [facility] with concerns of weakness and hemoptysis. He also reported increased shortness of breath for a month. It had significantly worsened on 2 weeks prior to his presentation to the PCP. He had had progressive fluid retention at that time as well. Dr. Noe has requested workup of his concerns which included a CT of the chest at that time he had finding of a right lung mass. The CT reported right upper lobe and lower lobe mass with mesangial lymphadenopathy. He did undergo CT-guided needle biopsy of the right lung mass on 09/13/2017. 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 The pathology reported ALK rearrangement by FISH as negative and PD-L1 IHC as negative. The PD-L1 IHC 28???8 was reported as less than 1%. Mr. Cherry had PET/CT on 09/28/2017. The findings were reported as: A 1.7 cm pulmonary nodule in the right lower lobe with SUV of 6.5. A 3 x 1.7 cm lesion in the central right upper lobe with SUV of 7.2; superior and inferior right paratracheal lymphadenopathy consistent with local metastatic disease. Inferior, right paratracheal node measures 1.9 x 2.3 cm with an SUV of 9.8; other scattered mediastinal nodes are radiographically benign and FDG negative. Bilateral pleural effusions. Malignant effusions could not be excluded. on 11/25/2017. s/p concurrent therapy with weekly carboplatin and paclitaxel and radiation.to the primary and SBRT to the right lower lobe nodule . He began his first dose of weekly carboplatin and paclitaxel on 11/25/2017. till 01/08/18 . Mr Cherry was started on maintenance immunotherapy with Imfinzi on 02/24/2018. On Synthroid 25 ???g by mouth daily for newly diagnosed hypothyroidism probably due to immunotherapy He had restaging imaging with CT of the chest on 05/30/2018. There is no evidence of disease progression with overall stable appearance of the right upper and lower lobe parenchymal opacity and not hilar lymphadenopathy. Follow-up PET CT from 09/27/2018 reports near resolution of the right lung nodules and mediastinal nodes, indicating a positive response to therapy. There was resolution of bilateral pleural effusions. Mr. Cherry continues with Imfinzi treatment every 2 weeks. and Completed 24 doses on 01/12/2019 Follow-up CT PET scan done on 03/14/2019 showed central right upper lobe nodule measures roughly 9 mm with SUV of 3.5, compared to 15 x [address] PET scan done on 09/27/2018 and there has been no change in 7 mm right lung base nodule. Mild reactive activity in bilateral hilar and mediastinum is unchanged. Follow-up CT PET scan done on 07/11/2019, showed decreasing FDG uptake in the right upper lobe nodule, sporting and inflammatory diagnosis, no change in reactive mediastinal lymph nodes, no evidence of distant metastatic disease. Follow-up CT scan of chest done on April 20, 2020 showed spiculated right upper lobe neoplasm has progressed, now measures 1.6 x 2.1 x 1.8 compared to 1.2 x 1.1 x 0.8 cm previously and surrounding infiltrates are similar in appearance. Enlarged right hilar lymph node measuring 1.5 cm. No other lymphadenopathy. Right lower lobe opacity along posterior mediastinum measures 7 mm, unchanged since January 2018. Moderate chronic emphysematous changes. No other abnormality seen , still smoking about half pack a day. Follow-up CT PET scan done on July 30, 2020 showed right upper lobe nodule now measures 2.4 x 2.1 cm with SUV of 13.9 compared to 1.8 cm with SUV of 14.5 previously, indicates progression of disease. Guardant 360 done on August 19, 2019 showed no obvious targetable mutation Including MSI/MMR intact Came for follow-up, denies any specific complaints, no fever chills, no nausea or vomiting, no diarrhea or constipation, still smoking about half pack a day but no hemoptysis or hematemesis, no new bony pains Medications: Atenolol 1 Tablet (of 50 mg) Oral daily, Atenolol 1 Tablet (of 25 mg) Tablet Oral at bedtime, Atorvastatin Calcium 1 Tablet (of 40 mg) Oral daily, Cholecalciferol 1 Tablet (of 5000 Units) Oral daily, Furosemide 1 Tablet (of 40 mg) Oral daily, HydrALAZINE HCl 1 Tablet (of 50 mg) Oral t.i.d., Lisinopril 1.5 Tablet (of 40 mg) Oral daily, Magnesium 1 Tablet (of 400 mg) Oral at bedtime, Potassium Chloride ER 0.5 Tablet (of 20 meq) Capsule, controlled release Oral b.i.d., Spironolactone 0.5 Tablet (of 25 mg) Oral b.i.d., Tamsulosin HCl 1 Capsule (of 0.4 mg) Oral daily, Triamcinolone Acetonide (0.5 %) Cream Topical Take as Directed, Vitamin C 1 Capsule (of 500 mg) Oral daily, Zinc 1 Tablet (of 50 mg) Oral daily Allergies: No Known Allergies. Review of Systems: ENMT - No problems with hearing, no sore throat, no sinus drainage. No mouth sores, no cervical adenopathy, Respiratory - No dyspnea on exertion, chest pain, cough or hemoptysis. Mild wheezing noted, Cardiovascular - No anginal chest pain, palpitations or orthopnea. No murmurs noted. No edema present, Integumentary - No chronic rashes, inflammation, ulcerations or skin changes. Vital Signs: Performed on Sep 08, 2020 08:55 Height - 65.50 in Weight - 240.4 lbs (HIGH) BSA - 2.15 sq.m BMI - 39.40 (HIGH) Temperature - 98.1 F (LOW) Pulse - 72 /min Respiration - 18 /min BP - 156/79 mm(hg) (HIGH) O2 Sat - 93 % (LOW) Pain - 0 Performance Status: 1 - No physically strenuous activity, but ambulatory and able to carry out light or sedentary work (e.g. office work, light house work). (ECOG) Physical Examination: ENMT - No mouth sores, no thrush, no jaundice, Respiratory - Lungs are clear to auscultation, Cardiovascular - Regular rate and rhythm of heart, Abdomen - Soft, bowel sounds present, Extremities - No visible edema. Lab/Imaging: Test performed on Apr 20, 2020 09:18 Sodium 141 mmol/L Potassium 4.4 mmol/L Chloride 99 mmol/L CO2 35 mmol/L Anion Gap 11.4 BUN 9 mg/dL Creatinine 0.8 mg/dL Cr Clearance (Est) 122.0500 mL/min Glucose 97 mg/dL Osmolality - Calculated 291 mOsm/kg Calcium 9.6 mg/dL Protein, Total 6.5 g/dL Albumin 3.8 g/dL Globulin 2.7 g/dL Bilirubin, Total 0.2 mg/dL ALT (SGPT) 27 U/L AST (SGOT) 13 U/L Alkaline Phosphatase 110 IU/L WBC 9.2 10 3/uL RBC 4.44 10 6/uL HGB 13.6 g/dL HCT 42.9 % MCV 96.6 fL MCH 30.6 pg MCHC 31.7 g/dL RDW 13.5 % Platelet Count 274 10 3/cmm MPV 9.9 fL Neutrophils 6.89 10 3/uL Lymphocytes 1.5 10 3/uL Monocytes 0.7 10 3/uL Eosinophils 0.1 10 3/uL Basophils 0.0 10 3/uL Neutrophil % 74.6 % Lymphocyte % 16.0 % Monocyte % 7.7 % Eosinophil % 0.8 % Basophils % 0.4 % NRBC % 0 % Impression: Mr. Cherry is a 79-year-old gentleman with right upper lobe lung cancer: invasive poorly differentiated squamous cell carcinoma. This diagnosis was confirmed by CT guided biopsy of the right upper lobe on 09/13/2017. He also had an abnormal PET/CT done on 09/28/2017. The PET showed a 1.7 cm pulmonary nodule in the right lower lobe with an SUV of 6.5. There was a 3 x 1.7 cm mass in the central right upper lobe with SUV of 7.2. There was superior and inferior right paratracheal lymphadenopathy with increased FDG uptake. Although scattered the mediastinal nodules were radiographically benign and FDG negative. It was noted that he did have bilateral pleural effusion with the right being larger than the left. He underwent MRI I of the brain on 11/01/2017 there was no evidence of metastatic disease at that time. The arrangement I Fish on the lung biopsy from 11/01/2017 is reported as negative the PDL???L1 IHC is negative there is no PD-L1 expression. PD-L1 IHC 28???8 was also reported as less than 1%. Clinical stage T4 ipsilateral satellite lesion in different lobe. N 1 or 2 ,Mx stage IIIA 2. COPD 3. Glaucoma and cataracts 4. Hypercholesterolemia/hyperlipidemia 5. Hypertension 6. Chronic, controlled depression s/p combined therapy with radiation and chemotherapy. to the primary and SB RT to the right lower lobe, first chemotherapy treatment on 11/25/2017. till 01/08/18 On week 4, 30 minutes after starting the Carboplatin, he developed hypertension, shortness of breath and chest pain. The Carboplatin was stopped and he was given sublingual nitroglycerin and his symptoms resolved. The Carboplatin has been stopped. He continued with paclitaxel with his last dose on 01/06/2018. He had recent admission for pneumonia and is labs at that time showed progressive anemia/dermal cytopenia. started on maintenance therapy with durvalumab. He began his first dose on 02/24/2018. And completed on January 12, 2019 . He had restaging imaging with CT of the chest on 05/30/2018. There is no evidence of disease progression with overall stable appearance of the right upper and lower lobe parenchymal opacity and not hilar lymphadenopathy. He continues with treatment at this time. He did have elevation of the TSH is now on Synthroid. His TSH remained stable .Follow-up CT PET scan done on 09/27/2018 showed the right lower lobe nodule seen on prior study done on 09/28/2017, is now subcentimeter in size and FDG negative The central right upper lobe lesion measures 1.5 x 0.7 cm with FDG activity frequent to mediastinal blood pool, this pattern is typical for inflammation Although a small amount of residual disease cannot be excluded The inferior right paratracheal node is now largely calcified, with mild residual activity activity that may be inflammatory Sup Right paratracheal node is calcified and FDG negative Findings are indicative of good response to the therapy. Follow-up CT PET scan done on April 30, 2020 showed 1.8 cm right upper lobe nodule with SUV of 14.5 Patient was referred to [facility] for evaluation where he was seen by Dr. Wolf, who recommended follow-up CT PET scan as patient was not a candidate for surgical resection or further radiation therapy and if follow-up CT PET scan done in 3 months shows disease progression, consider systemic chemotherapy with Taxotere or Navelbine. Follow-up CT PET scan done on July 30, 2020 shows right upper lobe nodule now measures 2.4 x 2.1 cm with SUV of 13.9 compared to 1.8 cm with SUV 14.5 previously Plan: Discussed with patient regarding his guardant 360 report which showed no obvious therapeutic targetable mutation thus treatment options including systemic chemotherapy or as patient not a candidate for surgery, so will consider referral to radiation oncology for evaluation for SBRT if possible, case was also discussed with Dr. Duarte, denture technician regarding role of cryosurgery, as per Dr. Duarte he performs cryosurgery only on endobronchial lesions. Other option, as his follow-up CT PET scan done recently showed mild progression in the size but stable or improvement in SUV value, may consider observation and repeat CT PET scan in October 2020 and if it shows disease progression then consider intervention with systemic chemotherapy either with the docetaxel or Navelbine as recommended by Dr. Wolf at [facility]. Case was discussed with radiation oncology and his impression is that active lesion seen in the right upper lobe on PET scan is a new isolated lesion, he will review previous radiation field and then make his decision whether SBRT can be considered, thus we will refer patient to radiation oncology for evaluation. In the meantime consider repeating CT PET scan in October and if it shows disease progression then consider systemic therapy. Patient and his agreed with the plan. Return to clinic after CT PET scan with CBC CMP and radiation evaluation Signed By: Criss Ornelas M.D. <<Signature on File>>
== END 2020-09-08 08:21 | disposition home or self-care (01) ==
LOC: ONCMED 08:22
PROVIDERS: PCP Emergency Medicine Emergency Medical Services; Visit Provider Internal Medicine Hematology & Oncology
DX: C34.11 Malignant neoplasm of upper lobe, right bronchus or lung (principal); J44.9 Chronic obstructive pulmonary disease, unspecified; H40.9 Unspecified glaucoma; H26.9 Unspecified cataract; E78.00 Pure hypercholesterolemia, unspecified; E78.5 Hyperlipidemia, unspecified; I10 Essential (primary) hypertension; F32.9 Major depressive disorder, single episode, unspecified; Z79.899 Other long term (current) drug therapy
CPT/HCPCS: 99215

== ENCOUNTER 2020-09-19 13:24 | Outpatient (CLI) | payer OTHER, SELFPAY ==
--- NOTE | 2020-09-19 15:05 | N.ONRAD NP_ITS ---
Radiation Oncology Consultation Patient Name: Venkat Cherry Date of : 1940 Date of Service: 09/19/2020 Attending Physician: Renny Robertson M.D. Venkat Cherry was seen in consultation this afternoon at the request of Frank Ornelas M.D. for consideration of stereotactic ablative body radiotherapy in the management of his recurrent non-small cell lung cancer. The patient was diagnosed in the September of 2017 with a clinical stage IIIB (T4N2) invasive squamous cell carcinoma of the right upper lobe of the lung (previous therapy plan was personally reviewed in [facility]). SABR was prescribed to the right lower lobe lesion preliminary to concurrent chemoradiotherapy (weekly carboplatin and paclitaxel; prescribed radiotherapy dose of 66 Gy targeted the right upper lobe lesion and mediastinum) completing in December 2017. Maintenance Imfinzi (24 cycles) concluded December 2018. A surveillance PET CT (independently visualized in synapse) ordered on July 30, 2020 demonstrated progression of the right upper lobe nodule currently measuring 2.4 cm x 2.1 cm with an SUV of 13.9 without evidence of metastatic disease. He was evaluated for stereotactic ablative body radiotherapy in the context of recurrent disease. I discussed with Mr. Gale the role of SABR for recurrent lung cancer in patients medically inoperable. Prior to endorsing this treatment modality, a PET CT will be required to confirm localized disease (previous imaging was performed approximately two months ago). His medical treatment plan was discussed with Frank Ornelas M.D. Signed by: Dr. Renny Robertson 09/19/2020 3:04:23 PM
== END 2020-09-19 13:25 | disposition home or self-care (01) ==
LOC: ONCMED 13:27
PROVIDERS: PCP Emergency Medicine Emergency Medical Services; Visit Provider Radiology Radiation Oncology
DX: C34.11 Malignant neoplasm of upper lobe, right bronchus or lung (principal); Z79.899 Other long term (current) drug therapy
CPT/HCPCS: 99215

== ENCOUNTER 2020-10-05 05:35 | Outpatient (RCR) | payer OTHER, MEDICARE, SELFPAY ==
--- NOTE | 2020-10-04 | CT_ITS ---
Radiation Therapy Planning CT images; total exam DLP: 943.89 mGy-cm MTDD
[2020-10-05 08:34] LABS: Basophils # 0.1 10^3/uL (0.0-0.1); Basophils % 0.5 %; Eosinophils # 0.1 10^3/uL (0.0-0.8); Eosinophils % 0.8 %; Hematocrit 41.6 % (42.0-52.0); Hemoglobin 13.3 g/dL (11.7-16.6); Lymphocytes # 1.4 10^3/uL (0.8-4.8); Lymphocytes % 14.9 %; Mean Corpuscular Hemoglobin 30.6 pg (28.0-34.0); Mean Corpuscular Volume 95.9 fL (80-94); Monocytes # 0.8 10^3/uL (0.2-0.9); Monocytes % 8.6 %; Neutrophils # 6.84 10^3/uL (1.8-7.7); Neutrophils % 74.7 %; Nucleated Red Blood Cells % 0 %; Platelet Count 288 10^3/cmm (130-400); Red Blood Count 4.34 10^6/uL (4.1-5.3); Red Cell Distribution Width 13.2 % (12.1-15.1); White Blood Count 9.2 10^3/uL (4.0-10.0)
[2020-10-05 08:57] LABS: Alanine Aminotransferase 15 U/L (0-41); Albumin Level 3.4 g/dL (3.5-5.2); Alkaline Phosphatase 87 IU/L (40-130); Anion Gap 12.2 (5-19); Aspartate Amino Transferase 11 U/L (0-40); Blood Urea Nitrogen 13 mg/dL (8-23); Calcium 8.5 mg/dL (8.5-10.5); Carbon Dioxide 29 mmol/L (22-29); Chloride 101 mmol/L (98-107); Globulin 2.9 g/dL (1.3-4.6); Glucose 84 mg/dL (65-115); Osmolality Calculated 285 mOsm/kg (285-295); Potassium 4.2 mmol/L (3.5-5.1); Sodium 138 mmol/L (136-145); Total Bilirubin 0.2 mg/dL (0.15-1.2); Total Protein 6.3 g/dL (6.6-8.7)
--- NOTE | 2020-10-05 09:39 | ONC FU_ITS ---
Dr. Ornelas follow up note Patient: Venkat Cherry Unit #: [id number]: [id number] Dicatated By: Criss Ornelas M.D.Date of Visit:October 05, 2020 Onc Med Follow-up/Prog Note History of Present Illness: Mr. Cherry is a 80-year-old gentleman with a [id number] history of smoking. He had presented to his primary care at the [facility] with concerns of weakness and hemoptysis. He also reported increased shortness of breath for a month. It had significantly worsened on 2 weeks prior to his presentation to the PCP. He had had progressive fluid retention at that time as well. Dr. Noe has requested workup of his concerns which included a CT of the chest at that time he had finding of a right lung mass. The CT reported right upper lobe and lower lobe mass with mesangial lymphadenopathy. He did undergo CT-guided needle biopsy of the right lung mass on 09/13/2017. 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 The pathology reported ALK rearrangement by FISH as negative and PD-L1 IHC as negative. The PD-L1 IHC 28???8 was reported as less than 1%. Mr. Cherry had PET/CT on 09/28/2017. The findings were reported as: A 1.7 cm pulmonary nodule in the right lower lobe with SUV of 6.5. A 3 x 1.7 cm lesion in the central right upper lobe with SUV of 7.2; superior and inferior right paratracheal lymphadenopathy consistent with local metastatic disease. Inferior, right paratracheal node measures 1.9 x 2.3 cm with an SUV of 9.8; other scattered mediastinal nodes are radiographically benign and FDG negative. Bilateral pleural effusions. Malignant effusions could not be excluded. on 11/25/2017. s/p concurrent therapy with weekly carboplatin and paclitaxel and radiation.to the primary and SBRT to the right lower lobe nodule . He began his first dose of weekly carboplatin and paclitaxel on 11/25/2017. till 01/08/18 . Mr Cherry was started on maintenance immunotherapy with Imfinzi on 02/24/2018. On Synthroid 25 ???g by mouth daily for newly diagnosed hypothyroidism probably due to immunotherapy He had restaging imaging with CT of the chest on 05/30/2018. There is no evidence of disease progression with overall stable appearance of the right upper and lower lobe parenchymal opacity and not hilar lymphadenopathy. Follow-up PET CT from 09/27/2018 reports near resolution of the right lung nodules and mediastinal nodes, indicating a positive response to therapy. There was resolution of bilateral pleural effusions. Mr. Cherry continues with Imfinzi treatment every 2 weeks. and Completed 24 doses on 01/12/2019 Follow-up CT PET scan done on 03/14/2019 showed central right upper lobe nodule measures roughly 9 mm with SUV of 3.5, compared to 15 x [address] PET scan done on 09/27/2018 and there has been no change in 7 mm right lung base nodule. Mild reactive activity in bilateral hilar and mediastinum is unchanged. Follow-up CT PET scan done on 07/11/2019, showed decreasing FDG uptake in the right upper lobe nodule, sporting and inflammatory diagnosis, no change in reactive mediastinal lymph nodes, no evidence of distant metastatic disease. Follow-up CT scan of chest done on April 20, 2020 showed spiculated right upper lobe neoplasm has progressed, now measures 1.6 x 2.1 x 1.8 compared to 1.2 x 1.1 x 0.8 cm previously and surrounding infiltrates are similar in appearance. Enlarged right hilar lymph node measuring 1.5 cm. No other lymphadenopathy. Right lower lobe opacity along posterior mediastinum measures 7 mm, unchanged since January 2018. Moderate chronic emphysematous changes. No other abnormality seen , still smoking about half pack a day. Follow-up CT PET scan done on July 30, 2020 showed right upper lobe nodule now measures 2.4 x 2.1 cm with SUV of 13.9 compared to 1.8 cm with SUV of 14.5 previously, indicates progression of disease. Guardant 360 done on August 19, 2019 showed no obvious targetable mutation Including MSI/MMR intact Follow-up CT PET scan done on September 24, 2020 showed significant increase in right apex lesion now measuring 3 x 3.3 cm with SUV of 16.6, no other lesions seen. Came for follow-up, denies any specific complaints, no fever chills, no nausea or vomiting, no diarrhea or constipation, no hemoptysis or hematemesis, no shortness of breath, appetite is good.Patient was referred to radiation oncology for evaluation for SBRT to the right apical lesion but follow-up CT PET scan shows disease progression, now combined chemoradiation is under consideration, patient is here to discuss Medications: Albuterol Sulfate 2 Puff(s) (of 108 (90 base) mcg/act) Aerosol Powder, Breath Activated Inhalation four times a day, amLODIPine Besylate 1 (5 mg) Tablet Oral daily, Atorvastatin Calcium 0.5 Tablet (of 40 mg) Oral daily, Cyanocobalamin 1 (1000 mcg) Tablet Oral daily, Fluticasone Propionate 2 Jermyn(s) (of 50 mcg/act) Suspension Nasal daily, Folic Acid 1 (1 mg) Tablet Oral daily, Furosemide 1 Tablet (of 40 mg) Oral daily, HydrALAZINE HCl 1 Tablet (of 50 mg) Oral t.i.d., Isosorbide Mononitrate ER 1 Tablet (of 30 mg) Tablet SR 24 HR Oral daily, Latanoprost 1 Drop(s) (of 0.005 %) Solution Ophthalmic daily, Levothyroxine Sodium 1 (50 mcg) Tablet Oral daily, Magnesium 1 Tablet (of 400 mg) Oral at bedtime, Metoprolol Tartrate 0.5 Tablet (of 50 mg) Oral daily, Olodaterol HCl 2 Puff(s) (of 2.5 mcg/act) Aerosol, solution Inhalation daily, Potassium Chloride ER 0.5 Tablet (of 20 meq) Capsule, controlled release Oral b.i.d., Spironolactone 0.5 Tablet (of 25 mg) Oral b.i.d., Tamsulosin HCl 1 Capsule (of 0.4 mg) Oral daily, Triamcinolone Acetonide (0.5 %) Cream Topical Take as Directed, Vitamin C 1 Capsule (of 500 mg) Oral daily Allergies: No Known Allergies. Review of Systems: Review of Systems is not available for this patient. Vital Signs: Performed on October 05, 2020 09:21 Height - 65.50 in BP - 151/76 mm(hg) (HIGH) Performed on October 05, 2020 08:36 Height - 65.50 in Weight - 242.6 lbs (HIGH) BSA - 2.16 sq.m BMI - 39.76 (HIGH) Temperature - 98.6 F Pulse - 72 /min Respiration - 18 /min O2 Sat - 97 % Pain - 0 Performance Status: 0 - Fully active, able to carry on all predisease activities without restrictions. (ECOG) Physical Examination: ENMT - No mouth sores, no thrush, no jaundice, Respiratory - Lungs are clear to auscultation, Cardiovascular - Regular rate and rhythm of heart, Abdomen - Soft, bowel sounds present, Extremities - No visible edema or rash. Lab/Imaging: Test performed on Apr 20, 2020 09:18 Sodium 141 mmol/L Potassium 4.4 mmol/L Chloride 99 mmol/L CO2 35 mmol/L Anion Gap 11.4 BUN 9 mg/dL Creatinine 0.8 mg/dL Cr Clearance (Est) 122.0500 mL/min Glucose 97 mg/dL Osmolality - Calculated 291 mOsm/kg Calcium 9.6 mg/dL Protein, Total 6.5 g/dL Albumin 3.8 g/dL Globulin 2.7 g/dL Bilirubin, Total 0.2 mg/dL ALT (SGPT) 27 U/L AST (SGOT) 13 U/L Alkaline Phosphatase 110 IU/L WBC 9.2 10 3/uL RBC 4.44 10 6/uL HGB 13.6 g/dL HCT 42.9 % MCV 96.6 fL MCH 30.6 pg MCHC 31.7 g/dL RDW 13.5 % Platelet Count 274 10 3/cmm MPV 9.9 fL Neutrophils 6.89 10 3/uL Lymphocytes 1.5 10 3/uL Monocytes 0.7 10 3/uL Eosinophils 0.1 10 3/uL Basophils 0.0 10 3/uL Neutrophil % 74.6 % Lymphocyte % 16.0 % Monocyte % 7.7 % Eosinophil % 0.8 % Basophils % 0.4 % NRBC % 0 % Impression: Mr. Cherry is a 80-year-old gentleman with right upper lobe lung cancer: invasive poorly differentiated squamous cell carcinoma. This diagnosis was confirmed by CT guided biopsy of the right upper lobe on 09/13/2017. He also had an abnormal PET/CT done on 09/28/2017. The PET showed a 1.7 cm pulmonary nodule in the right lower lobe with an SUV of 6.5. There was a 3 x 1.7 cm mass in the central right upper lobe with SUV of 7.2. There was superior and inferior right paratracheal lymphadenopathy with increased FDG uptake. Although scattered the mediastinal nodules were radiographically benign and FDG negative. It was noted that he did have bilateral pleural effusion with the right being larger than the left. He underwent MRI I of the brain on 11/01/2017 there was no evidence of metastatic disease at that time. The arrangement I Fish on the lung biopsy from 11/01/2017 is reported as negative the PDL???L1 IHC is negative there is no PD-L1 expression. PD-L1 IHC 28???8 was also reported as less than 1%. Clinical stage T4 ipsilateral satellite lesion in different lobe. N 1 or 2 ,Mx stage IIIA 2. COPD 3. Glaucoma and cataracts 4. Hypercholesterolemia/hyperlipidemia 5. Hypertension 6. Chronic, controlled depression s/p combined therapy with radiation and chemotherapy. to the primary and SB RT to the right lower lobe, first chemotherapy treatment on 11/25/2017. till 01/08/18 On week 4, 30 minutes after starting the Carboplatin, he developed hypertension, shortness of breath and chest pain. The Carboplatin was stopped and he was given sublingual nitroglycerin and his symptoms resolved. The Carboplatin has been stopped. He continued with paclitaxel with his last dose on 01/06/2018. He had recent admission for pneumonia and is labs at that time showed progressive anemia/dermal cytopenia. started on maintenance therapy with durvalumab. He began his first dose on 02/24/2018. And completed on January 12, 2019 . He had restaging imaging with CT of the chest on 05/30/2018. There is no evidence of disease progression with overall stable appearance of the right upper and lower lobe parenchymal opacity and not hilar lymphadenopathy. He continues with treatment at this time. He did have elevation of the TSH is now on Synthroid. His TSH remained stable .Follow-up CT PET scan done on 09/27/2018 showed the right lower lobe nodule seen on prior study done on 09/28/2017, is now subcentimeter in size and FDG negative The central right upper lobe lesion measures 1.5 x 0.7 cm with FDG activity frequent to mediastinal blood pool, this pattern is typical for inflammation Although a small amount of residual disease cannot be excluded The inferior right paratracheal node is now largely calcified, with mild residual activity activity that may be inflammatory Sup Right paratracheal node is calcified and FDG negative Findings are indicative of good response to the therapy. Follow-up CT PET scan done on April 30, 2020 showed 1.8 cm right upper lobe nodule with SUV of 14.5 Patient was referred to [facility] for evaluation where he was seen by Dr. Wolf, who recommended follow-up CT PET scan as patient was not a candidate for surgical resection or further radiation therapy and if follow-up CT PET scan done in 3 months shows disease progression, consider systemic chemotherapy with Taxotere or Navelbine. Follow-up CT PET scan done on July 30, 2020 shows right upper lobe nodule now measures 2.4 x 2.1 cm with SUV of 13.9 compared to 1.8 cm with SUV 14.5 previously Follow-up CT PET scan done on September 24, 2020 showed significant increase in right apical lesion, now measuring 3.3 x 3 cm compared to 2.4 x 2.1 cm in July 2020 and SUV 16.6 Plan: Discussed with patient regarding his labs white blood count 9.2 hemoglobin 13.3 hematocrit 41.6 platelets 288,000 CMP within normal limits Follow-up CT PET scan done on September 24, 2020 showed further disease progression in the right upper lobe lesion but no other distant mets Clinically, patient doing well with no new signs symptoms his lab work-up is within normal range, patient was referred to radiation oncology for evaluation for SBRT to the right upper lobe lesion but because of the size and disease progression in the location and some technical issues, radiation oncology recommended external beam radiation concurrent with chemotherapy as patient has history of combined chemoradiation so he would get less than standard dose radiation given to the new patient. Initially patient was treated with combined chemoradiation with weekly carboplatin/Taxol followed by maintenance immunotherapy, as patient has squamous cell carcinoma now with localized recurrence of disease, we would consider cisplatin/etoposide regimen concurrent with radiation therapy. We will consider weekly cisplatin 50 mg per metered square on day 1, day 8 and day 29 along with etoposide 50 mg per metered squared day 1 through 5 and repeat in 4 weeks concurrent with radiation therapy. All the side effect possible benefits associated with systemic chemotherapy including but not limited to nausea vomiting, bone marrow suppression, hair loss, laura and nephrotoxicity especially with cisplatin, and also may have increased risk for radiation-induced pneumonitis, further teaching will done by chemotherapy nurse patient and his agreed and accepted the treatment. Will obtain approval from his insurance prior to the treatment and also request Port-A-Cath placement to facilitate the treatment. Patient return to clinic 1 week after chemoradiation is initiated with CBC CMP Signed By: Criss Ornelas M.D. <<Signature on File>>
== END 2020-10-17 23:59 | disposition home or self-care (01) ==
LOC: ONCMED 05:35
PROVIDERS: PCP Emergency Medicine Emergency Medical Services; Visit Provider Internal Medicine Hematology & Oncology
DX: Z51.0 Encounter for antineoplastic radiation therapy (principal); C34.11 Malignant neoplasm of upper lobe, right bronchus or lung; J44.9 Chronic obstructive pulmonary disease, unspecified; E78.00 Pure hypercholesterolemia, unspecified; E78.5 Hyperlipidemia, unspecified; I10 Essential (primary) hypertension; F32.9 Major depressive disorder, single episode, unspecified; H40.9 Unspecified glaucoma; H26.9 Unspecified cataract; Z79.899 Other long term (current) drug therapy
CPT/HCPCS: 36415; 77300; 77301; 77334; 77338; 77470; 80053; 85025; 99214

== ENCOUNTER → 2020-10-06 13:08 | Outpatient (BNVA) | payer OTHER, MEDICARE, SELFPAY | PROVIDERS: PCP Emergency Medicine Emergency Medical Services; Visit Provider Surgery | DX: C34.90 Malignant neoplasm of unspecified part of unspecified bronchus or lung (principal); Z20.822 Contact with and (suspected) exposure to COVID-19 | CPT/HCPCS: 87635 ==

== ENCOUNTER 2020-10-11 05:41 | Day surgery (SDC) | payer OTHER, MEDICARE, SELFPAY ==
[2020-10-10 13:40] VITALS: BMI 39.4
[2020-10-12] VITALS (7 sets, daily range): BP systolic 153–180; BP diastolic 64–90; PULSE 60–74; RESP 16–21; TEMP 36.4–36.7; O2SAT 90–95
--- NOTE | 2020-10-12 | SCC_ITS ---
Procedure Done: Left subclavian vein PowerPort placed 53.1 seconds of fluoroscopic guidance, for a cumulative dose of 14.74 mGy, was provided to Dr. Rosas by the radiology department. C-arm images of the chest were saved for the patient's permanent record. [facility]
--- NOTE | 2020-10-12 08:50 | SC_ITS ---
WS: [id number] Exam: C-arm FL for CVA [id number] Date/Time of Exam: 10/12/2020 8:50 AM Reason For Exam: Powerport Placement A limited anterior-posterior C-arm image of the central and upper right chest is submitted for evalua tion. A central line enters from the left subclavicular approach and appears to end in the lower one third of the SVC. SC/C-arm FL for CVA [id number] IMPRESSION: 1. Central line in place appearing to end in the region of the lower one third of the SVC.
[2020-10-12] MEDS: sodium chloride 0.9% 1,000 ML 30 ML IV (09:20)
--- NOTE | 2020-10-12 09:25 | ANES.PREANE2 ---
Pre-Anesthetic Assessment Pre-Anesthetic Assessment: Height/Weight: Height 1.68 m Weight 110.677 kg Temp Pulse Resp BP Pulse Ox 97.9 F 60 18 166/71 92 10/12/20 09:11 10/12/20 09:11 10/12/20 09:11 10/12/20 09:11 10/12/20 09:11 Preop Diagnosis: Lung cancer Proposed Procedure: Operation Date: 10/12/20 10:25 Proposed Procedures p Portacath Placement 55529 C34.90(Not Applicable) - Best Rosas MD Familial anesthetic complications: none Was Beta Kenroy taken within 24 hours: Yes Was Clonidine taken within 24 hours: N/A Last intake: Intake Last Liquid Date 10/11/20 Last Liquid Time 20:00 Last Solid Date 10/11/20 Last Solid Time 20:00 Social: Social History: No alcohol and No tobacco Comment: former smoker Exam: Pre-Anes Outpt Exam: alert, oriented x 3 and regular rate & rhythm Additional Exam Findings (including area of procedure): coarse breath sounds b/l Airway: Cervical ROM: WNL MP: 4 Dentition: Other (upper plate) Pulmonary: Comments: lung cancer CV/HEM: CV/HEM: Arrythmia (bradycardia) and HTN Comments: ECHO 11/06 CONCLUSIONS 1-Normal left ventricular cavity size. No regional wall motion abnormalities. Normal left ventricular systolic function. Left ventricular ejection fraction is estimated at 55 %. Grade II/IV diastolic dysfunction, moderately elevated filling pressures. 2-Please note that due to technical difficulty perhaps poor windows this study is suboptimal, all valves are not well visualized if clinically indicated transesophageal echocardiogram will be a better modality to assess vegetation 3-There is no pericardial effusion. 4-Due to suboptimal quality study it cannot be compared with prior transthoracic echocardiogram Perfusion scan 11/06 IMPRESSIONS 1. Myocardial perfusion may revealing a small to moderate area of decreased tracer uptake in the mid and apical inferior, mid inferolateral and apical lateral regions, with some reversibility in the inferior and apical lateral regions, suggestive of myocardial scarring with ischemia in the distribution of the right coronary artery predominantly with some involvement of the circumflex artery. 2. Normal LV ejection fraction 56%. 3. Wall motion abnormalities as mentioned above. 4. Normal LV volume. 5. Elevated transient ischemic dilatation ratio also may suggest endocardial ischemia. No similar previous studies are available for comparison Anesthetic Plan: ASA status: 4 Anesthesia: MAC Risk of > 500 ml blood loss (7ml/kg in children): No PFSH Anesthesia PFSH: Medical History Acute on chronic diastolic (congestive) heart failure Anemia BPH (benign prostatic hyperplasia) -on Flomax Bradycardia Cholelithiasis Chronic kidney disease -has some degree of CKD, unknown stage -superimposed BOOGIE, resolved -baseline Cr around 0.9 -continue to monitor renal function, avoid nephrotoxins, renally dose meds Depression Essential hypertension Glaucoma Heart failure with preserved ejection fraction -BNP-972 -Echo: limited study, EF=55%, G2DD -required BiPAP initially, now on NC -CXR with noted cardiomegaly, -on Lasix, Aldactone -difficult to monitor Is & Os due to inability to consistently use urinal Hyperlipidemia -on statin Hypertension Hypothyroidism Lung cancer Macrocytic anemia Morbid obesity Psoriasis Sigmoid diverticulosis Skin ulcer Surgical History H/O excision of epidermal inclusion cyst Normal colonoscopy In 2018 2019 Family History Denies family history of Anesthesia complication Bleeding disorder Lung disease Hypertension Social History Smoking and tobacco status: former smoker Alcohol intake: never Household members: spouse Housing: House Data Anesthesia Cardiac Studies: No Data to Display
--- NOTE | 2020-10-12 11:39 | W.PM.OPSUD ---
Surgery/Procedure H&P Update DATE OF PROCEDURE: October 12, 2020 DATE H&P PERFORMED: 10/06/20 H&P UPDATE INFORMATION: I have reviewed H&P completed within last 30 days, I have examined patient prior to procedure and No changes to prior documentation PREOP DIAGNOSIS: Lung cancer PRIMARY INDICATION FOR PROCEDURE: The same PLANNED PROCEDURE: Operation Date: 10/12/20 10:25 Proposed Procedures p Portacath Placement 78307 C34.90(Not Applicable) - Best Rosas MD
[2020-10-12] MEDS: lidocaine 2% INJ 20 mL INJECTION (12:26)
[2020-10-12] MEDS: heparin, porcine 1,000 unit/mL INJ 10 mL 10000 UNIT INJECTION (13:05)
--- NOTE | 2020-10-12 13:06 | PM.OP ---
Operative Report Date of procedure: October 12, 2020 Pre-op Diagnosis: Lung cancer Post-op diagnosis: same Procedure Done: 1-Left subclavian vein PowerPort placement 2-Fluoroscopic guidance and interpretation for placement of catheter Implants: Left subclavian vein PowerPort placement Surgeon: Best Rosas Self Pay Collector: manufacturing technology professor Danny Circulating nurse Zeferino Ibarra Anesthesia: MAC (audit senior associate Prateek/Will Smart) Estimated blood loss (mL): 10 Complications: No immediate complication Condition: stable Disposition: same day Brief History: Lung cancer. Full H&P and lung cancer, full H&P and informed consent per chart Procedure: Patient was identified in the holding area and taken to the operative room and placed in supine position IV propofol was given by the anesthesia provider ,both arms were tucked,Time-out was done verifying the patient's name/date of /planned procedure and destination after the procedure, all were in agreement. SCDs confirmed to be functioning, preoperative antibiotics administered per protocol, and beta charlene protocol was confirmed, appropriate positioning of the patient was done by me. Medications were reviewed to assess for anticoagulant usage. Risks and benefits and prevention of central line associated blood stream infection (CLABSI) were discussed with the patient/CPOA, and a consent was obtained. Monitors were in place and monitored throughout the procedure. All necessary supplies were available prior to start. Hand hygiene was completed prior to starting. Maximum barrier technique was utilized including a sterile gown, sterile gloves with a hat and mask. Site was was prepped with [chlorhexidine] and a full body drape was placed. 5 mL of 2% lidocaine was injected into the skin with a 25 gauge needle. Prep& drape was done under the usual sterile technique, lidocaine 2% was injected at the site of the stick, started by left subclavian stick that retrieved venous blood was obtained from the 2nd stick, a guidewire was then threaded and under the guidance of fluoroscopy position was confirmed to be in the IVC and my interpretation, there was no PVC changes, at that point the guidewire was secured to the drapes with a hemostat and the needle was taken out, attention was then deviated towards creation of a pocket for the port were lidocaine 2% was injected using an 15 blade knife skin incision was created dissection using the Bovie to create a pocket for the Port-A-Cath to be accommodated, hemostasis was secured, after the port being appropriately flushed it was inserted into the pocket and a tunneler was used to accommodate the catheter of the port cath to be delivered through the incision first created at the site of the stick, at that point under fluoroscopy an estimated length was measured for the catheter and was cut at the designed level, followed by that a dilator with the sheath introduced onto the guidewire the dilator and the wire were retrieved and the catheter of the port was introduced via the sheath where it was peeled off and the catheter tip unfortunately was heading towards the right internal jugular vein, so I had to dismantle catheter from the port and using a guidewire to readjust the catheter and there after the wire was taken out, all was done under fluoroscopic guidance. And reconnected to the port again and the catheter tip maintained to be in the SVC that was confirmed with fluoroscopy, and the fluoroscopy interpretation was done by me throughout the entire procedure. The port was kept in its pocket, 3-0 Vicryl deep subdermal interrupted sutures, skin was then closed by 4-0 Monocryl as subcuticular closure. The stick site was closed by 3-0 Vicryl followed by 4-0 Monocryl and Dermabond was used followed by dressing. Patient tolerated the procedure well was taken to the recovery area. Count was correct at the end of the procedure I was present for the whole entire procedure Position of the catheter was checked with a postoperative chest x-ray and it was in good position without evidence of pneumothorax
--- NOTE | 2020-10-12 13:09 | XR_ITS ---
WS: [id number] Exam: XR chest 1V portable [id number] Date/Time of Exam: 10/12/2020 1:26 PM Reason For Exam: Status post left subclavian vein Comparison 11/04/2019. A left subclavian port appears to end in the lower one third of the SVC in good position. Right upper lobe pulmonary density noted that may represent scarring, mass or infiltrate. Left lung is clear. No pneumothorax. Normal cardiomediastinal structures for technique. Several old left rib fractures. XR/XR chest 1V portable [id number] IMPRESSION: 1. Left subclavian port in satisfactory location in the lower one third of the SVC. 2. Focal pulmonary density in the upper right lobe that may represent scarring, mass or infiltrate.
[2020-10-12] MEDS: HYDROcodone-acetaminophen 5-325 mg Tablet 1 TAB PO (13:56)
--- NOTE | 2020-10-12 13:56 | ANE.PACU2 ---
Inpatient post-anesthesia follow up: Airway intact: Yes Vital signs: Temperature 97.6 F Pulse Rate 74 Respiratory Rate 18 Blood Pressure 153/88 Pulse Oximetry 90 Oxygen Delivery Me thod Room Air Oxygen Flow Rate Fraction of Inspir ed Oxygen Hydration adequate: Yes Nausea and vomiting: No Pain level: 2 Mental status: Baseline
--- NOTE | 2020-10-12 14:12 | SUR.PHASEII ---
[id number] Call placed to oncology and informed [facility] that pt had port placement today per dr Patel and placement checked per x-ray and placement verified
== END 2020-10-12 14:30 | disposition home or self-care (01) ==
PROVIDERS: PCP Emergency Medicine Emergency Medical Services; Visit Provider Surgery
PROC: (CPT 36561; principal; 2020-10-12 10:15)
DX: C34.90 Malignant neoplasm of unspecified part of unspecified bronchus or lung (principal); I10 Essential (primary) hypertension; N40.0 Benign prostatic hyperplasia without lower urinary tract symptoms; F32.9 Major depressive disorder, single episode, unspecified; I13.0 Hypertensive heart and chronic kidney disease with heart failure and stage 1 through stage 4 chronic kidney disease, or unspecified chronic kidney disease; N18.9 Chronic kidney disease, unspecified; I50.9 Heart failure, unspecified; E78.5 Hyperlipidemia, unspecified; E66.01 Morbid (severe) obesity due to excess calories; Z68.39 Body mass index [BMI] 39.0-39.9, adult; E03.9 Hypothyroidism, unspecified; Z87.891 Personal history of nicotine dependence
CPT/HCPCS: 36561; 71045; 77001; C1788; J0690; J1644; J2250; J2704; J7030

== ENCOUNTER 2020-11-16 05:47 | Outpatient (RCR) | payer OTHER, MEDICARE, SELFPAY ==
--- NOTE | 2020-10-18 09:37 | ONCRAD TMN_ITS ---
Radiation Oncology Treatment Management Note Patient Name: Venkat Cherry Date of : 1940 Date of Service: 10/18/2020 Attending Physician: Renny Robertson M.D. 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 SABR was prescribed to the right lower lobe lesion preliminary to concurrent chemoradiotherapy (weekly carboplatin and paclitaxel; prescribed radiotherapy dose of 66 Gy targeted the right upper lobe lesion and mediastinum) completing in December 2017. Maintenance Imfinzi (24 cycles) concluded December 2018. A surveillance PET CT (independently visualized in synapse) ordered on July 30, 2020 demonstrated progression of the right upper lobe nodule currently measuring 2.4 cm x 2.1 cm with an SUV of 13.9 without evidence of metastatic disease. The patient has received 2 Gy of a prescribed 60 Gee with an intensity modulated radiotherapy plan utilizing a step and shoot treatment technique. He has been prescribed Cisplatin (50 mg/m???) and Etoposide (50 mg/m??? - days 1-4) during weeks 1 and 4 of radiotherapy. Upon review of systems, he denied pulmonary symptoms. On physical examination, the patient weighed 243 lbs. His temperature was 98.5 ???F with a blood pressure of 154/62 mmHg. The pulse was 60 bpm and his respiratory rate was 22. Oxygen saturation while breathing room air was 94%. There was no erythema within the treatment sinclair. Auscultation of the posterior lung sinclair identified bilateral wheezes. Continue thoracic radiotherapy as prescribed. Signed by: Dr. Renny Robertson 10/24/2020 10:38:46 AM
[2020-10-18] MEDS: sodium chloride 0.9% 250 ML 75 ML IV (09:40)
[2020-10-18 09:44] LABS: Basophils # 0.1 10^3/uL (0.0-0.1); Basophils % 0.6 %; Eosinophils # 0.1 10^3/uL (0.0-0.8); Eosinophils % 1.2 %; Hematocrit 40.5 % (42.0-52.0); Hemoglobin 12.7 g/dL (11.7-16.6); Lymphocytes # 1.2 10^3/uL (0.8-4.8); Lymphocytes % 15.9 %; Mean Corpuscular HGB Conc 31.4 g/dL (30.0-36.0); Mean Corpuscular Hemoglobin 30.4 pg (28.0-34.0); Mean Corpuscular Volume 96.9 fL (80-94); Mean Platelet Volume 10.1 fL (7.4-10.4); Monocytes # 0.8 10^3/uL (0.2-0.9); Monocytes % 10.3 %; Neutrophils # 5.53 10^3/uL (1.8-7.7); Neutrophils % 70.8 %; Nucleated Red Blood Cells % 0 %; Platelet Count 299 10^3/cmm (130-400); Red Blood Count 4.18 10^6/uL (4.1-5.3); Red Cell Distribution Width 13.3 % (12.1-15.1); White Blood Count 7.8 10^3/uL (4.0-10.0)
[2020-10-18 10:08] LABS: Alanine Aminotransferase 16 U/L (0-41); Albumin Level 3.8 g/dL (3.5-5.2); Alkaline Phosphatase 104 IU/L (40-130); Anion Gap 12.4 (5-19); Aspartate Amino Transferase 12 U/L (0-40); Blood Urea Nitrogen 16 mg/dL (8-23); Calcium 9.4 mg/dL (8.5-10.5); Carbon Dioxide 31 mmol/L (22-29); Chloride 103 mmol/L (98-107); Globulin 2.4 g/dL (1.3-4.6); Glucose 92 mg/dL (65-115); Osmolality Calculated 295 mOsm/kg (285-295); Potassium 4.4 mmol/L (3.5-5.1); Sodium 142 mmol/L (136-145); Total Bilirubin 0.2 mg/dL (0.15-1.2); Total Protein 6.2 g/dL (6.6-8.7)
[2020-10-18] MEDS: palonosetron 0.25 mg/5 mL SDV IV (11:38)
[2020-10-18] MEDS: FUROsemide 10 mg/mL SDV 2mL 20 MG IV (14:02)
[2020-10-18] MEDS: sodium chlor 0.9% + KCl 20 mEq 20 MEQ/1,000 ML BAG 1000 MEQ IV (14:04)
[2020-10-19] MEDS: sodium chloride 0.9% 250 ML 75 ML IV (14:42)
[2020-10-19] MEDS: prochlorperazine 10 mg Tablet PO (14:42)
[2020-10-20] MEDS: prochlorperazine 10 mg Tablet PO (11:26)
[2020-10-20] MEDS: sodium chloride 0.9% 250 ML 75 ML IV (11:26)
[2020-10-21] MEDS: sodium chloride 0.9% 250 ML 75 ML IV (08:41)
[2020-10-21] MEDS: prochlorperazine 10 mg Tablet PO (08:46)
--- NOTE | 2020-10-24 10:49 | ONCRAD TMN_ITS ---
Radiation Oncology Treatment Management Note Patient Name: Venkat Cherry Date of : 1940 Date of Service: 10/24/2020 Attending Physician: Renny Robertson M.D. 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 SABR was prescribed to the right lower lobe lesion preliminary to concurrent chemoradiotherapy (weekly carboplatin and paclitaxel; prescribed radiotherapy dose of 66 Gy targeted the right upper lobe lesion and mediastinum) completing in December 2017. Maintenance Imfinzi (24 cycles) concluded December 2018. A surveillance PET CT (independently visualized in synapse) ordered on July 30, 2020 demonstrated progression of the right upper lobe nodule currently measuring 2.4 cm x 2.1 cm with an SUV of 13.9 without evidence of metastatic disease. The patient has received 10 Gy of a prescribed 60 Gee with an intensity modulated radiotherapy plan utilizing a step and shoot treatment technique. He has been prescribed Cisplatin (50 mg/m??? - days 1 & 8) and Etoposide (50 mg/m??? - days 1-4) during weeks 1 and 4 of radiotherapy. Upon review of systems, he denied pulmonary symptoms. On physical examination, the patient weighed 243 lbs. His temperature was 98.5 ???F with a blood pressure of 154/62 mmHg. The pulse was 60 bpm and his respiratory rate was 22. Oxygen saturation while breathing room air was 94%. There was no erythema within the treatment sinclair. Auscultation of the posterior lung sinclair identified bronchial breath sounds. Continue thoracic radiotherapy as planned. Signed by: Dr. Renny Robertson 10/24/2020 10:48:47 AM
[2020-10-24 11:16] LABS: Basophils % 0.1 %; Eosinophils # 0.1 10^3/uL (0.0-0.8); Eosinophils % 0.8 %; Hematocrit 38.6 % (42.0-52.0); Hemoglobin 12.2 g/dL (11.7-16.6); Lymphocytes % 11.3 %; Mean Corpuscular HGB Conc 31.6 g/dL (30.0-36.0); Mean Corpuscular Hemoglobin 30.6 pg (28.0-34.0); Mean Corpuscular Volume 96.7 fL (80-94); Mean Platelet Volume 9.7 fL (7.4-10.4); Monocytes # 0.1 10^3/uL (0.2-0.9); Neutrophils # 7.42 10^3/uL (1.8-7.7); Neutrophils % 86.3 %; Nucleated Red Blood Cells % 0 %; Platelet Count 229 10^3/cmm (130-400); Red Blood Count 3.99 10^6/uL (4.1-5.3); Red Cell Distribution Width 13.2 % (12.1-15.1); White Blood Count 8.6 10^3/uL (4.0-10.0)
[2020-10-24 11:31] LABS: Alanine Aminotransferase 32 U/L (0-41); Albumin Level 3.4 g/dL (3.5-5.2); Alkaline Phosphatase 83 IU/L (40-130); Anion Gap 11.8 (5-19); Aspartate Amino Transferase 12 U/L (0-40); Blood Urea Nitrogen 22 mg/dL (8-23); Calcium 8.1 mg/dL (8.5-10.5); Carbon Dioxide 32 mmol/L (22-29); Chloride 103 mmol/L (98-107); Globulin 2.2 g/dL (1.3-4.6); Glucose 95 mg/dL (65-115); Osmolality Calculated 297 mOsm/kg (285-295); Potassium 4.8 mmol/L (3.5-5.1); Sodium 142 mmol/L (136-145); Total Bilirubin 0.2 mg/dL (0.15-1.2); Total Protein 5.6 g/dL (6.6-8.7)
[2020-10-24 12:16] LABS: Slide Review Slide Review Perform
[2020-10-25] MEDS: sodium chloride 0.9% 250 ML 75 ML IV (09:25)
[2020-10-25] MEDS: palonosetron 0.25 mg/5 mL SDV IV (11:08)
[2020-10-25] MEDS: fosaprepitant 150 MG in sodium chloride 0.9% 150 ML 300 MG IV (11:10)
[2020-10-25] MEDS: FUROsemide 10 mg/mL SDV 2mL 20 MG IV (13:37)
[2020-10-25] MEDS: sodium chlor 0.9% + KCl 20 mEq 20 MEQ/1,000 ML BAG 1000 MEQ IV (13:39)
--- NOTE | 2020-10-31 10:49 | ONCRAD TMN_ITS ---
Radiation Oncology Treatment Management Note Patient Name: Venkat Cherry Date of : 1940 Date of Service: 10/31/2020 Attending Physician: Renny Robertson M.D. annie Robertson M.D. 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 SABR was prescribed to the right lower lobe lesion preliminary to concurrent chemoradiotherapy (weekly carboplatin and paclitaxel; prescribed radiotherapy dose of 66 Gy targeted the right upper lobe lesion and mediastinum) completing in December 2017. Maintenance Imfinzi (24 cycles) concluded December 2018. A surveillance PET CT (independently visualized in synapse) ordered on July 30, 2020 demonstrated progression of the right upper lobe nodule currently measuring 2.4 cm x 2.1 cm with an SUV of 13.9 without evidence of metastatic disease. The patient has received 20 Gy of a prescribed 60 Gee with an intensity modulated radiotherapy plan utilizing a step and shoot treatment technique. He has been prescribed Cisplatin (50 mg/m??? - days 1 & 8) and Etoposide (50 mg/m??? - days 1-4) during weeks 1 and 4 of radiotherapy. Upon review of systems, he denied pulmonary symptoms. On physical examination, the patient weighed 246 lbs. His temperature was 98.4 ???F with a blood pressure of 151/59 mmHg. The pulse was 67 bpm and his respiratory rate was 22. Oxygen saturation while breathing room air was 97%. There was no erythema within the treatment sinclair. Auscultation of the posterior lung sinclair identified bronchial breath sounds. Continue thoracic radiotherapy as prescribed. Signed by: Dr. Renny Robertson 10/31/2020 10:47:28 AM
[2020-10-31 11:22] LABS: Basophils % 0.9 %; Eosinophils % 0.9 %; Hemoglobin 11.7 g/dL (11.7-16.6); Lymphocytes % 29.6 %; Mean Corpuscular HGB Conc 31.6 g/dL (30.0-36.0); Mean Corpuscular Hemoglobin 30.4 pg (28.0-34.0); Mean Corpuscular Volume 96.1 fL (80-94); Mean Platelet Volume 9.8 fL (7.4-10.4); Monocytes # 0.3 10^3/uL (0.2-0.9); Monocytes % 8.3 %; Neutrophils # 1.93 10^3/uL (1.8-7.7); Neutrophils % 59.7 %; Nucleated Red Blood Cells % 0 %; Platelet Count 151 10^3/cmm (130-400); Red Blood Count 3.85 10^6/uL (4.1-5.3); Red Cell Distribution Width 13.1 % (12.1-15.1); White Blood Count 3.2 10^3/uL (4.0-10.0)
[2020-10-31 12:15] LABS: Alanine Aminotransferase 19 U/L (0-41); Albumin Level 3.3 g/dL (3.5-5.2); Alkaline Phosphatase 77 IU/L (40-130); Anion Gap 12.5 (5-19); Aspartate Amino Transferase 12 U/L (0-40); Blood Urea Nitrogen 14 mg/dL (8-23); Calcium 8.3 mg/dL (8.5-10.5); Carbon Dioxide 30 mmol/L (22-29); Chloride 97 mmol/L (98-107); Globulin 2.5 g/dL (1.3-4.6); Glucose 81 mg/dL (65-115); Osmolality Calculated 280 mOsm/kg (285-295); Potassium 4.5 mmol/L (3.5-5.1); Sodium 135 mmol/L (136-145); Total Bilirubin 0.2 mg/dL (0.15-1.2); Total Protein 5.8 g/dL (6.6-8.7)
--- NOTE | 2020-11-03 16:55 | ONC FU_ITS ---
Dr. Ornelas follow up note Patient: Venkat Cherry Unit #: [id number]: 1940 Dicatated By: Criss Ornelas M.D.Date of Visit:Nov 03, 2020 Onc Med Follow-up/Prog Note History of Present Illness: Mr. Cherry is a 80-year-old gentleman with a [id number] history of smoking. He had presented to his primary care at the [facility] with concerns of weakness and hemoptysis. He also reported increased shortness of breath for a month. It had significantly worsened on 2 weeks prior to his presentation to the PCP. He had had progressive fluid retention at that time as well. Dr. Noe has requested workup of his concerns which included a CT of the chest at that time he had finding of a right lung mass. The CT reported right upper lobe and lower lobe mass with mesangial lymphadenopathy. He did undergo CT-guided needle biopsy of the right lung mass on 09/13/2017. 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 The pathology reported ALK rearrangement by FISH as negative and PD-L1 IHC as negative. The PD-L1 IHC 28???8 was reported as less than 1%. Mr. Cherry had PET/CT on 09/28/2017. The findings were reported as: A 1.7 cm pulmonary nodule in the right lower lobe with SUV of 6.5. A 3 x 1.7 cm lesion in the central right upper lobe with SUV of 7.2; superior and inferior right paratracheal lymphadenopathy consistent with local metastatic disease. Inferior, right paratracheal node measures 1.9 x 2.3 cm with an SUV of 9.8; other scattered mediastinal nodes are radiographically benign and FDG negative. Bilateral pleural effusions. Malignant effusions could not be excluded. on 11/25/2017. s/p concurrent therapy with weekly carboplatin and paclitaxel and radiation to the primary and SBRT to the right lower lobe nodule . He began his first dose of weekly carboplatin and paclitaxel on 11/25/2017. till 01/08/18 . Mr Cherry was started on maintenance immunotherapy with Imfinzi on 02/24/2018. On Synthroid 25 ???g by mouth daily for newly diagnosed hypothyroidism probably due to immunotherapy He had restaging imaging with CT of the chest on 05/30/2018. There is no evidence of disease progression with overall stable appearance of the right upper and lower lobe parenchymal opacity and not hilar lymphadenopathy. Follow-up PET CT from 09/27/2018 reports near resolution of the right lung nodules and mediastinal nodes, indicating a positive response to therapy. There was resolution of bilateral pleural effusions. Mr. Cherry continues with Imfinzi treatment every 2 weeks. and Completed 24 doses on 01/12/2019 Follow-up CT PET scan done on 03/14/2019 showed central right upper lobe nodule measures roughly 9 mm with SUV of 3.5, compared to 15 x [address] PET scan done on 09/27/2018 and there has been no change in 7 mm right lung base nodule. Mild reactive activity in bilateral hilar and mediastinum is unchanged. Follow-up CT PET scan done on 07/11/2019, showed decreasing FDG uptake in the right upper lobe nodule, sporting and inflammatory diagnosis, no change in reactive mediastinal lymph nodes, no evidence of distant metastatic disease. Follow-up CT scan of chest done on April 20, 2020 showed spiculated right upper lobe neoplasm has progressed, now measures 1.6 x 2.1 x 1.8 compared to 1.2 x 1.1 x 0.8 cm previously and surrounding infiltrates are similar in appearance. Enlarged right hilar lymph node measuring 1.5 cm. No other lymphadenopathy. Right lower lobe opacity along posterior mediastinum measures 7 mm, unchanged since January 2018. Moderate chronic emphysematous changes. No other abnormality seen , still smoking about half pack a day. Follow-up CT PET scan done on July 30, 2020 showed right upper lobe nodule now measures 2.4 x 2.1 cm with SUV of 13.9 compared to 1.8 cm with SUV of 14.5 previously, indicates progression of disease. Guardant 360 done on August 19, 2019 showed no obvious targetable mutation Including MSI/MMR intact Follow-up CT PET scan done on September 24, 2020 showed significant increase in right apex lesion now measuring 3 x 3.3 cm with SUV of 16.6, no other lesions seen. Mr Cherry was referred to radiation oncology for evaluation for SBRT to the right apical lesion but with the follow-up CT PET scan showing disease progression, his treatment plan was changed to combined chemoradiation. He began Split dose Cisplatin/Etoposide, q. 28 days x 2 concurrent with daily radiation on October 18, 2020. Came for follow-up, denies any specific complaints, no fever chills, no nausea vomiting, no diarrhea constipation, no nosebleed or gum bleed, no petechia or ecchymosis, no abdominal pain, no shortness of breath, no indigestion, no dysphagia, tolerating combined chemoradiation with split dose cisplatin/etoposide concurrent with radiation therapy well Medications: Albuterol Sulfate 2 Puff(s) (of 108 (90 base) mcg/act) Aerosol Powder, Breath Activated Inhalation four times a day, amLODIPine Besylate 1 (5 mg) Tablet Oral daily, Atorvastatin Calcium 0.5 Tablet (of 40 mg) Oral daily, Cyanocobalamin 1 (1000 mcg) Tablet Oral daily, Fluticasone Propionate 2 [place](s) (of 50 mcg/act) Suspension Nasal daily, Folic Acid 1 (1 mg) Tablet Oral daily, Furosemide 1 Tablet (of 40 mg) Oral daily, HydrALAZINE HCl 1 Tablet (of 50 mg) Oral t.i.d., Isosorbide Mononitrate ER 1 Tablet (of 30 mg) Tablet SR 24 HR Oral daily, Latanoprost 1 Drop(s) (of 0.005 %) Solution Ophthalmic daily, Levothyroxine Sodium 1 (50 mcg) Tablet Oral daily, Magnesium 1 Tablet (of 400 mg) Oral at bedtime, Metoprolol Tartrate 0.5 Tablet (of 50 mg) Oral daily, Olodaterol HCl 2 Puff(s) (of 2.5 mcg/act) Aerosol, solution Inhalation daily, Potassium Chloride ER 0.5 Tablet (of 20 meq) Capsule, controlled release Oral b.i.d., Spironolactone 0.5 Tablet (of 25 mg) Oral b.i.d., Tamsulosin HCl 1 Capsule (of 0.4 mg) Oral daily, Triamcinolone Acetonide (0.5 %) Cream Topical Take as Directed, Vitamin C 1 Capsule (of 500 mg) Oral daily Allergies: No Known Allergies. Review of Systems: Review of Systems is not available for this patient. Vital Signs: Performed on Nov 03, 2020 15:03 Height - 65.50 in Weight - 243.0 lbs (LOW) BSA - 2.16 sq.m BMI - 39.82 (HIGH) Temperature - 98.6 F Pulse - 92 /min Respiration - 18 /min BP - 173/73 mm(hg) (HIGH) O2 Sat - 92 % (LOW) Pain - 0 Performance Status: 0 - Fully active, able to carry on all predisease activities without restrictions. (ECOG) Physical Examination: ENMT - No mouth sores, no thrush, no jaundice, Respiratory - Lungs are clear to auscultation, Cardiovascular - Regular rate and rhythm of heart, Abdomen - Soft, bowel sounds present, Extremities - No visible edema or rash. Lab/Imaging: Most recent lab results are not available for this patient. Impression: Mr. Cherry is a 80-year-old gentleman with right upper lobe lung cancer: invasive poorly differentiated squamous cell carcinoma. This diagnosis was confirmed by CT guided biopsy of the right upper lobe on 09/13/2017. He also had an abnormal PET/CT done on 09/28/2017. The PET showed a 1.7 cm pulmonary nodule in the right lower lobe with an SUV of 6.5. There was a 3 x 1.7 cm mass in the central right upper lobe with SUV of 7.2. There was superior and inferior right paratracheal lymphadenopathy with increased FDG uptake. Although scattered the mediastinal nodules were radiographically benign and FDG negative. It was noted that he did have bilateral pleural effusion with the right being larger than the left. He underwent MRI I of the brain on 11/01/2017 there was no evidence of metastatic disease at that time. The arrangement I Fish on the lung biopsy from 11/01/2017 is reported as negative the PDL???L1 IHC is negative there is no PD-L1 expression. PD-L1 IHC 28???8 was also reported as less than 1%. Clinical stage T4 ipsilateral satellite lesion in different lobe. N 1 or 2 ,Mx stage IIIA 2. COPD 3. Glaucoma and cataracts 4. Hypercholesterolemia/hyperlipidemia 5. Hypertension 6. Chronic, controlled depression s/p combined therapy with radiation and chemotherapy. to the primary and SB RT to the right lower lobe, first chemotherapy treatment on 11/25/2017. till 01/08/18 On week 4, 30 minutes after starting the Carboplatin, he developed hypertension, shortness of breath and chest pain. The Carboplatin was stopped and he was given sublingual nitroglycerin and his symptoms resolved. The Carboplatin has been stopped. He continued with paclitaxel with his last dose on 01/06/2018. He had recent admission for pneumonia and is labs at that time showed progressive anemia/dermal cytopenia. started on maintenance therapy with durvalumab. He began his first dose on 02/24/2018. He completed durvalumab on January 12, 2019. He had restaging imaging with CT of the chest on 05/30/2018. There is no evidence of disease progression with overall stable appearance of the right upper and lower lobe parenchymal opacity and not hilar lymphadenopathy. He continues with treatment at this time. He did have elevation of the TSH was started on Synthroid. His TSH remained stable. Follow-up CT PET scan done on 09/27/2018 showed the right lower lobe nodule seen on prior study done on 09/28/2017 was subcentimeter in size and FDG negative. The central right upper lobe lesion measures 1.5 x 0.7 cm with FDG activity frequent to mediastinal blood pool, this pattern is typical for inflammation Although a small amount of residual disease cannot be excluded . The inferior right paratracheal node was largely calcified, with mild residual activity activity that may be inflammatory. The superior right paratracheal node was calcified and FDG negative. Findings are indicative of good response to the therapy . Follow-up CT PET scan done on April 30, 2020 showed 1.8 cm right upper lobe nodule with SUV of 14.5. Mr Cherry was referred to [facility] for evaluation where he was seen by Dr. Wolf, who recommended follow-up CT PET scan as patient was not a candidate for surgical resection or further radiation therapy and if follow-up CT PET scan done in 3 months shows disease progression, consider systemic chemotherapy with Taxotere or Navelbine. Follow-up CT PET scan done on July 30, 2020 shows right upper lobe nodule now measures 2.4 x 2.1 cm with SUV of 13.9 compared to 1.8 cm with SUV 14.5 previously Follow-up CT PET scan done on September 24, 2020 showed significant increase in right apical lesion, now measuring 3.3 x 3 cm compared to 2.4 x 2.1 cm in July 2020 and SUV 16.6. Started on combined chemoradiation with split dose cisplatin/etoposide on October 18, 2020 Plan: . discussed with patient regarding his labs white blood count 3.2 hemoglobin 11.7 hematocrit 37 platelets 151,000 ANC 1930 CMP within normal limits Clinically, patient doing well with no new signs symptoms, tolerating combined chemoradiation well but with expected side effects. Progressive mild bone marrow suppression. Patient return to clinic on November 14, 2020 with CBC CMP blood count looks reasonable, will proceed with second/final dose of split dose cisplatin and etoposide concurrent with radiation therapy. Signed By: Criss Ornelas M.D. <<Signature on File>>
--- NOTE | 2020-11-06 12:32 | ONC FU_ITS ---
[facility] Patient Note Patient: Venkat Cherry Unit #: [id number]: 1940 Dictated By: Yadiel MooreDate of Visit: Oct 25, 2020 Onc MED Follow-Up/Prog Note Chief Complaint: Squamous cell carcinoma of right lung History of Present Illness: Mr. Cherry is a 80-year-old gentleman with a [id number] history of smoking. He had presented to his primary care at the [facility] with concerns of weakness and hemoptysis. He also reported increased shortness of breath for a month. It had significantly worsened on 2 weeks prior to his presentation to the PCP. He had had progressive fluid retention at that time as well. Dr. Noe has requested workup of his concerns which included a CT of the chest at that time he had finding of a right lung mass. The CT reported right upper lobe and lower lobe mass with mesangial lymphadenopathy. He did undergo CT-guided needle biopsy of the right lung mass on 09/13/2017. 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 The pathology reported ALK rearrangement by FISH as negative and PD-L1 IHC as negative. The PD-L1 IHC 28???8 was reported as less than 1%. Mr. Cherry had PET/CT on 09/28/2017. The findings were reported as: A 1.7 cm pulmonary nodule in the right lower lobe with SUV of 6.5. A 3 x 1.7 cm lesion in the central right upper lobe with SUV of 7.2; superior and inferior right paratracheal lymphadenopathy consistent with local metastatic disease. Inferior, right paratracheal node measures 1.9 x 2.3 cm with an SUV of 9.8; other scattered mediastinal nodes are radiographically benign and FDG negative. Bilateral pleural effusions. Malignant effusions could not be excluded. on 11/25/2017. s/p concurrent therapy with weekly carboplatin and paclitaxel and radiation to the primary and SBRT to the right lower lobe nodule . He began his first dose of weekly carboplatin and paclitaxel on 11/25/2017. till 01/08/18 . Mr Cherry was started on maintenance immunotherapy with Imfinzi on 02/24/2018. On Synthroid 25 ???g by mouth daily for newly diagnosed hypothyroidism probably due to immunotherapy He had restaging imaging with CT of the chest on 05/30/2018. There is no evidence of disease progression with overall stable appearance of the right upper and lower lobe parenchymal opacity and not hilar lymphadenopathy. Follow-up PET CT from 09/27/2018 reports near resolution of the right lung nodules and mediastinal nodes, indicating a positive response to therapy. There was resolution of bilateral pleural effusions. Mr. Cherry continues with Imfinzi treatment every 2 weeks. and Completed 24 doses on 01/12/2019 Follow-up CT PET scan done on 03/14/2019 showed central right upper lobe nodule measures roughly 9 mm with SUV of 3.5, compared to 15 x [address] PET scan done on 09/27/2018 and there has been no change in 7 mm right lung base nodule. Mild reactive activity in bilateral hilar and mediastinum is unchanged. Follow-up CT PET scan done on 07/11/2019, showed decreasing FDG uptake in the right upper lobe nodule, sporting and inflammatory diagnosis, no change in reactive mediastinal lymph nodes, no evidence of distant metastatic disease. Follow-up CT scan of chest done on April 20, 2020 showed spiculated right upper lobe neoplasm has progressed, now measures 1.6 x 2.1 x 1.8 compared to 1.2 x 1.1 x 0.8 cm previously and surrounding infiltrates are similar in appearance. Enlarged right hilar lymph node measuring 1.5 cm. No other lymphadenopathy. Right lower lobe opacity along posterior mediastinum measures 7 mm, unchanged since January 2018. Moderate chronic emphysematous changes. No other abnormality seen , still smoking about half pack a day. Follow-up CT PET scan done on July 30, 2020 showed right upper lobe nodule now measures 2.4 x 2.1 cm with SUV of 13.9 compared to 1.8 cm with SUV of 14.5 previously, indicates progression of disease. Guardant 360 done on August 18, 2020 showed no obvious targetable mutation Including MSI/MMR intact Follow-up CT PET scan done on September 24, 2020 showed significant increase in right apex lesion now measuring 3 x 3.3 cm with SUV of 16.6, no other lesions seen. Mr Cherry was referred to radiation oncology for evaluation for SBRT to the right apical lesion but with the follow-up CT PET scan showing disease progression, his treatment plan was changed to combined chemoradiation. He began weekly Cisplatin and daily radiation on October 18, 2020. Mr Cherry is here today for followup and consideration of week 2 Cisplatin/etoposide. He states overall he seems to be doing well. He does have fatigue but recovers well with rest. His appetite is marginal more so due to the taste changes from chemotherapy. He denies any nausea or vomiting. He denies any fever or chills or any signs of infection at this time. He denies any hearing changes. He denies any nausea or vomiting. He states his breathing is the same as always. He denies any orthopnea. He denies cough or hemoptysis. He denies any bowel or bladder changes. He states thus far he has not had any peripheral neuropathy. His ECOG is 2. Past Medical History: Cataracts Chronic obstructive pulmonary disease Depression Glaucoma Hypercholesterolemia Hyperlipidemia Hypertension Colonoscopy in 2005 Past Surgical History: Colonoscopy Covid vaccine #2 in 2020 Covid vaccine #1 in 2020 Left subclavian venous access [place] [place] Cataracts in 2016 Allergies: No Known Allergies. Medications: Albuterol Sulfate 2 Puff(s) (of 108 (90 base) mcg/act) Aerosol Powder, Breath Activated Inhalation four times a day amLODIPine Besylate 1 (5 mg) Tablet Oral daily Atorvastatin Calcium 0.5 Tablet (of 40 mg) Oral daily Cyanocobalamin 1 (1000 mcg) Tablet Oral daily Fluticasone Propionate 2 [place](s) (of 50 mcg/act) Suspension Nasal daily Folic Acid 1 (1 mg) Tablet Oral daily Furosemide 1 Tablet (of 40 mg) Oral daily HydrALAZINE HCl 1 Tablet (of 50 mg) Oral t.i.d. Isosorbide Mononitrate ER 1 Tablet (of 30 mg) Tablet SR 24 HR Oral daily Latanoprost 1 Drop(s) (of 0.005 %) Solution Ophthalmic daily Levothyroxine Sodium 1 (50 mcg) Tablet Oral daily Magnesium 1 Tablet (of 400 mg) Oral at bedtime Metoprolol Tartrate 0.5 Tablet (of 50 mg) Oral daily Olodaterol HCl 2 Puff(s) (of 2.5 mcg/act) Aerosol, solution Inhalation daily Potassium Chloride ER 0.5 Tablet (of 20 meq) Capsule, controlled release Oral b.i.d. Spironolactone 0.5 Tablet (of 25 mg) Oral b.i.d. Tamsulosin HCl 1 Capsule (of 0.4 mg) Oral daily Triamcinolone Acetonide (0.5 %) Cream Topical Take as Directed Vitamin C 1 Capsule (of 500 mg) Oral daily Family History: Patient was adopted and does not know his family history. Social History: Mr. Cherry is and he is retired. Mr. Cherry quit smoking 3 years ago but had smoked 1.0 pack/day for 62 years. He has no history of drinking. He has indicated exposure to the following products: cigarettes. Quit smoking on 09/09/17 Review Of Symptoms: <See Above> Vital Signs: Performed on Oct 25, 2020 08:45 Height - 65.50 in Weight - 252.8 lbs (LOW) BSA - 2.20 sq.m BMI - 41.43 (HIGH) Temperature - 98.4 F Pulse - 76 /min Respiration - 18 /min BP - 167/64 mm(hg) (HIGH) O2 Sat - 96 % Pain - 0 Fatigue - 0,1 - No physically strenuous activity, but ambulatory and able to carry out light or sedentary work (e.g. office work, light house work). (ECOG) Physical Examination: Constitutional Alert, oriented, no acute distress. Skin pink, warm and dry. Head Normocephalic; atraumatic. Eyes Conjunctivae and sclerae are clear and without icterus. Pupils are reactive and equal. ENMT Sinuses are nontender. No oral exudates, ulcers, masses, thrush or mucositis. Oropharynx clear. Tongue normal. Neck Supple without masses or thyromegaly. No jugular venous distension. Hematologic/Lymphatic No petechiae or purpura. No tender or palpable lymph nodes in the cervical or supraclavicular areas. Respiratory Lungs are clear to auscultation without rhonchi or wheezing. Cardiovascular Regular rate and rhythm of heart without murmurs,clicks, gallops or rubs. Chest Chest is symmetric without chest wall deformities. Left subclavian venous access device is unremarkable. Abdomen Obese. Non-tender, non-distended, no masses, ascites. Good bowel sounds noted in all quads. No guarding or rebound tenderness. No pulsatile masses. Back/Spine Non-tender to palpation. Extremities No visible deformities, no cyanosis, clubbing or edema. Musculoskeletal No tenderness or swelling, normal range of motion without obvious weakness. Integumentary No rashes or lesions. Neurologic No sensory or motor deficits, normal cerebellar function, normal gait. Psychiatric Alert and oriented times three. Coherent speech. Verbalizes understanding of our discussions today. Laboratory: Impression: Mr. Cherry is a 80-year-old gentleman with right upper lobe lung cancer: invasive poorly differentiated squamous cell carcinoma. This diagnosis was confirmed by CT guided biopsy of the right upper lobe on 09/13/2017. He also had an abnormal PET/CT done on 09/28/2017. The PET showed a 1.7 cm pulmonary nodule in the right lower lobe with an SUV of 6.5. There was a 3 x 1.7 cm mass in the central right upper lobe with SUV of 7.2. There was superior and inferior right paratracheal lymphadenopathy with increased FDG uptake. Although scattered the mediastinal nodules were radiographically benign and FDG negative. It was noted that he did have bilateral pleural effusion with the right being larger than the left. He underwent MRI I of the brain on 11/01/2017 there was no evidence of metastatic disease at that time. The arrangement I Fish on the lung biopsy from 11/01/2017 is reported as negative the PDL???L1 IHC is negative there is no PD-L1 expression. PD-L1 IHC 28???8 was also reported as less than 1%. Clinical stage T4 ipsilateral satellite lesion in different lobe. N 1 or 2 ,Mx stage IIIA 2. COPD 3. Glaucoma and cataracts 4. Hypercholesterolemia/hyperlipidemia 5. Hypertension 6. Chronic, controlled depression s/p combined therapy with radiation and chemotherapy. to the primary and SB RT to the right lower lobe, first chemotherapy treatment on 11/25/2017. till 01/08/18 On week 4, 30 minutes after starting the Carboplatin, he developed hypertension, shortness of breath and chest pain. The Carboplatin was stopped and he was given sublingual nitroglycerin and his symptoms resolved. The Carboplatin has been stopped. He continued with paclitaxel with his last dose on 01/06/2018. He had recent admission for pneumonia and is labs at that time showed progressive anemia/dermal cytopenia. started on maintenance therapy with durvalumab. He began his first dose on 02/24/2018. He completed durvalumab on January 12, 2019. He had restaging imaging with CT of the chest on 05/30/2018. There is no evidence of disease progression with overall stable appearance of the right upper and lower lobe parenchymal opacity and not hilar lymphadenopathy. He continues with treatment at this time. He did have elevation of the TSH was started on Synthroid. His TSH remained stable. Follow-up CT PET scan done on 09/27/2018 showed the right lower lobe nodule seen on prior study done on 09/28/2017 was subcentimeter in size and FDG negative. The central right upper lobe lesion measures 1.5 x 0.7 cm with FDG activity frequent to mediastinal blood pool, this pattern is typical for inflammation Although a small amount of residual disease cannot be excluded . The inferior right paratracheal node was largely calcified, with mild residual activity activity that may be inflammatory. The superior right paratracheal node was calcified and FDG negative. Findings are indicative of good response to the therapy . Follow-up CT PET scan done on April 30, 2020 showed 1.8 cm right upper lobe nodule with SUV of 14.5. Mr Cherry was referred to [facility] for evaluation where he was seen by Dr. Wolf, who recommended follow-up CT PET scan as patient was not a candidate for surgical resection or further radiation therapy and if follow-up CT PET scan done in 3 months shows disease progression, consider systemic chemotherapy with Taxotere or Navelbine. Follow-up CT PET scan done on July 30, 2020 shows right upper lobe nodule now measures 2.4 x 2.1 cm with SUV of 13.9 compared to 1.8 cm with SUV 14.5 previously Follow-up CT PET scan done on September 24, 2020 showed significant increase in right apical lesion, now measuring 3.3 x 3 cm compared to 2.4 x 2.1 cm in July 2020 and SUV 16.6. Plan/Problems Addressed at this Visit: 1. Lung cancer-Invasive poorly differentiated squamous cell carcinoma of the right upper lobe. Follow-up CT PET scan done on September 24, 2020 showed further disease progression in the right upper lobe lesion but no other distant mets Clinically, patient doing well with no new signs symptoms his lab work-up is within normal range, patient was referred to radiation oncology for evaluation for SBRT to the right upper lobe lesion but because of the size and disease progression in the location and some technical issues, radiation oncology recommended external beam radiation concurrent with chemotherapy as patient has history of combined chemoradiation so he would get less than standard dose radiation given to the new patient. Initially patient was treated with combined chemoradiation with weekly carboplatin/Taxol followed by maintenance immunotherapy, as patient has squamous cell carcinoma now with localized recurrence of disease, we would consider cisplatin/etoposide regimen concurrent with radiation therapy. Mr Cherry is currently undergoing weekly cisplatin 50 mg per metered square on days 1, day 8 and day 29 along with etoposide 50 mg per metered squared day 1 through 5 and repeat in 4 weeks concurrent with radiation therapy. A. Prcoeed with week 2 (day 8) Cisplatin with supportive care with hydration. B. Today's labs reviewed in detail discussed with Mr. Cherry and a copy was given to him. WBC 8.6, hemoglobin 12.2, platelets turned 29,000 ANC is 7420. Potassium 4.8 random C. Continue current antiemetics as these are working well. D. We will plan to see him back in 3 weeks but continue with weekly interim labs as warranted. I have asked that he have a CBC next week while he is here for radiation. This is for chemotherapy monitoring. Signed By: Yadiel Moore-, [facility] Teddy Osborne MD <<Signature on File>>
--- NOTE | 2020-11-07 10:33 | ONCRAD TMN_ITS ---
Radiation Oncology Treatment Management Note Patient Name: Venkat Cherry Date of : 1940 Date of Service: 11/07/2020 Attending Physician: Renny Robertson M.D. 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 SABR was prescribed to the right lower lobe lesion preliminary to concurrent chemoradiotherapy (weekly carboplatin and paclitaxel; prescribed radiotherapy dose of 66 Gy targeted the right upper lobe lesion and mediastinum) completing in December 2017. Maintenance Imfinzi (24 cycles) concluded December 2018. A surveillance PET CT (independently visualized in synapse) ordered on July 30, 2020 demonstrated progression of the right upper lobe nodule currently measuring 2.4 cm x 2.1 cm with an SUV of 13.9 without evidence of metastatic disease. The patient has received 30 Gy of a prescribed 60 Gee with an intensity modulated radiotherapy plan utilizing a step and shoot treatment technique. He has been prescribed Cisplatin (50 mg/m??? - days 1 & 8) and Etoposide (50 mg/m??? - days 1-4) during weeks 1 and 4 of radiotherapy. Upon review of systems, he denied pulmonary symptoms. On physical examination, the patient weighed 248 lbs. His temperature was 98.6 ???F with a blood pressure of 168/78 mmHg. The pulse was 70 bpm and his respiratory rate was 20. Oxygen saturation while breathing room air was 95%. There was no erythema within the treatment sinclair. Auscultation of the posterior lung sinclair identified expiratory wheezes. Continue thoracic radiotherapy as planned. Signed by: Dr. Renny Robertson 11/07/2020 10:32:44 AM
[2020-11-07] MEDS: alteplase 1 mg/mL SDV 2 mL 2 MG INTRACATH ×2 (11:45→12:45)
[2020-11-07 13:08] LABS: Basophils % 0.8 %; Eosinophils % 0.5 %; Hematocrit 37.2 % (42.0-52.0); Hemoglobin 11.8 g/dL (11.7-16.6); Lymphocytes % 26.8 %; Mean Corpuscular HGB Conc 31.7 g/dL (30.0-36.0); Mean Corpuscular Volume 97.6 fL (80-94); Mean Platelet Volume 9.6 fL (7.4-10.4); Monocytes # 0.6 10^3/uL (0.2-0.9); Monocytes % 16.5 %; Neutrophils # 1.99 10^3/uL (1.8-7.7); Neutrophils % 51.3 %; Nucleated Red Blood Cells % 0 %; Platelet Count 215 10^3/cmm (130-400); Red Blood Count 3.81 10^6/uL (4.1-5.3); Red Cell Distribution Width 14.2 % (12.1-15.1); White Blood Count 3.9 10^3/uL (4.0-10.0)
[2020-11-07 13:34] LABS: Alanine Aminotransferase 15 U/L (0-41); Albumin Level 3.3 g/dL (3.5-5.2); Alkaline Phosphatase 99 IU/L (40-130); Anion Gap 11.6 (5-19); Aspartate Amino Transferase 12 U/L (0-40); Blood Urea Nitrogen 13 mg/dL (8-23); Calcium 8.3 mg/dL (8.5-10.5); Carbon Dioxide 31 mmol/L (22-29); Chloride 101 mmol/L (98-107); Globulin 2.4 g/dL (1.3-4.6); Glucose 112 mg/dL (65-115); Osmolality Calculated 289 mOsm/kg (285-295); Potassium 4.6 mmol/L (3.5-5.1); Sodium 139 mmol/L (136-145); Total Bilirubin 0.2 mg/dL (0.15-1.2); Total Protein 5.7 g/dL (6.6-8.7)
[2020-11-10] MEDS: lidocaine-prilocaine cream 5 gm 1 APPLIC TOPICAL (15:38)
[2020-11-14 10:41] LABS: Basophils % 0.6 %; Eosinophils % 0.6 %; Hemoglobin 12.5 g/dL (11.7-16.6); Lymphocytes # 1.1 10^3/uL (0.8-4.8); Lymphocytes % 17.3 %; Mean Corpuscular HGB Conc 32.1 g/dL (30.0-36.0); Mean Corpuscular Hemoglobin 31.3 pg (28.0-34.0); Mean Corpuscular Volume 97.5 fL (80-94); Mean Platelet Volume 9.3 fL (7.4-10.4); Monocytes # 0.7 10^3/uL (0.2-0.9); Monocytes % 10.5 %; Neutrophils # 4.27 10^3/uL (1.8-7.7); Neutrophils % 68.3 %; Nucleated Red Blood Cells % 0 %; Platelet Count 219 10^3/cmm (130-400); Red Cell Distribution Width 14.8 % (12.1-15.1); White Blood Count 6.3 10^3/uL (4.0-10.0)
[2020-11-14 11:06] LABS: Alanine Aminotransferase 14 U/L (0-41); Albumin Level 3.5 g/dL (3.5-5.2); Alkaline Phosphatase 102 IU/L (40-130); Anion Gap 13.7 (5-19); Aspartate Amino Transferase 14 U/L (0-40); Blood Urea Nitrogen 11 mg/dL (8-23); Calcium 8.7 mg/dL (8.5-10.5); Carbon Dioxide 29 mmol/L (22-29); Chloride 101 mmol/L (98-107); Globulin 2.4 g/dL (1.3-4.6); Glucose 108 mg/dL (65-115); Osmolality Calculated 290 mOsm/kg (285-295); Potassium 3.7 mmol/L (3.5-5.1); Sodium 140 mmol/L (136-145); Total Bilirubin 0.2 mg/dL (0.15-1.2); Total Protein 5.9 g/dL (6.6-8.7)
[2020-11-15] MEDS: palonosetron 0.25 mg/5 mL SDV IV (10:04)
[2020-11-15] MEDS: sodium chloride 0.9% 250 ML 30 ML IV (10:04)
[2020-11-15] MEDS: fosaprepitant 150 MG in sodium chloride 0.9% 150 ML 300 MG IV (12:17)
[2020-11-15] MEDS: FUROsemide 10 mg/mL SDV 2mL 20 MG IV (14:36)
[2020-11-15] MEDS: sodium chlor 0.9% + KCl 20 mEq 20 MEQ/1,000 ML BAG 1000 MEQ IV (14:38)
[2020-11-16] MEDS: prochlorperazine 10 mg Tablet PO (08:40)
[2020-11-16] MEDS: sodium chloride 0.9% 250 ML 75 ML IV (08:40)
--- NOTE | 2020-11-16 17:32 | ONC FU_ITS ---
Dr. Ornelas follow up note Patient: Venkat Cherry Unit #: [id number]: 1940 Dicatated By: Criss Ornelas M.D.Date of Visit:Nov 15, 2020 Onc Med Follow-up/Prog Note History of Present Illness: Mr. Cherry is a 80-year-old gentleman with a [id number] history of smoking. He had presented to his primary care at the [facility] with concerns of weakness and hemoptysis. He also reported increased shortness of breath for a month. It had significantly worsened on 2 weeks prior to his presentation to the PCP. He had had progressive fluid retention at that time as well. Dr. Noe has requested workup of his concerns which included a CT of the chest at that time he had finding of a right lung mass. The CT reported right upper lobe and lower lobe mass with mesangial lymphadenopathy. He did undergo CT-guided needle biopsy of the right lung mass on 09/13/2017. 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 The pathology reported ALK rearrangement by FISH as negative and PD-L1 IHC as negative. The PD-L1 IHC 28???8 was reported as less than 1%. Mr. Cherry had PET/CT on 09/28/2017. The findings were reported as: A 1.7 cm pulmonary nodule in the right lower lobe with SUV of 6.5. A 3 x 1.7 cm lesion in the central right upper lobe with SUV of 7.2; superior and inferior right paratracheal lymphadenopathy consistent with local metastatic disease. Inferior, right paratracheal node measures 1.9 x 2.3 cm with an SUV of 9.8; other scattered mediastinal nodes are radiographically benign and FDG negative. Bilateral pleural effusions. Malignant effusions could not be excluded. on 11/25/2017. s/p concurrent therapy with weekly carboplatin and paclitaxel and radiation to the primary and SBRT to the right lower lobe nodule . He began his first dose of weekly carboplatin and paclitaxel on 11/25/2017. till 01/08/18 . Mr Cherry was started on maintenance immunotherapy with Imfinzi on 02/24/2018. On Synthroid 25 ???g by mouth daily for newly diagnosed hypothyroidism probably due to immunotherapy He had restaging imaging with CT of the chest on 05/30/2018. There is no evidence of disease progression with overall stable appearance of the right upper and lower lobe parenchymal opacity and not hilar lymphadenopathy. Follow-up PET CT from 09/27/2018 reports near resolution of the right lung nodules and mediastinal nodes, indicating a positive response to therapy. There was resolution of bilateral pleural effusions. Mr. Cherry continues with Imfinzi treatment every 2 weeks. and Completed 24 doses on 01/12/2019 Follow-up CT PET scan done on 03/14/2019 showed central right upper lobe nodule measures roughly 9 mm with SUV of 3.5, compared to 15 x [address] PET scan done on 09/27/2018 and there has been no change in 7 mm right lung base nodule. Mild reactive activity in bilateral hilar and mediastinum is unchanged. Follow-up CT PET scan done on 07/11/2019, showed decreasing FDG uptake in the right upper lobe nodule, sporting and inflammatory diagnosis, no change in reactive mediastinal lymph nodes, no evidence of distant metastatic disease. Follow-up CT scan of chest done on April 20, 2020 showed spiculated right upper lobe neoplasm has progressed, now measures 1.6 x 2.1 x 1.8 compared to 1.2 x 1.1 x 0.8 cm previously and surrounding infiltrates are similar in appearance. Enlarged right hilar lymph node measuring 1.5 cm. No other lymphadenopathy. Right lower lobe opacity along posterior mediastinum measures 7 mm, unchanged since January 2018. Moderate chronic emphysematous changes. No other abnormality seen , still smoking about half pack a day. Follow-up CT PET scan done on July 30, 2020 showed right upper lobe nodule now measures 2.4 x 2.1 cm with SUV of 13.9 compared to 1.8 cm with SUV of 14.5 previously, indicates progression of disease. Guardant 360 done on August 19, 2019 showed no obvious targetable mutation Including MSI/MMR intact Follow-up CT PET scan done on September 24, 2020 showed significant increase in right apex lesion now measuring 3 x 3.3 cm with SUV of 16.6, no other lesions seen. Mr Cherry was referred to radiation oncology for evaluation for SBRT to the right apical lesion but with the follow-up CT PET scan showing disease progression, his treatment plan was changed to combined chemoradiation. He began Split dose Cisplatin/Etoposide, q. 28 days x 2 concurrent with daily radiation on October 18, 2020. Came for follow-up, denies any specific complaints, no fever chills, no nausea or vomiting, no diarrhea or constipation, no heartburn indigestion, tolerating combined chemoradiation with split dose cisplatin/etoposide concurrent with radiation therapy well Medications: Albuterol Sulfate 2 Puff(s) (of 108 (90 base) mcg/act) Aerosol Powder, Breath Activated Inhalation four times a day, amLODIPine Besylate 1 (5 mg) Tablet Oral daily, Atorvastatin Calcium 0.5 Tablet (of 40 mg) Oral daily, Cyanocobalamin 1 (1000 mcg) Tablet Oral daily, Fluticasone Propionate 2 [place](s) (of 50 mcg/act) Suspension Nasal daily, Folic Acid 1 (1 mg) Tablet Oral daily, Furosemide 1 Tablet (of 40 mg) Oral daily, HydrALAZINE HCl 1 Tablet (of 50 mg) Oral t.i.d., Isosorbide Mononitrate ER 1 Tablet (of 30 mg) Tablet SR 24 HR Oral daily, Latanoprost 1 Drop(s) (of 0.005 %) Solution Ophthalmic daily, Levothyroxine Sodium 1 (50 mcg) Tablet Oral daily, Magnesium 1 Tablet (of 400 mg) Oral at bedtime, Metoprolol Tartrate 0.5 Tablet (of 50 mg) Oral daily, Olodaterol HCl 2 Puff(s) (of 2.5 mcg/act) Aerosol, solution Inhalation daily, Potassium Chloride ER 0.5 Tablet (of 20 meq) Capsule, controlled release Oral b.i.d., Spironolactone 0.5 Tablet (of 25 mg) Oral b.i.d., Tamsulosin HCl 1 Capsule (of 0.4 mg) Oral daily, Triamcinolone Acetonide (0.5 %) Cream Topical Take as Directed, Vitamin C 1 Capsule (of 500 mg) Oral daily Allergies: No Known Allergies. Review of Systems: Review of Systems is not available for this patient. Vital Signs: Performed on Nov 15, 2020 09:03 Height - 65.50 in Weight - 248.4 lbs BSA - 2.18 sq.m BMI - 40.71 (HIGH) Temperature - 99.3 F (HIGH) Pulse - 87 /min Respiration - 18 /min BP - 189/74 mm(hg) (HIGH) O2 Sat - 93 % (LOW) Pain - 0 Fatigue - 0 Performance Status: 0 - Fully active, able to carry on all predisease activities without restrictions. (ECOG) Physical Examination: ENMT - No mouth sores, no thrush, no jaundice, Respiratory - Lungs are clear to auscultation, Cardiovascular - Regular rate and rhythm of heart, Abdomen - Soft, bowel sounds present, Extremities - No visible edema or rash. Lab/Imaging: Most recent lab results are not available for this patient. Impression: Mr. Cherry is a 80-year-old gentleman with right upper lobe lung cancer: invasive poorly differentiated squamous cell carcinoma. This diagnosis was confirmed by CT guided biopsy of the right upper lobe on 09/13/2017. He also had an abnormal PET/CT done on 09/28/2017. The PET showed a 1.7 cm pulmonary nodule in the right lower lobe with an SUV of 6.5. There was a 3 x 1.7 cm mass in the central right upper lobe with SUV of 7.2. There was superior and inferior right paratracheal lymphadenopathy with increased FDG uptake. Although scattered the mediastinal nodules were radiographically benign and FDG negative. It was noted that he did have bilateral pleural effusion with the right being larger than the left. He underwent MRI I of the brain on 11/01/2017 there was no evidence of metastatic disease at that time. The arrangement I Fish on the lung biopsy from 11/01/2017 is reported as negative the PDL???L1 IHC is negative there is no PD-L1 expression. PD-L1 IHC 28???8 was also reported as less than 1%. Clinical stage T4 ipsilateral satellite lesion in different lobe. N 1 or 2 ,Mx stage IIIA 2. COPD 3. Glaucoma and cataracts 4. Hypercholesterolemia/hyperlipidemia 5. Hypertension 6. Chronic, controlled depression s/p combined therapy with radiation and chemotherapy. to the primary and SB RT to the right lower lobe, first chemotherapy treatment on 11/25/2017. till 01/08/18 On week 4, 30 minutes after starting the Carboplatin, he developed hypertension, shortness of breath and chest pain. The Carboplatin was stopped and he was given sublingual nitroglycerin and his symptoms resolved. The Carboplatin has been stopped. He continued with paclitaxel with his last dose on 01/06/2018. He had recent admission for pneumonia and is labs at that time showed progressive anemia/dermal cytopenia. started on maintenance therapy with durvalumab. He began his first dose on 02/24/2018. He completed durvalumab on January 12, 2019. He had restaging imaging with CT of the chest on 05/30/2018. There is no evidence of disease progression with overall stable appearance of the right upper and lower lobe parenchymal opacity and not hilar lymphadenopathy. He continues with treatment at this time. He did have elevation of the TSH was started on Synthroid. His TSH remained stable. Follow-up CT PET scan done on 09/27/2018 showed the right lower lobe nodule seen on prior study done on 09/28/2017 was subcentimeter in size and FDG negative. The central right upper lobe lesion measures 1.5 x 0.7 cm with FDG activity frequent to mediastinal blood pool, this pattern is typical for inflammation Although a small amount of residual disease cannot be excluded . The inferior right paratracheal node was largely calcified, with mild residual activity activity that may be inflammatory. The superior right paratracheal node was calcified and FDG negative. Findings are indicative of good response to the therapy . Follow-up CT PET scan done on April 30, 2020 showed 1.8 cm right upper lobe nodule with SUV of 14.5. Mr Cherry was referred to [place] for evaluation where he was seen by Dr. Wolf, who recommended follow-up CT PET scan as patient was not a candidate for surgical resection or further radiation therapy and if follow-up CT PET scan done in 3 months shows disease progression, consider systemic chemotherapy with Taxotere or Navelbine. Follow-up CT PET scan done on July 30, 2020 shows right upper lobe nodule now measures 2.4 x 2.1 cm with SUV of 13.9 compared to 1.8 cm with SUV 14.5 previously Follow-up CT PET scan done on September 24, 2020 showed significant increase in right apical lesion, now measuring 3.3 x 3 cm compared to 2.4 x 2.1 cm in July 2020 and SUV 16.6. Started on combined chemoradiation with split dose cisplatin/etoposide on October 18, 2020 Plan: . Discussed with patient regarding his labs white blood count 6.3 hemoglobin 12.5 hematocrit 39 platelets 219,000 CMP within normal limits Clinically, patient doing well with no new signs symptoms, tolerating combined chemoradiation with split dose cisplatin and etoposide concurrent with radiation therapy well, will proceed with second/final cycle of split dose cisplatin day 1 along with etoposide day 1 through 3 today and then patient return to clinic in 1 week with CBC CMP and blood count looks reasonable for day 8 cisplatin concurrent with radiation therapy. Signed By: Criss Ornelas M.D. <<Signature on File>>
--- NOTE | 2020-11-22 10:40 | ONCRAD TMN_ITS ---
Radiation Oncology Treatment Management Note Patient Name: Venkat Cherry Date of : 1940 Date of Service: 11/14/2020 Attending Physician: Renny Robertson M.D. 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 SABR was prescribed to the right lower lobe lesion preliminary to concurrent chemoradiotherapy (weekly carboplatin and paclitaxel; prescribed radiotherapy dose of 66 Gy targeted the right upper lobe lesion and mediastinum) completing in December 2017. Maintenance Imfinzi (24 cycles) concluded December 2018. A surveillance PET CT (independently visualized in synapse) ordered on July 30, 2020 demonstrated progression of the right upper lobe nodule currently measuring 2.4 cm x 2.1 cm with an SUV of 13.9 without evidence of metastatic disease. The patient has received 40 Gy of a prescribed 60 Gee with an intensity modulated radiotherapy plan utilizing a step and shoot treatment technique. He has been prescribed Cisplatin (50 mg/m??? - days 1 & 8) and Etoposide (50 mg/m??? - days 1-4) during weeks 1 and 4 of radiotherapy. Upon review of systems, he denied pulmonary symptoms. On physical examination, the patient weighed 248 lbs. His temperature was 98.3 ???F with a blood pressure of 151/74 mmHg. The pulse was 77 bpm and his respiratory rate was 22. Oxygen saturation while breathing room air was 95%. There was no erythema within the treatment sinclair. Auscultation of the posterior lung sinclair identified decreased left posterior breath sounds. Continue thoracic radiotherapy as prescribed. Signed by: Dr. Renny Robertson 11/22/2020 10:38:26 AM
== END 2020-11-16 23:59 | disposition home or self-care (01) ==
LOC: ONCMED 05:47
PROVIDERS: Nurse Practitioner; Absent Provider Radiology Radiation Oncology; PCP Emergency Medicine Emergency Medical Services; Visit Provider Internal Medicine Hematology & Oncology
DX: Z51.0 Encounter for antineoplastic radiation therapy (principal); Z51.11 Encounter for antineoplastic chemotherapy; C34.11 Malignant neoplasm of upper lobe, right bronchus or lung; Z45.2 Encounter for adjustment and management of vascular access device; C77.1 Secondary and unspecified malignant neoplasm of intrathoracic lymph nodes; Z87.891 Personal history of nicotine dependence; F32.9 Major depressive disorder, single episode, unspecified; H40.9 Unspecified glaucoma; E78.00 Pure hypercholesterolemia, unspecified; E78.5 Hyperlipidemia, unspecified; I10 Essential (primary) hypertension; Z79.51 Long term (current) use of inhaled steroids; J44.9 Chronic obstructive pulmonary disease, unspecified; H26.9 Unspecified cataract
CPT/HCPCS: 36415; 36591; 36593; 77336; 77386; 80053; 85025; 96366; 96367; 96368; 96374; 96375; 96376; 96413; 96417; 96523; 99214; 99215; J1100; J1453; J1940; J2469; J2997; J3475; J3480; J7030; J7040; J7050; J9060; J9181; Q0164

== ENCOUNTER 2020-11-30 05:48 | Outpatient (RCR) | payer OTHER, MEDICARE, SELFPAY ==
[2020-11-17] MEDS: prochlorperazine 10 mg Tablet PO (08:32)
[2020-11-17] MEDS: sodium chloride 0.9% 250 ML 75 ML IV (08:34)
--- NOTE | 2020-11-22 10:55 | ONCRAD TMN_ITS ---
Radiation Oncology Treatment Management Note Patient Name: Venkat Cherry Date of : 1940 Date of Service: 11/22/2020 Attending Physician: Renny Robertson M.D. 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 SABR was prescribed to the right lower lobe lesion preliminary to concurrent chemoradiotherapy (weekly carboplatin and paclitaxel; prescribed radiotherapy dose of 66 Gy targeted the right upper lobe lesion and mediastinum) completing in December 2017. Maintenance Imfinzi (24 cycles) concluded December 2018. A surveillance PET CT ordered on July 30, 2020 demonstrated progression of the right upper lobe nodule currently measuring 2.4 cm x 2.1 cm with an SUV of 13.9 without evidence of metastatic disease. The patient has received 50 Gy of a prescribed 60 Gee with an intensity modulated radiotherapy plan utilizing a step and shoot treatment technique. He has been prescribed Cisplatin (50 mg/m??? - days 1 & 8) and Etoposide (50 mg/m??? - days 1-4) during weeks 1 and 4 of radiotherapy. Upon review of systems, he denied pulmonary symptoms. On physical examination, the patient weighed 251 lbs. His temperature was 98.2 ???F with a blood pressure of 149/64 mmHg. The pulse was 77 bpm and his respiratory rate was 22. Oxygen saturation while breathing room air was 97%. There was no erythema within the treatment sinclair. Auscultation of the posterior lung sinclair identified bronchial breath sounds. Continue thoracic radiotherapy as planned. Signed by: Dr. Renny Robertson 11/22/2020 10:54:20 AM
[2020-11-23 15:43] LABS: Basophils % 0.4 %; Eosinophils # 0.1 10^3/uL (0.0-0.8); Eosinophils % 0.7 %; Hematocrit 37.3 % (42.0-52.0); Hemoglobin 11.8 g/dL (11.7-16.6); Lymphocytes # 1.1 10^3/uL (0.8-4.8); Lymphocytes % 15.1 %; Mean Corpuscular HGB Conc 31.6 g/dL (30.0-36.0); Mean Corpuscular Hemoglobin 31.1 pg (28.0-34.0); Mean Corpuscular Volume 98.2 fL (80-94); Mean Platelet Volume 9.8 fL (7.4-10.4); Monocytes # 0.5 10^3/uL (0.2-0.9); Monocytes % 7.1 %; Neutrophils # 5.31 10^3/uL (1.8-7.7); Nucleated Red Blood Cells % 0 %; Platelet Count 123 10^3/cmm (130-400); Red Cell Distribution Width 15.2 % (12.1-15.1)
[2020-11-23 16:29] LABS: Alanine Aminotransferase 14 U/L (0-41); Albumin Level 3.6 g/dL (3.5-5.2); Alkaline Phosphatase 91 IU/L (40-130); Anion Gap 14.5 (5-19); Aspartate Amino Transferase 10 U/L (0-40); Blood Urea Nitrogen 18 mg/dL (8-23); Calcium 9.1 mg/dL (8.5-10.5); Carbon Dioxide 30 mmol/L (22-29); Chloride 100 mmol/L (98-107); Globulin 2.3 g/dL (1.3-4.6); Glucose 75 mg/dL (65-115); Osmolality Calculated 291 mOsm/kg (285-295); Potassium 4.5 mmol/L (3.5-5.1); Sodium 140 mmol/L (136-145); Total Bilirubin 0.2 mg/dL (0.15-1.2); Total Protein 5.9 g/dL (6.6-8.7)
[2020-11-24] MEDS: sodium chloride 0.9% 250 ML 75 ML IV (10:00)
[2020-11-24] MEDS: fosaprepitant 150 MG in sodium chloride 0.9% 150 ML 300 MG IV (11:22)
[2020-11-24] MEDS: palonosetron 0.25 mg/5 mL SDV IV (11:46)
[2020-11-24] MEDS: FUROsemide 10 mg/mL SDV 2mL 20 MG IV (13:15)
[2020-11-24] MEDS: sodium chlor 0.9% + KCl 20 mEq 20 MEQ/1,000 ML BAG 500 MEQ IV (13:17)
[2020-11-30 15:07] LABS: Basophils % 0.6 %; Eosinophils # 0.1 10^3/uL (0.0-0.8); Eosinophils % 1.6 %; Hematocrit 33.3 % (42.0-52.0); Hemoglobin 10.6 g/dL (11.7-16.6); Lymphocytes # 0.9 10^3/uL (0.8-4.8); Lymphocytes % 28.8 %; Mean Corpuscular HGB Conc 31.8 g/dL (30.0-36.0); Mean Corpuscular Hemoglobin 31.4 pg (28.0-34.0); Mean Corpuscular Volume 98.5 fL (80-94); Mean Platelet Volume 10.2 fL (7.4-10.4); Monocytes # 0.4 10^3/uL (0.2-0.9); Monocytes % 13.7 %; Neutrophils # 1.69 10^3/uL (1.8-7.7); Nucleated Red Blood Cells % 0 %; Platelet Count 89 10^3/cmm (130-400); Red Blood Count 3.38 10^6/uL (4.1-5.3); Red Cell Distribution Width 15.7 % (12.1-15.1); White Blood Count 3.1 10^3/uL (4.0-10.0)
[2020-11-30 15:19] LABS: Alanine Aminotransferase 11 U/L (0-41); Albumin Level 3.5 g/dL (3.5-5.2); Alkaline Phosphatase 86 IU/L (40-130); Anion Gap 12.6 (5-19); Aspartate Amino Transferase 10 U/L (0-40); Blood Urea Nitrogen 13 mg/dL (8-23); Calcium 8.4 mg/dL (8.5-10.5); Carbon Dioxide 28 mmol/L (22-29); Chloride 102 mmol/L (98-107); Globulin 2.2 g/dL (1.3-4.6); Glucose 73 mg/dL (65-115); Osmolality Calculated 285 mOsm/kg (285-295); Potassium 4.6 mmol/L (3.5-5.1); Sodium 138 mmol/L (136-145); Total Bilirubin 0.2 mg/dL (0.15-1.2); Total Protein 5.7 g/dL (6.6-8.7)
--- NOTE | 2020-12-04 15:53 | ONC FU_ITS ---
Dr. Ornelas follow up note Patient: Venkat Cherry Unit #: [id number]: 1940 Dicatated By: Criss Ornelas M.D.Date of Visit:Nov 30, 2020 Onc Med Follow-up/Prog Note History of Present Illness: Mr. Cherry is a 80-year-old gentleman with a [id number] history of smoking. He had presented to his primary care at the [facility] with concerns of weakness and hemoptysis. He also reported increased shortness of breath for a month. It had significantly worsened on 2 weeks prior to his presentation to the PCP. He had had progressive fluid retention at that time as well. Dr. oNe has requested workup of his concerns which included a CT of the chest at that time he had finding of a right lung mass. The CT reported right upper lobe and lower lobe mass with mesangial lymphadenopathy. He did undergo CT-guided needle biopsy of the right lung mass on 09/13/2017. 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 The pathology reported ALK rearrangement by FISH as negative and PD-L1 IHC as negative. The PD-L1 IHC 28???8 was reported as less than 1%. Mr. Cherry had PET/CT on 09/28/2017. The findings were reported as: A 1.7 cm pulmonary nodule in the right lower lobe with SUV of 6.5. A 3 x 1.7 cm lesion in the central right upper lobe with SUV of 7.2; superior and inferior right paratracheal lymphadenopathy consistent with local metastatic disease. Inferior, right paratracheal node measures 1.9 x 2.3 cm with an SUV of 9.8; other scattered mediastinal nodes are radiographically benign and FDG negative. Bilateral pleural effusions. Malignant effusions could not be excluded. on 11/25/2017. s/p concurrent therapy with weekly carboplatin and paclitaxel and radiation to the primary and SBRT to the right lower lobe nodule . He began his first dose of weekly carboplatin and paclitaxel on 11/25/2017. till 01/08/18 . Mr Cherry was started on maintenance immunotherapy with Imfinzi on 02/24/2018. On Synthroid 25 ???g by mouth daily for newly diagnosed hypothyroidism probably due to immunotherapy He had restaging imaging with CT of the chest on 05/30/2018. There is no evidence of disease progression with overall stable appearance of the right upper and lower lobe parenchymal opacity and not hilar lymphadenopathy. Follow-up PET CT from 09/27/2018 reports near resolution of the right lung nodules and mediastinal nodes, indicating a positive response to therapy. There was resolution of bilateral pleural effusions. Mr. Cherry continues with Imfinzi treatment every 2 weeks. and Completed 24 doses on 01/12/2019 Follow-up CT PET scan done on 03/14/2019 showed central right upper lobe nodule measures roughly 9 mm with SUV of 3.5, compared to 15 x [address] PET scan done on 09/27/2018 and there has been no change in 7 mm right lung base nodule. Mild reactive activity in bilateral hilar and mediastinum is unchanged. Follow-up CT PET scan done on 07/11/2019, showed decreasing FDG uptake in the right upper lobe nodule, sporting and inflammatory diagnosis, no change in reactive mediastinal lymph nodes, no evidence of distant metastatic disease. Follow-up CT scan of chest done on April 20, 2020 showed spiculated right upper lobe neoplasm has progressed, now measures 1.6 x 2.1 x 1.8 compared to 1.2 x 1.1 x 0.8 cm previously and surrounding infiltrates are similar in appearance. Enlarged right hilar lymph node measuring 1.5 cm. No other lymphadenopathy. Right lower lobe opacity along posterior mediastinum measures 7 mm, unchanged since January 2018. Moderate chronic emphysematous changes. No other abnormality seen , still smoking about half pack a day. Follow-up CT PET scan done on July 30, 2020 showed right upper lobe nodule now measures 2.4 x 2.1 cm with SUV of 13.9 compared to 1.8 cm with SUV of 14.5 previously, indicates progression of disease. Guardant 360 done on August 19, 2019 showed no obvious targetable mutation Including MSI/MMR intact Follow-up CT PET scan done on September 24, 2020 showed significant increase in right apex lesion now measuring 3 x 3.3 cm with SUV of 16.6, no other lesions seen. Mr Cherry was referred to radiation oncology for evaluation for SBRT to the right apical lesion but with the follow-up CT PET scan showing disease progression, his treatment plan was changed to combined chemoradiation. He began Split dose Cisplatin/Etoposide, q. 28 days x 2 concurrent with daily radiation on October 18, 2020.Completed on November 24, 2020 Came for follow-up, denies any specific complaints, no fever chills, no nausea or vomiting, no diarrhea or constipation, no mouth sores, no jaundice, no hemoptysis or hematemesis, no dysphagia odynophagia, completed combined chemoradiation from November 24, 2020 Medications: Albuterol Sulfate 2 Puff(s) (of 108 (90 base) mcg/act) Aerosol Powder, Breath Activated Inhalation four times a day, amLODIPine Besylate 1 (5 mg) Tablet Oral daily, Atorvastatin Calcium 0.5 Tablet (of 40 mg) Oral daily, Cyanocobalamin 1 (1000 mcg) Tablet Oral daily, Fluticasone Propionate 2 [place](s) (of 50 mcg/act) Suspension Nasal daily, Folic Acid 1 (1 mg) Tablet Oral daily, Furosemide 1 Tablet (of 40 mg) Oral daily, HydrALAZINE HCl 1 Tablet (of 50 mg) Oral t.i.d., Isosorbide Mononitrate ER 1 Tablet (of 30 mg) Tablet SR 24 HR Oral daily, Latanoprost 1 Drop(s) (of 0.005 %) Solution Ophthalmic daily, Levothyroxine Sodium 1 (50 mcg) Tablet Oral daily, Magnesium 1 Tablet (of 400 mg) Oral at bedtime, Metoprolol Tartrate 0.5 Tablet (of 50 mg) Oral daily, Olodaterol HCl 2 Puff(s) (of 2.5 mcg/act) Aerosol, solution Inhalation daily, Potassium Chloride ER 0.5 Tablet (of 20 meq) Capsule, controlled release Oral b.i.d., Spironolactone 0.5 Tablet (of 25 mg) Oral b.i.d., Tamsulosin HCl 1 Capsule (of 0.4 mg) Oral daily, Triamcinolone Acetonide (0.5 %) Cream Topical Take as Directed, Vitamin C 1 Capsule (of 500 mg) Oral daily Allergies: No Known Allergies. Review of Systems: Review of Systems is not available for this patient. Vital Signs: Performed on Nov 30, 2020 16:17 Height - 65.50 in Weight - 257.2 lbs (HIGH) BSA - 2.21 sq.m BMI - 42.15 (HIGH) Temperature - 98.0 F (LOW) Pulse - 86 /min Respiration - 18 /min BP - 203/70 mm(hg) (HIGH) O2 Sat - 93 % (LOW) Pain - 0 Fatigue - 0 Performance Status: 0 - Fully active, able to carry on all predisease activities without restrictions. (ECOG) Physical Examination: ENMT - No mouth sores, no thrush, no jaundice, Respiratory - Lungs are clear to auscultation, Cardiovascular - Regular rate and rhythm of heart, Abdomen - Soft, bowel sounds present, Extremities - No visible edema. Lab/Imaging: Most recent lab results are not available for this patient. Impression: Mr. Cherry is a 80-year-old gentleman with right upper lobe lung cancer: invasive poorly differentiated squamous cell carcinoma. This diagnosis was confirmed by CT guided biopsy of the right upper lobe on 09/13/2017. He also had an abnormal PET/CT done on 09/28/2017. The PET showed a 1.7 cm pulmonary nodule in the right lower lobe with an SUV of 6.5. There was a 3 x 1.7 cm mass in the central right upper lobe with SUV of 7.2. There was superior and inferior right paratracheal lymphadenopathy with increased FDG uptake. Although scattered the mediastinal nodules were radiographically benign and FDG negative. It was noted that he did have bilateral pleural effusion with the right being larger than the left. He underwent MRI I of the brain on 11/01/2017 there was no evidence of metastatic disease at that time. The arrangement I Fish on the lung biopsy from 11/01/2017 is reported as negative the PDL???L1 IHC is negative there is no PD-L1 expression. PD-L1 IHC 28???8 was also reported as less than 1%. Clinical stage T4 ipsilateral satellite lesion in different lobe. N 1 or 2 ,Mx stage IIIA 2. COPD 3. Glaucoma and cataracts 4. Hypercholesterolemia/hyperlipidemia 5. Hypertension 6. Chronic, controlled depression s/p combined therapy with radiation and chemotherapy. to the primary and SB RT to the right lower lobe, first chemotherapy treatment on 11/25/2017. till 01/08/18 On week 4, 30 minutes after starting the Carboplatin, he developed hypertension, shortness of breath and chest pain. The Carboplatin was stopped and he was given sublingual nitroglycerin and his symptoms resolved. The Carboplatin has been stopped. He continued with paclitaxel with his last dose on 01/06/2018. He had recent admission for pneumonia and is labs at that time showed progressive anemia/dermal cytopenia. started on maintenance therapy with durvalumab. He began his first dose on 02/24/2018. He completed durvalumab on January 12, 2019. He had restaging imaging with CT of the chest on 05/30/2018. There is no evidence of disease progression with overall stable appearance of the right upper and lower lobe parenchymal opacity and not hilar lymphadenopathy. He continues with treatment at this time. He did have elevation of the TSH was started on Synthroid. His TSH remained stable. Follow-up CT PET scan done on 09/27/2018 showed the right lower lobe nodule seen on prior study done on 09/28/2017 was subcentimeter in size and FDG negative. The central right upper lobe lesion measures 1.5 x 0.7 cm with FDG activity frequent to mediastinal blood pool, this pattern is typical for inflammation Although a small amount of residual disease cannot be excluded . The inferior right paratracheal node was largely calcified, with mild residual activity activity that may be inflammatory. The superior right paratracheal node was calcified and FDG negative. Findings are indicative of good response to the therapy . Follow-up CT PET scan done on April 30, 2020 showed 1.8 cm right upper lobe nodule with SUV of 14.5. Mr Cherry was referred to [facility] for evaluation where he was seen by Dr. Wolf, who recommended follow-up CT PET scan as patient was not a candidate for surgical resection or further radiation therapy and if follow-up CT PET scan done in 3 months shows disease progression, consider systemic chemotherapy with Taxotere or Navelbine. Follow-up CT PET scan done on July 30, 2020 shows right upper lobe nodule now measures 2.4 x 2.1 cm with SUV of 13.9 compared to 1.8 cm with SUV 14.5 previously Follow-up CT PET scan done on September 24, 2020 showed significant increase in right apical lesion, now measuring 3.3 x 3 cm compared to 2.4 x 2.1 cm in July 2020 and SUV 16.6. Started on combined chemoradiation with split dose cisplatin/etoposide on October 18, 2020, Completed on November 24, 2020 Plan: . Discussed with patient regarding his labs white blood count 3.1 hemoglobin 10.6 g compared to 11.8 g previously hematocrit 33.3 platelets 89,000 ANC 1690 CMP within normal limits Clinically, patient doing well with no new signs symptoms except generalized weakness and fatigue which is mild, patient has completed combined chemoradiation with cisplatin/etoposide recently and his follow-up labs shows pancytopenia due to combined chemoradiation therapy, overall patient is feeling better now recovering, he will return to clinic in 1 month with CBC CMP, at that time we will schedule him for follow-up CT PET scan in a month e.g. total 8 weeks after completion of combined chemoradiation. Patient was advised to maintain hydration And overall nutrition Signed By: Criss Ornelas M.D. <<Signature on File>>
--- NOTE | 2020-12-05 09:18 | ONC FU_ITS ---
Dr. Ornelas follow up note Patient: Venkat Cherry Unit #: [id number]: 1940 Dicatated By: Criss Ornelas M.D.Date of Visit:Nov 24, 2020 Onc Med Follow-up/Prog Note History of Present Illness: Mr. Cherry is a 80-year-old gentleman with a [id number] history of smoking. He had presented to his primary care at the [facility] with concerns of weakness and hemoptysis. He also reported increased shortness of breath for a month. It had significantly worsened on 2 weeks prior to his presentation to the PCP. He had had progressive fluid retention at that time as well. Dr. Noe has requested workup of his concerns which included a CT of the chest at that time he had finding of a right lung mass. The CT reported right upper lobe and lower lobe mass with mesangial lymphadenopathy. He did undergo CT-guided needle biopsy of the right lung mass on 09/13/2017. 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 The pathology reported ALK rearrangement by FISH as negative and PD-L1 IHC as negative. The PD-L1 IHC 28???8 was reported as less than 1%. Mr. Cherry had PET/CT on 09/28/2017. The findings were reported as: A 1.7 cm pulmonary nodule in the right lower lobe with SUV of 6.5. A 3 x 1.7 cm lesion in the central right upper lobe with SUV of 7.2; superior and inferior right paratracheal lymphadenopathy consistent with local metastatic disease. Inferior, right paratracheal node measures 1.9 x 2.3 cm with an SUV of 9.8; other scattered mediastinal nodes are radiographically benign and FDG negative. Bilateral pleural effusions. Malignant effusions could not be excluded. on 11/25/2017. s/p concurrent therapy with weekly carboplatin and paclitaxel and radiation to the primary and SBRT to the right lower lobe nodule . He began his first dose of weekly carboplatin and paclitaxel on 11/25/2017. till 01/08/18 . Mr Cherry was started on maintenance immunotherapy with Imfinzi on 02/24/2018. On Synthroid 25 ???g by mouth daily for newly diagnosed hypothyroidism probably due to immunotherapy He had restaging imaging with CT of the chest on 05/30/2018. There is no evidence of disease progression with overall stable appearance of the right upper and lower lobe parenchymal opacity and not hilar lymphadenopathy. Follow-up PET CT from 09/27/2018 reports near resolution of the right lung nodules and mediastinal nodes, indicating a positive response to therapy. There was resolution of bilateral pleural effusions. Mr. Cherry continues with Imfinzi treatment every 2 weeks. and Completed 24 doses on 01/12/2019 Follow-up CT PET scan done on 03/14/2019 showed central right upper lobe nodule measures roughly 9 mm with SUV of 3.5, compared to 15 x [address] PET scan done on 09/27/2018 and there has been no change in 7 mm right lung base nodule. Mild reactive activity in bilateral hilar and mediastinum is unchanged. Follow-up CT PET scan done on 07/11/2019, showed decreasing FDG uptake in the right upper lobe nodule, sporting and inflammatory diagnosis, no change in reactive mediastinal lymph nodes, no evidence of distant metastatic disease. Follow-up CT scan of chest done on April 20, 2020 showed spiculated right upper lobe neoplasm has progressed, now measures 1.6 x 2.1 x 1.8 compared to 1.2 x 1.1 x 0.8 cm previously and surrounding infiltrates are similar in appearance. Enlarged right hilar lymph node measuring 1.5 cm. No other lymphadenopathy. Right lower lobe opacity along posterior mediastinum measures 7 mm, unchanged since January 2018. Moderate chronic emphysematous changes. No other abnormality seen , still smoking about half pack a day. Follow-up CT PET scan done on July 30, 2020 showed right upper lobe nodule now measures 2.4 x 2.1 cm with SUV of 13.9 compared to 1.8 cm with SUV of 14.5 previously, indicates progression of disease. Guardant 360 done on August 19, 2019 showed no obvious targetable mutation Including MSI/MMR intact Follow-up CT PET scan done on September 24, 2020 showed significant increase in right apex lesion now measuring 3 x 3.3 cm with SUV of 16.6, no other lesions seen. Mr Cherry was referred to radiation oncology for evaluation for SBRT to the right apical lesion but with the follow-up CT PET scan showing disease progression, his treatment plan was changed to combined chemoradiation. He began Split dose Cisplatin/Etoposide, q. 28 days x 2 concurrent with daily radiation on October 18, 2020.Completed on November 24, 2020 Came for follow-up, denies any specific complaints, no fever chills, no nausea or vomiting, no diarrhea or constipation, no hemoptysis or hematemesis, no dysphagia, tolerating combined chemoradiation with cisplatin/etoposide well Medications: Albuterol Sulfate 2 Puff(s) (of 108 (90 base) mcg/act) Aerosol Powder, Breath Activated Inhalation four times a day, amLODIPine Besylate 1 (5 mg) Tablet Oral daily, Atorvastatin Calcium 0.5 Tablet (of 40 mg) Oral daily, Cyanocobalamin 1 (1000 mcg) Tablet Oral daily, Fluticasone Propionate 2 [place](s) (of 50 mcg/act) Suspension Nasal daily, Folic Acid 1 (1 mg) Tablet Oral daily, Furosemide 1 Tablet (of 40 mg) Oral daily, HydrALAZINE HCl 1 Tablet (of 50 mg) Oral t.i.d., Isosorbide Mononitrate ER 1 Tablet (of 30 mg) Tablet SR 24 HR Oral daily, Latanoprost 1 Drop(s) (of 0.005 %) Solution Ophthalmic daily, Levothyroxine Sodium 1 (50 mcg) Tablet Oral daily, Magnesium 1 Tablet (of 400 mg) Oral at bedtime, Metoprolol Tartrate 0.5 Tablet (of 50 mg) Oral daily, Olodaterol HCl 2 Puff(s) (of 2.5 mcg/act) Aerosol, solution Inhalation daily, Potassium Chloride ER 0.5 Tablet (of 20 meq) Capsule, controlled release Oral b.i.d., Spironolactone 0.5 Tablet (of 25 mg) Oral b.i.d., Tamsulosin HCl 1 Capsule (of 0.4 mg) Oral daily, Triamcinolone Acetonide (0.5 %) Cream Topical Take as Directed, Vitamin C 1 Capsule (of 500 mg) Oral daily Allergies: No Known Allergies. Review of Systems: Review of Systems is not available for this patient. Vital Signs: Performed on Nov 24, 2020 09:13 Height - 65.50 in Weight - 254 lbs (HIGH) BSA - 2.20 sq.m BMI - 41.63 (HIGH) Temperature - 98.7 F Pulse - 78 /min Respiration - 20 /min BP - 187/84 mm(hg) (HIGH) O2 Sat - 94 % (LOW) Pain - 0 Fatigue - 0 Performance Status: 0 - Fully active, able to carry on all predisease activities without restrictions. (ECOG) Physical Examination: ENMT - No mouth sores, no thrush, no jaundice, Respiratory - Lungs are clear to auscultation, Cardiovascular - Regular rate and rhythm of heart, Abdomen - Soft, bowel sounds present, Extremities - No visible edema. Lab/Imaging: Most recent lab results are not available for this patient. Impression: Mr. Cherry is a 80-year-old gentleman with right upper lobe lung cancer: invasive poorly differentiated squamous cell carcinoma. This diagnosis was confirmed by CT guided biopsy of the right upper lobe on 09/13/2017. He also had an abnormal PET/CT done on 09/28/2017. The PET showed a 1.7 cm pulmonary nodule in the right lower lobe with an SUV of 6.5. There was a 3 x 1.7 cm mass in the central right upper lobe with SUV of 7.2. There was superior and inferior right paratracheal lymphadenopathy with increased FDG uptake. Although scattered the mediastinal nodules were radiographically benign and FDG negative. It was noted that he did have bilateral pleural effusion with the right being larger than the left. He underwent MRI I of the brain on 11/01/2017 there was no evidence of metastatic disease at that time. The arrangement I Fish on the lung biopsy from 11/01/2017 is reported as negative the PDL???L1 IHC is negative there is no PD-L1 expression. PD-L1 IHC 28???8 was also reported as less than 1%. Clinical stage T4 ipsilateral satellite lesion in different lobe. N 1 or 2 ,Mx stage IIIA 2. COPD 3. Glaucoma and cataracts 4. Hypercholesterolemia/hyperlipidemia 5. Hypertension 6. Chronic, controlled depression s/p combined therapy with radiation and chemotherapy. to the primary and SB RT to the right lower lobe, first chemotherapy treatment on 11/25/2017. till 01/08/18 On week 4, 30 minutes after starting the Carboplatin, he developed hypertension, shortness of breath and chest pain. The Carboplatin was stopped and he was given sublingual nitroglycerin and his symptoms resolved. The Carboplatin has been stopped. He continued with paclitaxel with his last dose on 01/06/2018. He had recent admission for pneumonia and is labs at that time showed progressive anemia/dermal cytopenia. started on maintenance therapy with durvalumab. He began his first dose on 02/24/2018. He completed durvalumab on January 12, 2019. He had restaging imaging with CT of the chest on 05/30/2018. There is no evidence of disease progression with overall stable appearance of the right upper and lower lobe parenchymal opacity and not hilar lymphadenopathy. He continues with treatment at this time. He did have elevation of the TSH was started on Synthroid. His TSH remained stable. Follow-up CT PET scan done on 09/27/2018 showed the right lower lobe nodule seen on prior study done on 09/28/2017 was subcentimeter in size and FDG negative. The central right upper lobe lesion measures 1.5 x 0.7 cm with FDG activity frequent to mediastinal blood pool, this pattern is typical for inflammation Although a small amount of residual disease cannot be excluded . The inferior right paratracheal node was largely calcified, with mild residual activity activity that may be inflammatory. The superior right paratracheal node was calcified and FDG negative. Findings are indicative of good response to the therapy . Follow-up CT PET scan done on April 30, 2020 showed 1.8 cm right upper lobe nodule with SUV of 14.5. Mr Cherry was referred to [place] for evaluation where he was seen by Dr. Wolf, who recommended follow-up CT PET scan as patient was not a candidate for surgical resection or further radiation therapy and if follow-up CT PET scan done in 3 months shows disease progression, consider systemic chemotherapy with Taxotere or Navelbine. Follow-up CT PET scan done on July 30, 2020 shows right upper lobe nodule now measures 2.4 x 2.1 cm with SUV of 13.9 compared to 1.8 cm with SUV 14.5 previously Follow-up CT PET scan done on September 24, 2020 showed significant increase in right apical lesion, now measuring 3.3 x 3 cm compared to 2.4 x 2.1 cm in July 2020 and SUV 16.6. Started on combined chemoradiation with split dose cisplatin/etoposide on October 18, 2020, Completed on November 24, 2020 Plan: . Discussed with patient regarding his labs from November 23, 2020 white blood count 7 hemoglobin 11.8 g medical 37.3 platelets 123,000 CMP within normal limits Clinically, patient doing well, tolerating combined chemoradiation with split dose cisplatin/etoposide concurrent with radiation therapy well, will proceed final dose of concurrent chemoradiation with split dose cisplatin today, with that he will conclude his concurrent chemotherapy and patient is also about to finish his radiation therapy to the chest in about 3 days and then he will return to clinic in 1 week with CBC CMP Signed By: Criss Ornelas M.D. <<Signature on File>>
== END 2020-12-17 23:59 | disposition home or self-care (01) ==
LOC: ONCMED 05:48
PROVIDERS: Absent Provider Radiology Radiation Oncology; PCP Emergency Medicine Emergency Medical Services; Visit Provider Internal Medicine Hematology & Oncology
DX: Z51.0 Encounter for antineoplastic radiation therapy (principal); Z51.11 Encounter for antineoplastic chemotherapy; C77.8 Secondary and unspecified malignant neoplasm of lymph nodes of multiple regions; J44.9 Chronic obstructive pulmonary disease, unspecified; H40.9 Unspecified glaucoma; H26.9 Unspecified cataract; E78.00 Pure hypercholesterolemia, unspecified; E78.5 Hyperlipidemia, unspecified; I10 Essential (primary) hypertension; F32.9 Major depressive disorder, single episode, unspecified; Z79.899 Other long term (current) drug therapy; Z92.21 Personal history of antineoplastic chemotherapy
CPT/HCPCS: 36415; 36591; 77014; 77336; 77386; 80053; 85025; 96367; 96375; 96413; 99214; 99215; J1100; J1453; J1940; J2469; J3475; J3480; J7030; J7040; J7050; J9060; J9181; Q0164

== ENCOUNTER 2021-01-09 05:33 | Outpatient (RCR) | payer OTHER, MEDICARE, SELFPAY ==
--- NOTE | 2020-12-30 11:10 | ONCRAD EPV_ITS ---
Radiation Oncology Follow-Up Note Patient Name: Venkat Cherry Date of : 1940 Date of Service: 12/30/2020 Attending Physician: Renny Robertson M.D. Venkat Cherry returned to my office this morning for a routinely scheduled follow-up appointment. He completed thoracic radiotherapy in November for the management of a recurrent lung cancer. 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 SABR was prescribed to the right lower lobe lesion preliminary to concurrent chemoradiotherapy (weekly carboplatin and paclitaxel; prescribed radiotherapy dose of 66 Gy targeted the right upper lobe lesion and mediastinum) completing in December 2017. Maintenance Imfinzi (24 cycles) concluded December 2018. A surveillance PET CT ordered on July 30, 2020 demonstrated progression of the right upper lobe nodule currently measuring 2.4 cm x 2.1 cm with an SUV of 13.9 without evidence of metastatic disease. Thoracic radiation therapy was delivered between the dates of October 18, 2020 through November 29, 2020. A prescribed dose of 60 Gy was delivered in 30 fractions encompassing 43 elapsed days. On review of systems, He did not report any pulmonary complaints. On physical examination, he weighed 264 lbs and the temperature was 98.8???F. His blood pressure was 138/61 mmHg. The pulse was 78 bpm and the respiratory rate was 22 breaths per minute. His oxygen saturation while breathing ambient air was 94%. Auscultation of the posterior lung sinclair identified bronchial breath sounds. In summary, Mr. Cherry returned for a routine post-radiotherapy follow-up. He has no sequelae from radiotherapy. He will continue follow-up as scheduled with his medical oncologist. Signed by: Dr. Renny Robertson 12/30/2020 11:10:33 AM
[2021-01-09 08:53] LABS: Basophils % 0.6 %; Eosinophils # 0.1 10^3/uL (0.0-0.8); Eosinophils % 1.4 %; Hematocrit 36.9 % (42.0-52.0); Lymphocytes # 1.1 10^3/uL (0.8-4.8); Lymphocytes % 17.2 %; Mean Corpuscular HGB Conc 32.5 g/dL (30.0-36.0); Mean Corpuscular Hemoglobin 33.6 pg (28.0-34.0); Mean Corpuscular Volume 103.4 fl (80-94); Mean Platelet Volume 10.1 fL (7.4-10.4); Monocytes # 0.6 10^3/uL (0.2-0.9); Monocytes % 10.1 %; Neutrophils # 4.32 10^3/uL (1.8-7.7); Neutrophils % 69.7 %; Nucleated Red Blood Cells % 0 %; Platelet Count 160 10^3/cmm (130-400); Red Blood Count 3.57 10^6/uL (4.1-5.3); Red Cell Distribution Width 16.5 % (12.1-15.1); White Blood Count 6.2 10^3/uL (4.0-10.0)
[2021-01-09 09:12] LABS: Alanine Aminotransferase 9 U/L (0-41); Albumin Level 3.7 g/dL (3.5-5.2); Alkaline Phosphatase 92 IU/L (40-130); Anion Gap 13.2 (5-19); Aspartate Amino Transferase 12 U/L (0-40); Blood Urea Nitrogen 11 mg/dL (8-23); Calcium 9.1 mg/dL (8.5-10.5); Carbon Dioxide 30 mmol/L (22-29); Chloride 100 mmol/L (98-107); Globulin 2.6 g/dL (1.3-4.6); Glucose 87 mg/dL (65-115); Osmolality Calculated 287 mOsm/kg (285-295); Potassium 4.2 mmol/L (3.5-5.1); Sodium 139 mmol/L (136-145); Total Bilirubin 0.3 mg/dL (0.15-1.2); Total Protein 6.3 g/dL (6.6-8.7)
--- NOTE | 2021-01-09 16:37 | ONC FU_ITS ---
Dr. Ornelas follow up note Patient: Venkat Cherry Unit #: [id number]: 1940 Dicatated By: Criss Ornelas M.D.Date of Visit:Jan 09, 2021 Onc Med Follow-up/Prog Note History of Present Illness: Mr. Cherry is a 80-year-old gentleman with a 35-vxld-linc history of smoking. He had presented to his primary care at the [facility] with concerns of weakness and hemoptysis. He also reported increased shortness of breath for a month. It had significantly worsened on 2 weeks prior to his presentation to the PCP. He had had progressive fluid retention at that time as well. Dr. Noe has requested workup of his concerns which included a CT of the chest at that time he had finding of a right lung mass. The CT reported right upper lobe and lower lobe mass with mesangial lymphadenopathy. He did undergo CT-guided needle biopsy of the right lung mass on 09/13/2017. 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 The pathology reported ALK rearrangement by FISH as negative and PD-L1 IHC as negative. The PD-L1 IHC 28???8 was reported as less than 1%. Mr. Cherry had PET/CT on 09/28/2017. The findings were reported as: A 1.7 cm pulmonary nodule in the right lower lobe with SUV of 6.5. A 3 x 1.7 cm lesion in the central right upper lobe with SUV of 7.2; superior and inferior right paratracheal lymphadenopathy consistent with local metastatic disease. Inferior, right paratracheal node measures 1.9 x 2.3 cm with an SUV of 9.8; other scattered mediastinal nodes are radiographically benign and FDG negative. Bilateral pleural effusions. Malignant effusions could not be excluded. on 11/25/2017. s/p concurrent therapy with weekly carboplatin and paclitaxel and radiation to the primary and SBRT to the right lower lobe nodule . He began his first dose of weekly carboplatin and paclitaxel on 11/25/2017. till 01/08/18 . Mr Cherry was started on maintenance immunotherapy with Imfinzi on 02/24/2018. On Synthroid 25 ???g by mouth daily for newly diagnosed hypothyroidism probably due to immunotherapy He had restaging imaging with CT of the chest on 05/30/2018. There is no evidence of disease progression with overall stable appearance of the right upper and lower lobe parenchymal opacity and not hilar lymphadenopathy. Follow-up PET CT from 09/27/2018 reports near resolution of the right lung nodules and mediastinal nodes, indicating a positive response to therapy. There was resolution of bilateral pleural effusions. Mr. Cherry continues with Imfinzi treatment every 2 weeks. and Completed 24 doses on 01/12/2019 Follow-up CT PET scan done on 03/14/2019 showed central right upper lobe nodule measures roughly 9 mm with SUV of 3.5, compared to 15 x [address] PET scan done on 09/27/2018 and there has been no change in 7 mm right lung base nodule. Mild reactive activity in bilateral hilar and mediastinum is unchanged. Follow-up CT PET scan done on 07/11/2019, showed decreasing FDG uptake in the right upper lobe nodule, sporting and inflammatory diagnosis, no change in reactive mediastinal lymph nodes, no evidence of distant metastatic disease. Follow-up CT scan of chest done on April 20, 2020 showed spiculated right upper lobe neoplasm has progressed, now measures 1.6 x 2.1 x 1.8 compared to 1.2 x 1.1 x 0.8 cm previously and surrounding infiltrates are similar in appearance. Enlarged right hilar lymph node measuring 1.5 cm. No other lymphadenopathy. Right lower lobe opacity along posterior mediastinum measures 7 mm, unchanged since January 2018. Moderate chronic emphysematous changes. No other abnormality seen , still smoking about half pack a day. Follow-up CT PET scan done on July 30, 2020 showed right upper lobe nodule now measures 2.4 x 2.1 cm with SUV of 13.9 compared to 1.8 cm with SUV of 14.5 previously, indicates progression of disease. Guardant 360 done on August 19, 2019 showed no obvious targetable mutation Including MSI/MMR intact Follow-up CT PET scan done on September 24, 2020 showed significant increase in right apex lesion now measuring 3 x 3.3 cm with SUV of 16.6, no other lesions seen. Mr Cherry was referred to radiation oncology for evaluation for SBRT to the right apical lesion but with the follow-up CT PET scan showing disease progression, his treatment plan was changed to combined chemoradiation. He began Split dose Cisplatin/Etoposide, q. 28 days x 2 concurrent with daily radiation on October 18, 2020.Completed on November 24, 2020 Came for follow-up, denies any specific complaints, no fever chills, no nausea or vomiting, no diarrhea or constipation, no hemoptysis hematemesis, no new bony pains, no shortness of breath, no headaches blurred vision or double vision Medications: Albuterol Sulfate 2 Puff(s) (of 108 (90 base) mcg/act) Aerosol Powder, Breath Activated Inhalation four times a day, amLODIPine Besylate 1 (5 mg) Tablet Oral daily, Atorvastatin Calcium 0.5 Tablet (of 40 mg) Oral daily, Cyanocobalamin 1 (1000 mcg) Tablet Oral daily, Fluticasone Propionate 2 Jasper(s) (of 50 mcg/act) Suspension Nasal daily, Folic Acid 1 (1 mg) Tablet Oral daily, Furosemide 1 Tablet (of 40 mg) Oral daily, HydrALAZINE HCl 1 Tablet (of 50 mg) Oral t.i.d., Isosorbide Mononitrate ER 1 Tablet (of 30 mg) Tablet SR 24 HR Oral daily, Latanoprost 1 Drop(s) (of 0.005 %) Solution Ophthalmic daily, Levothyroxine Sodium 1 (50 mcg) Tablet Oral daily, Magnesium 1 Tablet (of 400 mg) Oral at bedtime, Metoprolol Tartrate 0.5 Tablet (of 50 mg) Oral daily, Olodaterol HCl 2 Puff(s) (of 2.5 mcg/act) Aerosol, solution Inhalation daily, Potassium Chloride ER 0.5 Tablet (of 20 meq) Capsule, controlled release Oral b.i.d., Spironolactone 0.5 Tablet (of 25 mg) Oral b.i.d., Tamsulosin HCl 1 Capsule (of 0.4 mg) Oral daily, Triamcinolone Acetonide (0.5 %) Cream Topical Take as Directed, Vitamin C 1 Capsule (of 500 mg) Oral daily Allergies: No Known Allergies. Review of Systems: Review of Systems is not available for this patient. Vital Signs: Performed on Jan 09, 2021 09:25 Height - 65.50 in Weight - 267.6 lbs (HIGH) BSA - 2.25 sq.m BMI - 43.85 (HIGH) Temperature - 98.4 F Pulse - 72 /min Respiration - 18 /min BP - 142/60 mm(hg) (HIGH) O2 Sat - 95 % (LOW) Pain - 0 Fatigue - 0 Performance Status: 0 - Fully active, able to carry on all predisease activities without restrictions. (ECOG) Physical Examination: ENMT - No mouth sores, no thrush, no jaundice, Respiratory - Lungs are clear to auscultation, Cardiovascular - Regular rate and rhythm of heart, Abdomen - Soft, bowel sounds present, Extremities - No visible edema. Lab/Imaging: Most recent lab results are not available for this patient. Impression: Mr. Cherry is a 80-year-old gentleman with right upper lobe lung cancer: invasive poorly differentiated squamous cell carcinoma. This diagnosis was confirmed by CT guided biopsy of the right upper lobe on 09/13/2017. He also had an abnormal PET/CT done on 09/28/2017. The PET showed a 1.7 cm pulmonary nodule in the right lower lobe with an SUV of 6.5. There was a 3 x 1.7 cm mass in the central right upper lobe with SUV of 7.2. There was superior and inferior right paratracheal lymphadenopathy with increased FDG uptake. Although scattered the mediastinal nodules were radiographically benign and FDG negative. It was noted that he did have bilateral pleural effusion with the right being larger than the left. He underwent MRI I of the brain on 11/01/2017 there was no evidence of metastatic disease at that time. The arrangement I Fish on the lung biopsy from 11/01/2017 is reported as negative the PDL???L1 IHC is negative there is no PD-L1 expression. PD-L1 IHC 28???8 was also reported as less than 1%. Clinical stage T4 ipsilateral satellite lesion in different lobe. N 1 or 2 ,Mx stage IIIA 2. COPD 3. Glaucoma and cataracts 4. Hypercholesterolemia/hyperlipidemia 5. Hypertension 6. Chronic, controlled depression s/p combined therapy with radiation and chemotherapy. to the primary and SB RT to the right lower lobe, first chemotherapy treatment on 11/25/2017. till 01/08/18 On week 4, 30 minutes after starting the Carboplatin, he developed hypertension, shortness of breath and chest pain. The Carboplatin was stopped and he was given sublingual nitroglycerin and his symptoms resolved. The Carboplatin has been stopped. He continued with paclitaxel with his last dose on 01/06/2018. He had recent admission for pneumonia and is labs at that time showed progressive anemia/dermal cytopenia. started on maintenance therapy with durvalumab. He began his first dose on 02/24/2018. He completed durvalumab on January 12, 2019. He had restaging imaging with CT of the chest on 05/30/2018. There is no evidence of disease progression with overall stable appearance of the right upper and lower lobe parenchymal opacity and not hilar lymphadenopathy. He continues with treatment at this time. He did have elevation of the TSH was started on Synthroid. His TSH remained stable. Follow-up CT PET scan done on 09/27/2018 showed the right lower lobe nodule seen on prior study done on 09/28/2017 was subcentimeter in size and FDG negative. The central right upper lobe lesion measures 1.5 x 0.7 cm with FDG activity frequent to mediastinal blood pool, this pattern is typical for inflammation Although a small amount of residual disease cannot be excluded . The inferior right paratracheal node was largely calcified, with mild residual activity activity that may be inflammatory. The superior right paratracheal node was calcified and FDG negative. Findings are indicative of good response to the therapy . Follow-up CT PET scan done on April 30, 2020 showed 1.8 cm right upper lobe nodule with SUV of 14.5. Mr Cherry was referred to [facility] for evaluation where he was seen by Dr. Wolf, who recommended follow-up CT PET scan as patient was not a candidate for surgical resection or further radiation therapy and if follow-up CT PET scan done in 3 months shows disease progression, consider systemic chemotherapy with Taxotere or Navelbine. Follow-up CT PET scan done on July 30, 2020 shows right upper lobe nodule now measures 2.4 x 2.1 cm with SUV of 13.9 compared to 1.8 cm with SUV 14.5 previously Follow-up CT PET scan done on September 24, 2020 showed significant increase in right apical lesion, now measuring 3.3 x 3 cm compared to 2.4 x 2.1 cm in July 2020 and SUV 16.6. Started on combined chemoradiation with split dose cisplatin/etoposide on October 18, 2020, Completed on November 24, 2020 Plan: . Discussed with patient regarding his labs white blood count 6.2 hemoglobin 12 hematocrit 36.9 platelets 160,000 compared to white blood count 3.1, hemoglobin 10.6 hematocrit 33.3 platelets 89,000 on November 30, 2020 Clinically, patient doing well with no new signs symptoms suggestive of disease progression, his follow-up CBC shows resolution of pancytopenia, At this point, as patient concluded his combined chemoradiation therapy on November 24, 2020, we will consider follow-up CT PET scan to assess disease response to combined chemoradiation therapy Patient return to clinic after CT PET scan for further discussion Signed By: Criss Ornelas M.D. <<Signature on File>>
== END 2021-01-17 23:59 | disposition home or self-care (01) ==
LOC: ONCMED 05:33
PROVIDERS: PCP Emergency Medicine Emergency Medical Services; Visit Provider Internal Medicine Hematology & Oncology
DX: C34.11 Malignant neoplasm of upper lobe, right bronchus or lung (principal); J44.9 Chronic obstructive pulmonary disease, unspecified; H40.9 Unspecified glaucoma; H26.9 Unspecified cataract; E78.00 Pure hypercholesterolemia, unspecified; E78.5 Hyperlipidemia, unspecified; I10 Essential (primary) hypertension; F32.9 Major depressive disorder, single episode, unspecified; Z79.899 Other long term (current) drug therapy; Z92.21 Personal history of antineoplastic chemotherapy; Z92.3 Personal history of irradiation
CPT/HCPCS: 36591; 80053; 85025; 99024; 99214

== ENCOUNTER 2021-01-20 05:56 | Outpatient (RCR) | payer OTHER, MEDICARE, SELFPAY ==
--- NOTE | 2021-01-20 12:15 | ONC FU_ITS ---
Dr. Ornelas follow up note Patient: Venkat Cherry Unit #: [id number]: [id number] Dicatated By: Criss Ornelas M.D.Date of Visit:Jan 20, 2021 Onc Med Follow-up/Prog Note History of Present Illness: Mr. Cherry is a 80-year-old gentleman with a [id number] history of smoking. He had presented to his primary care at the [facility] with concerns of weakness and hemoptysis. He also reported increased shortness of breath for a month. It had significantly worsened on 2 weeks prior to his presentation to the PCP. He had had progressive fluid retention at that time as well. Dr. Noe has requested workup of his concerns which included a CT of the chest at that time he had finding of a right lung mass. The CT reported right upper lobe and lower lobe mass with mesangial lymphadenopathy. He did undergo CT-guided needle biopsy of the right lung mass on 09/13/2017. 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 The pathology reported ALK rearrangement by FISH as negative and PD-L1 IHC as negative. The PD-L1 IHC 28???8 was reported as less than 1%. Mr. Cherry had PET/CT on 09/28/2017. The findings were reported as: A 1.7 cm pulmonary nodule in the right lower lobe with SUV of 6.5. A 3 x 1.7 cm lesion in the central right upper lobe with SUV of 7.2; superior and inferior right paratracheal lymphadenopathy consistent with local metastatic disease. Inferior, right paratracheal node measures 1.9 x 2.3 cm with an SUV of 9.8; other scattered mediastinal nodes are radiographically benign and FDG negative. Bilateral pleural effusions. Malignant effusions could not be excluded. on 11/25/2017. s/p concurrent therapy with weekly carboplatin and paclitaxel and radiation to the primary and SBRT to the right lower lobe nodule . He began his first dose of weekly carboplatin and paclitaxel on 11/25/2017. till 01/08/18 . Mr Cherry was started on maintenance immunotherapy with Imfinzi on 02/24/2018. On Synthroid 25 ???g by mouth daily for newly diagnosed hypothyroidism probably due to immunotherapy He had restaging imaging with CT of the chest on 05/30/2018. There is no evidence of disease progression with overall stable appearance of the right upper and lower lobe parenchymal opacity and not hilar lymphadenopathy. Follow-up PET CT from 09/27/2018 reports near resolution of the right lung nodules and mediastinal nodes, indicating a positive response to therapy. There was resolution of bilateral pleural effusions. Mr. Cherry continues with Imfinzi treatment every 2 weeks. and Completed 24 doses on 01/12/2019 Follow-up CT PET scan done on 03/14/2019 showed central right upper lobe nodule measures roughly 9 mm with SUV of 3.5, compared to 15 x [address] PET scan done on 09/27/2018 and there has been no change in 7 mm right lung base nodule. Mild reactive activity in bilateral hilar and mediastinum is unchanged. Follow-up CT PET scan done on 07/11/2019, showed decreasing FDG uptake in the right upper lobe nodule, sporting and inflammatory diagnosis, no change in reactive mediastinal lymph nodes, no evidence of distant metastatic disease. Follow-up CT scan of chest done on April 20, 2020 showed spiculated right upper lobe neoplasm has progressed, now measures 1.6 x 2.1 x 1.8 compared to 1.2 x 1.1 x 0.8 cm previously and surrounding infiltrates are similar in appearance. Enlarged right hilar lymph node measuring 1.5 cm. No other lymphadenopathy. Right lower lobe opacity along posterior mediastinum measures 7 mm, unchanged since January 2018. Moderate chronic emphysematous changes. No other abnormality seen , still smoking about half pack a day. Follow-up CT PET scan done on July 30, 2020 showed right upper lobe nodule now measures 2.4 x 2.1 cm with SUV of 13.9 compared to 1.8 cm with SUV of 14.5 previously, indicates progression of disease. Guardant 360 done on August 19, 2019 showed no obvious targetable mutation Including MSI/MMR intact Follow-up CT PET scan done on September 24, 2020 showed significant increase in right apex lesion now measuring 3 x 3.3 cm with SUV of 16.6, no other lesions seen. Mr Cherry was referred to radiation oncology for evaluation for SBRT to the right apical lesion but with the follow-up CT PET scan showing disease progression, his treatment plan was changed to combined chemoradiation. He began Split dose Cisplatin/Etoposide, q. 28 days x 2 concurrent with daily radiation on October 18, 2020.Completed on November 24, 2020 Follow-up CT PET scan done on January 14, 2021 shows excellent response, right lung apex lesion now measuring 2.1 cm compared to 3.3 x 3 cm on September 24, 2020 and now SUV is 3.5 compared to 16.6 previously and mild,Right hilar activity is likely inflammatory. Came for follow-up, denies any specific complaints, no fever chills, no nausea or vomiting, no diarrhea constipation, no hemoptysis or hematemesis Medications: Albuterol Sulfate 2 Puff(s) (of 108 (90 base) mcg/act) Aerosol Powder, Breath Activated Inhalation four times a day, amLODIPine Besylate 1 (5 mg) Tablet Oral daily, Atorvastatin Calcium 0.5 Tablet (of 40 mg) Oral daily, Cyanocobalamin 1 (1000 mcg) Tablet Oral daily, Fluticasone Propionate 2 [place](s) (of 50 mcg/act) Suspension Nasal daily, Folic Acid 1 (1 mg) Tablet Oral daily, Furosemide 1 Tablet (of 40 mg) Oral daily, HydrALAZINE HCl 1 Tablet (of 50 mg) Oral t.i.d., Isosorbide Mononitrate ER 1 Tablet (of 30 mg) Tablet SR 24 HR Oral daily, Latanoprost 1 Drop(s) (of 0.005 %) Solution Ophthalmic daily, Levothyroxine Sodium 1 (50 mcg) Tablet Oral daily, Magnesium 1 Tablet (of 400 mg) Oral at bedtime, Metoprolol Tartrate 0.5 Tablet (of 50 mg) Oral daily, Olodaterol HCl 2 Puff(s) (of 2.5 mcg/act) Aerosol, solution Inhalation daily, Potassium Chloride ER 0.5 Tablet (of 20 meq) Capsule, controlled release Oral b.i.d., Spironolactone 0.5 Tablet (of 25 mg) Oral b.i.d., Tamsulosin HCl 1 Capsule (of 0.4 mg) Oral daily, Triamcinolone Acetonide (0.5 %) Cream Topical Take as Directed, Vitamin C 1 Capsule (of 500 mg) Oral daily Allergies: No Known Allergies. Review of Systems: Review of Systems is not available for this patient. Vital Signs: Performed on Jan 20, 2021 09:18 Height - 65.50 in Weight - 267.8 lbs (HIGH) BSA - 2.25 sq.m BMI - 43.89 (HIGH) Temperature - 98.6 F Pulse - 80 /min Respiration - 18 /min BP - 195/104 mm(hg) (HIGH) O2 Sat - 98 % Pain - 0 Fatigue - 0 Performance Status: 0 - Fully active, able to carry on all predisease activities without restrictions. (ECOG) Physical Examination: ENMT - No mouth sores, no thrush, no jaundice, Respiratory - Lungs are clear to auscultation, Cardiovascular - Regular rate and rhythm of heart, Abdomen - Soft, bowel sounds present, Extremities - No visible edema. Lab/Imaging: Most recent lab results are not available for this patient. Impression: Mr. Cherry is a 80-year-old gentleman with right upper lobe lung cancer: invasive poorly differentiated squamous cell carcinoma. This diagnosis was confirmed by CT guided biopsy of the right upper lobe on 09/13/2017. He also had an abnormal PET/CT done on 09/28/2017. The PET showed a 1.7 cm pulmonary nodule in the right lower lobe with an SUV of 6.5. There was a 3 x 1.7 cm mass in the central right upper lobe with SUV of 7.2. There was superior and inferior right paratracheal lymphadenopathy with increased FDG uptake. Although scattered the mediastinal nodules were radiographically benign and FDG negative. It was noted that he did have bilateral pleural effusion with the right being larger than the left. He underwent MRI I of the brain on 11/01/2017 there was no evidence of metastatic disease at that time. The arrangement I Fish on the lung biopsy from 11/01/2017 is reported as negative the PDL???L1 IHC is negative there is no PD-L1 expression. PD-L1 IHC 28???8 was also reported as less than 1%. Clinical stage T4 ipsilateral satellite lesion in different lobe. N 1 or 2 ,Mx stage IIIA 2. COPD 3. Glaucoma and cataracts 4. Hypercholesterolemia/hyperlipidemia 5. Hypertension 6. Chronic, controlled depression s/p combined therapy with radiation and chemotherapy. to the primary and SB RT to the right lower lobe, first chemotherapy treatment on 11/25/2017. till 01/08/18 On week 4, 30 minutes after starting the Carboplatin, he developed hypertension, shortness of breath and chest pain. The Carboplatin was stopped and he was given sublingual nitroglycerin and his symptoms resolved. The Carboplatin has been stopped. He continued with paclitaxel with his last dose on 01/06/2018. He had recent admission for pneumonia and is labs at that time showed progressive anemia/dermal cytopenia. started on maintenance therapy with durvalumab. He began his first dose on 02/24/2018. He completed durvalumab on January 12, 2019. He had restaging imaging with CT of the chest on 05/30/2018. There is no evidence of disease progression with overall stable appearance of the right upper and lower lobe parenchymal opacity and not hilar lymphadenopathy. He continues with treatment at this time. He did have elevation of the TSH was started on Synthroid. His TSH remained stable. Follow-up CT PET scan done on 09/27/2018 showed the right lower lobe nodule seen on prior study done on 09/28/2017 was subcentimeter in size and FDG negative. The central right upper lobe lesion measures 1.5 x 0.7 cm with FDG activity frequent to mediastinal blood pool, this pattern is typical for inflammation Although a small amount of residual disease cannot be excluded . The inferior right paratracheal node was largely calcified, with mild residual activity activity that may be inflammatory. The superior right paratracheal node was calcified and FDG negative. Findings are indicative of good response to the therapy . Follow-up CT PET scan done on April 30, 2020 showed 1.8 cm right upper lobe nodule with SUV of 14.5. Mr Cherry was referred to [facility] for evaluation where he was seen by Dr. Wolf, who recommended follow-up CT PET scan as patient was not a candidate for surgical resection or further radiation therapy and if follow-up CT PET scan done in 3 months shows disease progression, consider systemic chemotherapy with Taxotere or Navelbine. Follow-up CT PET scan done on July 30, 2020 shows right upper lobe nodule now measures 2.4 x 2.1 cm with SUV of 13.9 compared to 1.8 cm with SUV 14.5 previously Follow-up CT PET scan done on September 24, 2020 showed significant increase in right apical lesion, now measuring 3.3 x 3 cm compared to 2.4 x 2.1 cm in July 2020 and SUV 16.6. Started on combined chemoradiation with split dose cisplatin/etoposide on October 18, 2020, Completed on November 24, 2020 follow-up CT PET scan done on January 14, 2021 shows marked interval improvement in the right apical lesion, now 2.1 cm with SUV of 3.6 compared to 3.3 x 3 cm and SUV of 16.6 on September 24, 2020, prior to the combined chemoradiation therapy and also shows mild, superior right hilar activity is likely inflammatory Plan: . Discussed with patient regarding his labs white blood count 6.2 hemoglobin 12 hematocrit 36.9 platelets 160,000 CMP within normal limits and follow-up CT PET scan done on January 14, 2021 shows marked interval improvement in the right apical lesion, now 2.1 cm with SUV of 3.6 compared to 3.3 x 3 cm and SUV of 16.6 on September 24, 2020, prior to the combined chemoradiation therapy and also shows mild, superior right hilar activity is likely inflammatory Clinically, patient doing well with no new signs symptoms just of recurrence of disease, overall feeling well and his follow-up CT PET scan shows excellent response, At this point, we will continue to observe and he will return to clinic in 3 months with CBC CMP and follow-up CT PET scan in the meantime he will continue with monthly port maintenance Signed By: Criss Ornelas M.D. <<Signature on File>>
== END 2021-02-16 23:59 | disposition home or self-care (01) ==
LOC: ONCMED 05:56
PROVIDERS: PCP Emergency Medicine Emergency Medical Services; Visit Provider Internal Medicine Hematology & Oncology
DX: Z08 Encounter for follow-up examination after completed treatment for malignant neoplasm (principal); Z85.118 Personal history of other malignant neoplasm of bronchus and lung; J44.9 Chronic obstructive pulmonary disease, unspecified; H40.9 Unspecified glaucoma; H26.9 Unspecified cataract; E78.00 Pure hypercholesterolemia, unspecified; E78.5 Hyperlipidemia, unspecified; I10 Essential (primary) hypertension; F32.9 Major depressive disorder, single episode, unspecified; Z92.21 Personal history of antineoplastic chemotherapy; Z92.3 Personal history of irradiation
CPT/HCPCS: 96523; 99214

== ENCOUNTER 2021-02-21 06:37 | Outpatient (RCR) | payer OTHER, SELFPAY | END 2021-03-19 23:59 | disposition home or self-care (01) | LOC: ONCMED 06:37 | PROVIDERS: PCP Emergency Medicine Emergency Medical Services; Visit Provider Internal Medicine Hematology & Oncology | DX: Z45.2 Encounter for adjustment and management of vascular access device (principal) | CPT/HCPCS: 96523 ==

== ENCOUNTER 2021-03-21 06:37 | Outpatient (RCR) | payer OTHER, SELFPAY | END 2021-04-18 23:59 | disposition home or self-care (01) | LOC: ONCMED 06:37 | PROVIDERS: PCP Emergency Medicine Emergency Medical Services; Visit Provider Internal Medicine Hematology & Oncology | DX: Z45.2 Encounter for adjustment and management of vascular access device (principal) | CPT/HCPCS: 96523 ==

== ENCOUNTER 2021-05-04 06:35 | Outpatient (RCR) | payer OTHER, SELFPAY ==
[2021-05-04 13:22] LABS: Basophils % 0.5 %; Eosinophils # 0.1 10^3/uL (0.0-0.8); Eosinophils % 1.3 %; Hematocrit 36.3 % (42.0-52.0); Hemoglobin 11.6 g/dL (11.7-16.6); Lymphocytes # 1.1 10^3/uL (0.8-4.8); Lymphocytes % 14.2 %; Mean Corpuscular Hemoglobin 30.9 pg (28.0-34.0); Mean Corpuscular Volume 96.5 fl (80-94); Mean Platelet Volume 9.7 fL (7.4-10.4); Monocytes # 0.6 10^3/uL (0.2-0.9); Monocytes % 7.6 %; Neutrophils # 5.87 10^3/uL (1.8-7.7); Neutrophils % 75.2 %; Nucleated Red Blood Cells % 0 %; Platelet Count 213 10^3/cmm (130-400); Red Blood Count 3.76 10^6/uL (4.1-5.3); Red Cell Distribution Width 13.9 % (12.1-15.1); White Blood Count 7.8 10^3/uL (4.0-10.0)
[2021-05-04 13:39] LABS: Alanine Aminotransferase 12 U/L (0-41); Albumin Level 3.5 g/dL (3.5-5.2); Alkaline Phosphatase 89 IU/L (40-130); Anion Gap 16.8 (5-19); Aspartate Amino Transferase 9 U/L (0-40); Blood Urea Nitrogen 13 mg/dL (8-23); Calcium 8.8 mg/dL (8.5-10.5); Carbon Dioxide 28 mmol/L (22-29); Chloride 97 mmol/L (98-107); Globulin 2.5 g/dL (1.3-4.6); Glucose 87 mg/dL (65-115); Osmolality Calculated 285 mOsm/kg (285-295); Potassium 3.8 mmol/L (3.5-5.1); Sodium 138 mmol/L (136-145); Total Bilirubin 0.2 mg/dL (0.15-1.2)
--- NOTE | 2021-05-04 17:53 | ONC FU_ITS ---
Dr. Ornelas follow up note Patient: Venkat Cherry Unit #: [id number]: 1940 Dicatated By: Criss Ornelas M.D.Date of Visit:May 04, 2021 Onc Med Follow-up/Prog Note History of Present Illness: Mr. Cherry is a 80-year-old gentleman with a [id number] history of smoking. He had presented to his primary care at the [facility] with concerns of weakness and hemoptysis. He also reported increased shortness of breath for a month. It had significantly worsened on 2 weeks prior to his presentation to the PCP. He had had progressive fluid retention at that time as well. Dr. Noe has requested workup of his concerns which included a CT of the chest at that time he had finding of a right lung mass. The CT reported right upper lobe and lower lobe mass with mesangial lymphadenopathy. He did undergo CT-guided needle biopsy of the right lung mass on 09/13/2017. 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 The pathology reported ALK rearrangement by FISH as negative and PD-L1 IHC as negative. The PD-L1 IHC 28???8 was reported as less than 1%. Mr. Cherry had PET/CT on 09/28/2017. The findings were reported as: A 1.7 cm pulmonary nodule in the right lower lobe with SUV of 6.5. A 3 x 1.7 cm lesion in the central right upper lobe with SUV of 7.2; superior and inferior right paratracheal lymphadenopathy consistent with local metastatic disease. Inferior, right paratracheal node measures 1.9 x 2.3 cm with an SUV of 9.8; other scattered mediastinal nodes are radiographically benign and FDG negative. Bilateral pleural effusions. Malignant effusions could not be excluded. on 11/25/2017. s/p concurrent therapy with weekly carboplatin and paclitaxel and radiation to the primary and SBRT to the right lower lobe nodule . He began his first dose of weekly carboplatin and paclitaxel on 11/25/2017. till 01/08/18 . Mr Cherry was started on maintenance immunotherapy with Imfinzi on 02/24/2018. On Synthroid 25 ???g by mouth daily for newly diagnosed hypothyroidism probably due to immunotherapy He had restaging imaging with CT of the chest on 05/30/2018. There is no evidence of disease progression with overall stable appearance of the right upper and lower lobe parenchymal opacity and not hilar lymphadenopathy. Follow-up PET CT from 09/27/2018 reports near resolution of the right lung nodules and mediastinal nodes, indicating a positive response to therapy. There was resolution of bilateral pleural effusions. Mr. Cherry continues with Imfinzi treatment every 2 weeks. and Completed 24 doses on 01/12/2019 Follow-up CT PET scan done on 03/14/2019 showed central right upper lobe nodule measures roughly 9 mm with SUV of 3.5, compared to 15 x [address] PET scan done on 09/27/2018 and there has been no change in 7 mm right lung base nodule. Mild reactive activity in bilateral hilar and mediastinum is unchanged. Follow-up CT PET scan done on 07/11/2019, showed decreasing FDG uptake in the right upper lobe nodule, sporting and inflammatory diagnosis, no change in reactive mediastinal lymph nodes, no evidence of distant metastatic disease. Follow-up CT scan of chest done on April 20, 2020 showed spiculated right upper lobe neoplasm has progressed, now measures 1.6 x 2.1 x 1.8 compared to 1.2 x 1.1 x 0.8 cm previously and surrounding infiltrates are similar in appearance. Enlarged right hilar lymph node measuring 1.5 cm. No other lymphadenopathy. Right lower lobe opacity along posterior mediastinum measures 7 mm, unchanged since January 2018. Moderate chronic emphysematous changes. No other abnormality seen , still smoking about half pack a day. Follow-up CT PET scan done on July 30, 2020 showed right upper lobe nodule now measures 2.4 x 2.1 cm with SUV of 13.9 compared to 1.8 cm with SUV of 14.5 previously, indicates progression of disease. Guardant 360 done on August 19, 2019 showed no obvious targetable mutation Including MSI/MMR intact Follow-up CT PET scan done on September 24, 2020 showed significant increase in right apex lesion now measuring 3 x 3.3 cm with SUV of 16.6, no other lesions seen. Mr Cherry was referred to radiation oncology for evaluation for SBRT to the right apical lesion but with the follow-up CT PET scan showing disease progression, his treatment plan was changed to combined chemoradiation. He began Split dose Cisplatin/Etoposide, q. 28 days x 2 concurrent with daily radiation on October 18, 2020.Completed on November 24, 2020 Follow-up CT PET scan done on January 14, 2021 shows excellent response, right lung apex lesion now measuring 2.1 cm compared to 3.3 x 3 cm on September 24, 2020 and now SUV is 3.5 compared to 16.6 previously and mild,Right hilar activity is likely inflammatory. Follow-up PET scan done on April 29, 2021 shows persistent right lung apex nodule currently measures approximately 1.6 x 1.8 cm has SUV of 8.8 compared to 2.1 cm and with SUV of 3.5 on January 14, 2021 and also shows. Right hilar lymph node has SUV of 4.5, Consistent with recurrence Came for follow-up, complaining of cough with whitish phlegm and wheezing and substernal discomfort, as per patient when he breathe in warm air it helps his substernal discomfort. Denies any hemoptysis or hematemesis, denies any nausea or vomiting, denies any diarrhea or constipation, patient on home oxygen Medications: Albuterol Sulfate 2 Puff(s) (of 108 (90 base) mcg/act) Aerosol Powder, Breath Activated Inhalation four times a day, amLODIPine Besylate 1 (5 mg) Tablet Oral daily, Atorvastatin Calcium 0.5 Tablet (of 40 mg) Oral daily, Cyanocobalamin 1 (1000 mcg) Tablet Oral daily, Fluticasone Propionate 2 [place](s) (of 50 mcg/act) Suspension Nasal daily, Folic Acid 1 (1 mg) Tablet Oral daily, Furosemide 1 Tablet (of 40 mg) Oral daily, HydrALAZINE HCl 1 Tablet (of 50 mg) Oral t.i.d., Isosorbide Mononitrate ER 1 Tablet (of 30 mg) Tablet SR 24 HR Oral daily, Latanoprost 1 Drop(s) (of 0.005 %) Solution Ophthalmic daily, Levothyroxine Sodium 1 (50 mcg) Tablet Oral daily, Magnesium 1 Tablet (of 400 mg) Oral at bedtime, Metoprolol Tartrate 0.5 Tablet (of 50 mg) Oral daily, Olodaterol HCl 2 Puff(s) (of 2.5 mcg/act) Aerosol, solution Inhalation daily, Potassium Chloride ER 0.5 Tablet (of 20 meq) Capsule, controlled release Oral b.i.d., Spironolactone 0.5 Tablet (of 25 mg) Oral b.i.d., Tamsulosin HCl 1 Capsule (of 0.4 mg) Oral daily, Triamcinolone Acetonide (0.5 %) Cream Topical Take as Directed, Vitamin C 1 Capsule (of 500 mg) Oral daily Allergies: No Known Allergies. Review of Systems: Review of Systems is not available for this patient. Vital Signs: Performed on May 04, 2021 16:04 Height - 65.50 in Weight - 282.2 lbs (HIGH) BSA - 2.30 sq.m BMI - 46.25 (HIGH) Temperature - 100.0 F (HIGH) Pulse - 104 /min (HIGH) Respiration - 18 /min BP - 170/76 mm(hg) (HIGH) O2 Sat - 93 % (LOW) Pain - 0 Fatigue - 5 Performance Status: 1 - No physically strenuous activity, but ambulatory and able to carry out light or sedentary work (e.g. office work, light house work). (ECOG) Physical Examination: ENMT - No mouth sores, no thrush, no jaundice, Respiratory - Bilateral wheezing, Cardiovascular - Regular rate and rhythm of heart, Abdomen - Soft, bowel sounds present, Extremities - 1+ edema bilaterally. Lab/Imaging: Most recent lab results are not available for this patient. Impression: Mr. Cherry is a 80-year-old gentleman with right upper lobe lung cancer: invasive poorly differentiated squamous cell carcinoma. This diagnosis was confirmed by CT guided biopsy of the right upper lobe on 09/13/2017. He also had an abnormal PET/CT done on 09/28/2017. The PET showed a 1.7 cm pulmonary nodule in the right lower lobe with an SUV of 6.5. There was a 3 x 1.7 cm mass in the central right upper lobe with SUV of 7.2. There was superior and inferior right paratracheal lymphadenopathy with increased FDG uptake. Although scattered the mediastinal nodules were radiographically benign and FDG negative. It was noted that he did have bilateral pleural effusion with the right being larger than the left. He underwent MRI I of the brain on 11/01/2017 there was no evidence of metastatic disease at that time. The arrangement I Fish on the lung biopsy from 11/01/2017 is reported as negative the PDL???L1 IHC is negative there is no PD-L1 expression. PD-L1 IHC 28???8 was also reported as less than 1%. Clinical stage T4 ipsilateral satellite lesion in different lobe. N 1 or 2 ,Mx stage IIIA 2. COPD 3. Glaucoma and cataracts 4. Hypercholesterolemia/hyperlipidemia 5. Hypertension 6. Chronic, controlled depression s/p combined therapy with radiation and chemotherapy. to the primary and SB RT to the right lower lobe, first chemotherapy treatment on 11/25/2017. till 01/08/18 On week 4, 30 minutes after starting the Carboplatin, he developed hypertension, shortness of breath and chest pain. The Carboplatin was stopped and he was given sublingual nitroglycerin and his symptoms resolved. The Carboplatin has been stopped. He continued with paclitaxel with his last dose on 01/06/2018. He had recent admission for pneumonia and is labs at that time showed progressive anemia/dermal cytopenia. started on maintenance therapy with durvalumab. He began his first dose on 02/24/2018. He completed durvalumab on January 12, 2019. He had restaging imaging with CT of the chest on 05/30/2018. There is no evidence of disease progression with overall stable appearance of the right upper and lower lobe parenchymal opacity and not hilar lymphadenopathy. He continues with treatment at this time. He did have elevation of the TSH was started on Synthroid. His TSH remained stable. Follow-up CT PET scan done on 09/27/2018 showed the right lower lobe nodule seen on prior study done on 09/28/2017 was subcentimeter in size and FDG negative. The central right upper lobe lesion measures 1.5 x 0.7 cm with FDG activity frequent to mediastinal blood pool, this pattern is typical for inflammation Although a small amount of residual disease cannot be excluded . The inferior right paratracheal node was largely calcified, with mild residual activity activity that may be inflammatory. The superior right paratracheal node was calcified and FDG negative. Findings are indicative of good response to the therapy . Follow-up CT PET scan done on April 30, 2020 showed 1.8 cm right upper lobe nodule with SUV of 14.5. Mr Cherry was referred to [facility] for evaluation where he was seen by Dr. Wolf, who recommended follow-up CT PET scan as patient was not a candidate for surgical resection or further radiation therapy and if follow-up CT PET scan done in 3 months shows disease progression, consider systemic chemotherapy with Taxotere or Navelbine. Follow-up CT PET scan done on July 30, 2020 shows right upper lobe nodule now measures 2.4 x 2.1 cm with SUV of 13.9 compared to 1.8 cm with SUV 14.5 previously Follow-up CT PET scan done on September 24, 2020 showed significant increase in right apical lesion, now measuring 3.3 x 3 cm compared to 2.4 x 2.1 cm in July 2020 and SUV 16.6. Started on combined chemoradiation with split dose cisplatin/etoposide on October 18, 2020, Completed on November 24, 2020 follow-up CT PET scan done on January 14, 2021 shows marked interval improvement in the right apical lesion, now 2.1 cm with SUV of 3.6 compared to 3.3 x 3 cm and SUV of 16.6 on September 24, 2020, prior to the combined chemoradiation therapy and also shows mild, superior right hilar activity is likely inflammatory Plan: . Discussed with patient regarding his labs white blood count 7.8 hemoglobin 11.6 hematocrit 36.3 platelets 213,000 CMP within normal limits and follow-up CT PET scan done on April 29, 2021 which showed right lung apex nodule is 1.6 x 1.8 cm compared to 2.1 cm earlier but SUV has gone up to 8.8 compared to 3.5 in December 2020 and also superior right hilar lymph node shows SUV of 4.5, as per radiologist represent recurrence Clinically, patient doing well with no signs symptom suggestive of recurrence of disease but in mild to moderate distress due to bronchial wheezing and cough and off-and-on substernal chest discomfort with cough. Patient has not seen pulmonology., Clinically it appears patient is having COPD exacerbation, will give him prescription for Z-Petros and Medrol Dosepak, as per patient [facility] case was discussed with Harriet nurse at [facility] in [place] and at her request, prescription was faxed to her and she was also advised to get pulmonology consultation for COPD management as well right lung apex nodule biopsy if possible. Case was discussed with Dr. Montoya, radiologist who read the CT PET scan, his impression is, it appears patient is having recurrence of disease but with underlying bronchitis can influence SUV value too so follow-up CT PET scan in a couple of months, as CT scan Chest may not be helpful because recurrence is considered based on increasing SUV value. Other option would be transbronchial biopsy or CT scan guided biopsy of right apical lesion.So we will suggest his PMD, to refer patient to pulmonology for evaluation of right apical mass as well as COPD management Patient return to clinic in 1 month with CBC CMP and will discuss further at that time, Patient was advised to go to the emergency room if there is a worsening of his shortness of breath or other symptoms Signed By: Criss Ornelas M.D. <<Signature on File>>
== END 2021-05-19 23:59 | disposition home or self-care (01) ==
LOC: ONCMED 06:35
PROVIDERS: PCP Emergency Medicine Emergency Medical Services; Visit Provider Internal Medicine Hematology & Oncology
DX: C34.11 Malignant neoplasm of upper lobe, right bronchus or lung (principal); J90 Pleural effusion, not elsewhere classified; J44.1 Chronic obstructive pulmonary disease with (acute) exacerbation; H40.9 Unspecified glaucoma; H26.9 Unspecified cataract; E78.00 Pure hypercholesterolemia, unspecified; E78.5 Hyperlipidemia, unspecified; I10 Essential (primary) hypertension; F33.9 Major depressive disorder, recurrent, unspecified; F17.210 Nicotine dependence, cigarettes, uncomplicated; Z92.21 Personal history of antineoplastic chemotherapy
CPT/HCPCS: 36591; 80053; 85025; 99214

== ENCOUNTER 2021-05-24 12:31 | Inpatient (IN) | payer OTHER, MEDICARE, SELFPAY ==
[2021-05-24] VITALS (11 sets, daily range): BP systolic 153–189; BP diastolic 73–86; PULSE 79–95; RESP 15–22; TEMP 36.8–37.3; O2SAT 90–96; BMI 28.1
--- NOTE | 2021-05-24 13:13 | W.ED.GENADLT ---
HPI - General Adult General: Chief complaint: Altered Mental Status Stated complaint: AMS/ LOW O2 SATS Time Seen by Provider: 05/24/21 12:42 History of Present Illness: HPI narrative: Patient is a 80-year-old male with history of COPD chronically on 3 L of oxygen presents the emergency room with concerns of altered mental status increased oxygen requirement. Per EMS, patient has not responded to his family for the last two days and family decided to check on him. Patient's family found him with an unplugged oxygen mahcine and thinks that he was off oxygen for 14 hrs. EMS was alerted and patient was brought to the ER for evaluation. In route, patient was noted to be satting at 63% that improved to 85% on 6 L Onset:1 day ago Duration:ongoing Location:home Severity:moderate Review of Systems Narrative: Constitutional: No fever, no chills. HEENT: No vision changes CV: No chest pain, no palpitations PULM: no cough, +dyspnea. GI: No abdominal pain, no N/V/D. : No dysuria MSKEL: No muscle pain SKIN: No new rashes, no lesions. NEURO: No headache, no focal weakness. HEME: No visible bruises PSYCH: Normal mood PFSH ED PFSH: Medical History Acute on chronic diastolic (congestive) heart failure Anemia BPH (benign prostatic hyperplasia) -on Flomax Bradycardia Cholelithiasis Chronic kidney disease -has some degree of CKD, unknown stage -superimposed BOOGIE, resolved -baseline Cr around 0.9 -continue to monitor renal function, avoid nephrotoxins, renally dose meds Depression Essential hypertension Glaucoma Heart failure with preserved ejection fraction -BNP-972 -Echo: limited study, EF=55%, G2DD -required BiPAP initially, now on NC -CXR with noted cardiomegaly, -on Lasix, Aldactone -difficult to monitor Is & Os due to inability to consistently use urinal Hyperlipidemia -on statin Hypertension Hypothyroidism Lung cancer Macrocytic anemia Morbid obesity Psoriasis Sigmoid diverticulosis Skin ulcer Surgical History H/O excision of epidermal inclusion cyst Normal colonoscopy In 2018 2019 Family History Denies family history of Anesthesia complication Bleeding disorder Lung disease Hypertension Social History Smoking and tobacco status: former smoker Alcohol intake: never Household members: spouse Housing: House Physical Exam Narrative: EXAM NARRATIVE: Head: Atraumatic Eyes: PERRL, conjunctiva without injection ENT: Mucous membrane moist NECK: Supple, ROM intact LUNGS: +Coarse breath sounds b/l CV: RRR ABDOMEN: Soft, nontender in all quadrants EXTREMITY: Normal ROM SKIN: No rash or erythema NEURO: Awake and alert, no focal motor deficits PSYCH: Normal mood and affect Course Vital Signs: Vital signs: Vital Signs Temperature 99.2 F 05/24/21 12:43 Pulse Rate 87 05/24/21 14:17 Respiratory Rate 22 H 05/24/21 13:40 Blood Pressure 189/86 05/24/21 12:43 Pulse Oximetry 96 05/24/21 14:17 MDM - General Adult MDM Narrative: Medical decision making narrative: 80-year-old male presents emergency room with concerns for wheezing and increased oxygen requirement and confusion. On exam, patient is noted to be satting on 95% on 8 L of oxygen. Patient is noted to have wheezing bilaterally. No increased work of breathing at this time. Patient is noted to have white count 10.1. PCO2 of 82, pH of 7.28 suggestive of acute hypercapnic respiratory distress. Patient was placed on BiPAP with setting 15/5 and 50%. She will be mated to hospital for COPD exacerbation in the setting of hypercapnia. Patient received DuoNeb x3 and solumedrol. Disposition: Admission Lab Data: Labs: Lab Results 05/24/21 05/24/21 05/24/21 13:38 13:38 13:38 WBC 10.1 10^3/uL H 10 ^3/uL (4.0-10.0) RBC 3.48 10^6/uL L 10 ^6/uL (4.1-5.3) Hgb 10.6 g/dL L g/dL (11.7-16.6) Hct 35.9 % L % (42.0-52.0) MCV 103.2 fl H fl (80-94) MCH 30.5 pg pg (28.0-34.0) MCHC 29.5 g/dL L g/dL (30.0-36.0) RDW 16.0 % H % (12.1-15.1) Plt Count 162 10^3/cmm 10^3 /cmm (130-400) MPV 9.9 fL fL (7.4-10.4) Neut % (Auto) 90.8 % % Lymph % (Auto) 4.3 % % Peach % (Auto) 3.0 % % Eos % (Auto) 0.0 % % Baso % (Auto) 0.3 % % Neut # (Auto) 9.13 10^3/uL H 10 ^3/uL (1.8-7.7) Lymph # (Auto) 0.4 10^3/uL L 10^ 3/uL (0.8-4.8) Peach # (Auto) 0.3 10^3/uL 10^3/ uL (0.2-0.9) Eos # (Auto) 0.0 10^3/uL 10^3/ uL (0.0-0.8) Baso # (Auto) 0.0 10^3/uL 10^3/ uL (0.0-0.1) Nucleated RBC % (a uto) 0 % % Nucleated RBCs # 0.0 /100WBC /100W BC Specimen Type Sample Site ABG pH ABG pCO2 ABG pO2 ABG HCO3 ABG O2 Saturation ABG Base Excess Edson Test A-a O2 Gradient Hematocrit Hgb O2 Saturation Carboxyhemoglobin Methemoglobin Total Hemoglobin Ionized Calcium O2 Delivery Device O2 Liters/Min Clerk Television Production ID Sodium 143 mmol/L mmol/L (136-145) Potassium 4.4 mmol/L mmol/L (3.5-5.1) Chloride 103 mmol/L mmol/L (98-107) Carbon Dioxide 30 mmol/L H mmol/ L (22-29) Anion Gap 14.4 (5-19) BUN 12 mg/dL mg/dL (8-23) Creatinine 0.6 mg/dL L mg/dL (0.7-1.2) GFR Calculation Not Reportable Glucose 106 mg/dL mg/dL (65-115) Calculated Osmolal ity 296 mOsm/kg H mOs m/kg (285-295) Calcium 7.1 mg/dL L mg/dL (8.5-10.5) Troponin T Baselin e 37 ng/L H ng/L (0-15) 05/24/21 13:39 WBC RBC Hgb Hct MCV MCH MCHC RDW Plt Count MPV Neut % (Auto) Lymph % (Auto) Peach % (Auto) Eos % (Auto) Baso % (Auto) Neut # (Auto) Lymph # (Auto) Peach # (Auto) Eos # (Auto) Baso # (Auto) Nucleated RBC % (a uto) Nucleated RBCs # Specimen Type Arterial Sample Site Radial, right ABG pH 7.28 L (7.35-7.45) ABG pCO2 81.6 mmHg H* mmHg (35-45) ABG pO2 68.8 mmHg L mmHg (80.0-100.0) ABG HCO3 38.1 mmol/L H mmo l/L (22-26) ABG O2 Saturation 91.7 ABG Base Excess 8.3 mmol/L H mmol /L (-2.0-2.0) Edson Test Pos A-a O2 Gradient Not Reportable Hematocrit 39.7 % L % (42-52) Hgb O2 Saturation 89.0 % L % (95-100) Carboxyhemoglobin 2.1 %THgb %THgb (0.4-20.1) Methemoglobin 0.8 % % (0.4-1.5) Total Hemoglobin 12.9 g/dL L g/dL (14-18) Ionized Calcium 1.2 mmol/L mmol/L (1.1-1.4) O2 Delivery Device Nc O2 Liters/Min 7.0 % % Clerk Television Production ID Amh Sodium 141.0 mmol/L mmol /L (131-143) Potassium 4.7 mmol/L mmol/L (3.5-5.0) Chloride Carbon Dioxide Anion Gap BUN Creatinine GFR Calculation Glucose 120.0 mg/dL H mg/ dL (70-115) Calculated Osmolal ity Calcium Troponin T Baselin e Imaging Data^: Other Imaging: Radiologist's impression: [address] [id number] ReportSigned Patient: Portia Cherry #: [id number]: 3Acct#:[id number]/Sex: 80 / MADM Date: 05/24/21Loc: ERRoom/Bed:Attending Dr: Ordering Provider/Ordering MD: Patricio Lim MD Date of Service: 05/24/21 Procedure(s): XR chest 1V portable [id number] Accession Number(s): [id number] Report Number: [id number] WS: [id number] Portable AP upright chest, 05/24/2021 Clinical Data: dyspnea Comparison: Portable chest, 10/12/2020 Findings: The patchy opacity in the right upper lobe is still present. There are now bilateral lower lobe patchy opacities which may represent worsening pneumonia. The right diaphragm is elevated. No nodules, masses or effusions are seen. The heart is enlarged. No pneumothorax is seen. There are old left third through fifth rib fractures. There is a left subclavian catheter which in the in the superior vena cava. XR/XR chest 1V portable [id number] Impression: 1. Patchy bilateral lower lobe opacities which may represent worsening pneumonia. 2. No change in right upper lobe opacity. 3. Cardiomegaly. Dictated By:Stephanie Luna MDSigned By:Stephanie Luna MDSigned Date/Time:05/24/21 1334DD/ 1329 Discharge Plan Discharge Prescriptions: No Action amlodipine 5 mg tablet 5 mg PO DAILY RF: 0 hydralazine 10 mg tablet 10 mg PO TID RF: 0 isosorbide mononitrate 30 mg tablet extended release 24 hr 30 mg PO DAILY RF: 0 lisinopril 20 mg tablet 20 mg PO DAILY RF: 0 metoprolol tartrate 25 mg tablet 25 mg PO BID RF: 0 latanoprost 0.005 % Drops 1 drp OPHTHALMIC (EYE) BEDTIME RF: 0 tamsulosin [Flomax] 0.4 mg Capsule 0.4 mg PO BEDTIME RF: 0 levothyroxine 50 mcg Tablet 50 mcg PO QAM RF: 0 atorvastatin 20 mg Tablet 20 mg PO DAILY RF: 0 magnesium oxide 400 mg magnesium Tablet 400 mg PO DAILY RF: 0 cyanocobalamin (vitamin B-12) 1,000 mcg Tablet 1,000 mcg PO DAILY RF: 0 folic acid 1 mg Tablet 1 mg PO DAILY RF: 0 albuterol sulfate 90 mcg/actuation Hfa Aerosol Inhaler 2 puff INHALATION QID PRN (Reason: Shortness Of Breath) RF: 0 fluticasone propionate [Flonase] 50 mcg/actuation [place],Suspension 2 spray INTRANASAL DAILY PRN (Reason: Allergy Symptoms) RF: 0 carboxymethylcellulose sodium 1 % Drops, Liquid Gel 2 drp ophthalmic (eye) QID PRN (Reason: Dry Eye(S)) RF: 0 olodaterol 2.5 mcg/actuation Mist 2 inh INHALATION DAILY RF: 0 furosemide 40 mg Tablet 40 mg PO QAM 30 Days Qty: 30 RF: 0 Coding Level of Care Code ED Insurance Verifier for Chg Kizzy
--- NOTE | 2021-05-24 13:17 | XR_ITS ---
WS: [id number] Portable AP upright chest, 05/24/2021 Clinical Data: dyspnea Comparison: Portable chest, 10/12/2020 Findings: The patchy opacity in the right upper lobe is still present. There are now bilateral lower lobe patchy opacities which may represent worsening pneumonia. The right diaphragm is elevated. No no dules, masses or effusions are seen. The heart is enlarged. No pneumothorax is seen. There are old le ft third through fifth rib fractures. There is a left subclavian catheter which in the in the superio r vena cava. XR/XR chest 1V portable [id number] Impression: 1. Patchy bilateral lower lobe opacities which may represent worsening pneumoni a. 2. No change in right upper lobe opacity. 3. Cardiomegaly.
--- NOTE | 2021-05-24 13:17 | ECG_ITS ---
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 Measurements Intervals [place] Rate: 92 P: 29 FL: 207 QRS: 54 QRSD: 98 T: 141 QT: 322 QTc: 398 Interpretive Statements SINUS RHYTHM WITH OCCASIONAL VENTRICULAR PREMATURE COMPLEXES POSSIBLE ANTERIOR MYOCARDIAL INFARCTION , OF INDETERMINATE AGE [30 ms Q WAVE IN V3/V4, OR R < 0.2 mV IN V4] Nonspecific T wave change Compared to ECG 11/02/2019 08:52:58 Ventricular premature complex(es) now present Myocardial infarct finding now present Electronically Signed On 05-26-2021 17:51:37 WELDING ESTIMATOR by Sariah Donnelly M.D. [id number]
[2021-05-24 13:47] LABS: Basophils % 0.3 %; Hematocrit 35.9 % (42.0-52.0); Hemoglobin 10.6 g/dL (11.7-16.6); Lymphocytes # 0.4 10^3/uL (0.8-4.8); Lymphocytes % 4.3 %; Mean Corpuscular HGB Conc 29.5 g/dL (30.0-36.0); Mean Corpuscular Hemoglobin 30.5 pg (28.0-34.0); Mean Corpuscular Volume 103.2 fl (80-94); Mean Platelet Volume 9.9 fL (7.4-10.4); Monocytes # 0.3 10^3/uL (0.2-0.9); Neutrophils # 9.13 10^3/uL (1.8-7.7); Neutrophils % 90.8 %; Nucleated Red Blood Cells % 0 %; Platelet Count 162 10^3/cmm (130-400); Red Blood Count 3.48 10^6/uL (4.1-5.3); White Blood Count 10.1 10^3/uL (4.0-10.0)
[2021-05-24 13:52] LABS: ABG PH Result 7.28 (7.35-7.45); Arterial Blood Gas Hematocrit 39.7 % (42-52); Base Excess ABG 8.3 mmol/L (-2.0-2.0); Blood Gas Allen Test Pos; Blood Gas Operator Identificat AMH; Blood Gas Sample Site Radial, right; Blood Gas Sample Type Arterial; Carboxyhemoglobin 2.1 %THgb (0.4-20.1); HCO3 ABG 38.1 mmol/L (22-26); Ionized Calcium Level - ABG 1.2 mmol/L (1.1-1.4); Methemoglobin 0.8 % (0.4-1.5); Oxygen Device NC; Oxygen Saturation ABG 91.7; PO2 ABG 68.8 mmHg (80.0-100.0); Potassium Level - ABG 4.7 mmol/L (3.5-5.0); Total Hemoglobin 12.9 g/dL (14-18)
[2021-05-24 13:53] LABS: ABG PCO2 81.6 mmHg (35-45)
[2021-05-24] MEDS: ipratropium-albuterol 3 mL Neb INHALATION (13:57)
--- NOTE | 2021-05-24 14:04 | PC.PHAR ---
pt and pts family unable to verify medications-states [facility] med[facility] on the [facility]ts [facility] med list
[2021-05-24 14:14] LABS: Anion Gap 14.4 (5-19); Blood Urea Nitrogen 12 mg/dL (8-23); Calcium 7.1 mg/dL (8.5-10.5); Carbon Dioxide 30 mmol/L (22-29); Chloride 103 mmol/L (98-107); Glucose 106 mg/dL (65-115); Osmolality Calculated 296 mOsm/kg (285-295); Potassium 4.4 mmol/L (3.5-5.1); Sodium 143 mmol/L (136-145)
[2021-05-24 14:16] LABS: Troponin(5th) Baseline 37 ng/L (0-15)
[2021-05-24 14:36] LABS: NT Pro B Type Natriuretic Pept 1413 pg/mL (0-450)
--- NOTE | 2021-05-24 15:01 | P.HP_ITS ---
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 History has been obtained as per ER chart review and talking to the his . As the patient has currently received Ativan and was deep asleep on BiPAP. Upon arrival in the ER he was worked up for above-mentioned complaint: Pertinent imaging study: X-ray chest: Patchy bilateral lower lobe opacities.patchy opacity in the right upper lobe is still present. ABG: pH: 7.28, PCO2:81, PO2: 68, on 7 ls Pertinent labs: WBC 10.1, H&H:10.6/35.9, plt : 162 , serum sodium:143, serum potassium 4.4, BUN/ serum creatinine : 12/0.6, Troponin trend without significant delta, proBNP:1413 , Covid PCR negative: Patient was placed on BiPAP in the ER, after receiving nebulization. Repeat ABG has shown improvement in PCO2. Review of Systems General: Reports: ROS unobtainable due to mental status Medications/Allergies Home Medications Medication Instructions Recorded Confirmed Last Taken Type latanoprost 1 drp OPHTHALMIC (EYE) BEDTIME 10/26/19 05/24/21 10/11/20 History levothyroxine 50 mcg PO QAM 10/26/19 05/24/21 10/11/20 History tamsulosin [Flomax] 0.4 mg PO BEDTIME 10/26/19 05/24/21 10/11/20 History furosemide 40 mg PO QAM 30 Days #30 tab 11/04/19 05/24/21 10/11/20 Rx atorvastatin 20 mg PO DAILY 11/25/19 05/24/21 10/11/20 History amlodipine 5 mg tablet 5 mg PO DAILY 01/05/20 05/24/21 10/12/20 History hydralazine 10 mg tablet 10 mg PO TID 01/05/20 05/24/21 10/11/20 History isosorbide mononitrate 30 mg 30 mg PO DAILY 01/05/20 05/24/21 10/12/20 History tablet,extended release 24 hr lisinopril 20 mg tablet 20 mg PO DAILY 01/05/20 05/24/21 10/12/20 History metoprolol tartrate 25 mg tablet 25 mg PO BID 01/05/20 05/24/21 10/12/20 06:00 History albuterol sulfate 2 puff INHALATION QID PRN 05/24/21 05/24/21 Unknown History carboxymethylcellulose sodium 2 drp OPHTHALMIC (EYE) QID PRN 05/24/21 05/24/21 Unknown History cyanocobalamin (vitamin B-12) 1,000 mcg PO DAILY 05/24/21 05/24/21 Unknown History fluticasone propionate [Flonase] 2 spray INTRANASAL DAILY PRN 05/24/21 05/24/21 Unknown History folic acid 1 mg PO DAILY 05/24/21 05/24/21 Unknown History magnesium oxide 400 mg PO DAILY 05/24/21 05/24/21 Unknown History olodaterol 2 inh INHALATION DAILY 05/24/21 05/24/21 Unknown History Allergies Allergy/AdvReac Type Severity Reaction Status Date / Time No Known Allergies Allergy Verified 05/24/21 12:42 PFSH Acute PFSH: Medical History (Updated 05/24/21 @ 18:38 by Tan Osullivan MD) Acute on chronic diastolic (congestive) heart failure Anemia BPH (benign prostatic hyperplasia) -on Flomax Bradycardia Cholelithiasis Chronic kidney disease -has some degree of CKD, unknown stage -superimposed BOOGIE, resolved -baseline Cr around 0.9 -continue to monitor renal function, avoid nephrotoxins, renally dose meds Depression Essential hypertension Glaucoma Heart failure with preserved ejection fraction -BNP-972 -Echo: limited study, EF=55%, G2DD -required BiPAP initially, now on NC -CXR with noted cardiomegaly, -on Lasix, Aldactone -difficult to monitor Is & Os due to inability to consistently use urinal Hyperlipidemia -on statin Hypertension Hypothyroidism Lung cancer Macrocytic anemia Morbid obesity Psoriasis Sigmoid diverticulosis Skin ulcer Surgical History H/O excision of epidermal inclusion cyst Normal colonoscopy In 2018 2019 Family History Denies family history of Anesthesia complication Bleeding disorder Lung disease Hypertension Social History Smoking and tobacco status: former smoker Alcohol intake: never Household members: spouse Housing: House Vitals/I&O/Wt Last Vital Signs Temp 99.2 F 05/24/21 12:43 Pulse 87 05/24/21 14:17 Resp 22 H 05/24/21 13:40 BP 189/86 05/24/21 12:43 Pulse Ox 96 05/24/21 14:17 Weight last 48 hrs Weight 81.647 kg Physical Exam HENMT: COMMON NORMALS: normocephalic and atraumatic HEAD & SCALP: normocephalic and atraumatic Resp: OTHER: Diminished air entry bilaterally Cardio: COMMON NORMALS: regular rate, regular rhythm, S1 normal heart sound present, S2 normal heart sound present, No gallops present (Cardio), No murmurs present (Cardio), No rub (Cardio) and Peripheral pulses 2+ throughout RATE: regular rate RHYTHM: regular rhythm HEART SOUNDS: S1 normal heart sound present and S2 normal heart sound present PERIPHERAL PULSES: Peripheral pulses 2+ throughout GI: COMMON NORMALS: Normal to inspection, nondistended, normoactive bowel sounds present, Soft to palpation, non-tender, No hepatosplenomegaly present and no masses AUSCULTATION: Yes normoactive bowel sounds PALPATION: Yes Soft to palpation and Yes No hepatosplenomegaly present RECTAL EXAM: Yes deferred Extremity: NARRATIVE EXTREMITY EXAM: Trace bilateral lower extremity pitting edema Data : 05/24/21 13:38 05/24/21 13:38 A&P Assessment and plan (1) Acute on chronic respiratory failure with hypoxia and hypercapnia: Status: Acute (2) Acute encephalopathy: Status: Acute (3) Pneumonia: Status: Acute (4) Heart failure with preserved ejection fraction: Status: Acute Qualifiers: Heart failure chronicity: acute on chronic Qualified Code(s): I50.33 - Acute on chronic diastolic (congestive) heart failure (5) Hypothyroidism: Status: Acute Qualifiers: Hypothyroidism type: unspecified Qualified Code(s): E03.9 - Hypothyroidism, unspecified (6) Essential hypertension: Status: Acute (7) Anemia: Status: Acute (8) Lung cancer: Status: Acute Qualifiers: Laterality: right Lung location: upper lobe of lung Qualified Code(s): C34.11 - Malignant neoplasm of upper lobe, right bronchus or lung (9) Morbid obesity: Status: Acute Additional A&P Information 80 year old male with past medical history of hypertension, COPD on 3 L home oxygen,HFpEF, hypothyroidism,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 #Acute on chronic hypoxic hypercapnic respiratory failure likely secondary to pneumonia,COPD exacerbation: Follow blood culture Monitor x-ray chest Monitor ABG Urine Legionella antigen Urine bacterial antigen panel Currently on ceftriaxone and Azithromycin Duo nebs Continue BiPAP #Acute metabolic encephalopathy: Secondary to hypercapnia. Plan as above #Pneumonia: Plan as above #HFpEF: Continue Lasix 40 mg IV daily Monitor intake output charting K>4, MG>2 Daily weight #COPD exacerbation: Plan as above #Hypothyroidism: Continue levothyroxine 50 mcg p.o. daily #Hypertension: Continue amlodipine , lisinopril, metoprolol # CODE STATUS: Full code # DVT prophylaxis: On Lovenox Attestations Medical Necessity Statement*: Patient needs to be in the hospital for management of respiratory failure secondary to pneumonia COPD. Anticipated length of stay greater than 2 midnights. Coding Level of Care Code Acute Medical Record Consultant for [facility] Fwd Diagnoses Acute on chronic respiratory failure with hypoxia and hypercapnia J96.21; J96.22 Acute encephalopathy G93.40 Pneumonia J18.9 Heart failure with preserved ejection fraction I50.33 Heart failure chronicity: acute on chronic Hypothyroidism E03.9 Hypothyroidism type: unspecified Essential hypertension I10 Anemia D64.9 Lung cancer C34.11 Laterality: right Lung location: upper lobe of lung Morbid obesity E66.01
--- NOTE | 2021-05-24 15:17 | ECG_ITS ---
[facility] Test Date: 2021-05-24 Pat Name: Venkat Cherry Department: Room: 278 Gender: Male Gauge Operator: : 1940 Requested By: Patricio Lim Order Number: [id number] David MD: Bindu Hdz M.D. Measurements Intervals [place] Rate: 90 P: 73 SD: 203 QRS: 45 QRSD: 101 T: 152 QT: 351 QTc: 430 Interpretive Statements SINUS RHYTHM POSSIBLE ANTERIOR MYOCARDIAL INFARCTION , OF INDETERMINATE AGE [30 ms Q WAVE IN V3/V4, OR R < 0.2 mV IN V4] MODERATE T-WAVE ABNORMALITY, CONSIDER LATERAL ISCHEMIA [-0.1+ mV T-WAVE IN I/aVL/V5/V6] Compared to ECG 05/24/2021 13:46:03 T-wave abnormality now present Possible ischemia now present Ventricular premature complex(es) no longer present Myocardial infarct finding still present Electronically Signed On 05-25-2021 22:00:23 HEAD MVA REACTOR OPERATOR by Bindu Hdz M.D. [id number]
[2021-05-24] MEDS: LORazepam 2 mg/mL INJ 1 mL IVP (15:19)
[2021-05-24] MEDS: enoxaparin 40 mg/0.4 mL Syringe SUBCUT (15:29)
[2021-05-24 15:30] LABS: Adenovirus Not Detected (NOT DETECT); Chlamydia Pneumoniae Not Detected (NOT DETECT); Coronavirus 229E,HKU1,NL63,OC4 Not Detected (NOT DETECT); Human Metapneumovirus Not Detected (NOT DETECT); Human Rhinovirus/Enterovirus Not Detected (NOT DETECT); Influenza A Not Detected (NOT DETECT); Influenza A H1 Not Detected (NOT DETECT); Influenza A H1-2009 Not Detected (NOT DETECT); Influenza A H3 Not Detected (NOT DETECT); Influenza B Not Detected (NOT DETECT); Mycoplasma Pneumoniae Not Detected (NOT DETECT); Parainfluenza Virus Type 1 Not Detected (NOT DETECT); Parainfluenza Virus Type 2 Not Detected (NOT DETECT); Parainfluenza Virus Type 3 Not Detected (NOT DETECT); Parainfluenza Virus Type 4 Not Detected (NOT DETECT); Respiratory Syncytial Virus A Not Detected (NOT DETECT); Respiratory Syncytial Virus B Not Detected (NOT DETECT); SARS-COV-2 Not Detected (NOT DETECT)
--- NOTE | 2021-05-24 16:03 | PC.NURSE ---
approx 1500- patient ran out of room with CPAP mask in place not connected to machine, RT beside him and explaining that the patient could not just wear mask to please remove. This RN advised by charge to give Ativan 2mg IVP now. pulled med, patient had a low sat by this time, unable to reason with patient, pt skin was dusky, security at the bedside, security advised RT staff to hold right arm while security held left arm, meds given and flushed line, other staff immediately let go of patients arms. patient moved to bed and bipap placed, pt pooja well. pt vital sign are being monitored at this time,
[2021-05-24 16:41] LABS: ABG PH Result 7.35 (7.35-7.45); Arterial Blood Gas Hematocrit 37.6 % (42-52); Blood Gas Operator Identificat AMH; Blood Gas Sample Site Brachial, right; Blood Gas Sample Type Arterial; Carboxyhemoglobin 1.8 %THgb (0.4-20.1); HCO3 ABG 35.7 mmol/L (22-26); HGB O2 Sat 94.2 % (95-100); Ionized Calcium Level - ABG 1.2 mmol/L (1.1-1.4); Oxygen Device BIPAP; Oxygen Saturation ABG 96.9; PO2 ABG 86.8 mmHg (80.0-100.0); Potassium Level - ABG 4.9 mmol/L (3.5-5.0); Total Hemoglobin 12.3 g/dL (14-18)
[2021-05-24 16:42] LABS: ABG PCO2 64.9 mmHg (35-45); Alveolar-Arterial Oxygen Gradi 20.2 mmHg (5-10)
--- NOTE | 2021-05-24 17:35 | PC.NURSE ---
report called to the floor by charge nurse paco
--- NOTE | 2021-05-24 19:17 | ECG_ITS ---
[facility] Test Date: 2021-05-24 Pat Name: Venkat Cherry Department: Room: 278 Gender: Male Financial Analyst Accountant: : 1940 Requested By: Patricio Lim Order Number: [id number] Reading MD: Bindu Hdz M.D. Measurements Intervals [place] Rate: 78 P: 47 NE: 200 QRS: 44 QRSD: 105 T: 144 QT: 373 QTc: 425 Interpretive Statements SINUS RHYTHM WITH OCCASIONAL VENTRICULAR PREMATURE COMPLEXES ST DEVIATION AND MODERATE T-WAVE ABNORMALITY, CONSIDER LATERAL ISCHEMIA [-0.1+ mV T WAVE IN I/aVL/V5/V6] Compared to ECG 05/24/2021 15:39:10 Ventricular premature complex(es) now present Myocardial infarct finding no longer present T-wave abnormality still present Possible ischemia still present Electronically Signed On 05-25-2021 21:58:51 TECHNICAL SUPERVISOR by Bindu Hdz M.D. [id number]
[2021-05-24 20:08] LABS: Troponin 5 6HR 44.13 ng/L (0-15); Troponin 5 6HR Delta 7.13 ng/L (0-12)
[2021-05-24] MEDS: cefTRIAXone 1,000 MG in sodium chloride 0.9% (plus) 50 ML 100 MG IV (20:18)
[2021-05-24] MEDS: FUROsemide 10 mg/mL SDV 4mL 40 MG IVP (20:40)
[2021-05-24] MEDS: azithromycin 500 MG in sodium chloride 0.9% 250 ML 250 MG IV (22:10)
[2021-05-25] VITALS (20 sets, daily range): BP systolic 136–193; BP diastolic 57–81; PULSE 76–97; RESP 14–20; TEMP 36.5–37.3; O2SAT 90–96
[2021-05-25] MEDS: ipratropium-albuterol 3 mL Neb INHALATION ×4 (02:57→20:52)
[2021-05-25 03:21] LABS: ABG PH Result 7.31 (7.35-7.45); Alveolar-Arterial Oxygen Gradi 18.9 mmHg (5-10); Arterial Blood Gas Hematocrit 35.9 % (42-52); Base Excess ABG 11.1 mmol/L (-2.0-2.0); Blood Gas Allen Test Pos; Blood Gas Sample Site Radial, left; Blood Gas Sample Type Arterial; Blood Gas Tidal Volume 0.45; Carboxyhemoglobin 1.5 %THgb (0.4-20.1); HCO3 ABG 40.2 mmol/L (22-26); HGB O2 Sat 93.5 % (95-100); Ionized Calcium Level - ABG 1.2 mmol/L (1.1-1.4); Oxygen Device BIPAP; Oxygen Saturation ABG 95.9; PO2 ABG 82.1 mmHg (80.0-100.0); Potassium Level - ABG 4.8 mmol/L (3.5-5.0); Total Hemoglobin 11.7 g/dL (14-18)
[2021-05-25 03:25] LABS: ABG PCO2 79.4 mmHg (35-45)
[2021-05-25 06:36] LABS: Basophils % 0.2 %; Hematocrit 38.1 % (42.0-52.0); Hemoglobin 11.2 g/dL (11.7-16.6); Lymphocytes # 0.6 10^3/uL (0.8-4.8); Lymphocytes % 6.1 %; Mean Corpuscular HGB Conc 29.4 g/dL (30.0-36.0); Mean Corpuscular Hemoglobin 30.5 pg (28.0-34.0); Mean Corpuscular Volume 103.8 fl (80-94); Mean Platelet Volume 10.3 fL (7.4-10.4); Monocytes # 0.7 10^3/uL (0.2-0.9); Neutrophils # 7.75 10^3/uL (1.8-7.7); Neutrophils % 84.5 %; Nucleated Red Blood Cells % 0 %; Platelet Count 157 10^3/cmm (130-400); Red Blood Count 3.67 10^6/uL (4.1-5.3); White Blood Count 9.2 10^3/uL (4.0-10.0)
[2021-05-25 07:00] LABS: Alanine Aminotransferase 11 U/L (0-41); Albumin Level 3.3 g/dL (3.5-5.2); Alkaline Phosphatase 71 IU/L (40-130); Anion Gap 12.2 (5-19); Aspartate Amino Transferase 11 U/L (0-40); Blood Urea Nitrogen 18 mg/dL (8-23); Calcium 8.2 mg/dL (8.5-10.5); Carbon Dioxide 36 mmol/L (22-29); Chloride 99 mmol/L (98-107); Creatinine Clr Calc Pharmacy 69.1939; Globulin 2.3 g/dL (1.3-4.6); Glucose 95 mg/dL (65-115); Magnesium 2.3 mg/dL (1.7-2.3); Osmolality Calculated 296 mOsm/kg (285-295); Potassium 5.2 mmol/L (3.5-5.1); Sodium 142 mmol/L (136-145); Total Bilirubin 0.2 mg/dL (0.15-1.2); Total Protein 5.6 g/dL (6.6-8.7)
[2021-05-25 07:13] LABS: Procalcitonin 0.21 ng/mL (0-0.5)
[2021-05-25] MEDS: atorvastatin 40 mg Tablet 20 MG PO (08:25)
[2021-05-25] MEDS: metoprolol tartrate 25 mg Tablet PO ×2 (08:27→18:03)
[2021-05-25] MEDS: lisinopril 20 mg Tablet PO (08:27)
[2021-05-25] MEDS: isosorbide mononitrate ER 30 mg Tablet PO (08:27)
[2021-05-25] MEDS: amlodipine 5 mg Tablet PO (08:28)
[2021-05-25 09:59] LABS: ABG PH Result 7.34 (7.35-7.45); Arterial Blood Gas Hematocrit 34.6 % (42-52); Base Excess ABG 12.7 mmol/L (-2.0-2.0); Blood Gas Allen Test Pos; Blood Gas Sample Site Radial, left; Blood Gas Sample Type Arterial; HCO3 ABG 41.4 mmol/L (22-26); Oxygen Device NC; PO2 ABG 67.5 mmHg (80.0-100.0)
--- NOTE | 2021-05-25 10:30 | PC.NURSE ---
patient requesting the cadet catheter be removed. conventional mortgage underwriter notified Dr Osullivan. Per Dr Osullivan, OK to remove cadet catheter and monitor for retention.
[2021-05-25] MEDS: enoxaparin 40 mg/0.4 mL Syringe SUBCUT (14:26)
--- NOTE | 2021-05-25 16:27 | PC.NURSE ---
Notified Dr Osullivan that patient's family is requesting call with update. family is Abena Rouse [phone].
--- NOTE | 2021-05-25 16:30 | PC.NURSE ---
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
[2021-05-25] MEDS: guaiFENesin 600 mg Tablet PO (18:03)
--- NOTE | 2021-05-25 18:31 | PC.NURSE ---
Patient voided 200 ml. Bladder Scanned with no volume showing on scanner.
--- NOTE | 2021-05-25 19:21 | P.PN_ITS ---
Subjective Subjective: Interval history: Patient was seen and examined this morning, currently he is alert awake oriented, Currently denies any shortness of breath. Want his Little catheter to be out, as it is bothering him. AM ABG has been reviewed. Medications: Reviewed: Yes Medication Review Details: Generic Name Dose Route Start Last Admin Trade Name Freq PRN Reason Stop Dose Admin Albuterol/Ipratrop ium 3 ml 05/24/21 13:17 05/24/21 13:57 Ipratropium-Albu terol 3 Ml Neb INHALATION 3 ml Q6H PRN Administration SHORTNESS OF ELIUD TH Albuterol/Ipratrop ium 3 ml 05/25/21 03:00 05/25/21 14:21 Ipratropium-Albu terol 3 Ml Neb INHALATION 3 ml Q6H.RESPIRATORY S CH Administration Amlodipine Besylat e 5 mg 05/25/21 09:00 05/25/21 08:28 Amlodipine 5 Mg Tablet PO 5 mg DAILY ANTONIA Administration Atorvastatin Calci um 20 mg 05/25/21 09:00 05/25/21 08:25 Atorvastatin 40 Mg Tablet PO 20 mg DAILY ANTONIA Administration Enoxaparin Sodium 40 mg 05/24/21 15:00 05/25/21 14:26 Enoxaparin 40 Mg /0.4 Ml Syringe SUBCUT 40 mg Q24H ANTONIA Administration Furosemide 40 mg 05/24/21 18:30 05/24/21 20:40 Furosemide 10 Mg /Ml Sdv 4ml IVP 40 mg Q24H ANTONIA Administration Guaifenesin 600 mg 05/25/21 18:00 05/25/21 18:03 Guaifenesin 600 Mg Tablet PO 600 mg BID ANTONIA Administration Ceftriaxone Sodium 1,000 mg/ 50 mls @ 100 mls/ hr 05/24/21 18:30 05/24/21 21:11 Sodium Chloride IV Infused Q24H ANTONIA Infusion Protocol Azithromycin 500 m g/ Sodium 250 mls @ 250 mls /hr 05/24/21 18:30 05/24/21 23:23 Chloride IV Infused Q24H ANTONIA Infusion Protocol Isosorbide Mononit rate 30 mg 05/25/21 09:00 05/25/21 08:27 Isosorbide [place] itrate Er 30 Mg Ta blet PO 30 mg DAILY ANTONIA Administration Levothyroxine Sodi um 50 mcg 05/25/21 06:00 05/25/21 05:26 Levothyroxine 50 Mcg Tablet PO Not Given QAM ANTONIA Lisinopril 20 mg 05/25/21 09:00 05/25/21 08:27 Lisinopril 20 Mg Tablet PO 20 mg DAILY ANTONIA Administration Methylprednisolone Sodium Succinate 40 mg 05/25/21 09:15 05/25/21 12:04 Methylprednisolo ne Sod Succ 40 Mg/ Ml Inj IVP 40 mg Q12H ANTONIA Administration Metoprolol Tartrat e 25 mg 05/24/21 18:00 05/25/21 18:03 Metoprolol Tartr ate 25 Mg Tablet PO 25 mg BID ANTONIA Administration Tamsulosin HCl 0.4 mg 05/24/21 21:00 05/24/21 20:19 Tamsulosin 0.4 M g Capsule PO Not Given BEDTIME ANTONIA Vitals/I&O/Wt Last Vital Signs Temp 99.1 F 05/25/21 15:16 Pulse 92 05/25/21 15:16 Resp 19 H 05/25/21 15:16 BP 154/62 05/25/21 15:16 Pulse Ox 93 05/25/21 15:16 05/25/21 05/25/21 05/25/21 06:59 14:59 22:59 Intake Total 250 / 300 240 / 240 Output Total 1050 / 1050 300 / 300 200 / 500 Balance -800 / -750 -60 / -60 -200 / -260 Weight last 48 hrs Weight 81.647 kg Physical Exam HENMT: COMMON NORMALS: normocephalic and atraumatic HEAD & SCALP: normocephalic and atraumatic Resp: OTHER: Bilateral minimal wheezing Cardio: COMMON NORMALS: regular rate, regular rhythm, S1 normal heart sound present, S2 normal heart sound present, No gallops present (Cardio), No murmurs present (Cardio), No rub (Cardio) and Peripheral pulses 2+ throughout RATE: regular rate RHYTHM: regular rhythm HEART SOUNDS: S1 normal heart sound present and S2 normal heart sound present PERIPHERAL PULSES: Peripheral pulses 2+ throughout GI: COMMON NORMALS: Normal to inspection, nondistended, normoactive bowel sounds present, Soft to palpation, non-tender, No hepatosplenomegaly present and no masses AUSCULTATION: Yes normoactive bowel sounds PALPATION: Yes Soft to palpation and Yes No hepatosplenomegaly present RECTAL EXAM: Yes deferred Extremity: NARRATIVE EXTREMITY EXAM: Trace bilateral lower extremity pitting edema Urinary Catheter Management^: Coude: Cath Placed During This Visit: yes, but has since been removed by the nurse Reason for Continuing Indwelling Catheter: Decision to DC Catheter Urinary Catheter Date of Insertion: 05/25/21 Urinary Catheter Time of Insertion: 00:32 Date Urinary Catheter Removed: 05/25/21 Time Urinary Catheter Discontinued: 11:00 Data : 05/25/21 05:10 05/25/21 05:10 Micro: Microbiology 05/25/21 00:20 Legionella Urinary Antigen - Final Urine,Voided Bacterial Antigens - Final 05/24/21 19:06 Blood Culture - Preliminary Blood SPECIMEN COLLECTED 05/24/21 19:00 Blood Culture - Preliminary Blood SPECIMEN COLLECTED A&P Assessment and plan (1) Acute on chronic respiratory failure with hypoxia and hypercapnia: Status: Acute (2) Acute encephalopathy: Status: Acute (3) Pneumonia: Status: Acute (4) Heart failure with preserved ejection fraction: Status: Acute Qualifiers: Heart failure chronicity: acute on chronic Qualified Code(s): I50.33 - Acute on chronic diastolic (congestive) heart failure (5) Hypothyroidism: Status: Acute Qualifiers: Hypothyroidism type: unspecified Qualified Code(s): E03.9 - Hypothyroidism, unspecified (6) Essential hypertension: Status: Acute (7) Anemia: Status: Acute (8) Lung cancer: Status: Acute Qualifiers: Laterality: right Lung location: upper lobe of lung Qualified Code(s): C34.11 - Malignant neoplasm of upper lobe, right bronchus or lung (9) Morbid obesity: Status: Acute Additional A&P Information 80 year old male with past medical history of hypertension, COPD on 3 L home oxygen,HFpEF, hypothyroidism,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 #Acute on chronic hypoxic hypercapnic respiratory failure likely secondary to pneumonia,COPD exacerbation: Follow blood culture Monitor x-ray chest Monitor ABG Urine Legionella antigen: Negative Urine bacterial antigen panel: Negative Currently on ceftriaxone and Azithromycin Solu-Medrol 40 mg IV every 12 hours daily Duo nebs Continue BiPAP #Acute metabolic encephalopathy: Secondary to hypercapnia. Plan as above #Pneumonia: Plan as above #Mildly decompensated HFpEF: Continue Lasix 40 mg IV daily Monitor intake output charting K>4, MG>2 Daily weight #COPD exacerbation: Plan as above #Hypothyroidism: Continue levothyroxine 50 mcg p.o. daily #Hypertension: Continue amlodipine , lisinopril, metoprolol # CODE STATUS: Full code # DVT prophylaxis: On Lovenox Attestations Medical Necessity Statement*: Patient needs to be in hospital for management of above defined problems. Time Spent in Patient Care: Greater than 35 minutes (>than 50% of time spent in counselling and/or direct pt care on unit) . Coding Level of Care Code Acute Repairer Veneer Sheet for [facility] Fwd Diagnoses Acute on chronic respiratory failure with hypoxia and hypercapnia J96.21; J96.22 Acute encephalopathy G93.40 Pneumonia J18.9 Heart failure with preserved ejection fraction I50.33 Heart failure chronicity: acute on chronic Hypothyroidism E03.9 Hypothyroidism type: unspecified Essential hypertension I10 Anemia D64.9 Lung cancer C34.11 Laterality: right Lung location: upper lobe of lung Morbid obesity E66.01
[2021-05-25] MEDS: cefTRIAXone 1,000 MG in sodium chloride 0.9% (plus) 50 ML 100 MG IV (20:08)
[2021-05-25] MEDS: hyDRALAzine 10 mg Tablet PO (20:10)
[2021-05-25] MEDS: tamsulosin 0.4 mg Capsule PO (20:10)
[2021-05-25] MEDS: FUROsemide 10 mg/mL SDV 4mL 40 MG IVP (21:35)
[2021-05-25] MEDS: azithromycin 500 MG in sodium chloride 0.9% 250 ML 250 MG IV (21:41)
[2021-05-26] VITALS (15 sets, daily range): BP systolic 127–151; BP diastolic 58–69; PULSE 60–96; RESP 16–21; TEMP 36.6–37.4; O2SAT 91–96
[2021-05-26] MEDS: ipratropium-albuterol 3 mL Neb INHALATION ×4 (03:20→20:22)
[2021-05-26 03:26] LABS: Hematocrit 36.9 % (42.0-52.0); Hemoglobin 10.9 g/dL (11.7-16.6); Lymphocytes # 0.4 10^3/uL (0.8-4.8); Lymphocytes % 4.1 %; Mean Corpuscular HGB Conc 29.5 g/dL (30.0-36.0); Mean Corpuscular Hemoglobin 30.1 pg (28.0-34.0); Mean Corpuscular Volume 101.9 fl (80-94); Mean Platelet Volume 10.4 fL (7.4-10.4); Monocytes # 0.2 10^3/uL (0.2-0.9); Monocytes % 2.4 %; Neutrophils # 8.82 10^3/uL (1.8-7.7); Neutrophils % 92.6 %; Nucleated Red Blood Cells % 0 %; Platelet Count 180 10^3/cmm (130-400); Red Blood Count 3.62 10^6/uL (4.1-5.3); Red Cell Distribution Width 15.7 % (12.1-15.1); White Blood Count 9.5 10^3/uL (4.0-10.0)
[2021-05-26 03:43] LABS: Blood Urea Nitrogen 31 mg/dL (8-23); Calcium 9.2 mg/dL (8.5-10.5); Carbon Dioxide 33 mmol/L (22-29); Chloride 98 mmol/L (98-107); Glucose 112 mg/dL (65-115); Osmolality Calculated 299 mOsm/kg (285-295); Sodium 141 mmol/L (136-145)
[2021-05-26] MEDS: levothyroxine 50 mcg Tablet PO (05:02)
[2021-05-26] MEDS: hyDRALAzine 10 mg Tablet PO ×3 (08:48→20:35)
[2021-05-26] MEDS: guaiFENesin 600 mg Tablet PO ×2 (08:48→17:28)
[2021-05-26] MEDS: magnesium oxide 400 mg tablet PO (08:48)
[2021-05-26] MEDS: amlodipine 5 mg Tablet PO (08:48)
[2021-05-26] MEDS: atorvastatin 40 mg Tablet 20 MG PO (08:48)
[2021-05-26] MEDS: isosorbide mononitrate ER 30 mg Tablet PO (08:48)
[2021-05-26] MEDS: lisinopril 20 mg Tablet PO (08:48)
[2021-05-26] MEDS: cyanocobalamin 1,000 mcg Tablet 1000 MCG PO (08:48)
[2021-05-26] MEDS: folic acid 1 mg Tablet PO (08:48)
[2021-05-26] MEDS: metoprolol tartrate 25 mg Tablet PO ×2 (08:48→17:28)
--- NOTE | 2021-05-26 10:49 | P.PN_ITS ---
Subjective Subjective: Interval history: Patient was seen and examined this morning, shortness of breath significantly improved. Currently requiring 5 to 6 L supplemental oxygen, at home he is on 3 LS. No difficulty passing urine, vitals and labs have been reviewed. Medications: Reviewed: Yes Medication Review Details: Generic Name Dose Route Start Last Admin Trade Name Freq PRN Reason Stop Dose Admin Albuterol/Ipratrop ium 3 ml 05/24/21 13:17 05/24/21 13:57 Ipratropium-Albu terol 3 Ml Neb INHALATION 3 ml Q6H PRN Administration SHORTNESS OF ELIUD TH Albuterol/Ipratrop ium 3 ml 05/25/21 03:00 05/25/21 14:21 Ipratropium-Albu terol 3 Ml Neb INHALATION 3 ml Q6H.RESPIRATORY S CH Administration Amlodipine Besylat e 5 mg 05/25/21 09:00 05/25/21 08:28 Amlodipine 5 Mg Tablet PO 5 mg DAILY ANTONIA Administration Atorvastatin Calci um 20 mg 05/25/21 09:00 05/25/21 08:25 Atorvastatin 40 Mg Tablet PO 20 mg DAILY ANTONIA Administration Enoxaparin Sodium 40 mg 05/24/21 15:00 05/25/21 14:26 Enoxaparin 40 Mg /0.4 Ml Syringe SUBCUT 40 mg Q24H ANTONIA Administration Furosemide 40 mg 05/24/21 18:30 05/24/21 20:40 Furosemide 10 Mg /Ml Sdv 4ml IVP 40 mg Q24H ANTONIA Administration Guaifenesin 600 mg 05/25/21 18:00 05/25/21 18:03 Guaifenesin 600 Mg Tablet PO 600 mg BID ANTOINA Administration Ceftriaxone Sodium 1,000 mg/ 50 mls @ 100 mls/ hr 05/24/21 18:30 05/24/21 21:11 Sodium Chloride IV Infused Q24H ANTONIA Infusion Protocol Azithromycin 500 m g/ Sodium 250 mls @ 250 mls /hr 05/24/21 18:30 05/24/21 23:23 Chloride IV Infused Q24H ANTONIA Infusion Protocol Isosorbide Mononit rate 30 mg 05/25/21 09:00 05/25/21 08:27 Isosorbide Argillite itrate Er 30 Mg Ta blet PO 30 mg DAILY ANTONIA Administration Levothyroxine Sodi um 50 mcg 05/25/21 06:00 05/25/21 05:26 Levothyroxine 50 Mcg Tablet PO Not Given QAM [facility] Lisinopril 20 mg 05/25/21 09:00 05/25/21 08:27 Lisinopril 20 Mg Tablet PO 20 mg DAILY ANTONIA Administration Methylprednisolone Sodium Succinate 40 mg 05/25/21 09:15 05/25/21 12:04 Methylprednisolo ne Sod Succ 40 Mg/ Ml Inj IVP 40 mg Q12H ANTONIA Administration Metoprolol Tartrat e 25 mg 05/24/21 18:00 05/25/21 18:03 Metoprolol Tartr ate 25 Mg Tablet PO 25 mg BID ANTONIA Administration Tamsulosin HCl 0.4 mg 05/24/21 21:00 05/24/21 20:19 Tamsulosin 0.4 M g Capsule PO Not Given BEDTIME [facility] Vitals/I&O/Wt Last Vital Signs Temp 98.4 F 05/26/21 07:58 Pulse 79 05/26/21 09:34 Resp 16 05/26/21 09:26 BP 143/69 05/26/21 07:58 Pulse Ox 94 05/26/21 09:26 05/25/21 05/26/21 05/26/21 22:59 06:59 14:59 Intake Total 50 / 290 490 / 780 240 / 240 Output Total 500 / 800 301 / 1101 Balance -450 / -510 189 / -321 240 / 240 Weight last 48 hrs Weight 81.647 kg Physical Exam HENMT: COMMON NORMALS: normocephalic and atraumatic HEAD & SCALP: normocephalic and atraumatic Resp: OTHER: Bilateral minimal wheezing Cardio: COMMON NORMALS: regular rate, regular rhythm, S1 normal heart sound present, S2 normal heart sound present, No gallops present (Cardio), No murmurs present (Cardio), No rub (Cardio) and Peripheral pulses 2+ throughout RATE: regular rate RHYTHM: regular rhythm HEART SOUNDS: S1 normal heart sound present and S2 normal heart sound present PERIPHERAL PULSES: Peripheral pulses 2+ throughout GI: COMMON NORMALS: Normal to inspection, nondistended, normoactive bowel sounds present, Soft to palpation, non-tender, No hepatosplenomegaly present and no masses AUSCULTATION: Yes normoactive bowel sounds PALPATION: Yes Soft to palpation and Yes No hepatosplenomegaly present RECTAL EXAM: Yes deferred Extremity: NARRATIVE EXTREMITY EXAM: Trace bilateral lower extremity pitting edema Urinary Catheter Management^: Coude: Cath Placed During This Visit: yes, but has since been removed by the nurse Reason for Continuing Indwelling Catheter: Decision to DC Catheter Urinary Catheter Date of Insertion: 05/25/21 Urinary Catheter Time of Insertion: 00:32 Date Urinary Catheter Removed: 05/25/21 Time Urinary Catheter Discontinued: 11:00 Data : 05/26/21 02:20 05/26/21 02:20 Micro: Microbiology 05/24/21 19:06 Blood Culture - Preliminary Blood NEGATIVE TO DATE 05/24/21 19:00 Blood Culture - Preliminary Blood NEGATIVE TO DATE 05/25/21 00:20 Legionella Urinary Antigen - Final Urine,Voided Bacterial Antigens - Final A&P Assessment and plan (1) Acute on chronic respiratory failure with hypoxia and hypercapnia: Status: Acute (2) Acute encephalopathy: Status: Acute (3) Pneumonia: Status: Acute (4) Heart failure with preserved ejection fraction: Status: Acute Qualifiers: Heart failure chronicity: acute on chronic Qualified Code(s): I50.33 - Acute on chronic diastolic (congestive) heart failure (5) Hypothyroidism: Status: Acute Qualifiers: Hypothyroidism type: unspecified Qualified Code(s): E03.9 - Hypothyroidism, unspecified (6) Essential hypertension: Status: Acute (7) Anemia: Status: Acute (8) Lung cancer: Status: Acute Qualifiers: Laterality: right Lung location: upper lobe of lung Qualified Code(s): C34.11 - Malignant neoplasm of upper lobe, right bronchus or lung (9) Morbid obesity: Status: Acute Additional A&P Information 80 year old male with past medical history of hypertension, COPD on 3 L home oxygen,HFpEF, hypothyroidism,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 #Acute on chronic hypoxic hypercapnic respiratory failure likely secondary to pneumonia,COPD exacerbation: Blood culture:NTD Monitor x-ray chest Monitor ABG Urine Legionella antigen: Negative Urine bacterial antigen panel: Negative Currently on ceftriaxone and Azithromycin Solu-Medrol 40 mg IV every 12 hours daily Duo nebs Continue BiPAP #Acute metabolic encephalopathy: Secondary to hypercapnia.: Resolved Plan as above #Pneumonia: Plan as above #Mildly decompensated HFpEF: Continue Lasix 40 mg IV daily Monitor intake output charting K>4, MG>2 Daily weight #COPD exacerbation: Plan as above #Hypothyroidism: Continue levothyroxine 50 mcg p.o. daily #Hypertension: Continue amlodipine , lisinopril, metoprolol # CODE STATUS: Full code # DVT prophylaxis: On Lovenox Attestations Medical Necessity Statement*: Patient needs to the hospital for management of above defined problems Coding Level of Care Code Acute [facility] for [facility] Fwd Diagnoses Acute on chronic respiratory failure with hypoxia and hypercapnia J96.21; J96.22 Acute encephalopathy G93.40 Pneumonia J18.9 Heart failure with preserved ejection fraction I50.33 Heart failure chronicity: acute on chronic Hypothyroidism E03.9 Hypothyroidism type: unspecified Essential hypertension I10 Anemia D64.9 Lung cancer C34.11 Laterality: right Lung location: upper lobe of lung Morbid obesity E66.01
--- NOTE | 2021-05-26 14:15 | PC.CHAP ---
Pastoral Care Encounter/Spiritual Assessment Type of Contact [] Declined parquetry floor layer visit [] Patient/Family/Request visit [] Outpatient visit [] Follow-up visit [] Physician referral [] Code/Alert [xx] Routine visit [] Staff referral [] Actively dying [] Patient sleeping [] Family support [] [] Out of room [] Palliative care [] [] Receiving care in room [] Pre-surgical visit [] Trauma [] Long length of stay [] ICU visit [] Other: Relational/Emotional Strength [xx] Patient feels connected with others/family/visitors/staff [] Distress [] Loneliness/isolation [] Abandonment Spirituality of Patient [xx] Person of Ebony [xx] Attends Buddhist of their Ebony [xx] Believes in Prayer [xx] Reads Bible or Samaritan materials [] There are Spiritual issues to be addressed Senior Director Of Strategy Interventions [xx] Prayer [xx] Active listening [xx] Non-anxious presence [] Spiritual/emotional support [] Crisis/trauma care [] Spiritual counseling [] Bereavement support [] Provided bereavement packet [xx] Provided Bible/devotional materials [] Provided toy/stuffed animal, coloring book to patient or family member [] Provided Communion [] Anointing/[place] [] Salvation [xx] Completed spiritual assessment [] Other: Impact on Illness or Injury [] Angry [] Fearful [] Anxious [] Often cries [] Exhaustion [] Unable to work [] Unable to attend congregation [] Unable to walk/stand [] Unable to read [] Unable to drive [] Unable to eat/drink [] Unable to sleep [] Unable to be with family [] Patient intubated [] Other: Summary Patient was sitting up and stated he is feeling better. His , Jo (?), was present. She stated he was home alone while she visit family out of state. In the meantime, his oxygen tube came loose without him knowing it and his oxygen levels decreased. She got home in time to get him to [facility] without any serious consequences and he is going to be fine. The was thanking God for His mercies and how He timed her arrival home for everyone's good. Time spent with patient 7 minutes
[2021-05-26] MEDS: enoxaparin 40 mg/0.4 mL Syringe SUBCUT (16:20)
[2021-05-26] MEDS: cefTRIAXone 1,000 MG in sodium chloride 0.9% (plus) 50 ML 100 MG IV (20:32)
[2021-05-26] MEDS: tamsulosin 0.4 mg Capsule PO (20:34)
[2021-05-26] MEDS: latanoprost 0.005% Op Soln 2.5 mL Btl 1 DROP EYE-BOTH (20:34)
[2021-05-26] MEDS: FUROsemide 10 mg/mL SDV 4mL 40 MG IVP (20:35)
[2021-05-26] MEDS: azithromycin 500 MG in sodium chloride 0.9% 250 ML 250 MG IV (22:04)
[2021-05-27] VITALS (8 sets, daily range): BP systolic 141–165; BP diastolic 61–67; PULSE 72–89; RESP 18–20; TEMP 36.4–36.7; O2SAT 71–96
[2021-05-27] MEDS: ipratropium-albuterol 3 mL Neb INHALATION ×2 (03:04→11:02)
[2021-05-27 04:31] LABS: Basophils % 0.1 %; Hematocrit 37.1 % (42.0-52.0); Hemoglobin 11.4 g/dL (11.7-16.6); Lymphocytes # 0.5 10^3/uL (0.8-4.8); Lymphocytes % 4.6 %; Mean Corpuscular HGB Conc 30.7 g/dL (30.0-36.0); Mean Corpuscular Hemoglobin 30.7 pg (28.0-34.0); Mean Platelet Volume 10.1 fL (7.4-10.4); Monocytes # 0.3 10^3/uL (0.2-0.9); Monocytes % 3.3 %; Neutrophils % 91.2 %; Nucleated Red Blood Cells % 0 %; Platelet Count 170 10^3/cmm (130-400); Red Blood Count 3.71 10^6/uL (4.1-5.3); Red Cell Distribution Width 15.7 % (12.1-15.1); White Blood Count 10.3 10^3/uL (4.0-10.0)
[2021-05-27 04:46] LABS: Blood Urea Nitrogen 32 mg/dL (8-23); Calcium 8.6 mg/dL (8.5-10.5); Carbon Dioxide 35 mmol/L (22-29); Chloride 94 mmol/L (98-107); Glucose 124 mg/dL (65-115); Osmolality Calculated 290 mOsm/kg (285-295); Sodium 136 mmol/L (136-145)
[2021-05-27] MEDS: levothyroxine 50 mcg Tablet PO (06:50)
[2021-05-27] MEDS: folic acid 1 mg Tablet PO (08:15)
[2021-05-27] MEDS: lisinopril 20 mg Tablet PO (08:15)
[2021-05-27] MEDS: magnesium oxide 400 mg tablet PO (08:15)
[2021-05-27] MEDS: atorvastatin 40 mg Tablet 20 MG PO (08:15)
[2021-05-27] MEDS: hyDRALAzine 10 mg Tablet PO (08:15)
[2021-05-27] MEDS: isosorbide mononitrate ER 30 mg Tablet PO (08:15)
[2021-05-27] MEDS: metoprolol tartrate 25 mg Tablet PO (08:15)
[2021-05-27] MEDS: guaiFENesin 600 mg Tablet PO (08:15)
[2021-05-27] MEDS: cyanocobalamin 1,000 mcg Tablet 1000 MCG PO (08:15)
[2021-05-27] MEDS: amlodipine 5 mg Tablet PO (08:16)
--- NOTE | 2021-05-27 11:36 | PM.DCS ---
Discharge Providers Date of Admission: 05/24/21 13:59 Date of Discharge: May 27, 2021 Attending Provider at Admission: Tan Osullivan MD Attending Provider at Discharge: Tan Osullivan MD Primary Care Provider: Jose Martin Noe DO Diagnoses at Discharge Discharge Diagnosis (1) Acute on chronic respiratory failure with hypoxia and hypercapnia: Status: Acute (2) Acute encephalopathy: Status: Acute (3) Pneumonia: Status: Acute (4) Heart failure with preserved ejection fraction: Status: Acute Qualifiers: Heart failure chronicity: acute on chronic Qualified Code(s): I50.33 - Acute on chronic diastolic (congestive) heart failure (5) Hypothyroidism: Status: Acute Permanent problem details: Qualifiers: Hypothyroidism type: unspecified Qualified Code(s): E03.9 - Hypothyroidism, unspecified (6) Essential hypertension: Status: Acute (7) Anemia: Status: Acute (8) Lung cancer: Status: Acute Qualifiers: Laterality: right Lung location: upper lobe of lung Qualified Code(s): C34.11 - Malignant neoplasm of upper lobe, right bronchus or lung (9) Morbid obesity: Status: Acute Reason for Visit Reason for Visit: AMS/ LOW O2 [facility] Course Hospital Course 80 year old male with past medical history of hypertension, COPD on 3 L home oxygen,HFpEF, hypothyroidism,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 He was admitted for the management of acute on chronic hypoxic hypercapnic respiratory failure secondary to COPD exacerbation as well as pneumonia, as well as mildly decompensated heart failure with preserved ejection fraction. As well as acute metabolic encephalopathy secondary to hypercapnia. Patient was kept on broad-spectrum antibiotics, IV diuresis, steroids, on BiPAP, nebs, blood cultures were negative Urine Legionella antigen: Negative , Urine bacterial antigen panel: Negative , x-ray chest and ABG were monitored. Patient responded well to above medical management at the time of discharge he was requiring slightly more supplemental oxygen than his baseline he was requiring 4 L oxygen at rest and 5 L oxygen on exertion. At the time of discharge his Lasix dose was increased to 40 mg p.o. twice daily, hydralazine dose was increased to 25 mg p.o. twice daily, he was on 10 mg p.o. 3 times daily of hydralazine, hydralazine dose has been changed to maintain better blood pressure control. Patient is being discharged in stable condition to home.He has an appointment with as outpatient.He will continue to follow Dr. Ornelas as an outpatient. Physical Exam Const: COMMON NORMALS: patient oriented x3 HENMT: COMMON NORMALS: normocephalic and atraumatic HEAD & SCALP: normocephalic and atraumatic Resp: COMMON NORMALS: clear to auscultation bilaterally AUSCULTATION: clear to auscultation bilaterally Cardio: COMMON NORMALS: regular rate, regular rhythm, S1 normal heart sound present, S2 normal heart sound present, No gallops present (Cardio), No murmurs present (Cardio), No rub (Cardio) and Peripheral pulses 2+ throughout RATE: regular rate RHYTHM: regular rhythm HEART SOUNDS: S1 normal heart sound present and S2 normal heart sound present PERIPHERAL PULSES: Peripheral pulses 2+ throughout GI: COMMON NORMALS: Normal to inspection, nondistended, normoactive bowel sounds present, Soft to palpation, non-tender, No hepatosplenomegaly present and no masses AUSCULTATION: Yes normoactive bowel sounds PALPATION: Yes Soft to palpation and Yes No hepatosplenomegaly present RECTAL EXAM: Yes deferred Extremity: COMMON NORMALS: no clubbing, cyanosis or edema and no pedal edema Neuro: COMMON NORMALS: patient oriented x3 Urinary Catheter Management^: Coude: Cath Placed During This Visit: yes, but has since been removed by the nurse Reason for Continuing Indwelling Catheter: Decision to DC Catheter Urinary Catheter Date of Insertion: 05/25/21 Urinary Catheter Time of Insertion: 00:32 Date Urinary Catheter Removed: 05/25/21 Time Urinary Catheter Discontinued: 11:00 Discharge Data Data Completed and Pending: Completed Studies During Hospitalization Category Date Time Status XR chest 1V zhen ble [id number] Urgent Exams 05/24/21 13:17 Completed Pending at discharge Category Date Time Status Arterial Blood Ga s W/O Coox Timed Lab 05/25/21 09:45 Results Blood Culture Rou dickson Lab 05/24/21 19:06 Results Labs from last 24 hours 05/27/21 05/27/21 04:23 04:23 WBC 10.3 H RBC 3.71 L Hgb 11.4 L Hct 37.1 L MCV 100.0 H MCH 30.7 MCHC 30.7 RDW 15.7 H Plt Count 170 MPV 10.1 Neut % (Auto) 91.2 Lymph % (Auto) 4.6 Dickens % (Auto) 3.3 Eos % (Auto) 0.0 Baso % (Auto) 0.1 Neut # (Auto) 9.40 H Lymph # (Auto) 0.5 L Dickens # (Auto) 0.3 Eos # (Auto) 0.0 Baso # (Auto) 0.0 Nucleated RBC % (a uto) 0 Nucleated RBCs # 0.0 Sodium 136 Potassium 5.0 Chloride 94 L Carbon Dioxide 35 H Anion Gap 12.0 BUN 32 H Creatinine 0.8 GFR Calculation Not Reportable Glucose 124 H Calculated Osmolal ity 290 Calcium 8.6 Vitals: Last Vital Signs Temp 97.9 F 05/27/21 07:35 Pulse 89 05/27/21 10:45 Resp 20 H 05/27/21 10:45 BP 165/61 05/27/21 07:35 Pulse Ox 71 L 05/27/21 11:06 Discharge Plan Discharge Patient Disposition: Home Condition: Stable Prescriptions: New prednisone 20 mg tablet 20 mg PO DAILY Qty: 5 RF: 0 levofloxacin 500 mg tablet 500 mg PO DAILY 3 Days Qty: 3 RF: 0 Continued amlodipine 5 mg tablet 5 mg PO DAILY RF: 0 isosorbide mononitrate 30 mg tablet extended release 24 hr 30 mg PO DAILY RF: 0 lisinopril 20 mg tablet 20 mg PO DAILY RF: 0 metoprolol tartrate 25 mg tablet 25 mg PO BID RF: 0 latanoprost 0.005 % Drops 1 drp OPHTHALMIC (EYE) BEDTIME RF: 0 tamsulosin [Flomax] 0.4 mg Capsule 0.4 mg PO BEDTIME RF: 0 levothyroxine 50 mcg Tablet 50 mcg PO QAM RF: 0 atorvastatin 20 mg Tablet 20 mg PO DAILY RF: 0 magnesium oxide 400 mg magnesium Tablet 400 mg PO DAILY RF: 0 cyanocobalamin (vitamin B-12) 1,000 mcg Tablet 1,000 mcg PO DAILY RF: 0 folic acid 1 mg Tablet 1 mg PO DAILY RF: 0 albuterol sulfate 90 mcg/actuation Hfa Aerosol Inhaler 2 puff INHALATION QID PRN (Reason: Shortness Of Breath) RF: 0 fluticasone propionate 50 mcg/actuation [place],Suspension 2 spray INTRANASAL DAILY PRN (Reason: Allergy Symptoms) RF: 0 carboxymethylcellulose sodium 1 % Drops, Liquid Gel 2 drp ophthalmic (eye) QID PRN (Reason: Dry Eye(S)) RF: 0 olodaterol 2.5 mcg/actuation Mist 2 inh INHALATION DAILY RF: 0 Changed furosemide 40 mg Tablet 40 mg PO BID 30 Days Qty: 60 RF: 1 hydralazine 10 mg tablet 25 mg PO BID 30 Days Qty: 60 RF: 1 Discharge Orders: Discharge Order (Routine); Ordered 05/27/21 Ordered By: Tan Osullivan Referrals: Jose Martin Noe DO [Primary Care Provider] - (Please call Saturday morning to schedule a hospital follow-up appointment. ) Discharge Diet: Cardiac Discharge Activity: Resume usual activity Patient Instructions: Prednisone (By mouth), Levofloxacin (By mouth), Heart Failure (GEN), Using Oxygen at Home (GEN), Hypoxia (GEN), Opioid Safety Discharge Attestations Time Spent in Discharge Care*: less than 30 min Specific Discharge Activities: educating patient, educating and/or supporting family/caregiver, discussing with pcp/other providers, discussing with case operator/social workers/dc planners, documenting/other paperwork and evaluating patient/reviewing data Status at Discharge: Cognitive status at discharge: cognitively intact, Behavioral status at discharge: cooperative, Quality Metrics Clinical Quality Measures During this hospital stay, did patient experience: None Coding Level of Care Code Acute Chg FW DC note Diagnoses Acute on chronic respiratory failure with hypoxia and hypercapnia J96.21; J96.22 Acute encephalopathy G93.40 Pneumonia J18.9 Heart failure with preserved ejection fraction I50.33 Heart failure chronicity: acute on chronic Hypothyroidism E03.9 Hypothyroidism type: unspecified Essential hypertension I10 Anemia D64.9 Lung cancer C34.11 Laterality: right Lung location: upper lobe of lung Morbid obesity E66.01
[2021-05-27 12:07] LABS: ABG PCO2 77.6 mmHg (35-45)
== END 2021-05-27 12:30 | disposition home or self-care (01) | DRG 193 ==
LOC: ER 14:32 → MEDSURG 16:41
PROVIDERS: Hospitalist; Admitting Provider Internal Medicine; Emergency Provider Emergency Medicine; PCP Emergency Medicine Emergency Medical Services; Visit Provider Internal Medicine
DX: J18.9 Pneumonia, unspecified organism (principal); I50.33 Acute on chronic diastolic (congestive) heart failure; J96.22 Acute and chronic respiratory failure with hypercapnia; J96.21 Acute and chronic respiratory failure with hypoxia; G93.41 Metabolic encephalopathy; J44.0 Chronic obstructive pulmonary disease with (acute) lower respiratory infection; J44.1 Chronic obstructive pulmonary disease with (acute) exacerbation; I13.0 Hypertensive heart and chronic kidney disease with heart failure and stage 1 through stage 4 chronic kidney disease, or unspecified chronic kidney disease; C34.11 Malignant neoplasm of upper lobe, right bronchus or lung; Z99.81 Dependence on supplemental oxygen; N18.9 Chronic kidney disease, unspecified; D63.1 Anemia in chronic kidney disease; N40.0 Benign prostatic hyperplasia without lower urinary tract symptoms; F32.A Depression, unspecified; H40.9 Unspecified glaucoma; E78.5 Hyperlipidemia, unspecified; E03.9 Hypothyroidism, unspecified; E66.01 Morbid (severe) obesity due to excess calories; Z68.28 Body mass index [BMI] 28.0-28.9, adult; K57.30 Diverticulosis of large intestine without perforation or abscess without bleeding; Z87.891 Personal history of nicotine dependence; Z79.51 Long term (current) use of inhaled steroids
CPT/HCPCS: 36415; 36600; 51702; 71045; 80048; 80051; 80053; 82330; 82803; 82805; 83735; 83880; 84145; 84484; 85025; 86403; 87040; 87449; 87635; 93005; 94640; 94660; 96372; 96374; 99291; J0456; J0696; J1650; J1940; J2060; J2920; J7050

== ENCOUNTER 2021-06-19 15:05 | Emergency (ER) | payer OTHER, MEDICARE, SELFPAY ==
[2021-06-19 16:11] VITALS: BP 163/72; PULSE 102; RESP 22; TEMP 37.3; O2SAT 94; BMI 45.0
--- NOTE | 2021-06-19 16:23 | XRR_ITS ---
PROCEDURE INFORMATION: Exam: XR Chest Exam date and time: 06/19/2021 4:23 PM Age: 80 years old Clinical indication: Fever TECHNIQUE: Imaging protocol: XR of the chest. Views: 1 view. COMPARISON: CR XR chest 1V portable [id number] 05/24/2021 1:23 PM FINDINGS: Tubes, catheters and devices: Left chest port terminates in the proximal SVC. Lungs: Consolidation in the right upper lobe. Pleural spaces: Unremarkable. No pleural effusion. No pneumothorax. Heart/Mediastinum: Unremarkable. No cardiomegaly. Bones/joints: Unremarkable. XR/XR chest 1V portable [id number] IMPRESSION: Right upper lobar pneumonia.
--- NOTE | 2021-06-19 19:19 | ED_ITS ---
HPI - General Adult General: Chief complaint: General Medical Stated complaint: Port flush, might have infection Time Seen by Provider: 06/19/21 19:18 History of Present Illness: Patient is a 80-year-old male comes to the ED for labs. Patient sees Dr. Hdz and he told him to come up here to the ED to have his port flushed, labs drawn and Covid testing done. He has a scheduled socrates ointment on Saturday, but since patient had fever on Saturday they thought he should come in wonders get some labs drawn. Patient's fever resolved by the end day Saturday and he has not had any other fever since. He has history of COPD. patient is on 4 L of O2 at home continuously and has a history of lung cancer as well. He has had an on and off cough for over a month now. Cough is describ ed as dry and nonproductive. He has not required any increase in oxygen levels at home. He just got approved for breathing treatments to do at home for his COPD today and got them meds. Denies any other symptoms. Associated symptoms: Deny chest pain, dyspnea, headache(s), nausea, rash, palpitations or vomiting Review of Systems Const: Reports: fever(s) (resolved 2 days ago); Denies: chills or fatigue Eyes: Denies: change in vision or eye discomfort ENMT: Denies: throat pain, odynophagia, nasal discharge or nasal congestion Card: Denies: chest pain, palpitations, edema, swelling of feet/ankles, dyspnea on exertion or orthopnea Resp: Reports: non-productive cough (for the past month); Denies: dyspnea or productive cough GI: Denies: abdominal pain, nausea, vomiting, diarrhea, constipation or hematochezia : Denies: flank pain, difficulty urinating, dysuria or hematuria Musc: Denies: neck pain, back pain or extremity swelling Skin/Breast: Denies: rash or new lesions Neuro: Denies: headache(s) [facility] ED PFSH: Medical History Acute encephalopathy Acute on chronic diastolic (congestive) heart failure Acute on chronic respiratory failure with hypoxia and hypercapnia Anemia Anemia BPH (benign prostatic hyperplasia) Bradycardia Cholelithiasis Chronic kidney disease Depression Essential hypertension Glaucoma Heart failure with preserved ejection fraction Hyperlipidemia Hypertension Hypothyroidism Lung cancer Macrocytic anemia Morbid obesity Pneumonia Psoriasis Sigmoid diverticulosis Skin ulcer Surgical History H/O excision of epidermal inclusion cyst Normal colonoscopy In 2018 2019 Family History Denies family history of Anesthesia complication Bleeding disorder Lung disease Hypertension Social History Smoking and tobacco status: former smoker Quit status (tobacco): has quit using tobacco Year quit tobacco: 2018 Former quit date comment: 1ppd x 64 years Alcohol intake: never Household members: spouse Housing: House Physical Exam Const: COMMON NORMALS: no acute distress, patient oriented x3 and alert GENERAL APPEARANCE: cooperative and comfortable HENMT: COMMON NORMALS: normocephalic HEAD & SCALP: normocephalic MOUTH: Normal oral and palatal mucosa present THROAT: posterior oropharynx normal and uvula midline Neck/C-Spine: COMMON NORMALS: supple GENERAL: Yes normal visual inspection Resp: COMMON NORMALS: normal respiratory effort, No retractions and No use of accessory muscles AUSCULTATION: wheezes expiratory wheezes and throughout and diminished lung sounds bilateral in the lower lung sinclair OTHER: on 4L of O2 via nasal cannula and at 95% O2 saturation level here in the ED. He does not appear in any acute respiratory distress currently. Cardio: COMMON NORMALS: regular rate, regular rhythm, S1 normal heart sound present, S2 normal heart sound present, No gallops present (Cardio), No clicks present (Cardio), No murmurs present (Cardio) and Peripheral pulses 2+ throughout RATE: regular rate RHYTHM: regular rhythm HEART SOUNDS: S1 normal heart sound present and S2 normal heart sound present PERIPHERAL PULSES: Peripheral pulses 2+ throughout GI: COMMON NORMALS: Normal to inspection, nondistended, normoactive bowel sounds present, Soft to palpation, non-tender and no masses PALPATION: Yes Soft to palpation : COMMON NORMALS: Yes no CVA tenderness BLADDER/KIDNEY EXAM: Yes no CVA tenderness Back/Pelvis: COMMON NORMALS: no CVA tenderness Extremity: COMMON NORMALS: normal to inspection Neuro: COMMON NORMALS: patient oriented x3 SENSORIUM/ORIENTATION: Yes alert GAIT: Yes Normal gait present Skin: GENERAL SKIN EXAM: dry skin Course 2 Vital Signs: Vital signs: Vital Signs Temperature 99.2 F 06/19/21 16:11 Pulse Rate 86 06/19/21 22:26 Respiratory Rate 17 06/19/21 22:26 Blood Pressure 144/77 06/19/21 22:26 Pulse Oximetry 97 06/19/21 22:26 [facility] - General Adult Medical Decision Making Patient is a 80-year-old male comes to the ED to have some lab test done. Past medical history of COPD, lung cancer. He was sent in by Dr. Hdz to have blood work, Covid test done since the patient had a fever a couple days ago. He has not had a fever since Saturday and says he has been feeling normal. He is on 4 L of oxygen at home and has not required any increased levels of oxygen. Vitals are stable. Patient is sitting comfortably on exam bed and in no acute distress or pain. He does have some diminished lung sounds the bases bilaterally and some wheezing throughout. Labs were unremarkable. Chest x-ray shows some right upper lobe pneumonia. Covid test was negative. Patient was given a DuoNeb breathing treatment here in the ED. I talked with Dr. Lim about patient case and is findings of right upper lobe pneumonia. Patient is not requiring any increased oxygen at home. He appears in no acute distress pain. Dr. Lim recommended sending patient home on a 10-day course of doxycycline and Augmentin. He was given a dose of Augmentin and doxycycline here in the ED before discharge.Patient will contact his PCP and Dr. Hdz tomorrow morning to set up appointments for further evaluation in the next 3 to 5 days. Return to ED precautions given. Patient understood and agreed with plan. Lab Data I reviewed the patient's lab results. : 06/19/21 21:44 06/19/21 20:35 Radiology Impressions Chest X-Ray 06/19/21 16:23 IMPRESSION: Right upper lobar pneumonia. Laboratory Results WBC 6.6 10^3/uL (4.0-10.0) 06/19/21 21:44 Corrected WBC Cancelled 06/19/21 20:35 RBC 3.37 10^6/uL (4.1-5.3) L 06/19/21 21:44 Hgb 10.0 g/dL (11.7-16.6) L 06/19/21 21:44 Hct 32.9 % (42.0-52.0) L 06/19/21 21:44 MCV 97.6 fl (80-94) H 06/19/21 21:44 MCH 29.7 pg (28.0-34.0) 06/19/21 21:44 MCHC 30.4 g/dL (30.0-36.0) 06/19/21 21:44 RDW 14.9 % (12.1-15.1) 06/19/21 21:44 Plt Count 233 10^3/cmm (130-400) 06/19/21 21:44 MPV 9.4 fL (7.4-10.4) 06/19/21 21:44 Gran % Cancelled 06/19/21 20:35 Neut % (Auto) 65.8 % 06/19/21 21:44 Lymph % (Auto) 18.5 % 06/19/21 21:44 [place] % (Auto) 11.8 % 06/19/21 21:44 Eos % (Auto) 2.7 % 06/19/21 21:44 Baso % (Auto) 0.3 % 06/19/21 21:44 Neut # (Auto) 4.34 10^3/uL (1.8-7.7) 06/19/21 21:44 Lymph # (Auto) 1.2 10^3/uL (0.8-4.8) 06/19/21 21:44 [place] # (Auto) 0.8 10^3/uL (0.2-0.9) 06/19/21 21:44 Eos # (Auto) 0.2 10^3/uL (0.0-0.8) 06/19/21 21:44 Baso # (Auto) 0.0 10^3/uL (0.0-0.1) 06/19/21 21:44 Absolute Gran (auto) Cancelled 06/19/21 20:35 Nucleated RBC % (auto) 0 % 06/19/21:44 Nucleated RBCs # 0.0 /100WBC 06/19/21 21:44 Sodium 135 mmol/L (136-145) L 06/19/21 20:35 Potassium 4.0 mmol/L (3.5-5.1) 06/19/21 20:35 Chloride 95 mmol/L (98-107) L 06/19/21 20:35 Carbon Dioxide 34 mmol/L (22-29) H 06/19/21 20:35 Anion Gap 10.0 (5-19) 06/19/21 20:35 BUN 14 mg/dL (8-23) 06/19/21 20:35 Creatinine 0.8 mg/dL (0.7-1.2) 06/19/21 20:35 GFR Calculation Not Reportable 06/19/21 20:35 Glucose 90 mg/dL (65-115) 06/19/21 20:35 Calculated Osmolality 280 mOsm/kg (285-295) L 06/19/21 20:35 Calcium 8.0 mg/dL (8.5-10.5) L 06/19/21 20:35 Total Bilirubin 0.2 mg/dL (0.15-1.2) 06/19/21 20:35 AST 16 U/L (0-40) 06/19/21 20:35 ALT 20 U/L (0-41) 06/19/21 20:35 Alkaline Phosphatase 110 IU/L (40-130) 06/19/21 20:35 Total Protein 5.7 g/dL (6.6-8.7) L 06/19/21 20:35 Albumin 2.7 g/dL (3.5-5.2) L 06/19/21 20:35 Globulin 3.0 g/dL (1.3-4.6) 06/19/21 20:35 Urine Color Yellow (Yellow) 06/19/21 19:38 Urine Appearance Clear (CLEAR) 06/19/21 19:38 Urine pH 5 (5-7) 06/19/21 19:38 Ur Specific [place] 1.020 (1.005-1.030) 06/19/21 19:38 Urine Protein Neg (Negative) 06/19/21 19:38 Urine Glucose (UA) Norm (Normal) 06/19/21 19:38 Urine Ketones Negative (Negative) 06/19/21 19:38 Urine Blood Neg (Negative) 06/19/21 19:38 Urine Nitrate Negative (Negative) 06/19/21 19:38 Urine Bilirubin Neg (Negative) 06/19/21 19:38 Urine Urobilinogen Norm mg/dL (Negative) 06/19/21 19:38 Ur Leukocyte Esterase Negative (Negative) 06/19/21 19:38 SARS-CoV-2 Ag (Rapid) Negative (Negative) 06/19/21 19:38 Discharge Plan Discharge Patient Disposition: Home Clinical Impression: Pneumonia Qualifiers: Pneumonia type: due to unspecified organism Laterality: right Lung location: upper lobe of lung Qualified Code(s): J18.9 - Pneumonia, unspecified organism Condition: Stable Prescriptions: New doxycycline hyclate 100 mg capsule 100 mg PO BID 10 Days Qty: 20 0RF Augmentin 500-125 mg tablet 1 tab PO BID 10 Days Qty: 20 0RF No Action cholecalciferol (vitamin D3) 25 mcg (1,000 unit) capsule 25 mcg PO DAILY 0RF hydralazine 10 mg tablet 50 mg PO BID 0RF Trelegy Ellipta 100-62.5-25 mcg blister with device 1 inh inhalation DAILY Qty: 60 3RF ipratropium-albuterol 0.5 mg-3 mg(2.5 mg base)/3 mL solution for nebulization 3 ml inhalation Q4H PRN (Reason: wheezing) Qty: 90 3RF (DME) nebulizers [facility] [place] See Rx Instructions .Route Qty: 1 0RF Rx Instructions: give 1 nebulizer and accessories kit amlodipine 5 mg tablet 5 mg PO DAILY 0RF isosorbide mononitrate 30 mg tablet extended release 24 hr 30 mg PO DAILY 0RF lisinopril 20 mg tablet 20 mg PO DAILY 0RF metoprolol tartrate 25 mg tablet 25 mg PO BID 0RF latanoprost 0.005 % Drops 1 drp OPHTHALMIC (EYE) BEDTIME 0RF Rx Instructions: both eyes tamsulosin [Flomax] 0.4 mg Capsule 0.4 mg PO BEDTIME 0RF levothyroxine 50 mcg Tablet 50 mcg PO QAM 0RF atorvastatin 20 mg Tablet 20 mg PO DAILY 0RF magnesium oxide 400 mg magnesium Tablet 400 mg PO DAILY 0RF cyanocobalamin (vitamin B-12) 1,000 mcg Tablet 1,000 mcg PO DAILY 0RF folic acid 1 mg Tablet 1 mg PO DAILY 0RF albuterol sulfate 90 mcg/actuation Hfa Aerosol Inhaler 2 puff INHALATION QID PRN (Reason: Shortness Of Breath) 0RF fluticasone propionate 50 mcg/actuation [place],Suspension 2 spray INTRANASAL DAILY PRN (Reason: Allergy Symptoms) 0RF carboxymethylcellulose sodium 1 % Drops, Liquid Gel 2 drp ophthalmic (eye) QID PRN (Reason: Dry Eye(S)) 0RF olodaterol 2.5 mcg/actuation Mist 2 inh INHALATION DAILY 0RF furosemide 40 mg Tablet 40 mg PO BID 30 Days Qty: 60 1RF prednisone 20 mg tablet 20 mg PO DAILY Qty: 5 0RF Discharge Orders: Discharge ED (Routine); Ordered 06/19/21 Ordered By: Zeferino Leon Referrals: Jose Martin Noe, [Primary Care Provider] - Discharge Diet: Regular Discharge Activity: Increase activity as tolerated Patient Instructions: Pneumonia (ED) Activity Restrictions/Additional Instructions: Follow-up with medical provider as directed. Call your PCP and Dr. Andreina araya to set up appointments with them for reevaluation in the next 3 to 5 days. Continue using home oxygen as previously prescribed. Take medications as prescribed. Return to the ER or your medical provider if condition worsens. Please read and understand discharge instructions. Thank you for choosing [facility] for your healthcare needs today. Please realize this is an emergency room and that we are providing you with a medical screening exam and this may not be complete and all inclusive of all the testing and or work up that you may need to determine your ailment or severity of your illness. It is very important that you follow up as instructed or that you return to the Emergency Department should you have concerns or if your condition changes or worsens in any way. Coding Level of Care Code ED Base Filler Operator for Madison Durand Exam Comprehensive
[2021-06-19 19:45] LABS: Add Urine Microscopic? NO; Charge for UA Resulting for Rev
[2021-06-19 19:46] LABS: Bilirubin Urine Neg (Negative); Blood Urine Neg (Negative); Glucose Urine UA Norm (Normal); Ketones Urine Negative (Negative); Leukocyte Esterase Urine Negative (Negative); Nitrate Urine Negative (Negative); Protein Urine Neg (Negative); Urine Appearance Clear (CLEAR); Urine Color Yellow (Yellow); Urobilinogen Urine Norm (Negative); pH Urine 5 (5-7)
[2021-06-19] MEDS: lidocaine-prilocaine cream 5 gm 1 APPLIC TOPICAL (19:50)
--- NOTE | 2021-06-19 19:54 | PC.NURSE ---
Emla placed to port per order, will access.
[2021-06-19 20:05] LABS: SARS Covid-2 Antigen Negative (Negative)
[2021-06-19 20:43] VITALS: BP 144/77; PULSE 79; RESP 18; O2SAT 98
[2021-06-19 20:46] VITALS: PULSE 94; RESP 17; O2SAT 97
[2021-06-19 21:19] LABS: Alanine Aminotransferase 20 U/L (0-41); Albumin Level 2.7 g/dL (3.5-5.2); Alkaline Phosphatase 110 IU/L (40-130); Aspartate Amino Transferase 16 U/L (0-40); Blood Urea Nitrogen 14 mg/dL (8-23); Carbon Dioxide 34 mmol/L (22-29); Chloride 95 mmol/L (98-107); Glucose 90 mg/dL (65-115); Osmolality Calculated 280 mOsm/kg (285-295); Sodium 135 mmol/L (136-145); Total Bilirubin 0.2 mg/dL (0.15-1.2); Total Protein 5.7 g/dL (6.6-8.7)
[2021-06-19 21:51] LABS: Basophils % 0.3 %; Eosinophils # 0.2 10^3/uL (0.0-0.8); Eosinophils % 2.7 %; Hematocrit 32.9 % (42.0-52.0); Lymphocytes # 1.2 10^3/uL (0.8-4.8); Lymphocytes % 18.5 %; Mean Corpuscular HGB Conc 30.4 g/dL (30.0-36.0); Mean Corpuscular Hemoglobin 29.7 pg (28.0-34.0); Mean Corpuscular Volume 97.6 fl (80-94); Mean Platelet Volume 9.4 fL (7.4-10.4); Monocytes # 0.8 10^3/uL (0.2-0.9); Monocytes % 11.8 %; Neutrophils # 4.34 10^3/uL (1.8-7.7); Neutrophils % 65.8 %; Nucleated Red Blood Cells % 0 %; Platelet Count 233 10^3/cmm (130-400); Red Blood Count 3.37 10^6/uL (4.1-5.3); Red Cell Distribution Width 14.9 % (12.1-15.1); White Blood Count 6.6 10^3/uL (4.0-10.0)
[2021-06-19] MEDS: doxycycline 100 mg Tablet PO (22:25)
[2021-06-19] MEDS: amoxicillin-clav 500-125 mg Tablet 1 TAB PO (22:25)
[2021-06-19 22:26] VITALS: BP 144/77; PULSE 86; RESP 17; O2SAT 97
[2021-06-20 17:18] LABS: Bacillus cereus group Not Detected (NOT DETECT); Bacillus subtillis group Not Detected (NOT DETECT); Corynebacterium Not Detected (NOT DETECT); Cutibacterium acnes (P.acnes) Not Detected (NOT DETECT); Enterococcus Not Detected (NOT DETECT); Enterococcus faecalis Not Detected (NOT DETECT); Enterococcus faecium Not Detected (NOT DETECT); Lactobacillus species Not Detected (NOT DETECT); Listeria Not Detected (NOT DETECT); Listeria monocytogenes Not Detected (NOT DETECT); Micrococcus Not Detected (NOT DETECT); Pan Candida Not Detected (NOT DETECT); Pan Gram-Negative Detected (NOT DETECT); Staphylococcus epidermidis Detected (NOT DETECT); Staphylococcus lugdunensis Not Detected (NOT DETECT); Staphylococcus species Detected (NOT DETECT); Streptococcus agalactiae Not Detected (NOT DETECT); Streptococcus anginosus group Not Detected (NOT DETECT); Streptococcus pneumoniae Not Detected (NOT DETECT); Streptococcus pyogenes Not Detected (NOT DETECT); Streptococcus species Not Detected (NOT DETECT); mecA Detected (NOT DETECT); mecC Not Detected (NOT DETECT)
--- NOTE | 2021-06-21 14:41 | PC.NURSE ---
Informed pt to F/U with PCP.
== END 2021-06-19 22:20 | disposition home or self-care (01) ==
PROVIDERS: Physician Assistant; Emergency Provider Physician Assistant; PCP Emergency Medicine Emergency Medical Services
DX: J18.9 Pneumonia, unspecified organism (principal); Z20.822 Contact with and (suspected) exposure to COVID-19; I11.0 Hypertensive heart disease with heart failure; I50.33 Acute on chronic diastolic (congestive) heart failure; E78.5 Hyperlipidemia, unspecified; Z85.118 Personal history of other malignant neoplasm of bronchus and lung; Z87.891 Personal history of nicotine dependence
CPT/HCPCS: 36415; 71045; 80053; 81003; 85025; 87040; 87077; 87150; 87186; 87205; 87426; 94640; 99284

== ENCOUNTER 2021-08-11 11:00 | Outpatient (CLI) | payer OTHER, MEDICARE, SELFPAY | END 2021-08-11 11:01 | disposition home or self-care (01) | PROVIDERS: PCP Emergency Medicine Emergency Medical Services; Visit Provider Internal Medicine Hematology & Oncology | DX: Z45.2 Encounter for adjustment and management of vascular access device (principal) | CPT/HCPCS: 96523 ==

== ENCOUNTER 2021-08-29 06:28 | Day surgery (SDC) | payer OTHER, SELFPAY ==
[2021-08-25 13:11] VITALS: BMI 42.7
--- NOTE | 2021-08-29 | CT_ITS ---
Guided Bronchoscopy Planning CT images; total exam DLP: 607.30 mGy-cm MTDD
[2021-08-29 06:57] VITALS: BP 182/69; PULSE 76; RESP 22; TEMP 36.9; O2SAT 97
[2021-08-29] MEDS: sodium chloride 0.9% 1,000 ML 30 ML IV (07:03)
--- NOTE | 2021-08-29 08:07 | W.PM.OPSFHP ---
Same Day Surgery H&P Indication for Procedure/HPI DATE OF PROCEDURE: August 29, 2021 CHIEF COMPLAINT/INDICATIONFOR SURGICAL PROCEDURE: PET positive right upper lobe lung mass. PREOP DIAGNOSIS: Lung cancer PLANNED PROCEDURE: Bronchoscopy inspection of the airway, possible endobronchial biopsy, bronchoalveolar lavage, navigational bronchoscopy guided transbronchial biopsy of the right upper lobe lung mass, fine-needle aspiration and Cytobrush and control of bleeding. 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 The right upper lobe lung mass has been growing progressively and is PET positive the patient is here for further sampling of this lesion. Medications/Allergies* Home Medications Medication Instructions Recorded Confirmed Type latanoprost 0.005 % eye drops 1 drp OPHTHALMIC (EYE) BEDTIME 10/26/19 08/28/21 History levothyroxine 50 mcg tablet 50 mcg PO QAM 10/26/19 08/28/21 History tamsulosin 0.4 mg capsule (Flomax) 0.4 mg PO BEDTIME 10/26/19 08/28/21 History atorvastatin 20 mg tablet 20 mg PO DAILY 11/25/19 08/28/21 History amlodipine 5 mg tablet 5 mg PO DAILY 01/05/20 08/28/21 History isosorbide mononitrate 30 mg 30 mg PO DAILY 01/05/20 08/28/21 History tablet,extended release 24 hr lisinopril 20 mg tablet 20 mg PO DAILY 01/05/20 08/28/21 History metoprolol tartrate 25 mg tablet 25 mg PO BID 01/05/20 08/28/21 History albuterol sulfate 90 mcg/actuation 2 puff INHALATION QID PRN 05/24/21 08/28/21 History aerosol inhaler carboxymethylcellulose sodium 1 % 2 drp OPHTHALMIC (EYE) QID PRN 05/24/21 08/28/21 History eye liquid gel drops cyanocobalamin (vitamin B-12) 1,000 mcg PO DAILY 05/24/21 08/28/21 History 1,000 mcg tablet folic acid 1 mg tablet 1 mg PO DAILY 05/24/21 08/28/21 History magnesium oxide 400 mg PO DAILY 05/24/21 08/28/21 History cholecalciferol (vitamin D3) 25 25 mcg PO DAILY 06/12/21 08/28/21 History mcg (1,000 unit) capsule hydralazine 25 mg tablet 25 mg PO BID 08/28/21 08/28/21 History tiotropium 2.5 mcg-olodaterol 2.5 2 puff INHALATION DAILY 08/28/21 08/28/21 History mcg/actuation mist for inhalation (Stiolto Respimat) Allergies/Adverse Reactions Allergy/AdvReac Type Severity Reaction Status Date / Time No Known Allergies Allergy Verified 06/19/21 09:36 Current Medications: Generic Name Dose Route Start Last Admin Trade Name Freq PRN Reason Stop Dose Admin Sodium Chloride 1,000 mls @ 30 mls/hr 08/29/21 06:45 08/29/21 07:03 Sodium Chloride 0.9% IV 08/30/21 06:44 30 mls/hr .Q24H ANTONIA Administration Pertinent History/Comorbid Conditions* Medical History (Updated 06/27/21 @ 00:00 by ) Acute encephalopathy Acute on chronic diastolic (congestive) heart failure Acute on chronic respiratory failure with hypoxia and hypercapnia Anemia Anemia BPH (benign prostatic hyperplasia) Bradycardia Cholelithiasis Chronic kidney disease Depression Essential hypertension Glaucoma Heart failure with preserved ejection fraction Hyperlipidemia Hypertension Hypothyroidism Lung cancer Macrocytic anemia Morbid obesity Pneumonia Psoriasis Sigmoid diverticulosis Skin ulcer Surgical History (Updated 12/10/19 @ 13:54 by Travis Cuello MD) H/O excision of epidermal inclusion cyst Normal colonoscopy In 2018 2019 Family History (Updated 11/17/19 @ 13:09 by Debbie Michael RN) Denies family history of Anesthesia complication Bleeding disorder Lung disease Hypertension Social History Smoking and tobacco status: former smoker Quit status (tobacco): has quit using tobacco Year quit tobacco: 2019 Former quit date comment: 1ppd x 64 years Alcohol intake: never Household members: spouse Housing: House Pertinent Exam Findings alert, oriented x 3, clear to auscultation bilaterally and regular rate & rhythm Recommendations Surgery/Procedure today Other Plans: Proceed with the procedure Coding Level of Care Code Acute Dispensary Attendant for Chg Kizzy
--- NOTE | 2021-08-29 08:15 | ANES.PREANE2 ---
Pre-Anesthetic Assessment Height/Weight: Height 1.68 m Weight 120.202 kg Temp Pulse Resp BP Pulse Ox 98.5 F 76 22 H 182/69 97 08/29/21 06:57 08/29/21 06:57 08/29/21 06:57 08/29/21 06:57 08/29/21 06:57 Preop Diagnosis: Lung cancer Operation Date: 08/29/21 08:25 Proposed Procedures p Veran [id number](Not Applicable) - Bipbaudilio Duarte MD Familial anesthetic complications: none Was Beta Kenroy taken within 24 hours: Yes Was Clonidine taken within 24 hours: N/A Last intake: Intake Last Liquid Date 08/28/21 Last Liquid Time 19:00 Last Solid Date 08/28/21 Last Solid Time 16:00 Last Intake: 19:00 Social Tobacco (stop 1 yr ago) and No alcohol 1ppd pack(s) per day 60+ pack years Exam alert, oriented x 3, clear to auscultation bilaterally (scattered wheezes) and regular rate & rhythm Airway Submandibular: within normal limits Cervical ROM: within normal limits Mallampati: Class II Dentition: false Pulmonary Chronic Obstructive Pulmonary Disease (o2 3 L), Cough, Exertional Dyspnea and Shortness of Breath CV/HEM Congestive Heart Failure and Hypertension None reported Hepatic None reported GI None reported Metabolic Morbid Obesity Musc/skel Lower Back Pain and Osteoarthritis/DJD Neuropsych None reported Anesthetic Plan ASA status: 3 Anesthesia: General Risk of > 500 ml blood loss (7ml/kg in children): No Medications/Allergies Home Medications Medication Instructions Recorded Confirmed Last Taken Type latanoprost 0.005 % eye drops 1 drp OPHTHALMIC (EYE) BEDTIME 10/26/19 08/28/21 08/28/21 History levothyroxine 50 mcg tablet 50 mcg PO QAM 10/26/19 08/28/21 08/28/21 History tamsulosin 0.4 mg capsule (Flomax) 0.4 mg PO BEDTIME 10/26/19 08/28/21 08/28/21 History atorvastatin 20 mg tablet 20 mg PO DAILY 11/25/19 08/28/21 08/28/21 History amlodipine 5 mg tablet 5 mg PO DAILY 01/05/20 08/28/21 08/29/21 History isosorbide mononitrate 30 mg 30 mg PO DAILY 01/05/20 08/28/21 08/29/21 History tablet,extended release 24 hr lisinopril 20 mg tablet 20 mg PO DAILY 01/05/20 08/28/21 08/28/21 History metoprolol tartrate 25 mg tablet 25 mg PO BID 01/05/20 08/28/21 08/29/21 History albuterol sulfate 90 mcg/actuation 2 puff INHALATION QID PRN 05/24/21 08/28/21 08/28/21 History aerosol inhaler carboxymethylcellulose sodium 1 % 2 drp OPHTHALMIC (EYE) QID PRN 05/24/21 08/28/21 08/28/21 History eye liquid gel drops cyanocobalamin (vitamin B-12) 1,000 mcg PO DAILY 05/24/21 08/28/21 08/28/21 History 1,000 mcg tablet folic acid 1 mg tablet 1 mg PO DAILY 05/24/21 08/28/21 08/28/21 History magnesium oxide 400 mg PO DAILY 05/24/21 08/28/21 08/28/21 History furosemide 40 mg tablet 40 mg PO BID 30 Days #60 tab 05/27/21 08/28/21 08/28/21 Rx cholecalciferol (vitamin D3) 25 25 mcg PO DAILY 06/12/21 08/28/21 08/28/21 History mcg (1,000 unit) capsule fluticasone fur. 100 mcg-umeclid 1 inh INHALATION DAILY #60 ea 06/12/21 08/28/21 08/28/21 Rx 62.5 mcg-vilant 25 mcg inhalat.powder (Trelegy Ellipta) ipratropium 0.5 mg-albuterol 3 mg 3 ml INHALATION Q4H PRN #90 ml 06/12/21 08/28/21 Unknown Rx (2.5 mg base)/3 mL nebulization soln nebulizers #1 ea 06/12/21 08/28/21 Unknown Rx hydralazine 25 mg tablet 25 mg PO BID 08/28/21 08/28/21 08/28/21 History tiotropium 2.5 mcg-olodaterol 2.5 2 puff INHALATION DAILY 08/28/21 08/28/21 08/28/21 History mcg/actuation mist for inhalation (Stiolto Respimat) Allergies Allergy/AdvReac Type Severity Reaction Status Date / Time No Known Allergies Allergy Verified 06/19/21 09:36 Current Medications Generic Name Dose Route Start Last Admin Trade Name Freq PRN Reason Stop Dose Admin Sodium Chloride 1,000 mls @ 30 mls/hr 08/29/21 06:45 08/29/21 07:03 Sodium Chloride 0.9% IV 08/30/21 06:44 30 mls/hr .Q24H ANTONIA Administration PFSH Anesthesia Medical History Acute encephalopathy Acute on chronic diastolic (congestive) heart failure Acute on chronic respiratory failure with hypoxia and hypercapnia Anemia Anemia BPH (benign prostatic hyperplasia) Bradycardia Cholelithiasis Chronic kidney disease Depression Essential hypertension Glaucoma Heart failure with preserved ejection fraction Hyperlipidemia Hypertension Hypothyroidism Lung cancer Macrocytic anemia Morbid obesity Pneumonia Psoriasis Sigmoid diverticulosis Skin ulcer Surgical History H/O excision of epidermal inclusion cyst Normal colonoscopy In 2018 2019 Family History Denies family history of Anesthesia complication Bleeding disorder Lung disease Hypertension Social History Smoking and tobacco status: former smoker Quit status (tobacco): has quit using tobacco Year quit tobacco: 2018 Former quit date comment: 1ppd x 64 years Alcohol intake: never Household members: spouse Housing: House Data Anesthesia : 08/29/21 07:55 Cardiac Studies: Echocardiogram Ultrasound 10/29/19 Transesophageal Echocardiogram 11/02/19 Sestamibi Stress Test (Cardiology) 11/02/19
[2021-08-29 08:24] LABS: Anion Gap 7.4 (5-19); Blood Urea Nitrogen 11 mg/dL (8-23); Calcium 9.3 mg/dL (8.5-10.5); Carbon Dioxide 36 mmol/L (22-29); Chloride 97 mmol/L (98-107); Glucose 115 mg/dL (65-115); Osmolality Calculated 282 mOsm/kg (285-295); Potassium 4.4 mmol/L (3.5-5.1); Sodium 136 mmol/L (136-145)
[2021-08-29] MEDS: lidocaine 1% INJ 20 mL XX (08:41)
--- NOTE | 2021-08-29 09:42 | PM.OP ---
Operative Report Date of procedure: August 29, 2021 Pre-op diagnosis: Preop Diagnosis Lung cancer Brief History: This is a 80-year-old gentleman with right upper lobe lung cancer for which he has received chemoradiation therapy in the past. Now the patient is coming in for bronchoscopic evaluation for enlarging right upper lobe mass with PET positive ET. Procedure: Name of the procedure: Bronchoscopy with inspection of the airway, bronchoalveolar lavage, navigational bronchoscopy guided transbronchial biopsies, fine-needle aspiration, Cytobrush and control of bleeding. Indication: Enlarging PET positive right upper lobe lung mass Anesthesia: General anesthesia. Local anesthesia: The alexa in the right and left mainstem bronchi were anesthetized with 1% lidocaine, 3 mL. Description of the procedure: The procedure was explained to the patient and the consent was obtained. The patient was brought to the OR. The patient underwent endotracheal intubation for general anesthesia. Following induction of general anesthesia, the bronchoscope was advanced through the ET tube. The lower trachea appeared to be normal. The alexa was sharp. The alexa, the right and left mainstem bronchi are anesthetized with 1% lidocaine. In a systematic manner bilateral bronchial tree was then examined. The bronchoscope was advanced into the left mainstem bronchus. The left upper lobe, lingula and left lower lobe bronchi were examined up to the third subsegmental level and no abnormalities were identified. There is no endobronchial lesion, active bleeding or mucous plug. The bronchoscope was then introduced into the right mainstem bronchus. The right upper lobe, right middle lobe and right lower lobe bronchi were examined up to the third subsegmental level and no abnormalities were identified. There was mild mucus throughout the airways. Using navigational bronchoscopy, fine-needle aspiration was obtained from the right upper lobe lung mass. Multiple samples were obtained. This was followed by transbronchial biopsies from the same mass. Cytobrush samples were also obtained. Bronchoalveolar lavage was performed from the apical segment of the right upper lobe. A total of 60 cc of saline was instilled, fluid return was 15 mL. There is no significant bleeding at the end of the bronchoscopy. Samples: 1. Bronchoalveolar lavage specimen was sent for cytology. 2. The transbronchial biopsies are sent for histopathology 3. The fine-needle aspiration was sent for histopathology. Complications: There was no immediate complications. Chest x-ray: Pending
[2021-08-29 09:55] VITALS: BP 157/77; PULSE 83; RESP 20; TEMP 36.8; O2SAT 92
[2021-08-29 10:00] VITALS: BP 171/11; PULSE 85; RESP 24; O2SAT 92
[2021-08-29 10:05] VITALS: BP 154/58; PULSE 86; RESP 19; O2SAT 91
[2021-08-29 10:10] VITALS: BP 145/58; PULSE 83; RESP 18; O2SAT 93
[2021-08-29 10:21] VITALS: BP 151/57; PULSE 82; RESP 20; O2SAT 92
--- NOTE | 2021-08-29 10:43 | XRR_ITS ---
PROCEDURE INFORMATION: Exam: XR Chest Exam date and time: 08/29/2021 10:51 AM Age: 80 years old Clinical indication: Device placement; Other: Post bronchoscopy; Prior surgery; Surgery date: Post-operative (0-2 days) TECHNIQUE: Imaging protocol: XR of the chest. Views: 1 view. COMPARISON: CR (CHEST, ) 06/19/2021 7:02 PM FINDINGS: Lungs: There is right upper lobe parenchymal density consistent with pneumonia. This finding shows decreased conspicuity since prior examination. Repeat examination to is recommended to ensure complete resolution of this finding. Pleural spaces: Unremarkable. No pleural effusion. No pneumothorax. Heart/Mediastinum: Unremarkable. No cardiomegaly. Bones/joints: Unremarkable. New lines there is a left side central line extending into the proximal SVC stable since prior. XR/XR chest 1V portable [id number] IMPRESSION: 1. Right upper lobe pneumonia decreased size and density since prior 2. Left central line in the SVC.
--- NOTE | 2021-08-29 15:26 | ANE.PACU2 ---
Inpatient post-anesthesia follow up: Airway intact: Yes Vital signs: Temperature 98.2 F Pulse Rate 82 Respiratory Rate 20 Blood Pressure 151/57 Pulse Oximetry 92 Oxygen Delivery Me thod Nasal Cannula Oxygen Flow Rate 4 Fraction of Inspir ed Oxygen Hydration adequate: Yes Nausea and vomiting: No Pain level: 2 Mental status: Baseline
== END 2021-08-29 11:00 | disposition home or self-care (01) ==
PROVIDERS: Anesthesiology; PCP Emergency Medicine Emergency Medical Services; Visit Provider Internal Medicine Critical Care Medicine
PROC: 0BJ08ZZ Inspection of Tracheobronchial Tree, Via Natural or Artificial Opening Endoscopic (ICD-10-PCS; CPT 31622; principal; 2021-08-29 08:15)
PROC: 0BJ08ZZ Inspection of Tracheobronchial Tree, Via Natural or Artificial Opening Endoscopic (ICD-10-PCS; CPT 31622; 2021-08-29 08:15)
DX: C34.90 Malignant neoplasm of unspecified part of unspecified bronchus or lung (principal); Z87.891 Personal history of nicotine dependence; J44.9 Chronic obstructive pulmonary disease, unspecified; Z99.81 Dependence on supplemental oxygen; E66.01 Morbid (severe) obesity due to excess calories; Z68.41 Body mass index [BMI] 40.0-44.9, adult; N40.0 Benign prostatic hyperplasia without lower urinary tract symptoms; E78.5 Hyperlipidemia, unspecified; I13.0 Hypertensive heart and chronic kidney disease with heart failure and stage 1 through stage 4 chronic kidney disease, or unspecified chronic kidney disease; N18.9 Chronic kidney disease, unspecified; I50.9 Heart failure, unspecified; Z92.21 Personal history of antineoplastic chemotherapy
CPT/HCPCS: 31623; 31624; 31627; 31628; 31629; 71045; 77011; 80048; 80503; 88108; 88305; J0330; J2704; J3490; J7030

== ENCOUNTER 2021-09-05 09:11 | Outpatient (CLI) | payer OTHER, SELFPAY ==
[2021-09-05 10:04] LABS: Basophils % 0.3 %; Eosinophils # 0.2 10^3/uL (0.0-0.8); Eosinophils % 1.7 %; Hematocrit 31.9 % (42.0-52.0); Hemoglobin 9.7 g/dL (11.7-16.6); Lymphocytes # 1.2 10^3/uL (0.8-4.8); Lymphocytes % 12.6 %; Mean Corpuscular HGB Conc 30.4 g/dL (30.0-36.0); Mean Corpuscular Volume 92.2 fl (80-94); Mean Platelet Volume 9.7 fL (7.4-10.4); Monocytes # 0.8 10^3/uL (0.2-0.9); Monocytes % 8.7 %; Neutrophils # 7.05 10^3/uL (1.8-7.7); Neutrophils % 75.6 %; Nucleated Red Blood Cells % 0 %; Platelet Count 294 10^3/cmm (130-400); Red Blood Count 3.46 10^6/uL (4.1-5.3); Red Cell Distribution Width 15.3 % (12.1-15.1); White Blood Count 9.3 10^3/uL (4.0-10.0)
[2021-09-05 10:19] LABS: Alanine Aminotransferase 9 U/L (0-41); Albumin Level 3.4 g/dL (3.5-5.2); Alkaline Phosphatase 100 IU/L (40-130); Anion Gap 10.1 (5-19); Aspartate Amino Transferase 10 U/L (0-40); Blood Urea Nitrogen 12 mg/dL (8-23); Calcium 9.1 mg/dL (8.5-10.5); Carbon Dioxide 32 mmol/L (22-29); Chloride 99 mmol/L (98-107); Globulin 2.6 g/dL (1.3-4.6); Glucose 86 mg/dL (65-115); Osmolality Calculated 283 mOsm/kg (285-295); Potassium 4.1 mmol/L (3.5-5.1); Sodium 137 mmol/L (136-145); Total Bilirubin 0.2 mg/dL (0.15-1.2)
[2021-09-05 12:28] LABS: Reticulocyte % 2.1 % (0.5-2.0)
[2021-09-05 12:53] LABS: Ferritin 25 ng/mL (30-400); Iron 44 ug/dL (59-158); Percent Saturation 15.3 % (20-50); Total Iron Binding Capacity 287 mcg/dl; Unsaturated Iron Binding 243 ug/dL (112-347)
--- NOTE | 2021-09-06 09:33 | ONC FU_ITS ---
Dr. Ornelas follow up note Patient: Venkat Cherry Unit #: [id number]: [id number] Dicatated By: Criss Ornelas M.D.Date of Visit:Sep 05, 2021 Onc Med Follow-up/Prog Note History of Present Illness: Mr. Cherry is a 80-year-old gentleman with a 31-doit-ywak history of smoking. He had presented to his primary care at the [facility] with concerns of weakness and hemoptysis. He also reported increased shortness of breath for a month. It had significantly worsened on 2 weeks prior to his presentation to the PCP. He had had progressive fluid retention at that time as well. Dr. Noe has requested workup of his concerns which included a CT of the chest at that time he had finding of a right lung mass. The CT reported right upper lobe and lower lobe mass with mesangial lymphadenopathy. He did undergo CT-guided needle biopsy of the right lung mass on 09/13/2017. 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 The pathology reported ALK rearrangement by FISH as negative and PD-L1 IHC as negative. The PD-L1 IHC 28???8 was reported as less than 1%. Mr. Cherry had PET/CT on 09/28/2017. The findings were reported as: A 1.7 cm pulmonary nodule in the right lower lobe with SUV of 6.5. A 3 x 1.7 cm lesion in the central right upper lobe with SUV of 7.2; superior and inferior right paratracheal lymphadenopathy consistent with local metastatic disease. Inferior, right paratracheal node measures 1.9 x 2.3 cm with an SUV of 9.8; other scattered mediastinal nodes are radiographically benign and FDG negative. Bilateral pleural effusions. Malignant effusions could not be excluded. on 11/25/2017. s/p concurrent therapy with weekly carboplatin and paclitaxel and radiation to the primary and SBRT to the right lower lobe nodule . He began his first dose of weekly carboplatin and paclitaxel on 11/25/2017. till 01/08/18 . Mr Cherry was started on maintenance immunotherapy with Imfinzi on 02/24/2018. On Synthroid 25 ???g by mouth daily for newly diagnosed hypothyroidism probably due to immunotherapy He had restaging imaging with CT of the chest on 05/30/2018. There is no evidence of disease progression with overall stable appearance of the right upper and lower lobe parenchymal opacity and not hilar lymphadenopathy. Follow-up PET CT from 09/27/2018 reports near resolution of the right lung nodules and mediastinal nodes, indicating a positive response to therapy. There was resolution of bilateral pleural effusions. Mr. Cherry continues with Imfinzi treatment every 2 weeks. and Completed 24 doses on 01/12/2019 Follow-up CT PET scan done on 03/14/2019 showed central right upper lobe nodule measures roughly 9 mm with SUV of 3.5, compared to 15 x [address] PET scan done on 09/27/2018 and there has been no change in 7 mm right lung base nodule. Mild reactive activity in bilateral hilar and mediastinum is unchanged. Follow-up CT PET scan done on 07/11/2019, showed decreasing FDG uptake in the right upper lobe nodule, sporting and inflammatory diagnosis, no change in reactive mediastinal lymph nodes, no evidence of distant metastatic disease. Follow-up CT scan of chest done on April 20, 2020 showed spiculated right upper lobe neoplasm has progressed, now measures 1.6 x 2.1 x 1.8 compared to 1.2 x 1.1 x 0.8 cm previously and surrounding infiltrates are similar in appearance. Enlarged right hilar lymph node measuring 1.5 cm. No other lymphadenopathy. Right lower lobe opacity along posterior mediastinum measures 7 mm, unchanged since January 2018. Moderate chronic emphysematous changes. No other abnormality seen , still smoking about half pack a day. Follow-up CT PET scan done on July 30, 2020 showed right upper lobe nodule now measures 2.4 x 2.1 cm with SUV of 13.9 compared to 1.8 cm with SUV of 14.5 previously, indicates progression of disease. Guardant 360 done on August 19, 2019 showed no obvious targetable mutation Including MSI/MMR intact Follow-up CT PET scan done on September 24, 2020 showed significant increase in right apex lesion now measuring 3 x 3.3 cm with SUV of 16.6, no other lesions seen. Mr Cherry was referred to radiation oncology for evaluation for SBRT to the right apical lesion but with the follow-up CT PET scan showing disease progression, his treatment plan was changed to combined chemoradiation. He began Split dose Cisplatin/Etoposide, q. 28 days x 2 concurrent with daily radiation on October 18, 2020.Completed on November 24, 2020 Follow-up CT PET scan done on January 14, 2021 shows excellent response, right lung apex lesion now measuring 2.1 cm compared to 3.3 x 3 cm on September 24, 2020 and now SUV is 3.5 compared to 16.6 previously and mild,Right hilar activity is likely inflammatory. Follow-up PET scan done on April 29, 2021 shows persistent right lung apex nodule currently measures approximately 1.6 x 1.8 cm has SUV of 8.8 compared to 2.1 cm and with SUV of 3.5 on January 14, 2021 and also shows. Right hilar lymph node has SUV of 4.5, Consistent with recurrence As per patient he was admitted to hospital with progressive shortness of breath in May 2021, at that time he was diagnosed with bilateral lower lobe pneumonia,, altered mental status changes due to hypercapnia, treated with broad-spectrum antibiotics and overall condition improved subsequently on August 12, 2021, he underwent CT PET scan which showed progression of right upper lobe nodule measuring 4.6 x 3.3 cm with an SUV of 13.3 up from 1.6 x 1.8 cm with SUV of 8.8 on prior study. Abnormal activity in the superior right hilum is unchanged. Patient was evaluated by pulmonology and on August 29, 2021 he underwent bronchoscopy and FNA from right upper lobe mass x2 and transbronchial biopsy showed no evidence of malignancy rather benign reactive ciliated columnar epithelium with focal fibrosis. Came for follow-up, denies any specific complaints, except generalized weakness and fatigue, patient on home oxygen for advanced stage COPD, otherwise no fever or chills, no nausea or vomiting, no hemoptysis or hematemesis, no chest pain, no jaundice, no new bony pains. No melena or hematochezia, no jaundice, no dysuria or hematuria. Patient recently underwent bronchoscopy On August 29, 2021 and here to discuss about pathology Medications: Albuterol Sulfate 2 Puff(s) (of 108 (90 base) mcg/act) Aerosol Powder, Breath Activated Inhalation four times a day, amLODIPine Besylate 1 (5 mg) Tablet Oral daily, Atorvastatin Calcium 0.5 Tablet (of 40 mg) Oral daily, Cyanocobalamin 1 (1000 mcg) Tablet Oral daily, Fluticasone Propionate 2 [place](s) (of 50 mcg/act) Suspension Nasal daily, Folic Acid 1 (1 mg) Tablet Oral daily, Furosemide 1 Tablet (of 40 mg) Oral daily, HydrALAZINE HCl 1 Tablet (of 50 mg) Oral t.i.d., Isosorbide Mononitrate ER 1 Tablet (of 30 mg) Tablet SR 24 HR Oral daily, Latanoprost 1 Drop(s) (of 0.005 %) Solution Ophthalmic daily, Levothyroxine Sodium 1 (50 mcg) Tablet Oral daily, Magnesium 1 Tablet (of 400 mg) Oral at bedtime, Metoprolol Tartrate 0.5 Tablet (of 50 mg) Oral daily, Olodaterol HCl 2 Puff(s) (of 2.5 mcg/act) Aerosol, solution Inhalation daily, Potassium Chloride ER 0.5 Tablet (of 20 meq) Capsule, controlled release Oral b.i.d., Spironolactone 0.5 Tablet (of 25 mg) Oral b.i.d., Tamsulosin HCl 1 Capsule (of 0.4 mg) Oral daily, Triamcinolone Acetonide (0.5 %) Cream Topical Take as Directed, Vitamin C 1 Capsule (of 500 mg) Oral daily Allergies: No Known Allergies. Review of Systems: Review of Systems is not available for this patient. Vital Signs: Performed on Sep 05, 2021 11:17 Height - 65.50 in BP - 156/58 mm(hg) (HIGH) Performed on Sep 05, 2021 11:17 Height - 65.50 in Weight - 273.0 lbs (LOW) BSA - 2.27 sq.m BMI - 44.74 (HIGH) Temperature - 98.8 F Pulse - 103 /min (HIGH) Respiration - 20 /min BP - 185/51 mm(hg) (HIGH) O2 Sat - 91 % (LOW) Pain - 0 Fatigue - 7 Performance Status: 1 - No physically strenuous activity, but ambulatory and able to carry out light or sedentary work (e.g. office work, light house work). (ECOG) Physical Examination: ENMT - No mouth sores, no thrush, no jaundice, Respiratory - Poor air entry, mild wheezing, Cardiovascular - Regular rate and rhythm of heart, Abdomen - Soft, bowel sounds present, Extremities - Trace edema bilaterally. Lab/Imaging: Test performed on Jul 20, 2021 10:27 Folate 18.9 ng/mL Vitamin B12 779 pg/mL Glucose 106 mg/dL Occult Blood #1 POSITIVE Creatinine 0.81 mg/dL Cr Clearance (Est) 136.08 mL/min Sodium 135 mmol/L Potassium 4.6 mmol/L Chloride 92 mmol/L CO2 35 mmol/L Calcium 9.0 mg/dL Protein, Total 5.8 g/dL Albumin 3.4 g/dL Bilirubin, Total 0.3 mg/dL Alkaline Phosphatase 93 International Units/L AST (SGOT) 14 International Units/L ALT (SGPT) 19 International Units/L WBC 8.9 10^9/L RBC 3.53 10^12/L HGB 10.0 g/dL HCT 33.2 % MCV 94.1 fl MCH 28.3 pg MCHC 30.1 g/dL RDW 15.3 % Platelet Count 285 10^9/L MPV 9.5 fL Neutrophils (Gran) 5.92 10^9/L Lymphocytes 1.4418 10^9/L Monocytes 0.9523 10^9/L Eosinophils 0.4094 10^9/L Basophils 0.0445 10^9/L Test performed on Jul 18, 2021 10:34 Iron, Total 50 mcg/dL Impression: Mr. Cherry is a 80-year-old gentleman with right upper lobe lung cancer: invasive poorly differentiated squamous cell carcinoma. This diagnosis was confirmed by CT guided biopsy of the right upper lobe on 09/13/2017. He also had an abnormal PET/CT done on 09/28/2017. The PET showed a 1.7 cm pulmonary nodule in the right lower lobe with an SUV of 6.5. There was a 3 x 1.7 cm mass in the central right upper lobe with SUV of 7.2. There was superior and inferior right paratracheal lymphadenopathy with increased FDG uptake. Although scattered the mediastinal nodules were radiographically benign and FDG negative. It was noted that he did have bilateral pleural effusion with the right being larger than the left. He underwent MRI I of the brain on 11/01/2017 there was no evidence of metastatic disease at that time. The arrangement I Fish on the lung biopsy from 11/01/2017 is reported as negative the PDL???L1 IHC is negative there is no PD-L1 expression. PD-L1 IHC 28???8 was also reported as less than 1%. Clinical stage T4 ipsilateral satellite lesion in different lobe. N 1 or 2 ,Mx stage IIIA 2. COPD 3. Glaucoma and cataracts 4. Hypercholesterolemia/hyperlipidemia 5. Hypertension 6. Chronic, controlled depression s/p combined therapy with radiation and chemotherapy. to the primary and SB RT to the right lower lobe, first chemotherapy treatment on 11/25/2017. till 01/08/18 On week 4, 30 minutes after starting the Carboplatin, he developed hypertension, shortness of breath and chest pain. The Carboplatin was stopped and he was given sublingual nitroglycerin and his symptoms resolved. The Carboplatin has been stopped. He continued with paclitaxel with his last dose on 01/06/2018. He had recent admission for pneumonia and is labs at that time showed progressive anemia/dermal cytopenia. started on maintenance therapy with durvalumab. He began his first dose on 02/24/2018. He completed durvalumab on January 12, 2019. He had restaging imaging with CT of the chest on 05/30/2018. There is no evidence of disease progression with overall stable appearance of the right upper and lower lobe parenchymal opacity and not hilar lymphadenopathy. He continues with treatment at this time. He did have elevation of the TSH was started on Synthroid. His TSH remained stable. Follow-up CT PET scan done on 09/27/2018 showed the right lower lobe nodule seen on prior study done on 09/28/2017 was subcentimeter in size and FDG negative. The central right upper lobe lesion measures 1.5 x 0.7 cm with FDG activity frequent to mediastinal blood pool, this pattern is typical for inflammation Although a small amount of residual disease cannot be excluded . The inferior right paratracheal node was largely calcified, with mild residual activity activity that may be inflammatory. The superior right paratracheal node was calcified and FDG negative. Findings are indicative of good response to the therapy . Follow-up CT PET scan done on April 30, 2020 showed 1.8 cm right upper lobe nodule with SUV of 14.5. Mr Cherry was referred to [facility] for evaluation where he was seen by Dr. Wolf, who recommended follow-up CT PET scan as patient was not a candidate for surgical resection or further radiation therapy and if follow-up CT PET scan done in 3 months shows disease progression, consider systemic chemotherapy with Taxotere or Navelbine. Follow-up CT PET scan done on July 30, 2020 shows right upper lobe nodule now measures 2.4 x 2.1 cm with SUV of 13.9 compared to 1.8 cm with SUV 14.5 previously Follow-up CT PET scan done on September 24, 2020 showed significant increase in right apical lesion, now measuring 3.3 x 3 cm compared to 2.4 x 2.1 cm in July 2020 and SUV 16.6. Started on combined chemoradiation with split dose cisplatin/etoposide on October 18, 2020, Completed on November 24, 2020 follow-up CT PET scan done on January 14, 2021 shows marked interval improvement in the right apical lesion, now 2.1 cm with SUV of 3.6 compared to 3.3 x 3 cm and SUV of 16.6 on September 24, 2020, prior to the combined chemoradiation therapy and also shows mild, superior right hilar activity is likely inflammatory follow-up CT PET scan on August 12, 2021 showed progression of right upper lobe nodule now measuring 4.6 x 3.3 cm with an SUV of 13.3 compared to 1.6 x 1.8 cm with SUV of 8.8 on prior study in April 2021, for that patient was evaluated by pulmonology and underwent bronchoscopy on August 29, 2021, multiple biopsies were obtained from the right upper lobe mass including FNA x2 and transbronchial and none of them showed any evidence of malignancy. Plan: . Discussed with patient regarding his labs white blood count 9.3 hemoglobin 9.7 hematocrit 31.9 platelets 294,000, MCV 92.2 CMP within normal limits Clinically, patient doing well with no new signs symptom suggestive of disease progression but has recently done follow-up CT PET scan on August 12, 2021 showed progression of right upper lobe nodule now measuring 4.6 x 3.3 cm with an SUV of 13.3 compared to 1.6 x 1.8 cm with SUV of 8.8 on prior study in April 2021, for that patient was evaluated by pulmonology and underwent bronchoscopy on August 29, 2021, multiple biopsies were obtained from the right upper lobe mass including FNA x2 and transbronchial and none of them showed any evidence of malignancy. Considering patient is age and multiple comorbid conditions including advanced stage COPD, further planning was discussed including transthoracic biopsy of right upper lobe mass but there is risk of pneumothorax, which can be of concern in advanced stage COPD as during recent admission to hospital patient was admitted with altered mental status changes due to hypercapnia. Other option would be repeating CT PET scan in 2 to 3 months and if there is a further progression then consider biopsy to confirm recurrence of disease. Patient opted for observation and repeating scan in 2 to 3 months. Patient was advised in case there is any hemoptysis or new chest pain, then he need to call us otherwise we will monitor him along with pulmonology. As far as anemia is concerned, etiology could be multifactorial including nutritional e.g. iron/B12 deficiency or considering his age underlying myelodysplasia cannot be ruled out. We will consider anemia work-up including iron studies, B12, reticulocyte count and if deficiency confirmed, we will consider iron supplement. Patient return to clinic in 1 month with CBC and for monthly port maintenance and we will consider repeating CT PET scan in the first or second week of October 2021. Signed By: Criss Ornelas M.D. <<Signature on File>>
== END 2021-09-05 09:12 | disposition home or self-care (01) ==
PROVIDERS: PCP Emergency Medicine Emergency Medical Services; Visit Provider Internal Medicine Hematology & Oncology
DX: C34.11 Malignant neoplasm of upper lobe, right bronchus or lung (principal); F17.210 Nicotine dependence, cigarettes, uncomplicated; J44.9 Chronic obstructive pulmonary disease, unspecified; D64.9 Anemia, unspecified
CPT/HCPCS: 36591; 80053; 82728; 83540; 83550; 85025; 85045; 99214

== ENCOUNTER 2021-10-04 09:43 | Outpatient (CLI) | payer OTHER, SELFPAY ==
--- NOTE | 2021-10-04 13:55 | PFTS_ITS ---
Date of Study:10/04/21 Date of Dictation: MECHANICS: Forced vital capacity (FVC) is reduced. Forced expiratory volume in one second (FEV1) is reduced. FEV1/FVC is reduced. FLOW VOLUME LOOP: Reduced lateral lung volumes with scooping. LUNG VOLUMES: Total lung capacity (TLC) is mildly reduced. Residual volume (RV) is normal. DIFFUSING CAPACITY FOR CARBON MONOXIDE: Moderately reduced. INTERPRETATION: The patient likely has a combined obstructive and restrictive ventilatory defects. The postbronchodilator spirometry is consistent with impaired lung function with preserved ratio. However, there is significant scooping of the flow volume loop suggestive of obstructive lung disease. The lung volumes show minimaly reduced total lung capacity and normal residual volume. The obstructive lung disease has probably minimized the effect of restriction. The spirometry is consistent with moderate restriction. There was no significant postbronchodilator response. Gas exchange (DLCO) is moderately reduced. MTDD
== END 2021-10-04 09:44 | disposition home or self-care (01) ==
LOC: RT 09:44
PROVIDERS: PCP Emergency Medicine Emergency Medical Services; Visit Provider Internal Medicine Pulmonary Disease
DX: J44.9 Chronic obstructive pulmonary disease, unspecified (principal)
CPT/HCPCS: 94060; 94618; 94726; 94729

== ENCOUNTER 2021-10-04 09:46 | Outpatient (CLI) | payer OTHER, SELFPAY ==
--- NOTE | 2021-10-04 14:00 | CT_ITS ---
WS: [id number] CT CHEST TECHNIQUE: Noncontrast CT of the chest with coronal and sagittal reformatted images. CLINICAL INFORMATION: malignant neoplasm of lung COMPARISON: PET/CT August 12, 2021 DLP: 828.[address] scans at [facility] use at least one of these dose optimization techniques: automated e xposure control; mA and/or kV adjustment per patient size (includes targeted exams where dose is matc hed to clinical indication); or iterative reconstruction. FINDINGS: Again seen is the spiculated RIGHT upper lobe suprahilar mass measuring approximately 4.1 x 3.8 x 3.1 cm AP by transverse by craniocaudal. This extends into the RIGHT upper lobe associated pleural thick ening. This also extends to the RIGHT supra hilum. Overall this appears slightly larger today with mo re surrounding infiltrating interstitial thickening. Mild narrowing of the RIGHT upper lobe bronchi s imilar in appearance. No anterior mediastinal lymphadenopathy. A few calcified paratracheal lymph nod es. Subsegmental atelectasis LEFT lower lobe. Noncalcified nodule LEFT upper lobe measuring 5 mm appe ars new since the chest CT April 20, 2020 and not definitely seen on the recent PET/CT. Recommend 3 month follow-up. Aortic calcification. Coronary calcification. Adrenal glands are normal. Normal noncontrast spleen. N ormal GE junction. Cholelithiasis. Mild thoracic kyphosis with Schmorl's nodes. CT/CT chest wo con [id number] IMPRESSION: 1. Mild progression of the spiculated RIGHT upper lobe pulmonary mass extendin g to the RIGHT upper lobe pleura and inferiorly to the supra hilum. This measur es slightly larger today with increased surrounding interstitial thickening/inf iltrate. Associated narrowing of the RIGHT upper lobe bronchi unchanged in appe arance. 2. No mediastinal lymphadenopathy. 3. Noncalcified nodule LEFT upper lobe measuring 5 mm appears new since the est CT April 20, 2020 and not definitely seen on the recent PET/CT. Recommen d 3 month follow-up. 4. Aortic calcification. Coronary calcification. 5. Cholelithiasis. 6. No other significant changes compared to previous.
== END 2021-10-04 09:47 | disposition home or self-care (01) ==
LOC: RAD 09:47
PROVIDERS: PCP Emergency Medicine Emergency Medical Services; Visit Provider Internal Medicine Critical Care Medicine
DX: C34.11 Malignant neoplasm of upper lobe, right bronchus or lung (principal); K80.20 Calculus of gallbladder without cholecystitis without obstruction; I70.0 Atherosclerosis of aorta
CPT/HCPCS: 71250

== ENCOUNTER → 2021-10-30 11:06 | Outpatient (BNVA) | payer OTHER, SELFPAY | PROVIDERS: PCP Emergency Medicine Emergency Medical Services; Visit Provider Internal Medicine Pulmonary Disease | DX: J44.9 Chronic obstructive pulmonary disease, unspecified (principal); C34.11 Malignant neoplasm of upper lobe, right bronchus or lung; Z09 Encounter for follow-up examination after completed treatment for conditions other than malignant neoplasm; Z87.891 Personal history of nicotine dependence; I10 Essential (primary) hypertension; E78.5 Hyperlipidemia, unspecified; E03.9 Hypothyroidism, unspecified; N18.9 Chronic kidney disease, unspecified | CPT/HCPCS: 99214 ==

== ENCOUNTER 2021-11-13 15:00 | Oncology outpatient (recurring) (ONCR) | payer OTHER, SELFPAY ==
[2021-10-25 08:26] LABS: Basophils % 0.3 %; Eosinophils # 0.1 10^3/uL (0.0-0.8); Eosinophils % 1.5 %; Hematocrit 31.8 % (42.0-52.0); Hemoglobin 9.4 g/dL (11.7-16.6); Lymphocytes # 1.5 10^3/uL (0.8-4.8); Lymphocytes % 16.2 %; Mean Corpuscular HGB Conc 29.6 g/dL (30.0-36.0); Mean Corpuscular Hemoglobin 26.8 pg (28.0-34.0); Mean Corpuscular Volume 90.6 fl (80-94); Mean Platelet Volume 9.3 fL (7.4-10.4); Monocytes # 0.9 10^3/uL (0.2-0.9); Monocytes % 9.3 %; Neutrophils # 6.66 10^3/uL (1.8-7.7); Neutrophils % 71.8 %; Nucleated Red Blood Cells % 0 %; Platelet Count 279 10^3/cmm (130-400); Red Blood Count 3.51 10^6/uL (4.1-5.3); Red Cell Distribution Width 15.5 % (12.1-15.1); Reticulocyte % 2.5 % (0.5-2.0); White Blood Count 9.3 10^3/uL (4.0-10.0)
[2021-10-25 09:09] LABS: Ferritin 24 ng/mL (30-400); Iron 48 ug/dL (59-158); Percent Saturation 18.6 % (20-50); Total Iron Binding Capacity 257 mcg/dl; Unsaturated Iron Binding 209 ug/dL (112-347)
[2021-10-25 09:24] LABS: Vitamin B12 791 pg/mL (232-1245)
[2021-11-13 08:00] VITALS: BP 131/56; PULSE 79; RESP 16; TEMP 36.9; O2SAT 96
[2021-11-13] MEDS: ferric carboxy (IVPB) 750 MG in sodium chloride 0.9% (100 ml) 100 ML 345 MG IV (15:22)
[2021-11-13] MEDS: sodium chloride 0.9% 250 ML 100 ML IV (15:22)
[2021-11-13 15:35] VITALS: BP 160/70; PULSE 92; RESP 18; TEMP 37; O2SAT 94
== END 2021-11-16 23:59 | disposition home or self-care (01) ==
PROVIDERS: PCP Emergency Medicine Emergency Medical Services; Visit Provider Internal Medicine Hematology & Oncology
DX: D50.9 Iron deficiency anemia, unspecified (principal); C34.81 Malignant neoplasm of overlapping sites of right bronchus and lung
CPT/HCPCS: 36591; 82607; 82728; 83540; 83550; 85025; 85045; 96365; 99214; J1439; J7050

== ENCOUNTER 2021-12-12 08:00 | Oncology outpatient (recurring) (ONCR) | payer OTHER, SELFPAY ==
[2021-11-21 12:58] VITALS: BP 169/68; PULSE 82; RESP 20; TEMP 37.2; O2SAT 94
[2021-11-21] MEDS: ferric carboxy (IVPB) 750 MG in sodium chloride 0.9% (100 ml) 100 ML 345 MG IV (13:10)
[2021-12-06 11:31] LABS: Basophils % 0.5 %; Eosinophils # 0.1 10^3/uL (0.0-0.8); Eosinophils % 1.5 %; Hemoglobin 10.6 g/dL (11.7-16.6); Lymphocytes # 1.3 10^3/uL (0.8-4.8); Lymphocytes % 16.3 %; Mean Corpuscular HGB Conc 30.3 g/dL (30.0-36.0); Mean Corpuscular Volume 92.6 fl (80-94); Mean Platelet Volume 8.9 fL (7.4-10.4); Monocytes # 0.7 10^3/uL (0.2-0.9); Neutrophils # 5.81 10^3/uL (1.8-7.7); Neutrophils % 71.8 %; Nucleated Red Blood Cells % 0 %; Platelet Count 242 10^3/cmm (130-400); Red Blood Count 3.78 10^6/uL (4.1-5.3); White Blood Count 8.1 10^3/uL (4.0-10.0)
[2021-12-06 13:49] LABS: Alanine Aminotransferase 9 U/L (0-41); Albumin Level 3.3 g/dL (3.5-5.2); Alkaline Phosphatase 118 IU/L (40-130); Anion Gap 11.3 (5-19); Aspartate Amino Transferase 9 U/L (0-40); Blood Urea Nitrogen 9 mg/dL (8-23); Carbon Dioxide 33 mmol/L (22-29); Chloride 93 mmol/L (98-107); Ferritin 276 ng/mL (30-400); Globulin 2.9 g/dL (1.3-4.6); Glucose 91 mg/dL (65-115); Iron 43 ug/dL (59-158); Osmolality Calculated 274 mOsm/kg (285-295); Percent Saturation 18.2 % (20-50); Potassium 4.3 mmol/L (3.5-5.1); Sodium 133 mmol/L (136-145); Total Bilirubin 0.2 mg/dL (0.15-1.2); Total Iron Binding Capacity 235 mcg/dl; Total Protein 6.2 g/dL (6.6-8.7); Unsaturated Iron Binding 192 ug/dL (112-347)
== END 2021-12-17 23:59 | disposition home or self-care (01) ==
PROVIDERS: PCP Emergency Medicine Emergency Medical Services; Visit Provider Internal Medicine Hematology & Oncology
DX: C34.11 Malignant neoplasm of upper lobe, right bronchus or lung (principal); Z99.81 Dependence on supplemental oxygen; J44.9 Chronic obstructive pulmonary disease, unspecified; Z87.891 Personal history of nicotine dependence; E03.9 Hypothyroidism, unspecified; D50.9 Iron deficiency anemia, unspecified; R53.81 Other malaise; Z92.21 Personal history of antineoplastic chemotherapy
CPT/HCPCS: 36591; 80053; 82728; 83540; 83550; 85025; 96365; 99214; J1439

== ENCOUNTER 2022-01-08 13:47 | Oncology outpatient (recurring) (ONCR) | payer OTHER, SELFPAY ==
[2022-01-08 14:02] VITALS: BP 152/62; PULSE 87; RESP 18; TEMP 37.3; O2SAT 94
== END 2022-01-17 23:59 | disposition home or self-care (01) ==
LOC: ONCMED 13:48
PROVIDERS: PCP Emergency Medicine Emergency Medical Services; Visit Provider Internal Medicine Hematology & Oncology
DX: Z45.2 Encounter for adjustment and management of vascular access device (principal)
CPT/HCPCS: 96523

== ENCOUNTER 2022-02-06 11:24 | Oncology outpatient (recurring) (ONCR) | payer OTHER, SELFPAY ==
[2022-02-06 11:48] LABS: Basophils % 0.4 %; Eosinophils # 0.2 10^3/uL (0.0-0.8); Hematocrit 32.7 % (42.0-52.0); Hemoglobin 10.2 g/dL (11.7-16.6); Lymphocytes # 1.6 10^3/uL (0.8-4.8); Lymphocytes % 17.7 %; Mean Corpuscular HGB Conc 31.2 g/dL (30.0-36.0); Mean Corpuscular Hemoglobin 29.3 pg (28.0-34.0); Mean Platelet Volume 9.3 fL (7.4-10.4); Monocytes # 0.9 10^3/uL (0.2-0.9); Monocytes % 9.7 %; Neutrophils # 6.27 10^3/uL (1.8-7.7); Neutrophils % 69.2 %; Nucleated Red Blood Cells % 0 %; Platelet Count 281 10^3/cmm (130-400); Red Blood Count 3.48 10^6/uL (4.1-5.3); Red Cell Distribution Width 16.3 % (12.1-15.1); White Blood Count 9.1 10^3/uL (4.0-10.0)
[2022-02-06 12:05] LABS: Alanine Aminotransferase 17 U/L (0-41); Alkaline Phosphatase 122 U/L (40-130); Anion Gap 11.7 (5-19); Aspartate Amino Transferase 11 U/L (0-40); Blood Urea Nitrogen 11 mg/dL (8-23); Calcium 9.1 mg/dL (8.5-10.5); Carbon Dioxide 33 mmol/L (22-29); Chloride 94 mmol/L (98-107); Globulin 3.1 g/dL (1.3-4.6); Glucose 76 mg/dL (65-115); Osmolality Calculated 276 mOsm/kg (285-295); Potassium 4.7 mmol/L (3.5-5.1); Sodium 134 mmol/L (136-145); Total Bilirubin 0.2 mg/dL (0.15-1.2); Total Protein 6.1 g/dL (6.6-8.7)
[2022-02-06 16:56] LABS: Ferritin 121 ng/mL (30-400); Iron 46 ug/dL (59-158); Percent Saturation 19.5 % (20-50); Total Iron Binding Capacity 235 mcg/dl; Unsaturated Iron Binding 189 ug/dL (112-347)
[2022-02-06 17:09] LABS: Vitamin B12 698 pg/mL (232-1245)
== END 2022-02-16 23:59 | disposition home or self-care (01) ==
PROVIDERS: PCP Emergency Medicine Emergency Medical Services; Visit Provider Internal Medicine Hematology & Oncology
DX: C34.11 Malignant neoplasm of upper lobe, right bronchus or lung (principal); J84.10 Pulmonary fibrosis, unspecified; E03.9 Hypothyroidism, unspecified; D50.9 Iron deficiency anemia, unspecified; Z79.899 Other long term (current) drug therapy; Z87.891 Personal history of nicotine dependence
CPT/HCPCS: 36591; 80053; 82607; 82728; 83540; 83550; 85025; 99214

== ENCOUNTER 2022-03-05 09:30 | Oncology outpatient (recurring) (ONCR) | payer OTHER, SELFPAY ==
[2022-02-27 09:41] LABS: Basophils % 0.4 %; Eosinophils # 0.1 10^3/uL (0.0-0.8); Eosinophils % 1.5 %; Hematocrit 32.5 % (42.0-52.0); Lymphocytes # 1.1 10^3/uL (0.8-4.8); Lymphocytes % 13.2 %; Mean Corpuscular HGB Conc 30.8 g/dL (30.0-36.0); Mean Corpuscular Hemoglobin 28.8 pg (28.0-34.0); Mean Corpuscular Volume 93.7 fl (80-94); Mean Platelet Volume 9.3 fL (7.4-10.4); Monocytes # 0.8 10^3/uL (0.2-0.9); Monocytes % 10.2 %; Neutrophils # 5.91 10^3/uL (1.8-7.7); Neutrophils % 73.8 %; Nucleated Red Blood Cells % 0 %; Platelet Count 280 10^3/cmm (130-400); Red Blood Count 3.47 10^6/uL (4.1-5.3); Red Cell Distribution Width 15.6 % (12.1-15.1)
[2022-02-27 10:37] LABS: Alanine Aminotransferase 10 U/L (0-41); Albumin Level 2.8 g/dL (3.5-5.2); Alkaline Phosphatase 111 U/L (40-130); Anion Gap 11.3 (5-19); Aspartate Amino Transferase 9 U/L (0-40); Blood Urea Nitrogen 11 mg/dL (8-23); Calcium 9.2 mg/dL (8.5-10.5); Carbon Dioxide 32 mmol/L (22-29); Chloride 94 mmol/L (98-107); Ferritin 79 ng/mL (30-400); Glucose 98 mg/dL (65-115); Iron 40 ug/dL (59-158); Osmolality Calculated 275 mOsm/kg (285-295); Percent Saturation 18.7 % (20-50); Potassium 4.3 mmol/L (3.5-5.1); Sodium 133 mmol/L (136-145); Total Bilirubin 0.2 mg/dL (0.15-1.2); Total Iron Binding Capacity 213 mcg/dl; Total Protein 5.8 g/dL (6.6-8.7); Unsaturated Iron Binding 173 ug/dL (112-347)
[2022-03-05 09:17] LABS: Basophils % 0.2 %; Hematocrit 33.9 % (42.0-52.0); Hemoglobin 10.6 g/dL (11.7-16.6); Lymphocytes # 0.8 10^3/uL (0.8-4.8); Mean Corpuscular HGB Conc 31.3 g/dL (30.0-36.0); Mean Corpuscular Volume 92.9 fl (80-94); Mean Platelet Volume 9.4 fL (7.4-10.4); Monocytes # 0.3 10^3/uL (0.2-0.9); Monocytes % 2.6 %; Neutrophils # 9.64 10^3/uL (1.8-7.7); Nucleated Red Blood Cells % 0 %; Platelet Count 320 10^3/cmm (130-400); Red Blood Count 3.65 10^6/uL (4.1-5.3); Red Cell Distribution Width 14.9 % (12.1-15.1); White Blood Count 10.8 10^3/uL (4.0-10.0)
[2022-03-05 09:38] LABS: Alanine Aminotransferase 16 U/L (0-41); Albumin Level 3.4 g/dL (3.5-5.2); Alkaline Phosphatase 124 U/L (40-130); Anion Gap 10.5 (5-19); Aspartate Amino Transferase 9 U/L (0-40); Blood Urea Nitrogen 12 mg/dL (8-23); Calcium 8.9 mg/dL (8.5-10.5); Carbon Dioxide 32 mmol/L (22-29); Chloride 96 mmol/L (98-107); Globulin 3.3 g/dL (1.3-4.6); Glucose 150 mg/dL (65-115); Osmolality Calculated 281 mOsm/kg (285-295); Potassium 4.5 mmol/L (3.5-5.1); Sodium 134 mmol/L (136-145); Total Bilirubin 0.2 mg/dL (0.15-1.2); Total Protein 6.7 g/dL (6.6-8.7)
[2022-03-05] MEDS: sodium chloride 0.9% 250 ML 75 ML IV (12:27)
[2022-03-05] MEDS: palonosetron 0.25 mg/5 mL SDV IVP (12:27)
[2022-03-05] MEDS: famotidine 20 mg/2 mL INJ IVP (12:29)
[2022-03-05] MEDS: diphenhydrAMINE 50 mg/mL SDV 1mL 25 MG IVP (12:31)
[2022-03-05 13:50] VITALS: BP 161/74; PULSE 80; RESP 16; TEMP 36.7; O2SAT 97
== END 2022-03-19 23:59 | disposition home or self-care (01) ==
PROVIDERS: PCP Emergency Medicine Emergency Medical Services; Visit Provider Internal Medicine Hematology & Oncology
DX: C34.81 Malignant neoplasm of overlapping sites of right bronchus and lung (principal); C78.02 Secondary malignant neoplasm of left lung; C77.8 Secondary and unspecified malignant neoplasm of lymph nodes of multiple regions; E03.2 Hypothyroidism due to medicaments and other exogenous substances; D50.9 Iron deficiency anemia, unspecified; R53.0 Neoplastic (malignant) related fatigue; G47.30 Sleep apnea, unspecified; Z87.891 Personal history of nicotine dependence; T45.1X5A Adverse effect of antineoplastic and immunosuppressive drugs, initial encounter; Z51.11 Encounter for antineoplastic chemotherapy; J90 Pleural effusion, not elsewhere classified; Z79.52 Long term (current) use of systemic steroids; Z79.899 Other long term (current) drug therapy; Z23 Encounter for immunization
CPT/HCPCS: 36591; 80053; 82728; 83540; 83550; 85025; 90471; 90686; 96367; 96375; 96413; 99214; 99215; J1100; J1200; J2469; J3490; J7050; J9171

== ENCOUNTER 2022-03-13 00:22 | Inpatient (IN) | payer OTHER, SELFPAY ==
[2022-03-13] VITALS (45 sets, daily range): BP systolic 122–178; BP diastolic 48–116; PULSE 70–119; RESP 16–24; TEMP 36.6–38.9; O2SAT 73–97; BMI 44.6; BMI 44.5
--- NOTE | 2022-03-13 00:27 | CTR_ITS ---
PROCEDURE INFORMATION: Exam: CTA Chest With Contrast Exam date and time: 03/13/2022 12:59 AM Age: 81 years old Clinical indication: Shortness of breath; Prior surgery; Surgery type: Chest port; Patient HX: C/O worsening SOB. History of lung cancer and copd. TECHNIQUE: Imaging protocol: Computed tomographic angiography of the chest with contrast. 3D rendering (Not supervised by radiologist): MIP and/or 3D reconstructed images were created by the technologist. Radiation optimization: All CT scans at this facility use at least one of these dose optimization techniques: automated exposure control; mA and/or kV adjustment per patient size (includes targeted exams where dose is matched to clinical indication); or iterative reconstruction. Contrast material: OMNI 350; Contrast volume: 175 ml; Contrast route: INTRAVENOUS (IV); COMPARISON: CT chest wo con [id number] 10/04/2021 11:17 AM RADIATION DOSE METRICS: Total DLP (mGy-cm): 1050.69 FINDINGS: Tubes, catheters and devices: Left MediPort catheter tip over the proximal superior vena cava. Pulmonary arteries: Normal. No pulmonary emboli. Aorta: Calcification of the thoracic aorta and/or great vessels consistent with atherosclerotic vessel disease. Thyroid: 2.4 cm right thyroid nodule with recommendation for nonemergent thyroid ultrasound to rule out neoplasm. Comparison with PET-CT scan results may also be helpful. Lungs: Increased size of 7.1 x 5.8 x 5.1 cm lobulated soft tissue mass in the right lung apex with differential diagnosis including lung cancer versus necrotic tumor versus scar tissue. Interval appearance of moderate pneumonia with air bronchograms in the posterior segment left lower lobe. Pleural spaces: Small right pleural fluid collection. Heart: Stable severe calcified coronary artery disease. Lymph nodes: Unremarkable. No enlarged lymph nodes. Gallbladder and bile ducts: Multiple small calcified gallstones versus areas of calcified gallbladder wall. Bones/joints: Mild dextroscoliosis. Soft tissues: Unremarkable. CT/CT angio chest PE protcl [id number] IMPRESSION: 1. 2.4 cm right thyroid nodule with recommendation for nonemergent thyroid ultrasound to rule out neoplasm. Comparison with PET-CT scan results may also be helpful. 2. Left MediPort catheter tip over the proximal superior vena cava. 3. Increased size of 7.1 x 5.8 x 5.1 cm lobulated soft tissue mass in the right lung apex with differential diagnosis including lung cancer versus necrotic tumor versus scar tissue. 4. Small right pleural fluid collection. 5. Interval appearance of moderate pneumonia with air bronchograms in the posterior segment left lower lobe. 6. No pulmonary embolus or aortic dissection. COMMENTS: Consistent with the [employer]'s Incidental Findings Committee white paper (J Am Scarlett Radiol 2015): In patients aged 35 years and older with an incidental thyroid nodule equal to or greater than 1.[address], MRI or extrathyroidal US, further evaluation with dedicated thyroid US is recommended for patients with normal life expectancy and without comorbidities. For smaller nodules without suspicious features, no further evaluation or follow up is recommended.
--- NOTE | 2022-03-13 00:27 | XRR_ITS ---
PROCEDURE INFORMATION: Exam: XR Chest Exam date and time: 03/13/2022 12:34 AM Age: 81 years old Clinical indication: Shortness of breath; Prior surgery; Surgery type: Chest port; Patient HX: C/O SOB. History of lung cancer and copd. ; Additional info: Cp TECHNIQUE: Imaging protocol: Radiologic exam of the chest. Views: 1 view. COMPARISON: CT chest con [id number] 10/04/2021 11:17 AM FINDINGS: Tubes, catheters and devices: Left central line tip over the junction of the brachycephalic veins and superior vena cava. Lungs: Mild right upper lobe pneumonia. Pleural spaces: Unremarkable. No pleural effusion. No pneumothorax. Heart/Mediastinum: Unremarkable. No cardiomegaly. Bones/joints: Unremarkable. XR/XR chest 1V portable [id number] IMPRESSION: 1. Left central line tip over the junction of the brachycephalic veins and superior vena cava. 2. Mild right upper lobe pneumonia.
--- NOTE | 2022-03-13 00:28 | ED_ITS ---
HPI - SOB/Dyspnea General: Chief Complaint: Shortness of Breath/Dyspnea Stated Complaint: SOB Time Seen by Provider: 03/13/22 00:23 Source: patient and EMS Mode of arrival: EMS Limitations: no limitations History of Present Illness: HPI Narrative: 81-year-old male who has a history of COPD along with lung cancer is currently on chemotherapy he states that he has had increasing shortness of breath tonight.. Patient came in by EMS and given a breathing treatment turned his ox ygen up he states he feels improved he is on 4 L at baseline he is currently on 6 L he is tachypneic and tachycardic he denies any cough or fever denies any chest pain denies any worsening factors. Associated symptoms: Deny abdominal pain, chest pain, fever(s), nausea or vomiting Review of Systems Const: Denies: fever(s), chills, body aches or change in appetite Eyes: Denies: blurry vision or eye discomfort ENMT: Denies: throat pain or dental pain Card: Denies: chest pain Resp: Reports: dyspnea GI: Denies: abdominal pain, nausea, vomiting or diarrhea : Denies: dysuria Musc: Denies: neck pain or back pain Skin/Breast: Denies: rash Neuro: Denies: headache(s) Psych: Denies: depression Murtaza/Lymph: Denies: easy bruising All/Imm: Denies: urticaria PFSH ED PFSH: Medical History Acute encephalopathy Acute on chronic diastolic (congestive) heart failure Acute on chronic respiratory failure with hypoxia and hypercapnia Anemia Anemia BPH (benign prostatic hyperplasia) Bradycardia Cholelithiasis Chronic kidney disease Depression Essential hypertension Glaucoma Heart failure with preserved ejection fraction Hyperlipidemia Hypertension Hypothyroidism Lung cancer Macrocytic anemia Malignant neoplasm of upper lobe, right bronchus or lung Morbid obesity Pneumonia Presence of other vascular implants and grafts Psoriasis Sigmoid diverticulosis Skin ulcer Surgical History H/O excision of epidermal inclusion cyst Normal colonoscopy In 2018 2019 Family History Denies family history of Anesthesia complication Bleeding disorder Lung disease Hypertension Social History Smoking and tobacco status: former smoker (smoked x 65 years) Quit status (tobacco): has quit using tobacco Year quit tobacco: 2019 Former quit date comment: 1ppd x 64 years Alcohol intake: never Household members: spouse Housing: House Physical Exam Const: COMMON NORMALS: patient oriented x3 HENMT: COMMON NORMALS: normocephalic and atraumatic HEAD & SCALP: normocephalic and atraumatic Eye: COMMON NORMALS: Equal, round and reactive pupils present and EOMs intact bilaterally PUPIL: Yes Equal, round and reactive pupils present Neck/C-Spine: COMMON NORMALS: full ROM and supple Chest: COMMONS NORMALS: normal inspection of the chest and normal palpation of entire chest wall Resp: COMMON NORMALS: No retractions, No use of accessory muscles and clear to auscultation bilaterally EFFORT & INSPECTION: Yes tachypneic AUSCULTATION: clear to auscultation bilaterally Cardio: COMMON NORMALS: regular rhythm and No murmurs present (Cardio) RATE: tachycardic RHYTHM: regular rhythm GI: COMMON NORMALS: Normal to inspection, nondistended, normoactive bowel sounds present, Soft to palpation, non-tender and no masses PALPATION: Yes Soft to palpation Extremity: COMMON NORMALS: full ROM NARRATIVE EXTREMITY EXAM: 2+ edema Neuro: COMMON NORMALS: patient oriented x3, moves all extremities and no focal motor deficits Psych: COMMON NORMALS: mental status grossly normal, Normal thought process present and cooperative THOUGHT PROCESS: Normal thought process present Skin: COMMON NORMALS: no rashes or lesions noted and no wounds GENERAL SKIN EXAM: no rashes or lesions noted Course Vital Signs: Vital signs: Vital Signs Temperature 98 F 03/13/22 01:40 Pulse Rate 101 H 03/13/22 01:40 Respiratory Rate 22 H 03/13/22 01:40 Blood Pressure 155/60 03/13/22 01:40 Pulse Oximetry 95 03/13/22 01:40 Oxygen Delivery Me thod 03/13/22 00:23 Oxygen Flow Rate 4 03/13/22 00:23 MDM - SOB/Dyspnea Medical Decision Making Patient presents for fever along with shortness of breath CT does show a pneumonia he is requiring more oxygen than his baseline spoke to hospitalist will admit for IV antibiotics. Patient has improved here. Lab Data : 03/13/22 00:45 03/13/22 00:45 Labs/Radiology: Radiology Impressions Chest CTA 03/13/22 00:27 IMPRESSION: 1. 2.4 cm right thyroid nodule with recommendation for nonemergent thyroid ultrasound to rule out neoplasm. Comparison with PET-CT scan results may also be helpful. 2. Left MediPort catheter tip over the proximal superior vena cava. 3. Increased size of 7.1 x 5.8 x 5.1 cm lobulated soft tissue mass in the right lung apex with differential diagnosis including lung cancer versus necrotic tumor versus scar tissue. 4. Small right pleural fluid collection. 5. Interval appearance of moderate pneumonia with air bronchograms in the posterior segment left lower lobe. 6. No pulmonary embolus or aortic dissection. COMMENTS: Consistent with the [employer]'s Incidental Findings Committee white paper (J Am Scarlett Radiol 2015): In patients aged 35 years and older with an incidental thyroid nodule equal to or greater than 1.[address], MRI or extrathyroidal US, further evaluation with dedicated thyroid US is recommended for patients with normal life expectancy and without comorbidities. For smaller nodules without suspicious features, no further evaluation or follow up is recommended. Chest X-Ray 03/13/22 00:27 IMPRESSION: 1. Left central line tip over the junction of the brachycephalic veins and superior vena cava. 2. Mild right upper lobe pneumonia. Laboratory Results WBC 2.2 10^3/uL (4.0-10.0) L 03/13/22 00:45 RBC 3.41 10^6/uL (4.1-5.3) L 03/13/22 00:45 Hgb 10.1 g/dL (11.7-16.6) L 03/13/22 00:45 Hct 31.6 % (42.0-52.0) L 03/13/22 00:45 MCV 92.7 fl (80-94) 03/13/22 00:45 MCH 29.6 pg (28.0-34.0) 03/13/22 00:45 MCHC 32.0 g/dL (30.0-36.0) 03/13/22 00:45 RDW 14.6 % (12.1-15.1) 03/13/22 00:45 Plt Count 207 10^3/cmm (130-400) 03/13/22 00:45 MPV 10.0 fL (7.4-10.4) 03/13/22 00:45 Neut % (Auto) 58.5 % 03/13/22 00:45 Lymph % (Auto) 14.0 % 03/13/22 00:45 [place] % (Auto) 25.6 % 03/13/22 00:45 Eos % (Auto) 0.0 % 03/13/22 00:45 Baso % (Auto) 0.5 % 03/13/22 00:45 Neut # (Auto) 1.26 10^3/uL (1.8-7.7) L 03/13/22 00:45 Lymph # (Auto) 0.3 10^3/uL (0.8-4.8) L 03/13/22 00:45 [place] # (Auto) 0.6 10^3/uL (0.2-0.9) 03/13/22 00:45 Eos # (Auto) 0.0 10^3/uL (0.0-0.8) 03/13/22 00:45 Baso # (Auto) 0.0 10^3/uL (0.0-0.1) 03/13/22 00:45 Nucleated RBC % (auto) 0 % 03/13/22 00:45 Nucleated RBCs # 0.0 /100WBC 03/13/22 00:45 PT 13.20 SECONDS (12.1-14.9) 03/13/22 00:45 INR 0.97 (0.8-1.2) 03/13/22 00:45 Specimen Type radial 03/13/22 01:13 Sample Site rr 03/13/22 01:13 ABG pH 7.37 (7.35-7.45) 03/13/22 01:13 ABG pCO2 66.3 mmHg (35-45) H* 03/13/22 01:13 ABG pO2 40.8 mmHg (80.0-100.0) L 03/13/22 01:13 ABG HCO3 38.4 mmol/L (22-26) H 03/13/22 01:13 ABG Base Excess 11.2 mmol/L (-2.0-2.0) H 03/13/22 01:13 Edosn Test pos 03/13/22 01:13 Hematocrit Not Reportable 03/13/22 01:13 O2 Delivery Device nc 03/13/22 01:13 O2 Liters/Min 8.0 % 03/13/22 01:13 Specimen Drawn By warren 03/13/22 01:13 Voice Data Communications Engineer ID warren 03/13/22 01:13 Sodium 133 mmol/L (136-145) L 03/13/22 00:45 Potassium 4.3 mmol/L (3.5-5.1) 03/13/22 00:45 Chloride 88 mmol/L (98-107) L 03/13/22 00:45 Carbon Dioxide 36 mmol/L (22-29) H 03/13/22 00:45 Anion Gap 13.3 (5-19) 03/13/22 00:45 BUN 11 mg/dL (8-23) 03/13/22 00:45 Creatinine 0.8 mg/dL (0.7-1.2) 03/13/22 00:45 GFR Calculation Not Reportable 03/13/22 00:45 Glucose 129 mg/dL (65-115) H 03/13/22 00:45 Calculated Osmolality 277 mOsm/kg (285-295) L 03/13/22 00:45 Lactic Acid 0.9 mmol/L (0.5-2.2) 03/13/22 00:43 Calcium 8.8 mg/dL (8.5-10.5) 03/13/22 00:45 Total Bilirubin 0.5 mg/dL (0.15-1.2) 03/13/22 00:45 AST 16 U/L (0-40) 03/13/22 00:45 ALT 29 U/L (0-41) 03/13/22 00:45 Alkaline Phosphatase 222 U/L (40-130) H 03/13/22 00:45 Troponin T Baseline 27 ng/L (0-15) H 03/13/22 00:45 NT-Pro-B Natriuret Pep 609 pg/mL (0-450) H 03/13/22 00:45 Total Protein 5.2 g/dL (6.6-8.7) L 03/13/22 00:45 Albumin 2.9 g/dL (3.5-5.2) L 03/13/22 00:45 Globulin 2.3 g/dL (1.3-4.6) 03/13/22 00:45 Urine Color Yellow (Yellow) 03/13/22 01:20 Urine Appearance Sl hazy (CLEAR) A 03/13/22 01:20 Urine pH 5 (5-7) 03/13/22 01:20 Ur Specific [place] 1.010 (1.005-1.030) 03/13/22 01:20 Urine Protein 2+ (Negative) H 03/13/22 01:20 Urine Glucose (UA) Norm (Normal) 03/13/22 01:20 Urine Ketones 1+ (Negative) H 03/13/22 01:20 Urine Blood 2+ (Negative) H 03/13/22 01:20 Urine Nitrate Negative (Negative) 03/13/22 01:20 Urine Bilirubin 1+ (Negative) H 03/13/22 01:20 Urine Urobilinogen 1 mg/dL (Negative) H 03/13/22 01:20 Ur Leukocyte Esterase Negative (Negative) 03/13/22 01:20 Urine RBC 5-10 /hpf (0-2) H 03/13/22 01:20 Urine WBC None /hpf (0-5) 03/13/22 01:20 Ur Squamous Epith Cells 0-4 /hpf (0-5) H 03/13/22 01:20 Amorphous Sediment 2+ /hpf 03/13/22 01:20 Urine Bacteria None /hpf (NONE) 03/13/22 01:20 Hyaline Casts 0-4 /lpf H 03/13/22 01:20 Fine Granular Casts 0-4 /lpf H 03/13/22 01:20 Influenza Type A Ag negative (Negative) 03/13/22 00:44 Influenza Type B Ag negative (Negative) 03/13/22 00:44 SARS-CoV-2 Ag (Rapid) negative (Negative) 03/13/22 00:44 EKG Data EKG 1: I personally reviewed and interpreted this EKG as follows: EKG Interpretation Date: 03/13/22 EKG interpretation time: 00:30 Interpretation: afib rvr hr [address] or t wave abnormalities qrs 95 qtc 378 Discharge Plan Discharge Patient Disposition: Admitted As Inpatient Clinical Impression: Community acquired pneumonia, Lung cancer Condition: Stable Coding Level of Care Code ED Community Health Educator for Chg Fwd Exam Comprehensive
--- NOTE | 2022-03-13 00:30 | ECG_ITS ---
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 Measurements Intervals [place] Rate: 114 P: IN: QRS: 43 QRSD: 95 T: 191 QT: 311 QTc: 429 Interpretive Statements ATRIAL FIBRILLATION WITH RAPID VENTRICULAR RESPONSE ST DEVIATION AND MODERATE T-WAVE ABNORMALITY, CONSIDER LATERAL ISCHEMIA [-0.1+ mV T-WAVE IN I/aVL/V5/V6] Compared to ECG 05/24/2021 21:25:37 Sinus rhythm no longer present Ventricular premature complex(es) no longer present T-wave abnormality still present Possible ischemia still present Electronically Signed On 03-14-2022 0:17:49 CDT by Sariah Donnelly M.D. [id number]
[2022-03-13] MEDS: acetaminophen 500 mg Tablet 1000 MG PO (00:40)
[2022-03-13 00:56] LABS: Basophils % 0.5 %; Hematocrit 31.6 % (42.0-52.0); Hemoglobin 10.1 g/dL (11.7-16.6); Lymphocytes # 0.3 10^3/uL (0.8-4.8); Mean Corpuscular Hemoglobin 29.6 pg (28.0-34.0); Mean Corpuscular Volume 92.7 fl (80-94); Monocytes # 0.6 10^3/uL (0.2-0.9); Monocytes % 25.6 %; Neutrophils # 1.26 10^3/uL (1.8-7.7); Neutrophils % 58.5 %; Nucleated Red Blood Cells % 0 %; Platelet Count 207 10^3/cmm (130-400); Red Blood Count 3.41 10^6/uL (4.1-5.3); Red Cell Distribution Width 14.6 % (12.1-15.1); White Blood Count 2.2 10^3/uL (4.0-10.0)
[2022-03-13 01:08] LABS: INR 0.97 (0.8-1.2)
[2022-03-13 01:13] LABS: Influenza A by IFA negative (Negative); Influenza B by IFA negative (Negative); SARS Covid-2 Antigen negative (Negative)
[2022-03-13 01:19] LABS: Lactic Sepsis W/Reflex 0.9 mmol/L (0.5-2.2)
[2022-03-13 01:21] LABS: Troponin(5th) Baseline 27 ng/L (0-15)
[2022-03-13] MEDS: iohexol 350 mg/mL 100 mL Btl IV (01:22)
[2022-03-13 01:28] LABS: Alanine Aminotransferase 29 U/L (0-41); Albumin Level 2.9 g/dL (3.5-5.2); Alkaline Phosphatase 222 U/L (40-130); Anion Gap 13.3 (5-19); Aspartate Amino Transferase 16 U/L (0-40); Blood Urea Nitrogen 11 mg/dL (8-23); Calcium 8.8 mg/dL (8.5-10.5); Carbon Dioxide 36 mmol/L (22-29); Chloride 88 mmol/L (98-107); Globulin 2.3 g/dL (1.3-4.6); Glucose 129 mg/dL (65-115); Osmolality Calculated 277 mOsm/kg (285-295); Potassium 4.3 mmol/L (3.5-5.1); Sodium 133 mmol/L (136-145); Total Bilirubin 0.5 mg/dL (0.15-1.2); Total Protein 5.2 g/dL (6.6-8.7)
[2022-03-13 01:29] LABS: NT Pro B Type Natriuretic Pept 609 pg/mL (0-450)
[2022-03-13 01:30] LABS: ABG PH Result 7.37 (7.35-7.45); HCO3 ABG 38.4 mmol/L (22-26)
[2022-03-13 01:31] LABS: ABG PCO2 66.3 mmHg (35-45); Base Excess ABG 11.2 mmol/L (-2.0-2.0); Blood Gas Allen Test pos; PO2 ABG 40.8 mmHg (80.0-100.0)
[2022-03-13 01:32] LABS: Blood Gas Sample Site rr; Oxygen Device nc
[2022-03-13] MEDS: azithromycin 500 MG in sodium chloride 0.9% 250 ML 250 MG IV (01:34)
[2022-03-13 01:41] LABS: Add Urine Microscopic? YES; Bilirubin Urine 1+ (Negative); Blood Urine 2+ (Negative); Glucose Urine UA Norm (Normal); Ketones Urine 1+ (Negative); Leukocyte Esterase Urine Negative (Negative); Nitrate Urine Negative (Negative); Protein Urine 2+ (Negative); Urine Appearance SL Hazy (CLEAR); Urine Color Yellow (Yellow); Urobilinogen Urine 1 mg/dL (Negative); pH Urine 5 (5-7)
[2022-03-13 01:42] LABS: Add Urine Culture? No; Amorphous Sediment Urine 2+ /hpf; Fine Granular Casts Urine 0-4 /lpf; Hyaline Casts Urine 0-4 /lpf; Squamous Epithelial Cell Urine 0-4 /hpf (0-5)
--- NOTE | 2022-03-13 02:27 | ECG_ITS ---
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 Measurements Intervals [place] Rate: 87 P: 26 PA: 202 QRS: 35 QRSD: 98 T: 70 QT: 359 QTc: 433 Interpretive Statements SINUS RHYTHM NONSPECIFIC ST & T-WAVE ABNORMALITY Compared to ECG 03/13/2022 00:30:37 Atrial fibrillation no longer present Possible ischemia no longer present T-wave abnormality still present Electronically Signed On 03-14-2022 0:23:19 CDT by Sariah Donenlly M.D. [id number]
--- NOTE | 2022-03-13 02:41 | P.HP_ITS ---
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 With leukopenia 2.2, ANC of 1260, in ER febrile 102 Fah renheit, sinus tachycardia 110-119 bpm. ABG 7.37/66.3/40.8/38.4 rapid influenza and COVID-[address] angiogram chest with moderate pneumonia with air bronchograms in posterior segment left lower lobe. Also seen 2.4 cm right thyroid nodule with recommendation for nonemergent thyroid ultrasound to rule out neoplasm. Increased size of 7.1 x 5.8 x 5.1 cm lobulated soft tissue mass in the right lung apex. Small right pleural fluid collection. No PE. His notes mild confusion. Review of Systems Const: Denies: fever(s), chills, body aches or malaise Eyes: Denies: change in vision, eye discomfort or eye redness ENMT: Denies: throat pain, oral sores or ear or mastoid pain Card: Reports: edema; Denies: chest pain, pre-syncope or dyspnea on exertion Resp: Reports: dyspnea, productive cough and change in phlegm color; Denies: hemoptysis GI: Denies: abdominal pain, nausea, vomiting, diarrhea, constipation, hematochezia or melena : Denies: flank pain, difficulty urinating, urinary frequency or hematuria Musc: Denies: back pain, joint swelling or joint redness Skin/Breast: Denies: rash or new lesions Neuro: Denies: headache(s), numbness in extremities, weakness in extremities, dizziness, confusion or seizure-like activity Endo: Denies: polyuria or polydipsia Murtaza/Lymph: Denies: easy bleeding or tender lymph nodes All/Imm: Denies: urticaria or tongue swelling Medications/Allergies Home Medications Medication Instructions Recorded Confirmed Last Taken Type latanoprost 0.005 % eye drops 1 drp ophthalmic (eye) BEDTIME 10/26/19 03/05/22 08/28/21 History levothyroxine 50 mcg tablet 50 mcg PO QAM pt and pts family 10/26/19 03/05/22 08/28/21 History unable to verify medications-[facility] tamsulosin 0.4 mg capsule (Flomax) 0.4 mg PO BEDTIME 10/26/19 03/05/22 08/28/21 History atorvastatin 20 mg tablet 20 mg PO DAILY 11/25/19 03/05/22 08/28/21 History amlodipine 5 mg tablet 5 mg PO DAILY see all pharmacy 01/05/20 03/05/22 08/29/21 History comments isosorbide mononitrate 30 mg 30 mg PO DAILY 01/05/20 03/05/22 08/29/21 History tablet,extended release 24 hr lisinopril 20 mg tablet 20 mg PO DAILY 01/05/20 03/05/22 08/28/21 History metoprolol tartrate 25 mg tablet 25 mg PO BID 01/05/20 03/05/22 08/29/21 History albuterol sulfate 90 mcg/actuation 2 puff inhalation QID PRN 05/24/21 03/05/22 08/28/21 History aerosol inhaler Shortness Of Breath carboxymethylcellulose sodium 1 % 2 drp ophthalmic (eye) QID PRN Dry 05/24/21 03/05/22 08/28/21 History eye liquid gel drops Eye(S) cyanocobalamin (vitamin B-12) 1,000 mcg PO DAILY 05/24/21 03/05/22 08/28/21 History 1,000 mcg tablet folic acid 1 mg tablet 1 mg PO DAILY 05/24/21 03/05/22 08/28/21 History magnesium oxide 400 mg PO DAILY 05/24/21 03/05/22 08/28/21 History furosemide 40 mg tablet 40 mg PO BID 30 days #60 tabs 05/27/21 03/05/22 08/28/21 Rx cholecalciferol (vitamin D3) 25 25 mcg PO DAILY 06/12/21 03/05/22 08/28/21 History mcg (1,000 unit) capsule ipratropium 0.5 mg-albuterol 3 mg 3 ml inhalation Q4H PRN wheezing 06/12/21 03/05/22 Unknown Rx (2.5 mg base)/3 mL nebulization #90 mL soln nebulizers #1 ea 06/12/21 03/05/22 Unknown Rx hydralazine 25 mg tablet 25 mg PO BID 08/28/21 03/05/22 08/28/21 History tiotropium 2.5 mcg-olodaterol 2.5 2 puff inhalation DAILY 08/28/21 03/05/22 08/28/21 History mcg/actuation mist for inhalation (Stiolto Respimat) oxycodone-acetaminophen 5 mg-325 See Rx Instructions PO .4-6hrs PRN 10/25/21 03/05/22 Unknown Rx mg tablet (Percocet) pain 30 days #40 tabs budesonide 160 mcg-glycopyr 9 2 inh inhalation BID #10.7 grams 12/12/21 03/05/22 Unknown Rx mcg-formot 4.8 mcg/actuation HFA inhaler (Breztri Aerosphere) dexamethasone 4 mg tablet 8 mg PO DIRECTED #60 tabs 03/02/22 03/05/22 Unknown Rx prochlorperazine maleate 10 mg 10 mg PO Q4H PRN Mild Nausea #30 03/02/22 03/05/22 Unknown Rx tablet (Compazine) tabs Allergies Allergy/AdvReac Type Severity Reaction Status Date / Time No Known Allergies Allergy Verified 03/13/22 00:28 PFSH Acute PFSH: Medical History Acute encephalopathy Acute on chronic diastolic (congestive) heart failure Acute on chronic respiratory failure with hypoxia and hypercapnia Anemia Anemia BPH (benign prostatic hyperplasia) Bradycardia Cholelithiasis Chronic kidney disease Chronic obstructive pulmonary disease Depression Essential hypertension Glaucoma Heart failure with preserved ejection fraction Hyperlipidemia Hypertension Hypothyroidism Lung cancer Macrocytic anemia Malignant neoplasm of upper lobe, right bronchus or lung Morbid obesity Pneumonia Presence of other vascular implants and grafts 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 Psoriasis Sigmoid diverticulosis Skin ulcer Surgical History H/O excision of epidermal inclusion cyst Normal colonoscopy In 2018 2019 Family History Denies family history of Anesthesia complication Bleeding disorder Lung disease Hypertension Social History Smoking and tobacco status: former smoker (smoked x 65 years) Quit status (tobacco): has quit using tobacco Year quit tobacco: 2019 Former quit date comment: 1ppd x 64 years Alcohol intake: never Household members: spouse Housing: House Vitals/I&O/Wt Last Vital Signs Temp 98 F 03/13/22 01:40 Pulse 95 03/13/22 02:32 Resp 20 H 03/13/22 02:32 BP 122/68 03/13/22 02:32 Pulse Ox 94 03/13/22 02:32 O2 Del Method 03/13/22 00:23 O2 Flow Rate 4 03/13/22 00:23 Weight last 48 hrs Weight 125.645 kg Physical Exam Const: COMMON NORMALS: patient oriented x3 and alert GENERAL APPEARANCE: cooperative ORIENTATION/CONSCIOUSNESS: Yes awake HENMT: COMMON NORMALS: oropharynx normal OTHER: Rhinophyma Neck/C-Spine: COMMON NORMALS: no JVD Chest: OTHER: Port Resp: AUSCULTATION: rhonchi, wheezes and diminished lung sounds Cardio: COMMON NORMALS: no JVD, regular rhythm, S1 normal heart sound present, S2 normal heart sound present and No murmurs present (Cardio) RATE: tachycardic RHYTHM: regular rhythm HEART SOUNDS: S1 normal heart sound present and S2 normal heart sound present GI: COMMON NORMALS: Normal to inspection, nondistended, normoactive bowel sounds present, Soft to palpation and non-tender PALPATION: Yes Soft to palpation Extremity: COMMON NORMALS: no joint enlargement GENERAL: Yes edema (3+ BL LE) Neuro: COMMON NORMALS: patient oriented x3 and moves all extremities SENSORIUM/ORIENTATION: Yes alert Skin: COMMON NORMALS: no rashes or lesions noted GENERAL SKIN EXAM: no rashes or lesions noted Data : 03/13/22 00:45 03/13/22 00:45 Micro: Microbiology 03/13/22 00:50 Blood Culture - Preliminary Blood SPECIMEN COLLECTED 03/13/22 00:43 Blood Culture - Preliminary Blood SPECIMEN COLLECTED A&P Assessment and plan (1) Sepsis: Sepsis with pulmonary source with fever 102 Fahrenheit, sinus tachycardia 110- 119. Does have leukopenia as well, although likely chemotherapy-induced after chemo last week Saturday. Received ceftriaxone, azithromycin, will broaden coverage somewhat with cefepime, continue azithromycin due to COPD, immunocompromise. Assess MRSA PCR. Collect sputum culture, urine bacterial antigens. Follow-up blood culture. (2) COPD exacerbation: Exacerbation of COPD as well with wheezing, dyspnea, cough productive of yellow sputum. Severe COPD exacerbation. Antibiotics as above. Cultures as above. Additionally Solu-Medrol 40 mg every 8 hours. Neb treatments. (3) Acute heart failure with preserved ejection fraction (HFpEF): With 3+ recently worsened lower extremity edema, dyspnea, change Lasix to IV 60 mg twice daily, monitor I&O. Weights. Cardiac diet. (4) Community acquired pneumonia: As above. 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 On palliative chemotherapy docetaxel every 3 weeks. Plan Colon lesion on PET scan: Head colonoscopy scheduled for March 22 Anemia BPH CKD Depression HTN Glaucoma HLD Hypothyroidism Morbid recently Port-A-Cath in place Psoriasis Other chronic morbidities Attestations Medical Necessity Statement*: Admission of 2 midnights is anticipated for management of sepsis, pneumonia, COPD decerebration, acute diastolic CHF in a gentleman with lung malignancy on chemotherapy and additional comorbidities as above. 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
[2022-03-13] MEDS: cefTRIAXone 1,000 MG in sodium chloride 0.9% (plus) 50 ML 100 MG IV (02:48)
[2022-03-13 03:25] LABS: Troponin 5 2HR 28.63 ng/L (0-15)
--- NOTE | 2022-03-13 03:26 | PC.NURSE ---
Called report to ICU Nestor
[2022-03-13 03:33] LABS: Troponin 5 2HR Delta 1.63 ABS# (0-10)
[2022-03-13] MEDS: cefepime 1,000 MG in sodium chloride 0.9% (plus) 50 ML 100 MG IV (04:57)
[2022-03-13] MEDS: FUROsemide 10 mg/mL SDV 10mL 60 MG IVP ×2 (05:02→17:13)
[2022-03-13] MEDS: heparin 5,000 unit/mL INJ 1 mL 5000 UNIT SUBCUT ×2 (05:11→17:14)
--- NOTE | 2022-03-13 06:27 | ECG_ITS ---
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 Measurements Intervals [place] Rate: 95 P: 156 WI: 216 QRS: 95 QRSD: 104 T: 242 QT: 322 QTc: 406 Interpretive Statements SINUS RHYTHM WITH FIRST DEGREE AV BLOCK BORDERLINE RIGHT AXIS DEVIATION [QRS AXIS > 90] Poor R wave progression NONSPECIFIC ST & T-WAVE ABNORMALITY Compared to ECG 03/13/2022 02:55:17 First degree AV block now present T-wave abnormality still present Electronically Signed On 03-14-2022 0:23:45 CDT by Sariah Donnelly M.D. [id number]
[2022-03-13 07:44] LABS: Troponin 5 6HR 21.44 ng/L (0-15)
[2022-03-13 07:47] LABS: Troponin 5 6HR Delta -5.56 ng/L (0-12)
--- NOTE | 2022-03-13 08:01 | PC.PHAR ---
[facility] FA[facility] L[facility]
[2022-03-13] MEDS: ipratropium-albuterol 3 mL Neb INHALATION ×3 (08:57→19:38)
--- NOTE | 2022-03-13 09:46 | PM.MISC ---
Miscellaneous Note Note: H&P reviewed Neutropenia, CHF, hypoxia, Had detailed discussion with the patient regarding goals of care He does not want intubation at any cost He is not sure about chest compressions he will discuss with his and let us know Clinically he does have signs of fluid overload Currently on 6 L saturating 85 to 88% Has conversational dyspnea Morbidly obese Bilateral breath sound with crackles Abdomen soft Lower extremity 2+ pitting edema Awake and alert Nonfocal neuro exam Assessment and plan Diastolic CHF exacerbation Continue diuresis Current acquired pneumonia continue antibiotics Acute on chronic hypoxia related to above-mentioned reasons titrate oxygen goal saturation above 88% Patient does not want intubation in case of any hypoxic respiratory arrest event, he is not sure about chest compressions I did explain that they normally go [id number] and you can just pick and choose, this was all new to him he has never discussed goals of care before he would like to take some time to think about it, is also present in the room neutropenia noted Lung cancer with mets to lymph nodes Patient has been seen sleeping in a recliner Dr. Ornelas has recommended sleep study and CPAP Most likely underlying sleep apnea is causing CHF exacerbation Will do overnight pulse ox Increased size of lung mass
--- NOTE | 2022-03-13 12:03 | PC.CHAP ---
Pastoral Care Encounter/Spiritual Assessment Type of Contact [] Declined transitional nurse visit [] Patient/Family/Request visit [] Outpatient visit [] Follow-up visit [] Physician referral [] Code/Alert [x] Routine visit [] Staff referral [] Actively dying [] Patient sleeping [] Family support [] [] Out of room [] Palliative care [] [] Receiving care in room [] Pre-surgical visit [] Trauma [] Long length of stay [x] ICU visit [] Other: Relational/Emotional Strength [] Patient feels connected with others/family/visitors/staff [] Distress [] Loneliness/isolation [] Abandonment Spirituality of Patient [] Person of Ebony [] Attends Adventist of their Ebony [] Believes in Prayer [] Reads Bible or Jew materials [] There are Spiritual issues to be addressed Building Maintenance Technician Interventions [x] Prayer [] Active listening [] Non-anxious presence [] Spiritual/emotional support [] Crisis/trauma care [] Spiritual counseling [] Bereavement support [] Provided bereavement packet [] Provided Bible/devotional materials [] Provided toy/stuffed animal, coloring book to patient or family member [] Provided Communion [] Anointing/Catherine [] Salvation [] Completed spiritual assessment [] Other: Impact on Illness or Injury [] Angry [] Fearful [] Anxious [] Often cries [] Exhaustion [] Unable to work [] Unable to attend uatsdin [] Unable to walk/stand [] Unable to read [] Unable to drive [] Unable to eat/drink [] Unable to sleep [] Unable to be with family [] Patient intubated [] Other: Summary Time spent with patient
[2022-03-13] MEDS: cefepime 1,000 MG in sodium chloride 0.9% (plus) 50 ML 12.5 MG IV (17:14)
[2022-03-14] VITALS (52 sets, daily range): BP systolic 142–159; BP diastolic 59–89; PULSE 69–112; RESP 16–18; TEMP 36.7–37.1; O2SAT 87–94
[2022-03-14] MEDS: ipratropium-albuterol 3 mL Neb INHALATION ×4 (01:50→19:30)
[2022-03-14 03:16] LABS: Basophils % 0.3 %; Hematocrit 32.5 % (42.0-52.0); Hemoglobin 9.9 g/dL (11.7-16.6); Lymphocytes # 0.5 10^3/uL (0.8-4.8); Mean Corpuscular HGB Conc 30.5 g/dL (30.0-36.0); Mean Corpuscular Hemoglobin 28.4 pg (28.0-34.0); Mean Corpuscular Volume 93.4 fl (80-94); Mean Platelet Volume 10.2 fL (7.4-10.4); Monocytes # 0.8 10^3/uL (0.2-0.9); Monocytes % 25.9 %; Neutrophils % 54.4 %; Nucleated Red Blood Cells % 0 %; Platelet Count 226 10^3/cmm (130-400); Red Blood Count 3.48 10^6/uL (4.1-5.3); Red Cell Distribution Width 14.1 % (12.1-15.1); White Blood Count 2.9 10^3/uL (4.0-10.0)
[2022-03-14 03:48] LABS: Alanine Aminotransferase 22 U/L (0-41); Albumin Level 2.8 g/dL (3.5-5.2); Alkaline Phosphatase 176 U/L (40-130); Anion Gap 10.4 (5-19); Aspartate Amino Transferase 10 U/L (0-40); Blood Urea Nitrogen 17 mg/dL (8-23); Calcium 8.5 mg/dL (8.5-10.5); Carbon Dioxide 40 mmol/L (22-29); Chloride 92 mmol/L (98-107); Creatinine Clr Calc Pharmacy 93.5914; Globulin 2.4 g/dL (1.3-4.6); Glucose 130 mg/dL (65-115); Osmolality Calculated 289 mOsm/kg (285-295); Potassium 4.4 mmol/L (3.5-5.1); Sodium 138 mmol/L (136-145); Total Bilirubin 0.2 mg/dL (0.15-1.2); Total Protein 5.2 g/dL (6.6-8.7)
[2022-03-14 04:33] LABS: Slide Review Slide Review Perform
[2022-03-14] MEDS: cefepime 1,000 MG in sodium chloride 0.9% (plus) 50 ML 100 MG IV ×2 (05:01→17:03)
[2022-03-14] MEDS: FUROsemide 10 mg/mL SDV 10mL 60 MG IVP ×2 (05:03→17:03)
[2022-03-14] MEDS: heparin 5,000 unit/mL INJ 1 mL 5000 UNIT SUBCUT ×2 (05:06→17:04)
[2022-03-14] MEDS: azithromycin 250 mg Tablet 500 MG PO (09:52)
--- NOTE | 2022-03-14 09:56 | P.PN_ITS ---
Subjective Subjective: he felt very good after using CPAP machine yesterday he said he never slept this good in a long time, Adequate diuresis Currently on 4 L which is home/baseline requirement Feeling better Will be transferred to [facility] [place] He is not sure about DNR status however he is DNI and he is adamant about it Vitals/I&O/Wt Last Vital Signs Temp 98.3 F 03/14/22 08:00 Pulse 88 03/14/22 07:36 Resp 16 03/14/22 07:26 BP 142/75 03/14/22 06:00 Pulse Ox 88 L 03/14/22 08:00 O2 Del Method 03/14/22 08:00 O2 Flow Rate 4 03/14/22 08:00 03/13/22 03/14/22 03/14/22 22:59 06:59 14:59 Intake Total 50 / 100 Output Total 1225 / 1225 400 / 1625 400 / 400 Balance -1175 / -1125 -400 / -1525 -400 / -400 Weight last 48 hrs Weight 125.237 kg Weight 125.237 kg Weight 125.645 kg Physical Exam Narrative: Awake and alert Signs of fluid overload fluid Bilateral breath sounds with crackles Currently on 4 L Awake and alert Nonfocal neuro exam Very pleasant at the bedside Abdomen soft Lower extremity edema improving Data : 03/14/22 02:35 03/14/22 02:35 Micro: Microbiology 03/13/22 00:50 Blood Culture - Preliminary Blood NEGATIVE TO DATE 03/13/22 00:43 Blood Culture - Preliminary Blood NEGATIVE TO DATE 03/13/22 06:00 MRSA Culture - Final Nose 03/13/22 06:00 Gram Stain - Final Sputum - Expectorated Sputum 03/13/22 01:20 Legionella Urinary Antigen - Final Urine,Voided Bacterial Antigens - Final A&P Assessment and plan (1) Acute heart failure with preserved ejection fraction (HFpEF): (2) COPD exacerbation: (3) Sepsis: (4) 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: (5) Chronic obstructive pulmonary disease: (6) Community acquired pneumonia: (7) Physical deconditioning: Plan Sepsis related to clinical pneumonia Continue cefepime and azithromycin Discontinue steroids PT evaluation today Acute on chronic hypoxia: Patient is back to his baseline home requirement of 4 L Acute resolution heart failure exacerbation related to an underlying untreated sleep apnea Patient felt better use of the use of CPAP I will give him referrals for sleep study outpatient which should be done as soon as possible Continue Lasix 60 mg every 12 hours DVT prophylaxis with heparin Continue cardiac diet He does not want intubation but he is DNI, he is not sure about chest compressions or defibrillation, I did explain to him what it entails for now to have oxygen body giving chest compressions, he will discuss with his for more time He can be transferred out of ICU Attestations Medical Necessity Statement*: Transfer out of ICU to [facility] [place] Time Spent in Patient Care: 30 Coding Level of Care Code Acute Launchman for [facility] Fwd Diagnoses Acute heart failure with preserved ejection fraction (HFpEF) I50.31 COPD exacerbation J44.1 Sepsis A41.9 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
--- NOTE | 2022-03-14 12:40 | PC.CHAP ---
Pastoral Care Encounter/Spiritual Assessment Type of Contact [] Declined district resource officer visit [] Patient/Family/Request visit [] Outpatient visit [] Follow-up visit [] Physician referral [] Code/Alert [x] Routine visit [] Staff referral [] Actively dying [] Patient sleeping [x] Family support [] [] Out of room [] Palliative care [] [] Receiving care in room [] Pre-surgical visit [] Trauma [] Long length of stay [x] ICU visit [] Other: Relational/Emotional Strength [] Patient feels connected with others/family/visitors/staff [] Distress [] Loneliness/isolation [] Abandonment Spirituality of Patient [] Person of Ebony [] Attends Mormonism of their Ebony [] Believes in Prayer [] Reads Bible or Church materials [] There are Spiritual issues to be addressed Fine Craft Artist Interventions [x] Prayer [] Active listening [] Non-anxious presence [] Spiritual/emotional support [] Crisis/trauma care [] Spiritual counseling [] Bereavement support [] Provided bereavement packet [] Provided Bible/devotional materials [] Provided toy/stuffed animal, coloring book to patient or family member [] Provided Communion [] Anointing/[place] [] Salvation [x] Completed spiritual assessment [] Other: Impact on Illness or Injury [] Angry [] Fearful [] Anxious [] Often cries [] Exhaustion [] Unable to work [] Unable to attend muslim [] Unable to walk/stand [] Unable to read [] Unable to drive [] Unable to eat/drink [] Unable to sleep [] Unable to be with family [] Patient intubated [] Other: Summary Time spent with patient
[2022-03-14] MEDS: sennosides-docusate Tablet 1 TAB PO (17:04)
[2022-03-15] VITALS (89 sets, daily range): BP systolic 117–191; BP diastolic 44–84; PULSE 50–150; RESP 16–29; TEMP 36.6–37.1; O2SAT 80–97
[2022-03-15] MEDS: ipratropium-albuterol 3 mL Neb INHALATION ×4 (02:20→19:36)
[2022-03-15 02:50] LABS: Basophils % 0.5 %; Hematocrit 31.8 % (42.0-52.0); Hemoglobin 9.7 g/dL (11.7-16.6); Lymphocytes # 0.6 10^3/uL (0.8-4.8); Mean Corpuscular HGB Conc 30.5 g/dL (30.0-36.0); Mean Corpuscular Hemoglobin 28.6 pg (28.0-34.0); Mean Corpuscular Volume 93.8 fl (80-94); Monocytes # 1.2 10^3/uL (0.2-0.9); Monocytes % 32.5 %; Neutrophils % 47.3 %; Nucleated Red Blood Cells % 0.8 %; Platelet Count 259 10^3/cmm (130-400); Red Blood Count 3.39 10^6/uL (4.1-5.3); Red Cell Distribution Width 14.4 % (12.1-15.1); White Blood Count 3.8 10^3/uL (4.0-10.0)
[2022-03-15 03:25] LABS: Alanine Aminotransferase 20 U/L (0-41); Albumin Level 2.6 g/dL (3.5-5.2); Alkaline Phosphatase 144 U/L (40-130); Aspartate Amino Transferase 9 U/L (0-40); Blood Urea Nitrogen 18 mg/dL (8-23); Calcium 8.7 mg/dL (8.5-10.5); Chloride 89 mmol/L (98-107); Creatinine Clr Calc Pharmacy 93.5914; Globulin 2.9 g/dL (1.3-4.6); Glucose 102 mg/dL (65-115); Osmolality Calculated 286 mOsm/kg (285-295); Potassium 3.8 mmol/L (3.5-5.1); Sodium 137 mmol/L (136-145); Total Bilirubin 0.2 mg/dL (0.15-1.2); Total Protein 5.5 g/dL (6.6-8.7)
[2022-03-15] MEDS: FUROsemide 10 mg/mL SDV 10mL 60 MG IVP ×2 (03:51→12:29)
[2022-03-15] MEDS: cefepime 1,000 MG in sodium chloride 0.9% (plus) 50 ML 200 MG IV ×2 (03:51→17:00)
[2022-03-15] MEDS: heparin 5,000 unit/mL INJ 1 mL 5000 UNIT SUBCUT (03:52)
[2022-03-15 03:58] LABS: Anion Gap 8.8 (5-19); Carbon Dioxide 43 mmol/L (22-29)
--- NOTE | 2022-03-15 07:53 | P.DS_ITS ---
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 Arreaga and Dr. Ornelas. He has finished 4 cycles of chemotherapy. Of note, patient does have significant sleep apnea, he did remarkably well after getting CPAP in the hospital, I have given him referral to get sleep study as soon as possible to avoid diastolic CHF exacerbation hospital admissions. This was explained and emphasized to the patient and his . Cumulative fluid balance -3 L. Physical Exam Narrative: Patient clinically looks dry Skin wrinkling Patient is very pleased with his progress Currently on 4 L of oxygen Abdomen soft Awake and alert Nonfocal neuro exam Discharge Data Studies Completed and Pending Completed Studies During Hospitalization Category Date Time Status CT angio chest PE protcl [id number] Stat Cat Scan 03/13/22 00:27 Completed XR chest 1V portable [id number] Stat Exams 03/13/22 00:27 Completed Pending at discharge Category Date Time Status Blood Culture Stat Lab 03/13/22 00:50 Results Complete Blood Count w/Auto AM LABS Lab 03/16/22 04:00 Ordered Comprehensive Metabolic Panel AM LABS Lab 03/16/22 04:00 Ordered Sputum Culture and Gram Stain Routine Lab 03/13/22 06:00 Results Radiology Impressions Chest CTA 03/13/22 00:27 IMPRESSION: 1. 2.4 cm right thyroid nodule with recommendation for nonemergent thyroid ultrasound to rule out neoplasm. Comparison with PET-CT scan results may also be helpful. 2. Left MediPort catheter tip over the proximal superior vena cava. 3. Increased size of 7.1 x 5.8 x 5.1 cm lobulated soft tissue mass in the right lung apex with differential diagnosis including lung cancer versus necrotic tumor versus scar tissue. 4. Small right pleural fluid collection. 5. Interval appearance of moderate pneumonia with air bronchograms in the posterior segment left lower lobe. 6. No pulmonary embolus or aortic dissection. COMMENTS: Consistent with the [employer]'s Incidental Findings Committee white paper (J Am Scarlett Radiol 2015): In patients aged 35 years and older with an incidental thyroid nodule equal to or greater than 1.[address], MRI or extrathyroidal US, further evaluation with dedicated thyroid US is recommended for patients with normal life expectancy and without comorbidities. For smaller nodules without suspicious features, no further evaluation or follow up is recommended. Chest X-Ray 03/13/22 00:27 IMPRESSION: 1. Left central line tip over the junction of the brachycephalic veins and superior vena cava. 2. Mild right upper lobe pneumonia. Laboratory Results WBC 3.8 10^3/uL (4.0-10.0) L 03/15/22 02:22 RBC 3.39 10^6/uL (4.1-5.3) L 03/15/22 02:22 Hgb 9.7 g/dL (11.7-16.6) L 03/15/22 02:22 Hct 31.8 % (42.0-52.0) L 03/15/22 02:22 MCV 93.8 fl (80-94) 03/15/22 02:22 MCH 28.6 pg (28.0-34.0) 03/15/22 02:22 MCHC 30.5 g/dL (30.0-36.0) 03/15/22 02:22 RDW 14.4 % (12.1-15.1) 03/15/22 02:22 Plt Count 259 10^3/cmm (130-400) 03/15/22 02: MPV 10.0 fL (7.4-10.4) 03/15/22 02: Neut % (Auto) 47.3 % 03/15/22 02: Lymph % (Auto) 15.0 % 03/15/22 02: Beadle % (Auto) 32.5 % 03/15/22 02: Eos % (Auto) 0.0 % 03/15/22 02: Baso % (Auto) 0.5 % 03/15/22 02:22 Neut # (Auto) 1.80 10^3/uL (1.8-7.7) 03/15/22 02: Lymph # (Auto) 0.6 10^3/uL (0.8-4.8) L 03/15/22 02:22 Beadle # (Auto) 1.2 10^3/uL (0.2-0.9) H 03/15/22 02:22 Eos # (Auto) 0.0 10^3/uL (0.0-0.8) 03/15/22 02:22 Baso # (Auto) 0.0 10^3/uL (0.0-0.1) 03/15/22 02: Nucleated RBC % (auto) 0.8 % 03/15/22 02: Nucleated RBCs # 0.0 /100WBC 03/15/22 02:22 PT 13.20 SECONDS (12.1-14.9) 03/13/22 00:45 INR 0.97 (0.8-1.2) 03/13/22 00:45 Specimen Type radial 03/13/22 01:13 Sample Site rr 03/13/22 01:13 ABG pH 7.37 (7.35-7.45) 03/13/22 01:13 ABG pCO2 66.3 mmHg (35-45) H* 03/13/22 01:13 ABG pO2 40.8 mmHg (80.0-100.0) L 03/13/22 01:13 ABG HCO3 38.4 mmol/L (22-26) H 03/13/22 01:13 ABG Base Excess 11.2 mmol/L (-2.0-2.0) H 03/13/22 01:13 Edson Test pos 03/13/22 01:13 Hematocrit Not Reportable 03/13/22 01:13 O2 Delivery Device nc 03/13/22 01:13 O2 Liters/Min 8.0 % 03/13/22 01:13 Specimen Drawn By warren 03/13/22 01:13 Remote Sensing Research Scientist ID warren 03/13/22 01:13 Sodium 137 mmol/L (136-145) 03/15/22 02:22 Potassium 3.8 mmol/L (3.5-5.1) 03/15/22 02:22 Chloride 89 mmol/L (98-107) L 03/15/22 02:22 Carbon Dioxide 43 mmol/L (22-29) H* 03/15/22 02:22 Anion Gap 8.8 (5-19) 03/15/22 02:22 BUN 18 mg/dL (8-23) 03/15/22 02:22 Creatinine 0.7 mg/dL (0.7-1.2) 03/15/22 02:22 GFR Calculation Not Reportable 03/15/22 02:22 Glucose 102 mg/dL (65-115) 03/15/22 02:22 Calculated Osmolality 286 mOsm/kg (285-295) 03/15/22 02:22 Lactic Acid 0.9 mmol/L (0.5-2.2) 03/13/22 00:43 Calcium 8.7 mg/dL (8.5-10.5) 03/15/22 02:22 Total Bilirubin 0.2 mg/dL (0.15-1.2) 03/15/22 02:22 AST 9 U/L (0-40) 03/15/22 02:22 ALT 20 U/L (0-41) 03/15/22 02:22 Alkaline Phosphatase 144 U/L (40-130) H 03/15/22 02:22 Troponin T Baseline 27 ng/L (0-15) H 03/13/22 00:45 Troponin T 120 Minute 28.63 ng/L (0-15) H 03/13/22 02:38 Delta Troponin T 1.63 ABS# (0-10) 03/13/22 02:38 Troponin T Hi Sens 6Hr 21.44 ng/L (0-15) H 03/13/22 07:10 Troponin T Hi Sens 6Hr Delta -5.56 ng/L (0-12) L 03/13/22 07:10 NT-Pro-B Natriuret Pep 609 pg/mL (0-450) H 03/13/22 00:45 Total Protein 5.5 g/dL (6.6-8.7) L 03/15/22 02:22 Albumin 2.6 g/dL (3.5-5.2) L 03/15/22 02:22 Globulin 2.9 g/dL (1.3-4.6) 03/15/22 02:22 Urine Color Yellow (Yellow) 03/13/22 01:20 Urine Appearance Sl hazy (CLEAR) A 03/13/22 01:20 Urine pH 5 (5-7) 03/13/22 01:20 Ur Specific [place] 1.010 (1.005-1.030) 03/13/22 01:20 Urine Protein 2+ (Negative) H 03/13/22 01:20 Urine Glucose (UA) Norm (Normal) 03/13/22 01:20 Urine Ketones 1+ (Negative) H 03/13/22 01:20 Urine Blood 2+ (Negative) H 03/13/22 01:20 Urine Nitrate Negative (Negative) 03/13/22 01:20 Urine Bilirubin 1+ (Negative) H 03/13/22 01:20 Urine Urobilinogen 1 mg/dL (Negative) H 03/13/22 01:20 Ur Leukocyte Esterase Negative (Negative) 03/13/22 01:20 Urine RBC 5-10 /hpf (0-2) H 03/13/22 01:20 Urine WBC None /hpf (0-5) 03/13/22 01:20 Ur Squamous Epith Cells 0-4 /hpf (0-5) H 03/13/22 01:20 Amorphous Sediment 2+ /hpf 03/13/22 01:20 Urine Bacteria None /hpf (NONE) 03/13/22 01:20 Hyaline Casts 0-4 /lpf H 03/13/22 01:20 Fine Granular Casts 0-4 /lpf H 03/13/22 01:20 Influenza Type A Ag negative (Negative) 03/13/22 00:44 Influenza Type B Ag negative (Negative) 03/13/22 00:44 SARS-CoV-2 Ag (Rapid) negative (Negative) 03/13/22 00:44 Vitals Last Vital Signs Temp 98 F 03/15/22 03:43 Pulse 84 03/15/22 05:47 Resp 16 03/15/22 02:00 BP 142/75 03/14/22 06:00 Pulse Ox 93 03/15/22 02:00 O2 Del Method 03/15/22 02:00 O2 Flow Rate 4 03/15/22 02:00 Discharge Plan Discharge Patient Disposition: Home Condition: Stable Prescriptions: New cefpodoxime 200 mg tablet 200 mg PO BID Qty: 10 0RF Rx Instructions: must administer with a meal/food Continued cholecalciferol (vitamin D3) 25 mcg (1,000 unit) capsule 25 mcg PO QAM ipratropium-albuterol 0.5 mg-3 mg(2.5 mg base)/3 mL solution for nebulization 3 ml inhalation Q4H PRN (Reason: wheezing) Qty: 90 3RF (DME) nebulizers Misc See Rx Instructions .Route Qty: 1 0RF Rx Instructions: give 1 nebulizer and accessories kit amlodipine 5 mg tablet 5 mg PO QAM isosorbide mononitrate 30 mg tablet extended release 24 hr 30 mg PO DAILY lisinopril 20 mg tablet 20 mg PO QAM metoprolol tartrate 25 mg tablet 25 mg PO BID Breztri Aerosphere 160-9-4.8 mcg/actuation HFA aerosol inhaler 2 inh inhalation BID Qty: 10.7 3RF latanoprost 0.005 % Drops 1 drp OPHTHALMIC (EYE) BEDTIME Rx Instructions: both eyes tamsulosin [Flomax] 0.4 mg Capsule 0.4 mg PO QPM levothyroxine 50 mcg Tablet 50 mcg PO QAM atorvastatin 20 mg Tablet 20 mg PO QPM magnesium oxide 400 mg magnesium Tablet 400 mg PO QPM cyanocobalamin (vitamin B-12) 1,000 mcg Tablet 1,000 mcg PO QAM folic acid 1 mg Tablet 1 mg PO QAM albuterol sulfate 90 mcg/actuation Hfa Aerosol Inhaler 2 puff INHALATION QID PRN (Reason: Shortness Of Breath) carboxymethylcellulose sodium 1 % Drops, Liquid Gel 2 drp ophthalmic (eye) QID PRN (Reason: Dry Eye(S)) hydralazine 25 mg Tablet 25 mg PO BID prochlorperazine maleate [Compazine] 10 mg tablet 10 mg PO Q4H PRN (Reason: Mild Nausea) Qty: 30 3RF dexamethasone 4 mg tablet See Rx Instructions .ROUTE .COMPLEX Rx Instructions: Take 8 mg twice daily the day before and the day after Taxotere Percocet 5-325 mg tablet 1 - 2 tab PO .EVERY 4-6 HOURS PRN (Reason: pain) Changed furosemide 40 mg Tablet 40 mg PO DAILY 30 Days Qty: 90 2RF Discharge Orders: Discharge Order (Routine); Ordered 03/15/22 Ordered By: Tiat Thacker Other Ambulatory Orders: Sleep Study/Titration (Routine) Timeframe: 2 Days Facility: [facility] - Location: [facility] Ordered By: Tita Thacker DME: Phillip (Order) Location: None Selected Ordered By: Tita Thacker Referrals: Jose Martin Noe DO [Primary Care Provider] - (appointment scheduled . March 22, 2022 at time of 11:30 am ) Patient Instructions: Cefpodoxime Proxetil (By mouth) (Vantin), Heart Failure (DC), Sepsis (DC), Community Acquired Pneumonia (DC), Sleep Study (GEN), COPD Stoplight, Opioid Safety Discharge Attestations Time Spent in Discharge Care*: less than 30 min Status at Discharge: Cognitive status at discharge: cognitively intact , Behavioral status at discharge: cooperative , Quality Metrics Clinical Quality Measures [ No reported AMI, CVA or VTE this stay] Coding Level of Care Code Acute Chg FW DC note Diagnoses Acute heart failure with preserved ejection fraction (HFpEF) I50.31 COPD exacerbation J44.1 Sepsis A41.9 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
[2022-03-15] MEDS: sennosides-docusate Tablet 1 TAB PO (08:47)
[2022-03-15] MEDS: azithromycin 250 mg Tablet 500 MG PO (08:47)
[2022-03-15 11:08] LABS: Glucose Point of Care 94 mg/dL (70-110)
--- NOTE | 2022-03-15 11:35 | ECG_ITS ---
[facility] Test Date: 2022-03-15 Pat Name: Venkat Cherry Department: Room: [facility] Gender: Male Drama Therapist: : 1940 Requested By: Tita Thacker Order Number: [id number] Reading MD: Bindu Hdz M.D. Measurements Intervals [place] Rate: 123 P: NV: QRS: 47 QRSD: 97 T: 218 QT: 265 QTc: 380 Interpretive Statements ATRIAL FIBRILLATION WITH RAPID VENTRICULAR RESPONSE WITH ABERRANT CONDUCTION OR VENTRICULAR PREMATURE COMPLEXES NONSPECIFIC ST & T-WAVE ABNORMALITY Compared to ECG 03/13/2022 06:02:44 Ventricular premature complex(es) now present Aberrant conduction of supraventricular beat(s) now present Sinus rhythm no longer present First degree AV block no longer present Poor R-wave progression no longer present T-wave abnormality still present Electronically Signed On 03-15-2022 18:04:16 CDT by Bindu Hdz M.D. [id number]
--- NOTE | 2022-03-15 11:38 | PC.NURSE ---
Dr. Thacker was called about buckley rate in the 130's-150's on monitor. Order for EKG entered.
--- NOTE | 2022-03-15 11:54 | PC.CHAP ---
Pastoral Care Encounter/Spiritual Assessment Type of Contact [] Declined replenishment specialist visit [] Patient/Family/Request visit [] Outpatient visit [] Follow-up visit [] Physician referral [] Code/Alert []x Routine visit [] Staff referral [] Actively dying [] Patient sleeping [x] Family support [] [] Out of room [] Palliative care [] [] Receiving care in room [] Pre-surgical visit [] Trauma [] Long length of stay [x] ICU visit [] Other: Relational/Emotional Strength [] Patient feels connected with others/family/visitors/staff [] Distress [] Loneliness/isolation [] Abandonment Spirituality of Patient [] Person of Ebony [] Attends Mormon of their Ebony [] Believes in Prayer [] Reads Bible or Gnosticist materials [] There are Spiritual issues to be addressed Collector Interventions [x] Prayer [] Active listening [] Non-anxious presence [] Spiritual/emotional support [] Crisis/trauma care [] Spiritual counseling [] Bereavement support [] Provided bereavement packet [] Provided Bible/devotional materials [] Provided toy/stuffed animal, coloring book to patient or family member [] Provided Communion [] Anointing/[place]rian [] Salvation [x] Completed spiritual assessment [] Other: Impact on Illness or Injury [] Angry [] Fearful [] Anxious [] Often cries [] Exhaustion [] Unable to work [] Unable to attend episcopalian [] Unable to walk/stand [] Unable to read [] Unable to drive [] Unable to eat/drink [] Unable to sleep [] Unable to be with family [] Patient intubated [] Other: Summary patient settinyg up in chair Time spent with patient
--- NOTE | 2022-03-15 12:10 | PM.PN ---
Subjective Subjective: Discharge was canceled patient went into A. fib RVR he was put on BiPAP he was given Cardizem that improved his shortness of breath heart rate has been better I request another chest x-ray Recent CTA that was done on 03/13 was unremarkable for PE I have started him on therapeutic Lovenox Vitals/I&O/Wt Last Vital Signs Temp 98.7 F 03/15/22 09:05 Pulse 68 03/15/22 09:05 Resp 16 03/15/22 09:05 BP 140/65 03/15/22 09:30 Pulse Ox 90 03/15/22 09:30 O2 Del Method 03/15/22 09:30 O2 Flow Rate 4 03/15/22 09:30 03/14/22 03/15/22 03/15/22 22:59 06:59 14:59 Intake Total 250 / 600 300 / 900 222 / 222 Output Total 1500 / 1900 750 / 2650 Balance -1250 / -1300 -450 / -1750 222 / 222 Weight last 48 hrs Weight 125.191 kg Physical Exam Narrative: Patient is awake and alert Clinically does not look fluid overloaded S1, S2 variable A. fib RVR Abdomen soft Lower extremity no edema at the bedside Currently is on BiPAP Data : 03/15/22 02:22 03/15/22 02:22 Micro: Microbiology 03/13/22 06:00 Gram Stain - Final Sputum - Expectorated Sputum Sputum Culture - Preliminary A&P Assessment and plan (1) Sleep apnea: (2) Acute heart failure with preserved ejection fraction (HFpEF): (3) COPD exacerbation: (4) Sepsis: (5) New onset a-fib: Plan New onset A. fib Started on p.o. Cardizem after IV Cardizem push Started therapeutic Lovenox [id number] Preserved ejection fraction heart failure exacerbation Continue diuresis Pain and another x-ray Currently is on BiPAP Community-acquired pneumonia continue cefepime and azithromycin DNI, he is not sure about chest compressions Cardiac diet Continue ICU management Attestations Medical Necessity Statement*: Continue ICU management Time Spent in Patient Care: 30 Coding Level of Care Code Acute Principal Engineer for [facility] Fwd Diagnoses Sleep apnea G47.30 Acute heart failure with preserved ejection fraction (HFpEF) I50.31 COPD exacerbation J44.1 Sepsis A41.9 New onset a-fib I48.91
[2022-03-15] MEDS: ALPRAZolam 0.5 mg Tablet PO (12:31)
[2022-03-15] MEDS: dilTIAZem 5 mg/mL SDV 5 mL 10 MG IVP (12:31)
[2022-03-15] MEDS: enoxaparin 120 mg/0.8 mL Syringe SUBCUT ×2 (12:31→23:34)
[2022-03-15] MEDS: dilTIAZem 30 mg Tablet PO ×3 (13:04→23:34)
[2022-03-15 13:11] LABS: Magnesium 2.1 mg/dL (1.7-2.3); NT Pro B Type Natriuretic Pept 492 pg/mL (0-450)
--- NOTE | 2022-03-15 14:03 | XR_ITS ---
WS: [id number] Exam: XR chest 1V portable [id number] Date/Time of Exam: 03/15/2022 2:07 PM Reason For Exam: pulm oedema Comparison 03/13/2022. Infiltrate in the right upper lobe unchanged. Resolved infiltrates in the right lung base and also im proved infiltrate in the left lower lobe. The heart is enlarged but unchanged in size. Probable small right basal pleural effusion. The lungs are fully expanded. Left subclavian port ends in the expecte d region of the SVC. Bony structures are intact. The mediastinum is normal in contour for a portable technique. XR/XR chest 1V portable [id number] IMPRESSION: 1. Right upper lobe infiltrate unchanged. Resolved infiltrate in the right lung base. Improving infiltrate in the left lower lobe. 2. Cardiac enlargement unchanged. 3. Left subclavian port ending in the expected region of the SVC.
[2022-03-15 14:53] LABS: Thyroid Stimulating Hormone 2.78 uIU/mL (0.27-4.20)
[2022-03-16] VITALS (49 sets, daily range): BP systolic 111–158; BP diastolic 45–78; PULSE 63–126; RESP 14–32; TEMP 36.8–37.1; O2SAT 85–95
[2022-03-16] MEDS: ipratropium-albuterol 3 mL Neb INHALATION ×2 (02:54→08:56)
[2022-03-16] MEDS: cefepime 1,000 MG in sodium chloride 0.9% (plus) 50 ML 200 MG IV (03:31)
[2022-03-16 04:26] LABS: Hematocrit 30.9 % (42.0-52.0); Hemoglobin 9.3 g/dL (11.7-16.6); Mean Corpuscular HGB Conc 30.1 g/dL (30.0-36.0); Mean Corpuscular Hemoglobin 28.4 pg (28.0-34.0); Mean Corpuscular Volume 94.5 fl (80-94); Mean Platelet Volume 10.2 fL (7.4-10.4); Platelet Count 254 10^3/cmm (130-400); Red Blood Count 3.27 10^6/uL (4.1-5.3); Red Cell Distribution Width 14.9 % (12.1-15.1); White Blood Count 4.5 10^3/uL (4.0-10.0)
[2022-03-16 04:43] LABS: Alanine Aminotransferase 18 U/L (0-41); Albumin Level 2.4 g/dL (3.5-5.2); Alkaline Phosphatase 134 U/L (40-130); Anion Gap 8.3 (5-19); Aspartate Amino Transferase 9 U/L (0-40); Blood Urea Nitrogen 22 mg/dL (8-23); Calcium 8.5 mg/dL (8.5-10.5); Chloride 90 mmol/L (98-107); Globulin 2.7 g/dL (1.3-4.6); Glucose 83 mg/dL (65-115); Osmolality Calculated 288 mOsm/kg (285-295); Potassium 3.3 mmol/L (3.5-5.1); Sodium 138 mmol/L (136-145); Total Bilirubin 0.2 mg/dL (0.15-1.2); Total Protein 5.1 g/dL (6.6-8.7)
[2022-03-16] MEDS: dilTIAZem 30 mg Tablet PO ×2 (06:01→11:29)
[2022-03-16 06:26] LABS: Carbon Dioxide 43 mmol/L (22-29)
[2022-03-16 06:45] LABS: Absolute Segmented Neutrophil 1.9 10/cmm (1.6-7.1); Band Neutrophils Absolute 0.9 10^3/cmm (0.0-1.2); Eosinophils 1 %; Lymphocytes 18 %; Lymphocytes Absolute 0.9 10^3/cmm (1.2-3.4); Monocytes Absolute 0.6 10^3/cmm (0.1-0.6); Segmented Neutrophils 42 %; Total Cells Counted 100 (0-100)
[2022-03-16 06:46] LABS: Absolute Neutrophil 2.7 10^3/cmm (1.4-6.5); Platelet Estimate Normal (Normal); Toxic Vacuolation 1+
[2022-03-16 06:47] LABS: Hypersegmented Polys Trace
[2022-03-16] MEDS: FUROsemide 10 mg/mL SDV 10mL 60 MG IVP (09:05)
[2022-03-16] MEDS: azithromycin 250 mg Tablet 500 MG PO (09:08)
[2022-03-16] MEDS: potassium chloride ER 20 mEq Tablet 40 MEQ PO (09:09)
[2022-03-16] MEDS: sennosides-docusate Tablet 1 TAB PO (09:09)
--- NOTE | 2022-03-16 10:25 | P.DS_ITS ---
Discharge Providers Date of Admission: 03/13/22 03:10 Date of Discharge: March 16, 2022 Attending Provider at Admission: Jake Tejeda Attending Provider at Discharge: Tita Thacker MD Primary Care Provider: Jose Martin Noe DO Diagnoses at Discharge Discharge Diagnosis (1) Sleep apnea: Status: Acute (2) Acute heart failure with preserved ejection fraction (HFpEF): Status: Acute (3) COPD exacerbation: Status: Acute (4) Sepsis: Status: Acute (5) New onset a-fib: Status: Acute Reason for Visit Reason for Visit: SOB Hospital Course Hospital Course 81-year male who has history of oxygen dependent COPD, follows up with Dr. Arreaga, uses 3 to 4 L of oxygen at home, has history of lung cancer with mets to lymph nodes, he was admitted to the hospital for management of sepsis related to community-acquired pneumonia he was also treated aggressively for CHF exacerbation, he was diuresed aggressively with twice a day IV regimen of Lasix 60 mg, patient felt better, actually he became intravascular depleted with signs of contraction alkalosis on his BMP, I asked him to cut back on his Lasix for next few days at the time of discharge and continue his oxygen follow-up with Dr. Arreaga and Dr. Ornelas. He has finished 4 cycles of chemotherapy. Of note, patient does have significant sleep apnea, he did remarkably well after getting CPAP in the hospital, I have given him referral to get sleep study as soon as possible to avoid diastolic CHF exacerbation hospital admissions. This was explained and emphasized to the patient and his . Cumulative fluid balance -3 L. Patient went into A. fib RVR heart rate was in 130s I start him on therapeutic Lovenox and control his heart rate with 30 mg of Cardizem every 6 hours, he responded very nicely he has been experiencing A. fib with intermittent sinus rhythm Clinically looks euvolemic On exertion requires 6 L of oxygen at at rest 4 L, I have requested another home O2 eval Patient does not want to go to any intermediate, he is being discharged after another home O2 eval on home health services He is high risk for readmissions, Physical Exam Narrative: Awake and alert Very pleasant and cooperative Heart rate in the 90s Currently on 4 L surgery 95% Clinically looks euvolemic Skin wrinkling noted at the bedside Patient is in good mood Excited to go home Urinary Catheter Management: Little: Cath Placed During This Visit: yes Reason for Continuing Indwelling Catheter: Accurate Measurement of Urinary Output in Critically Ill Patients Urinary Catheter Date of Insertion: 03/15/22 Urinary Catheter Time of Insertion: 19:35 Discharge Data Studies Completed and Pending Completed Studies During Hospitalization Category Date Time Status CT angio chest PE protcl [id number] Stat Cat Scan 03/13/22 00:27 Completed XR chest 1V portable [id number] Routine Exams 03/15/22 14:03 Completed XR chest 1V portable [id number] Stat Exams 03/13/22 00:27 Completed Pending at discharge Category Date Time Status Blood Culture Stat Lab 03/13/22 00:50 Results Sputum Culture and Gram Stain Routine Lab 03/13/22 06:00 Results Radiology Impressions Chest CTA 03/13/22 00:27 IMPRESSION: 1. 2.4 cm right thyroid nodule with recommendation for nonemergent thyroid ultrasound to rule out neoplasm. Comparison with PET-CT scan results may also be helpful. 2. Left MediPort catheter tip over the proximal superior vena cava. 3. Increased size of 7.1 x 5.8 x 5.1 cm lobulated soft tissue mass in the right lung apex with differential diagnosis including lung cancer versus necrotic tumor versus scar tissue. 4. Small right pleural fluid collection. 5. Interval appearance of moderate pneumonia with air bronchograms in the posterior segment left lower lobe. 6. No pulmonary embolus or aortic dissection. COMMENTS: Consistent with the [employer]'s Incidental Findings Committee white paper (J Am Scarlett Radiol 2015): In patients aged 35 years and older with an incidental thyroid nodule equal to or greater than 1.[address], MRI or extrathyroidal US, further evaluation with dedicated thyroid US is recommended for patients with normal life expectancy and without comorbidities. For smaller nodules without suspicious features, no further evaluation or follow up is recommended. Chest X-Ray 03/15/22 14:03 IMPRESSION: 1. Right upper lobe infiltrate unchanged. Resolved infiltrate in the right lung base. Improving infiltrate in the left lower lobe. 2. Cardiac enlargement unchanged. 3. Left subclavian port ending in the expected region of the SVC. Laboratory Results WBC 4.5 10^3/uL (4.0-10.0) 03/16/22 03:45 RBC 3.27 10^6/uL (4.1-5.3) L 03/16/22 03:45 Hgb 9.3 g/dL (11.7-16.6) L 03/16/22 03:45 Hct 30.9 % (42.0-52.0) L 03/16/22 03:45 MCV 94.5 fl (80-94) H 03/16/22 03:45 MCH 28.4 pg (28.0-34.0) 03/16/22 03:45 MCHC 30.1 g/dL (30.0-36.0) 03/16/22 03:45 RDW 14.9 % (12.1-15.1) 03/16/22 03:45 Plt Count 254 10^3/cmm (130-400) 03/16/22 03:45 MPV 10.2 fL (7.4-10.4) 03/16/22 03:45 Neut % (Auto) 47.3 % 03/15/22 02:22 Lymph % (Auto) Not Reportable 03/16/22 03:45 Bandera % (Auto) Not Reportable 03/16/22 03:45 Eos % (Auto) 0.0 % 03/15/22 02:22 Baso % (Auto) 0.5 % 03/15/22 02:22 Neut # (Auto) 1.80 10^3/uL (1.8-7.7) 03/15/22 02:22 Lymph # (Auto) Not Reportable 03/16/22 03:45 Bandera # (Auto) Not Reportable 03/16/22 03:45 Eos # (Auto) 0.0 10^3/uL (0.0-0.8) 03/15/22 02:22 Baso # (Auto) 0.0 10^3/uL (0.0-0.1) 03/15/22 02:22 Nucleated RBC % (auto) 0.8 % 03/15/22 02:22 Total Counted 100 (0-100) 03/16/22 03:45 Atypical Lymphs % 1.0 % (0-5) 03/16/22 03:45 Absolute Neutrophils 2.7 10^3/cmm (1.4-6.5) 03/16/22 03:45 Segmented Neutrophils 42 % 03/16/22 03:45 Abs Segm Neuts (Man) 1.9 10/cmm (1.6-7.1) 03/16/22 03:45 Band Neutrophils 19.0 % 03/16/22 03:45 Abs Band Neuts (Man) 0.9 10^3/cmm (0.0-1.2) 03/16/22 03:45 Absolute Lymphocytes 0.9 10^3/cmm (1.2-3.4) L 03/16/22 03:45 Lymphocytes (Manual) 18 % 03/16/22 03:45 Monocytes (Manual) 13.0 % 03/16/22 03:45 Absolute Monocytes 0.6 10^3/cmm (0.1-0.6) 03/16/22 03:45 Eosinophils (Manual) 1 % 03/16/22 03:45 Absolute Eosinophils 0.0 10^3/cmm (0.0-0.7) 03/16/22 03:45 Basophils (Manual) 0.0 % 03/16/22 03:45 Absolute Basophils 0.0 10^3/cmm (0.0-0.2) 03/16/22 03:45 Metamyelocytes 6.0 % 03/16/22 03:45 Nucleated RBCs # 0.0 /100WBC 03/15/22 02:22 Hypersegmented Polys Trace 03/16/22 03:45 Toxic Vacuolation 1+ H 03/16/22 03:45 Platelet Estimate Normal (Normal) 03/16/22 03:45 PT 13.20 SECONDS (12.1-14.9) 03/13/22 00:45 INR 0.97 (0.8-1.2) 03/13/22 00:45 Specimen Type radial 03/13/22 01:13 Sample Site rr 03/13/22 01:13 ABG pH 7.37 (7.35-7.45) 03/13/22 01:13 ABG pCO2 66.3 mmHg (35-45) H* 03/13/22 01:13 ABG pO2 40.8 mmHg (80.0-100.0) L 03/13/22 01:13 ABG HCO3 38.4 mmol/L (22-26) H 03/13/22 01:13 ABG Base Excess 11.2 mmol/L (-2.0-2.0) H 03/13/22 01:13 Edson Test pos 03/13/22 01:13 Hematocrit Not Reportable 03/13/22 01:13 O2 Delivery Device nc 03/13/22 01:13 O2 Liters/Min 8.0 % 03/13/22 01:13 Specimen Drawn By warren 03/13/22 01:13 Almond Blancher Hand ID warren 03/13/22 01:13 Sodium 138 mmol/L (136-145) 03/16/22 03:45 Potassium 3.3 mmol/L (3.5-5.1) L 03/16/22 03:45 Chloride 90 mmol/L (98-107) L 03/16/22 03:45 Carbon Dioxide 43 mmol/L (22-29) H* 03/16/22 03:45 Anion Gap 8.3 (5-19) 03/16/22 03:45 BUN 22 mg/dL (8-23) 03/16/22 03:45 Creatinine 0.8 mg/dL (0.7-1.2) 03/16/22 03:45 GFR Calculation Not Reportable 03/16/22 03:45 Glucose 83 mg/dL (65-115) 03/16/22 03:45 POC Glucose 94 mg/dL (70-110) 03/15/22 10:51 Calculated Osmolality 288 mOsm/kg (285-295) 03/16/22 03:45 Lactic Acid 0.9 mmol/L (0.5-2.2) 03/13/22 00:43 Calcium 8.5 mg/dL (8.5-10.5) 03/16/22 03:45 Magnesium 2.1 mg/dL (1.7-2.3) 03/15/22 12:33 Total Bilirubin 0.2 mg/dL (0.15-1.2) 03/16/22 03:45 AST 9 U/L (0-40) 03/16/22 03:45 ALT 18 U/L (0-41) 03/16/22 03:45 Alkaline Phosphatase 134 U/L (40-130) H 03/16/22 03:45 Troponin T Baseline 27 ng/L (0-15) H 03/13/22 00:45 Troponin T 120 Minute 28.63 ng/L (0-15) H 03/13/22 02:38 Delta Troponin T 1.63 ABS# (0-10) 03/13/22 02:38 Troponin T Hi Sens 6Hr 21.44 ng/L (0-15) H 03/13/22 07:10 Troponin T Hi Sens 6Hr Delta -5.56 ng/L (0-12) L 03/13/22 07:10 NT-Pro-B Natriuret Pep 492 pg/mL (0-450) H 03/15/22 12:33 Total Protein 5.1 g/dL (6.6-8.7) L 03/16/22 03:45 Albumin 2.4 g/dL (3.5-5.2) L 03/16/22 03:45 Globulin 2.7 g/dL (1.3-4.6) 03/16/22 03:45 TSH 2.78 uIU/mL (0.27-4.20) 03/15/22 12:22 Urine Color Yellow (Yellow) 03/13/22 01:20 Urine Appearance Sl hazy (CLEAR) A 03/13/22 01:20 Urine pH 5 (5-7) 03/13/22 01:20 Ur Specific [place] 1.010 (1.005-1.030) 03/13/22 01:20 Urine Protein 2+ (Negative) H 03/13/22 01:20 Urine Glucose (UA) Norm (Normal) 03/13/22 01:20 Urine Ketones 1+ (Negative) H 03/13/22 01:20 Urine Blood 2+ (Negative) H 03/13/22 01:20 Urine Nitrate Negative (Negative) 03/13/22 01:20 Urine Bilirubin 1+ (Negative) H 03/13/22 01:20 Urine Urobilinogen 1 mg/dL (Negative) H 03/13/22 01:20 Ur Leukocyte Esterase Negative (Negative) 03/13/22 01:20 Urine RBC 5-10 /hpf (0-2) H 03/13/22 01:20 Urine WBC None /hpf (0-5) 03/13/22 01:20 Ur Squamous Epith Cells 0-4 /hpf (0-5) H 03/13/22 01:20 Amorphous Sediment 2+ /hpf 03/13/22 01:20 Urine Bacteria None /hpf (NONE) 03/13/22 01:20 Hyaline Casts 0-4 /lpf H 03/13/22 01:20 Fine Granular Casts 0-4 /lpf H 03/13/22 01:20 Influenza Type A Ag negative (Negative) 03/13/22 00:44 Influenza Type B Ag negative (Negative) 03/13/22 00:44 SARS-CoV-2 Ag (Rapid) negative (Negative) 03/13/22 00:44 Vitals Last Vital Signs Temp 98.5 F 03/16/22 03:47 Pulse 82 03/16/22 08:59 Resp 18 03/16/22 08:45 BP 131/49 03/15/22 16:00 Pulse Ox 93 03/16/22 08:45 O2 Del Method 03/16/22 08:45 O2 Flow Rate 6 03/16/22 08:45 FiO2 40 03/16/22 04:34 Discharge Plan Discharge Patient Disposition: Home Condition: Stable Prescriptions: New cefpodoxime 200 mg tablet 200 mg PO BID Qty: 10 0RF Rx Instructions: must administer with a meal/food Eliquis 5 mg tablet 5 mg PO BID Qty: 60 2RF Cardizem LA 120 mg tablet extended release 24 hr 120 mg PO DAILY Qty: 90 1RF Continued cholecalciferol (vitamin D3) 25 mcg (1,000 unit) capsule 25 mcg PO QAM ipratropium-albuterol 0.5 mg-3 mg(2.5 mg base)/3 mL solution for nebulization 3 ml inhalation Q4H PRN (Reason: wheezing) Qty: 90 3RF (DME) nebulizers Misc See Rx Instructions .Route Qty: 1 0RF Rx Instructions: give 1 nebulizer and accessories kit amlodipine 5 mg tablet 5 mg PO QAM isosorbide mononitrate 30 mg tablet extended release 24 hr 30 mg PO DAILY lisinopril 20 mg tablet 20 mg PO QAM metoprolol tartrate 25 mg tablet 25 mg PO BID Breztri Aerosphere 160-9-4.8 mcg/actuation HFA aerosol inhaler 2 inh inhalation BID Qty: 10.7 3RF latanoprost 0.005 % Drops 1 drp OPHTHALMIC (EYE) BEDTIME Rx Instructions: both eyes tamsulosin [Flomax] 0.4 mg Capsule 0.4 mg PO QPM levothyroxine 50 mcg Tablet 50 mcg PO QAM atorvastatin 20 mg Tablet 20 mg PO QPM magnesium oxide 400 mg magnesium Tablet 400 mg PO QPM cyanocobalamin (vitamin B-12) 1,000 mcg Tablet 1,000 mcg PO QAM folic acid 1 mg Tablet 1 mg PO QAM albuterol sulfate 90 mcg/actuation Hfa Aerosol Inhaler 2 puff INHALATION QID PRN (Reason: Shortness Of Breath) carboxymethylcellulose sodium 1 % Drops, Liquid Gel 2 drp ophthalmic (eye) QID PRN (Reason: Dry Eye(S)) hydralazine 25 mg Tablet 25 mg PO BID prochlorperazine maleate [Compazine] 10 mg tablet 10 mg PO Q4H PRN (Reason: Mild Nausea) Qty: 30 3RF dexamethasone 4 mg tablet See Rx Instructions .ROUTE .COMPLEX Rx Instructions: Take 8 mg twice daily the day before and the day after Taxotere Percocet 5-325 mg tablet 1 - 2 tab PO .EVERY 4-6 HOURS PRN (Reason: pain) Changed furosemide 40 mg Tablet 40 mg PO DAILY 30 Days Qty: 90 2RF Discharge Orders: Discharge Order (Routine); Ordered 03/16/22 Ordered By: Tita Thacker Other Ambulatory Orders: Sleep Study/Titration (Routine) Timeframe: 2 Days Facility: [facility] - Location: [facility] Ordered By: Tita Thacker DME: Phillip (Order) Location: None Selected Ordered By: Tita Thacker Referrals: Jose Martin Noe DO [Primary Care Provider] - (appointment scheduled . March 22, 2022 at time of 11:30 am ) Patient Instructions: Cefpodoxime Proxetil (By mouth) (Vantin), Heart Failure (DC), Sepsis (DC), Community Acquired Pneumonia (DC), Sleep Study (GEN), COPD Stoplight, Opioid Safety Discharge Attestations Time Spent in Discharge Care*: less than 30 min Status at Discharge: Cognitive status at discharge: cognitively intact , Behavioral status at discharge: cooperative , Quality Metrics Clinical Quality Measures [ No reported AMI, CVA or VTE this stay] Coding Level of Care Code Acute Chg FW DC note Diagnoses Sleep apnea G47.30 Acute heart failure with preserved ejection fraction (HFpEF) I50.31 COPD exacerbation J44.1 Sepsis A41.9 New onset a-fib I48.91
--- NOTE | 2022-03-16 10:31 | PC.SOCIAL ---
IMM Update pg 2 of IMM updated and reviewed w/ patient and his . Copy provided and Copy dated, initialed and placed in chart.
[2022-03-16] MEDS: tamsulosin 0.4 mg Capsule PO (11:29)
[2022-03-16] MEDS: enoxaparin 120 mg/0.8 mL Syringe SUBCUT (11:30)
--- NOTE | 2022-03-16 13:39 | PC.NURSE ---
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
--- NOTE | 2022-03-16 13:40 | PC.NURSE ---
Patient discharged. Taken out via wheel chair to his . Switched over from hospital portable oxygen to their home oxygen. New appointment, medication, and activity education provided. Patient signature form signed.
== END 2022-03-16 13:42 | disposition home health service (06) | DRG 871 ==
LOC: ER 01:46 → ICU 03:11
PROVIDERS: Admitting Provider Internal Medicine; Emergency Provider Emergency Medicine; PCP Emergency Medicine Emergency Medical Services; Visit Provider Internal Medicine
DX: A41.9 Sepsis, unspecified organism (principal); I50.33 Acute on chronic diastolic (congestive) heart failure; J18.9 Pneumonia, unspecified organism; J44.0 Chronic obstructive pulmonary disease with (acute) lower respiratory infection; I13.0 Hypertensive heart and chronic kidney disease with heart failure and stage 1 through stage 4 chronic kidney disease, or unspecified chronic kidney disease; C34.11 Malignant neoplasm of upper lobe, right bronchus or lung; C77.9 Secondary and unspecified malignant neoplasm of lymph node, unspecified; E87.3 Alkalosis; J44.1 Chronic obstructive pulmonary disease with (acute) exacerbation; Z99.81 Dependence on supplemental oxygen; N18.9 Chronic kidney disease, unspecified; E04.1 Nontoxic single thyroid nodule; Z68.39 Body mass index [BMI] 39.0-39.9, adult; N40.0 Benign prostatic hyperplasia without lower urinary tract symptoms; E66.01 Morbid (severe) obesity due to excess calories; Z87.01 Personal history of pneumonia (recurrent); Z87.891 Personal history of nicotine dependence; I48.91 Unspecified atrial fibrillation; G47.30 Sleep apnea, unspecified; D70.1 Agranulocytosis secondary to cancer chemotherapy; T45.1X5A Adverse effect of antineoplastic and immunosuppressive drugs, initial encounter
CPT/HCPCS: 36415; 36416; 36600; 51702; 71045; 71275; 80053; 81001; 82803; 82962; 83605; 83735; 83880; 84443; 84484; 85007; 85025; 85610; 86403; 87040; 87070; 87205; 87426; 87449; 87641; 87804; 93005; 94640; 94660; 94760; 94762; 96365; 96367; 96372; 97110; 97116; 97162; 99285; J0456; J0692; J0696; J1644; J1650; J1940; J2920; J3490; J7050; Q0144; Q9967

== ENCOUNTER 2022-03-26 09:31 | Oncology outpatient (recurring) (ONCR) | payer OTHER, SELFPAY ==
[2022-03-26 10:30] LABS: Basophils % 0.3 %; Eosinophils % 0.5 %; Hematocrit 27.4 % (42.0-52.0); Hemoglobin 8.2 g/dL (11.7-16.6); Lymphocytes # 0.9 10^3/uL (0.8-4.8); Lymphocytes % 9.9 %; Mean Corpuscular HGB Conc 29.9 g/dL (30.0-36.0); Mean Corpuscular Hemoglobin 29.4 pg (28.0-34.0); Mean Corpuscular Volume 98.2 fl (80-94); Mean Platelet Volume 9.7 fL (7.4-10.4); Monocytes # 0.9 10^3/uL (0.2-0.9); Monocytes % 9.6 %; Neutrophils # 6.95 10^3/uL (1.8-7.7); Neutrophils % 78.5 %; Nucleated Red Blood Cells % 0 %; Platelet Count 247 10^3/cmm (130-400); Red Blood Count 2.79 10^6/uL (4.1-5.3); Red Cell Distribution Width 16.1 % (12.1-15.1); White Blood Count 8.9 10^3/uL (4.0-10.0)
== END 2022-04-18 23:59 | disposition home or self-care (01) ==
PROVIDERS: Nurse Practitioner; PCP Emergency Medicine Emergency Medical Services; Visit Provider Internal Medicine Hematology & Oncology
DX: C34.11 Malignant neoplasm of upper lobe, right bronchus or lung (principal); Z79.52 Long term (current) use of systemic steroids; Z79.899 Other long term (current) drug therapy; C34.81 Malignant neoplasm of overlapping sites of right bronchus and lung; C77.8 Secondary and unspecified malignant neoplasm of lymph nodes of multiple regions; E03.9 Hypothyroidism, unspecified; D50.9 Iron deficiency anemia, unspecified; Z87.891 Personal history of nicotine dependence; R91.8 Other nonspecific abnormal finding of lung field; Z92.3 Personal history of irradiation; I50.9 Heart failure, unspecified; J44.9 Chronic obstructive pulmonary disease, unspecified; Z99.81 Dependence on supplemental oxygen
CPT/HCPCS: 36591; 85025; 99214

== ENCOUNTER 2022-03-28 12:51 | Emergency (ER) | payer OTHER, SELFPAY ==
--- NOTE | 2022-03-28 13:46 | CT_ITS ---
WS: [id number] CT HEAD NONCONTRAST HISTORY: hallucinations, hx cancer TECHNIQUE: Contiguous axial imaging performed through the brain in 2.5 mm imaging. Bone and soft tiss ue windows. Sagittal and coronal reformats reviewed. All CT scans at [facility] use at least one of these dose optimization techniques: automated exposure control; mA and/or kV adjustment per pa tient size (includes targeted exams where dose is matched to clinical indication); or iterative recon struction. DLP: 2227.08 mGy-cm. COMPARISON: 10/28/2019 No acute intracranial hemorrhage, midline shift or mass effect. Mild atrophy and small vessel ischemic changes. No sulcal effacement or focal loss of lawson-white romeo er differentiation. No prior infarct. Ventricles: Normal size with no hydrocephalus. No inferior displacement of the cerebellar tonsils. Paranasal sinuses: As visualized are clear. Mastoid air cells: Well pneumatized. Calvarium and scalp: Skull is intact with no soft tissue edema or swelling. CT/CT head wo con* [id number] IMPRESSION: 1. No acute intracranial hemorrhage or edema. Mild atrophy and small vessel ischemic disease.
[2022-03-28 14:02] VITALS: BMI 43.0
[2022-03-28 14:07] VITALS: BP 149/65; PULSE 78; RESP 20; TEMP 37.3; O2SAT 96
--- NOTE | 2022-03-28 14:27 | ED_ITS ---
HPI - Neuro Symptoms/Deficit General: Chief Complaint: Neuro Symptoms/Deficit Stated Complaint: Hallucinations Time Seen by Provider: 03/28/22 14:27 History of Present Illness: Mr. Cherry is a 81-year-old gentleman with significant past medical history of diastolic heart failure, cancer on chemotherapy, recent hospitalization for pneumonia presenting to the emergency department due to 3 days of generalized illness. Notes feeling weaker generally than normal and having visual hallucinations and episodes of confusion. Denies other focal symptoms or known source of recurrent infections. Previously completed course of antibiotics. Intensity symptoms is moderate to severe. Co urse has worsened. No other specific changes in health, exacerbating, or alleviating factors identified. Severity: moderate Relieving factors: none Exacerbating factors: none Context: other Associated symptoms: Reports other Review of Systems General: Reports: 10 or more systems reviewed and unremarkable except in HPI and below PFSH ED PFSH: Medical History Acute encephalopathy Acute heart failure with preserved ejection fraction (HFpEF) Acute on chronic diastolic (congestive) heart failure Acute on chronic respiratory failure with hypoxia and hypercapnia Anemia Anemia BPH (benign prostatic hyperplasia) Bradycardia Cholelithiasis Chronic kidney disease Chronic obstructive pulmonary disease Community acquired pneumonia COPD exacerbation Depression Essential hypertension Glaucoma Heart failure with preserved ejection fraction Hyperlipidemia Hypertension Hypothyroidism Lung cancer Macrocytic anemia Malignant neoplasm of upper lobe, right bronchus or lung Morbid obesity New onset a-fib Physical deconditioning Pneumonia Presence of other vascular implants and grafts 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 Psoriasis Sepsis Sigmoid diverticulosis Skin ulcer Sleep apnea Surgical History H/O excision of epidermal inclusion cyst Normal colonoscopy In 2018 2019 Family History Denies family history of Anesthesia complication Bleeding disorder Lung disease Hypertension Social History Smoking and tobacco status: former smoker (smoked x 65 years) Quit status (tobacco): has quit using tobacco Year quit tobacco: 2019 Former qu it date comment: 1ppd x 64 years Alcohol intake: never Household members: spouse Housing: House Physical Exam Const: COMMON NORMALS: patient oriented x3 and alert GENERAL APPEARANCE: cooperative and well developed HENMT: COMMON NORMALS: normocephalic and atraumatic HEAD & SCALP: norm ocephalic and atraumatic Eye: COMMON NORMALS: conjunctivae normal CONJUNCTIVA: Yes conjunctivae normal SCLERA: sclerae normal Neck/C-Spine: COMMON NORMALS: supple GENERAL: Yes trachea midline Resp: COMMON NORMALS: clear to auscultation bilaterally EFFORT & INSPECTION: Yes able to speak in complete sentences AUSCULTATION: clear to auscultation bilaterally Cardio: COMMON NORMALS: regular rate and regular rhythm RATE: regular rate RHYTHM: regular rhythm GI: COMMON NORMALS: Soft to palpation PALPATION: Yes Soft to palpation and No Tenderness to palpation present (GI) Extremity: GENERAL: Yes normal exam except as noted and No edema Neuro: COMMON NORMALS: patient oriented x3, CN's II-XII intact bilaterally, moves all extremities, no focal motor deficits and no sensory deficits noted SENSORIUM/ORIENTATION: Yes alert and No Orientation impaired Psych: COMMON NORMALS: mental status grossly normal and Normal thought process present THOUGHT PROCESS: Normal thought process present Course Vital Signs: Vital signs: Vital Signs Temperature 99.1 F 03/28/22 14:07 Pulse Rate 87 03/28/22 17:00 Respiratory Rate 30 H 03/28/22 15:07 Blood Pressure 161/50 03/28/22 16:30 Pulse Oximetry 97 03/28/22 17:00 Oxygen Delivery Me thod 03/28/22 17:00 Oxygen Flow Rate 6 03/28/22 17:00 MDM - Neuro Symptoms/Deficit Medical Decision Making 81-year-old gentleman presenting with generalized illness in the context of recent respiratory infection. Patient is nontoxic in general appearance, he is on baseline oxygen, no focal neurologic abnormalities identified. EKG shows sinus rhythm with nonspecific ST segment abnormalities. No STEMI. Labs with no leukocytosis, near baseline microcytic anemia. Metabolic panel with perhaps mild evidence of dehydration. Elevated TSH with mildly decreased f ree T4 though clinical exam is inconsistent with acute thyroid pathology. ABG is compensated with mild hypercapnia overall similar to baseline. No UTI. Head CT with no evidence of acute pathology to explain reported symptoms. Chest x-ray with continued right basilar infiltrate and right upper lobe mass lesion. No pneumothorax. Upon reassessment patient feels improved with treatment for COPD exacerbation and IV fluids. He feels that his respiratory status is good enough to go home. Most likely cause of patient symptoms is multifactorial though respiratory symptoms are most likely related to exacerbation of underlying lung disease. The results of ED evaluation were discussed with the patient including prescriptions and/or symptomatic cares (if applicable) including appropriate and responsible use, followup plan, and return precautions. The patient verbalized understanding and felt safe for discharge. Medical Records I reviewed the patient's medical records. Lab Data I reviewed the patient's lab results. 03/28/22 14:50 03/28/22 14:[address] 03/28/22 13:46 IMPRESSION: 1. No acute intracranial hemorrhage or edema. Mild atrophy and small vessel ischemic disease. Chest X-Ray 03/28/22 16:31 IMPRESSION: 1. Question of increasing right basilar infiltrate 2. No change in right upper lobe mass lesion. Laboratory Results WBC 8.8 10^3/uL (4.0-10.0) 03/28/22 14:50 RBC 2.73 10^6/uL (4.1-5.3) L 03/28/22 14:50 Hgb 8.0 g/dL (11.7-16.6) L 03/28/22 14:50 Hct 27.4 % (42.0-52.0) L 03/28/22 14:50 MCV 100.4 fl (80-94) H 03/28/22 14:50 MCH 29.3 pg (28.0-34.0) 03/28/22 14:50 MCHC 29.2 g/dL (30.0-36.0) L 03/28/22 14:50 RDW 16.9 % (12.1-15.1) H 03/28/22 14:50 Plt Count 265 10^3/cmm (130-400) 03/28/22 14:50 MPV 9.3 fL (7.4-10.4) 03/28/22 14:50 Neut % (Auto) 72.3 % 03/28/22 14:50 Lymph % (Auto) 14.2 % 03/28/22 14:50 Mcintosh % (Auto) 11.1 % 03/28/22 14:50 Eos % (Auto) 0.6 % 03/28/22 14:50 Baso % (Auto) 0.5 % 03/28/22 14:50 Neut # (Auto) 6.35 10^3/uL (1.8-7.7) 03/28/22 14:50 Lymph # (Auto) 1.2 10^3/uL (0.8-4.8) 03/28/22 14:50 [place]osh # (Auto) 1.0 10^3/uL (0.2-0.9) H 03/28/22 14:50 Eos # (Auto) 0.1 10^3/uL (0.0-0.8) 03/28/22 14:50 Baso # (Auto) 0.0 10^3/uL (0.0-0.1) 03/28/22 14:50 Nucleated RBC % (auto) 0 % 03/28/22 14:50 Nucleated RBCs # 0.0 /100WBC 03/28/22 14:50 Specimen Type Arterial 03/28/22 15:55 Sample Site Radial, left 03/28/22 15:55 ABG pH 7.39 (7.35-7.45) 03/28/22 15:55 ABG pCO2 64.9 mmHg (35-45) H* 03/28/22 15:55 ABG pO2 81.0 mmHg (80.0-100.0) 03/28/22 15:55 ABG HCO3 39.6 mmol/L (22-26) H 03/28/22 15:55 ABG Base Excess 13.0 mmol/L (-2.0-2.0) H 03/28/22 15:55 Edson Test Pos 03/28/22 15:55 Hematocrit 25.4 % (42-52) L 03/28/22 15:55 O2 Delivery Device Nc 03/28/22 15:55 O2 Liters/Min 6.0 % 03/28/22 15:55 FiO2 44.0 % 03/28/22 15:55 Resident Athletic Trainer ID Amh 03/28/22 15:55 Sodium 139 mmol/L (136-145) 03/28/22 14:50 Potassium 5.3 mmol/L (3.5-5.1) H 03/28/22 14:50 Chloride 96 mmol/L (98-107) L 03/28/22 14:50 Carbon Dioxide 39 mmol/L (22-29) H 03/28/22 14:50 Anion Gap 9.3 (5-19) 03/28/22 14:50 BUN 13 mg/dL (8-23) 03/28/22 14:50 Creatinine 0.8 mg/dL (0.7-1.2) 03/28/22 14:50 GFR Calculation Not Reportable 03/28/22 14:50 Glucose 95 mg/dL (65-115) 03/28/22 14:50 Calculated Osmolality 288 mOsm/kg (285-295) 03/28/22 14:50 Calcium 8.9 mg/dL (8.5-10.5) 03/28/22 14:50 Total Bilirubin 0.2 mg/dL (0.15-1.2) 03/28/22 14:50 AST 8 U/L (0-40) 03/28/22 14:50 ALT 10 U/L (0-41) 03/28/22 14:50 Alkaline Phosphatase 100 U/L (40-130) 03/28/22 14:50 Ammonia 31 umol/L (16-60) 03/28/22 15:00 Total Protein 5.8 g/dL (6.6-8.7) L 03/28/22 14:50 Albumin 3.0 g/dL (3.5-5.2) L 03/28/22 14:50 Globulin 2.8 g/dL (1.3-4.6) 03/28/22 14:50 TSH 4.52 uIU/mL (0.27-4.20) H 03/28/22 14:50 Free T4 0.77 ng/dL (0.82-1.77) L 03/28/22 14:50 Urine Color Yellow (Yellow) 03/28/22 14:15 Urine Appearance Clear (CLEAR) 03/28/22 14:15 Urine pH 5 (5-7) 03/28/22 14:15 Ur Specific [place] 1.015 (1.005-1.030) 03/28/22 14:15 Urine Protein Neg (Negative) 03/28/22 14:15 Urine Glucose (UA) Norm (Normal) 03/28/22 14:15 Urine Ketones Negative (Negative) 03/28/22 14:15 Urine Blood Neg (Negative) 03/28/22 14:15 Urine Nitrate Negative (Negative) 03/28/22 14:15 Urine Bilirubin Neg (Negative) 03/28/22 14:15 Urine Urobilinogen Norm mg/dL (Negative) 03/28/22 14:15 Ur Leukocyte Esterase Trace (Negative) H 03/28/22 14:15 Urine RBC 0-4 /hpf (0-2) H 03/28/22 14:15 Urine WBC 5-10 /hpf (0-5) H 03/28/22 14:15 Ur Squamous Epith Cells 0-4 /hpf (0-5) H 03/28/22 14:15 Amorphous Sediment Not Reportable 03/28/22 14:15 Urine Bacteria Trace /hpf (NONE) 03/28/22 14:15 Discharge Plan Discharge Patient Disposition: Home Clinical Impression: Hallucinations, visual, Anemia, Chronic respiratory failure with hypoxia and hypercapnia, Dehydration, mild, Disorder of thyroid, Acute exacerbation of chronic obstructive airways disease Condition: Stable Prescriptions: No Action cholecalciferol (vitamin D3) 25 mcg (1,000 unit) capsule 25 mcg PO QAM ipratropium-albuterol 0.5 mg-3 mg(2.5 mg base)/3 mL solution for nebulization 3 ml inhalation Q4H PRN (Reason: wheezing) Qty: 90 3RF (DME) nebulizers [facility] [place] See Rx Instructions .Route Qty: 1 0RF Rx Instructions: give 1 nebulizer and accessories kit amlodipine 5 mg tablet 5 mg PO QAM isosorbide mononitrate 30 mg tablet extended release 24 hr 30 mg PO DAILY lisinopril 20 mg tablet 20 mg PO QAM metoprolol tartrate 25 mg tablet 25 mg PO BID Breztri Aerosphere 160-9-4.8 mcg/actuation HFA aerosol inhaler 2 inh inhalation BID Qty: 10.7 3RF latanoprost 0.005 % Drops 1 drp OPHTHALMIC (EYE) BEDTIME Rx Instructions: both eyes tamsulosin [Flomax] 0.4 mg Capsule 0.4 mg PO QPM levothyroxine 50 mcg Tablet 50 mcg PO QAM atorvastatin 20 mg Tablet 20 mg PO QPM magnesium oxide 400 mg magnesium Tablet 400 mg PO QPM cyanocobalamin (vitamin B-12) 1,000 mcg Tablet 1,000 mcg PO QAM folic acid 1 mg Tablet 1 mg PO QAM albuterol sulfate 90 mcg/actuation Hfa Aerosol Inhaler 2 puff INHALATION QID PRN (Reason: Shortness Of Breath) carboxymethylcellulose sodium 1 % Drops, Liquid Gel 2 drp ophthalmic (eye) QID PRN (Reason: Dry Eye(S)) hydralazine 25 mg Tablet 25 mg PO BID dexamethasone 4 mg tablet See Rx Instructions .ROUTE .COMPLEX Rx Instructions: Take 8 mg twice daily the day before and the day after Taxotere oxycodone-acetaminophen [Percocet] 5-325 mg tablet 1 - 2 tab PO .EVERY 4-6 HOURS PRN (Reason: pain) cefpodoxime 200 mg tablet 200 mg PO BID Qty: 10 0RF Rx Instructions: must administer with a meal/food furosemide 40 mg Tablet 40 mg PO DAILY 30 Days Qty: 90 2RF Eliquis 5 mg tablet 5 mg PO BID Qty: 60 2RF Cardizem LA 120 mg tablet extended release 24 hr 120 mg PO DAILY Qty: 90 1RF doxycycline monohydrate 100 mg capsule 100 mg PO BID 5 Days Qty: 10 0RF Rx Instructions: for infection Discharge Orders: Discharge ED (Routine); Ordered 03/28/22 Ordered By: Tanner Arita Referrals: Jose Martin Noe DO [Primary Care Provider] - Discharge Diet: Usual diet Discharge Activity: Increase activity as tolerated Patient Instructions: COPD (Chronic Obstructive Pulmonary Disease) (ED), Hallucinations (ED) Activity Restrictions/Additional Instructions: Thank you for visiting the emergency department. You were seen and evaluate for hallucinations and generalized illness. The exact cause of your symptoms is unclear though may be related to continued exacerbation of underlying lung disease or infection. I will prescribe steroids and antibiotics. Please also use your albuterol metered-dose inhaler 2 puffs every 4 hours for 24 hours followed by 2 puffs every 6 hours for 24 hours followed by 2 puffs every 8 hours for 24 hours and then return to the normal schedule. Please follow-up with your primary care provider in the next 1 to 2 days. Return to the emergency department for worsening symptoms or anything else that you are concerned about and feel needs emergency department evaluation. Coding Level of Care Code ED Director Of Healthcare Systems for Madison Durand
[2022-03-28 14:34] LABS: Add Urine Microscopic? YES; Bilirubin Urine Neg (Negative); Blood Urine Neg (Negative); Glucose Urine UA Norm (Normal); Ketones Urine Negative (Negative); Leukocyte Esterase Urine Trace (Negative); Nitrate Urine Negative (Negative); Protein Urine Neg (Negative); Specific Gravity, Urine 1.015 (1.005-1.030); Urine Appearance Clear (CLEAR); Urine Color Yellow (Yellow); Urobilinogen Urine Norm (Negative); pH Urine 5 (5-7)
[2022-03-28 14:36] LABS: Add Urine Culture? Yes; Bacteria Urine TRACE /hpf; RBC Urine 0-4 /hpf (0-2); Squamous Epithelial Cell Urine 0-4 /hpf (0-5)
--- NOTE | 2022-03-28 14:43 | ECG_ITS ---
[facility] Test Date: 2022-03-28 Pat Name: Venkat Cherry Department: Room: Gender: Male Tow Operator: : 1940 Requested By: Marquez Kurtz Order Number: [id number] David MD: Bindu Hdz M.D. Measurements Intervals [place] Rate: 82 P: [place]: QRS: 70 QRSD: 97 T: -74 QT: 337 QTc: 395 Interpretive Statements SUPRAVENTRICULAR RHYTHM ST DEVIATION AND MODERATE T-WAVE ABNORMALITY, CONSIDER LATERAL ISCHEMIA [-0.1+ mV T-WAVE IN I/aVL/V5/V6] ST DEVIATION AND MODERATE T-WAVE ABNORMALITY, CONSIDER INFERIOR ISCHEMIA [-0.1+ mV T-WAVE IN II/aVF] Compared to ECG 03/15/2022 11:41:49 Supraventricular rhythm now present Possible ischemia now present Atrial fibrillation no longer present Aberrant conduction of supraventricular beat(s) no longer present Ventricular premature complex(es) no longer present T-wave abnormality still present Electronically Signed On 03-29-2022 11:37:14 BUSINESS OFFICE ASSOCIATE by Bindu Hdz M.D. [email or web address]
[2022-03-28 15:02] LABS: Basophils % 0.5 %; Eosinophils # 0.1 10^3/uL (0.0-0.8); Eosinophils % 0.6 %; Hematocrit 27.4 % (42.0-52.0); Lymphocytes # 1.2 10^3/uL (0.8-4.8); Lymphocytes % 14.2 %; Mean Corpuscular HGB Conc 29.2 g/dL (30.0-36.0); Mean Corpuscular Hemoglobin 29.3 pg (28.0-34.0); Mean Corpuscular Volume 100.4 fl (80-94); Mean Platelet Volume 9.3 fL (7.4-10.4); Monocytes % 11.1 %; Neutrophils # 6.35 10^3/uL (1.8-7.7); Neutrophils % 72.3 %; Nucleated Red Blood Cells % 0 %; Platelet Count 265 10^3/cmm (130-400); Red Blood Count 2.73 10^6/uL (4.1-5.3); Red Cell Distribution Width 16.9 % (12.1-15.1); White Blood Count 8.8 10^3/uL (4.0-10.0)
[2022-03-28 15:07] VITALS: BP 132/58; PULSE 85; RESP 30; O2SAT 89
[2022-03-28 15:28] LABS: Ammonia 31 umol/L (16-60)
[2022-03-28 15:38] LABS: Alanine Aminotransferase 10 U/L (0-41); Alkaline Phosphatase 100 U/L (40-130); Anion Gap 9.3 (5-19); Aspartate Amino Transferase 8 U/L (0-40); Blood Urea Nitrogen 13 mg/dL (8-23); Calcium 8.9 mg/dL (8.5-10.5); Carbon Dioxide 39 mmol/L (22-29); Chloride 96 mmol/L (98-107); Globulin 2.8 g/dL (1.3-4.6); Glucose 95 mg/dL (65-115); Osmolality Calculated 288 mOsm/kg (285-295); Potassium 5.3 mmol/L (3.5-5.1); Sodium 139 mmol/L (136-145); Thyroid Stimulating Hormone 4.52 uIU/mL (0.27-4.20); Total Bilirubin 0.2 mg/dL (0.15-1.2); Total Protein 5.8 g/dL (6.6-8.7)
[2022-03-28 16:00] VITALS: BP 161/50; PULSE 82; O2SAT 92
[2022-03-28 16:06] LABS: ABG PCO2 64.9 mmHg (35-45); ABG PH Result 7.39 (7.35-7.45); Arterial Blood Gas Hematocrit 25.4 % (42-52); Blood Gas Allen Test Pos; Blood Gas Operator Identificat AMH; Blood Gas Sample Site Radial, left; Blood Gas Sample Type Arterial; HCO3 ABG 39.6 mmol/L (22-26); Oxygen Device NC
--- NOTE | 2022-03-28 16:07 | PC.PHAR ---
PT AND HIS STATE HE NORMALLY TAKES ELIQUIS 5 MG PO BID- PT AND [facility] PLACED THIS MEDICATION ON HOLD TODAY 03/28/22 - PT HAS HAD HIS MORNING DOSE TODAY
[2022-03-28 16:12] LABS: Free T4 Free Thyroxine 0.77 ng/dL (0.82-1.77)
[2022-03-28 16:30] VITALS: BP 161/50; PULSE 83; O2SAT 92
--- NOTE | 2022-03-28 16:31 | XRR_ITS ---
PROCEDURE INFORMATION: Exam: XR Chest Exam date and time: 03/28/2022 5:46 PM Age: 81 years old Clinical indication: Other: Weakness, AMS; Additional info: AMS. Past medical history of diastolic heart failure, cancer on chemotherapy, recent hospitalization for pneumonia presenting to the emergency department due to 3 days of generalized illness. Notes feeling weaker generally than normal and having visual hallucinations and episodes of confusion. TECHNIQUE: Imaging protocol: Radiologic exam of the chest. Views: 1 view. COMPARISON: CR XR chest 1V portable [id number] 03/15/2022 2:09 PM FINDINGS: Tubes, catheters and devices: Infusion port catheter is in place with its tip in the superior vena cava directed laterally. Lungs: Right upper lobe pulmonary mass not significantly changed from 03/15/2022. There is a 9 mm nodule mid left lung not significantly changed from previous examinations. There may be some mild basilar infiltrate at the right lung base new from the previous exam. Infiltrate at the left lung bases improved. Pleural spaces: Unremarkable. No pleural effusion. No pneumothorax. Heart/Mediastinum: Heart is upper limits normal in size. Bones/joints: Unremarkable. XR/XR chest 1V portable [id number] IMPRESSION: 1. Question of increasing right basilar infiltrate 2. No change in right upper lobe mass lesion.
[2022-03-28] MEDS: sodium chloride 0.9% 500 ML 999 ML IV (16:32)
--- NOTE | 2022-03-28 16:32 | PC.NURSE ---
started pt fluids through port access
[2022-03-28 17:00] VITALS: PULSE 87; O2SAT 97
--- NOTE | 2022-03-28 17:45 | PC.NURSE ---
pt refused to take po antibiotic. stated it would not help him
--- NOTE | 2022-03-28 18:08 | PC.NURSE ---
pt was stating concern over being able to care for pt. physician notified. physician stated that he can not admit if pt refuses. pt was refusing most care. pt did not seem to be in distress at time of discharge and was requesting to go home. Advised pt to follow up with primary care provider tomorrow and return to ED with and worsening symptoms or concerns.
== END 2022-03-28 18:13 | disposition home or self-care (01) ==
PROVIDERS: Emergency Provider Emergency Medicine; PCP Emergency Medicine Emergency Medical Services
DX: R44.1 Visual hallucinations (principal); D64.9 Anemia, unspecified; J44.1 Chronic obstructive pulmonary disease with (acute) exacerbation; J96.12 Chronic respiratory failure with hypercapnia; J96.11 Chronic respiratory failure with hypoxia; E86.0 Dehydration; E07.9 Disorder of thyroid, unspecified; Z79.01 Long term (current) use of anticoagulants; Z87.891 Personal history of nicotine dependence; I13.0 Hypertensive heart and chronic kidney disease with heart failure and stage 1 through stage 4 chronic kidney disease, or unspecified chronic kidney disease; N18.9 Chronic kidney disease, unspecified; I50.33 Acute on chronic diastolic (congestive) heart failure; E78.5 Hyperlipidemia, unspecified; Z85.118 Personal history of other malignant neoplasm of bronchus and lung
CPT/HCPCS: 36415; 36600; 70450; 71045; 80053; 81001; 82140; 82803; 84439; 84443; 85025; 87077; 87086; 87186; 93005; 96374; 99285; J2930; J7040

== ENCOUNTER 2022-04-07 13:48 | Emergency (ER) | payer OTHER, SELFPAY ==
[2022-04-07] VITALS (11 sets, daily range): BP systolic 178–181; BP diastolic 62–67; PULSE 86–94; RESP 17–33; TEMP 36.9; O2SAT 92–98; BMI 42.9
--- NOTE | 2022-04-07 14:23 | XRR_ITS ---
PROCEDURE INFORMATION: Exam: XR Chest Exam date and time: 04/07/2022 4:35 PM Age: 81 years old Clinical indication: Dyspnea TECHNIQUE: Imaging protocol: Radiologic exam of the chest. Views: 1 view. COMPARISON: CR XR chest 1V portable [id number] 03/28/2022 5:46 PM FINDINGS: Tubes, catheters and devices: Stable left Mediport catheter. Lungs: Grossly stable 6.4 cm rounded pneumonia/atelectasis/scarring right upper lobe with continued right hilar mass consistent with treated lung carcinoma. Stable mild bibasilar atelectasis and/or infiltrate and/or effusion. Pleural spaces: Unremarkable. No pleural effusion. No pneumothorax. Heart/Mediastinum: Unremarkable. No cardiomegaly. Bones/joints: Unremarkable. XR/XR chest 1V portable [id number] IMPRESSION: 1. Stable left Mediport catheter. 2. Grossly stable 6.4 cm rounded pneumonia/atelectasis/scarring right upper lobe with continued right hilar mass consistent with treated lung carcinoma. 3. Stable mild bibasilar atelectasis and/or infiltrate and/or effusion.
--- NOTE | 2022-04-07 14:27 | W.ED.SOB ---
HPI - SOB/Dyspnea General: Chief Complaint: Shortness of Breath/Dyspnea Stated Complaint: Low blood count Time Seen by Provider: 04/07/22 14:08 Source: patient and family () Mode of arrival: wheelchair Limitations: no limitations History of Present Illness: HPI Narrative: See nursing assessment. Patient states he has had an increase in shortness of breath today. He states he has chronic shortness of breath due to stage IV lung cancer and CHF. States he has been on chronic oxygen by nasal cannula but it was increased to 6 L/min about 3 weeks ago. Patient is presently on chemotherapy for treatment of his metastatic lung cancer. His last chemotherapy dose was 1 month ago. He was unable to take his scheduled chemotherapy dose about a week ago due to recent pneumonia. Patient just finished his last dose of Levaquin 750 mg 10-day course today. Patient had also taken about a 5-day course of prednisone but has not been on that for about 5 days. Patient has not taken Eliquis or Cardizem in approximately 2 weeks. Patient did have his morning Lasix dose this morning. Patient denies any fever. He denies any pain anywhere. He states he is just as generalized fatigue and increased shortness of breath today. He states he was seen by [facility] clinic on Saturday and had blood drawn at that time. Patient was called on stating that his hemoglobin had dropped and to return to the hospital if he had any increasing shortness of breath or fatigue. Patient has seen an oncologist in [place] for his metastatic lung cancer. Associated symptoms: Deny abdominal pain, chest pain, diaphoresis, fever(s), lightheadedness, nausea, palpitations or vomiting Review of Systems Const: Reports: fatigue; Denies: fever(s), chills, body aches or diaphoresis Eyes: Denies: change in vision ENMT: Denies: throat pain Card: Reports: edema (Chronic) and dyspnea on exertion; Denies: chest pain, palpitations or lightheadedness Resp: Reports: dyspnea and non-productive cough; Denies: wheezing or stridor GI: Denies: abdominal pain, nausea or vomiting : Denies: flank pain or dysuria Musc: Denies: neck pain or back pain Skin/Breast: Denies: rash or pruritus Neuro: Denies: headache(s) or numbness in extremities Psych: Denies: anxiety Murtaza/Lymph: Denies: enlarged lymph nodes [facility] ED PFSH: Medical History Acute encephalopathy Acute heart failure with preserved ejection fraction (HFpEF) Acute on chronic diastolic (congestive) heart failure Acute on chronic respiratory failure with hypoxia and hypercapnia Anemia Anemia BPH (benign prostatic hyperplasia) Bradycardia Cholelithiasis Chronic kidney disease Chronic obstructive pulmonary disease Community acquired pneumonia COPD exacerbation Depression Essential hypertension Glaucoma Heart failure with preserved ejection fraction Hyperlipidemia Hypertension Hypothyroidism Lung cancer Macrocytic anemia Malignant neoplasm of upper lobe, right bronchus or lung Morbid obesity New onset a-fib Physical deconditioning Pneumonia Presence of other vascular implants and grafts 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 Psoriasis Sepsis Sigmoid diverticulosis Skin ulcer Sleep apnea Surgical History H/O excision of epidermal inclusion cyst Normal colonoscopy In 2018 2019 Family History Denies family history of Anesthesia complication Bleeding disorder Lung disease Hypertension Social History Smoking and tobacco status: former smoker (smoked x 65 years) Quit status (tobacco): has quit using tobacco Year quit tobacco: 2018 Former quit date comment: 1ppd x 64 years Alcohol intake: never Household members: spouse Housing: House Supplemental [facility] Information: Metastatic stage IV lung cancer on chronic oxygen and chemotherapy Physical Exam Const: COMMON NORMALS: no acute distress, patient oriented x3, alert and well nourished GENERAL APPEARANCE: cooperative HENMT: COMMON NORMALS: normocephalic and atraumatic HEAD & SCALP: normocephalic and atraumatic Eye: COMMON NORMALS: EOMs intact bilaterally Neck/C-Spine: COMMON NORMALS: full ROM, no lymphadenopathy, supple and no JVD Lymph: LYMPHATIC: no lymphadenopathy noted Chest: COMMONS NORMALS: normal inspection of the chest and normal palpation of entire chest wall Resp: COMMON NORMALS: normal respiratory effort, No retractions, No use of accessory muscles and clear to auscultation bilaterally AUSCULTATION: clear to auscultation bilaterally Cardio: COMMON NORMALS: no JVD, regular rate, regular rhythm and Peripheral pulses 2+ throughout RATE: regular rate RHYTHM: regular rhythm PERIPHERAL PULSES: Peripheral pulses 2+ throughout GI: COMMON NORMALS: Normal to inspection, nondistended, normoactive bowel sounds present, Soft to palpation and non-tender PALPATION: Yes Soft to palpation : COMMON NORMALS: Yes no CVA tenderness BLADDER/KIDNEY EXAM: Yes no CVA tenderness Back/Pelvis: COMMON NORMALS: no CVA tenderness Extremity: COMMON NORMALS: normal to inspection and full ROM OTHER: Chronic 3+ pitting edema of the lower extremities bilaterally. Neuro: COMMON NORMALS: patient oriented x3, CN's II-XII intact bilaterally, moves all extremities, no focal motor deficits and no sensory deficits noted SENSORIUM/ORIENTATION: Yes alert Psych: COMMON NORMALS: mental status grossly normal, Normal thought process present, cooperative, normal affect and speech normal SPEECH: Yes normal speech THOUGHT PROCESS: Normal thought process present Skin: COMMON NORMALS: no rashes or lesions noted GENERAL SKIN EXAM: no rashes or lesions noted Course Vital Signs: Vital signs: Vital Signs Temperature 98.4 F 04/07/22 14:00 Pulse Rate 88 04/07/22 14:00 Respiratory Rate 17 04/07/22 14:00 Blood Pressure 181/67 04/07/22 14:00 Pulse Oximetry 95 04/07/22 14:00 Oxygen Delivery Me thod 04/07/22 14:00 Oxygen Flow Rate 6 04/07/22 14:00 MDM - SOB/Dyspnea Medical Decision Making Metastatic lung cancer chronic, CHF, possible pulmonary edema. Chronic anemia; pneumonia Patient states he is a full code. Patient just finished completing 10-day course of Levaquin 750 mg daily today. Will add another 5 days of doxycycline. Patient has already completed 10 days of Levaquin. His hemoglobin has improved from 8.0-8.4 today. Therefore, I do not believe patient requires blood transfusion. Patient will continue his oxygen at 6 L/min that is now standard for the patient. Lab Data 04/07/22 15:32 04/07/22 15:00 Labs/Radiology: Radiology Impressions Chest X-Ray 04/07/22 14:23 IMPRESSION: 1. Stable left Mediport catheter. 2. Grossly stable 6.4 cm rounded pneumonia/atelectasis/scarring right upper lobe with continued right hilar mass consistent with treated lung carcinoma. 3. Stable mild bibasilar atelectasis and/or infiltrate and/or effusion. Laboratory Results WBC 13.9 10^3/uL (4.0-10.0) H 04/07/22 15:32 Corrected WBC Cancelled 04/07/22 15:00 RBC 2.87 10^6/uL (4.1-5.3) L 04/07/22 15:32 Hgb 8.4 g/dL (11.7-16.6) L 04/07/22 15:32 Hct 29.1 % (42.0-52.0) L 04/07/22 15:32 MCV 101.4 fl (80-94) H 04/07/22 15: MCH 29.3 pg (28.0-34.0) 04/07/22 15: MCHC 28.9 g/dL (30.0-36.0) L 04/07/22 15: RDW 18.2 % (12.1-15.1) H 04/07/22 15:32 Plt Count 268 10^3/cmm (130-400) 04/07/22 15: MPV 9.4 fL (7.4-10.4) 04/07/22 15:32 Gran % Cancelled 04/07/22 15:00 Neut % (Auto) 79.7 % 04/07/22 15: Lymph % (Auto) 6.8 % 04/07/22 15:32 [place] % (Auto) 8.7 % 04/07/22 15:32 Eos % (Auto) 2.0 % 04/07/22: Baso % (Auto) 0.3 % 04/07/22 15: Neut # (Auto) 11.06 10^3/uL (1.8-7.7) H 04/07/22 15:32 Lymph # (Auto) 0.9 10^3/uL (0.8-4.8) 04/07/22 15:32 [place] # (Auto) 1.2 10^3/uL (0.2-0.9) H 04/07/22 15:32 Eos # (Auto) 0.3 10^3/uL (0.0-0.8) 04/07/22 15:32 Baso # (Auto) 0.0 10^3/uL (0.0-0.1) 04/07/22 15:32 Absolute Gran (auto) Cancelled 04/07/22 15:00 Nucleated RBC % (auto) 0 % 04/07/22 15:32 Nucleated RBCs # 0.0 /100WBC 04/07/22 15:32 Sodium 139 mmol/L (136-145) 04/07/22 15:00 Potassium 4.8 mmol/L (3.5-5.1) 04/07/22 15:00 Chloride 94 mmol/L (98-107) L 04/07/22 15:00 Carbon Dioxide 37 mmol/L (22-29) H 04/07/22 15:00 Anion Gap 12.8 (5-19) 04/07/22 15:00 BUN 16 mg/dL (8-23) 04/07/22 15:00 Creatinine 0.6 mg/dL (0.7-1.2) L 04/07/22 15:00 GFR Calculation Not Reportable 04/07/22 15:00 Glucose 90 mg/dL (65-115) 04/07/22 15:00 Calculated Osmolality 289 mOsm/kg (285-295) 04/07/22 15:00 Lactate 0.9 mmol/L (0.5-2.2) 04/07/22 15:00 Calcium 9.0 mg/dL (8.5-10.5) 04/07/22 15:00 Troponin T Baseline 15 ng/L (0-15) 04/07/22 15:00 NT-Pro-B Natriuret Pep 560 pg/mL (0-450) H 04/07/22 15:00 Nasal Influ A H1 2008 PCR Not detected (NOT DETECT) 04/07/22 15:00 Coronavirus 229E (PCR) Not detected (NOT DETECT) 04/07/22 15:00 Influenza A (H1) PCR Not detected (NOT DETECT) 04/07/22 15:00 Influenza A (H3) PCR Not detected (NOT DETECT) 04/07/22 15:00 Influenza Type A (PCR) Not detected (NOT DETECT) 04/07/22 15:00 Influenza Type B (PCR) Not detected (NOT DETECT) 04/07/22 15:00 SARS-CoV-2 (PCR) Not detected (NOT DETECT) 04/07/22 15:00 Imaging Data CXR: My impression: Right upper lobe infiltrate, right perihilar lung mass consistent with his metastatic lung cancer diagnosis. EKG Data EKG 1: I personally reviewed and interpreted this EKG as follows: EKG Interpretation Date: 04/07/22 EKG interpretation time: 14:39 Prior EKG tracings: not available for review Interpretation: Impression normal sinus rhythm with a heart rate of 87. Normal IN interval, normal QT interval, normal P waves, normal T waves. Normal axis. Nonspecific ST-T changes throughout. Normal QRS. EKG 2: I personally reviewed and interpreted this EKG as follows: EKG Interpretation Date: 04/07/22 EKG interpretation time: 16:33 Prior EKG tracings: available for review Interpretation: Impression normal sinus rhythm heart rate 89. Normal axis. Normal IN interval, normal QT interval. Normal QRS. Nonspecific ST-T changes throughout. Unchanged from previous EKG. Discharge Plan Discharge Patient Disposition: Home Clinical Impression: Chronic shortness of breath, Malignant neoplasm of upper lobe, right bronchus or lung Community acquired pneumonia Qualifiers: Laterality: right Lung location: upper lobe of lung Qualified Code(s): J18.9 - Pneumonia, unspecified organism Condition: Stable Prescriptions: New doxycycline monohydrate 100 mg capsule 100 mg PO BID 5 Days Qty: 10 0RF Rx Instructions: for infection No Action cholecalciferol (vitamin D3) 25 mcg (1,000 unit) capsule 25 mcg PO QAM ipratropium-albuterol 0.5 mg-3 mg(2.5 mg base)/3 mL solution for nebulization 3 ml inhalation Q4H PRN (Reason: wheezing) Qty: 90 3RF (DME) nebulizers [facility] See Rx Instructions .Route Qty: 1 0RF Rx Instructions: give 1 nebulizer and accessories kit amlodipine 5 mg tablet 5 mg PO QAM isosorbide mononitrate 30 mg tablet extended release 24 hr 30 mg PO DAILY lisinopril 20 mg tablet 20 mg PO QAM metoprolol tartrate 25 mg tablet 25 mg PO BID Breztri Aerosphere 160-9-4.8 mcg/actuation HFA aerosol inhaler 2 inh inhalation BID Qty: 10.7 3RF latanoprost 0.005 % Drops 1 drp OPHTHALMIC (EYE) BEDTIME Rx Instructions: both eyes tamsulosin [Flomax] 0.4 mg Capsule 0.4 mg PO QPM levothyroxine 50 mcg Tablet 50 mcg PO QAM atorvastatin 20 mg Tablet 20 mg PO QPM magnesium oxide 400 mg magnesium Tablet 400 mg PO QPM cyanocobalamin (vitamin B-12) 1,000 mcg Tablet 1,000 mcg PO QAM folic acid 1 mg Tablet 1 mg PO QAM albuterol sulfate 90 mcg/actuation Hfa Aerosol Inhaler 2 puff INHALATION QID PRN (Reason: Shortness Of Breath) carboxymethylcellulose sodium 1 % Drops, Liquid Gel 2 drp ophthalmic (eye) QID PRN (Reason: Dry Eye(S)) hydralazine 25 mg Tablet 25 mg PO BID dexamethasone 4 mg tablet See Rx Instructions .ROUTE .COMPLEX Rx Instructions: Take 8 mg twice daily the day before and the day after Taxotere oxycodone-acetaminophen [Percocet] 5-325 mg tablet 1 - 2 tab PO .EVERY 4-6 HOURS PRN (Reason: pain) cefpodoxime 200 mg tablet 200 mg PO BID Qty: 10 0RF Rx Instructions: must administer with a meal/food furosemide 40 mg Tablet 40 mg PO DAILY 30 Days Qty: 90 2RF Eliquis 5 mg tablet 5 mg PO BID Qty: 60 2RF Cardizem LA 120 mg tablet extended release 24 hr 120 mg PO DAILY Qty: 90 1RF Discharge Orders: Discharge ED (Routine); Ordered 04/07/22 Ordered By: Doug Anderson Referrals: Jose Martin Noe, [Primary Care Provider] - 1-3 days (for recheck) Discharge Diet: Advance as tolerated Discharge Activity: Increase activity as tolerated Patient Instructions: Bacterial Pneumonia (DC), Anemia (ED), Opioid Safety, Pain Management Activity Restrictions/Additional Instructions: Take doxycycline antibiotic for the next 5 days. Continue home medications as prescribed. Follow-up with your family doctor this week for recheck. You are anemic but did not require blood transfusion at this time. Coding Level of Care Code ED Level Glass Forming Machine Operator for [place] Fwd Exam Comprehensive
--- NOTE | 2022-04-07 14:35 | ECG_ITS ---
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 Measurements Intervals [place] Rate: 87 P: 65 NH: 196 QRS: 82 QRSD: 98 T: -14 QT: 323 QTc: 389 Interpretive Statements SINUS RHYTHM NONSPECIFIC ST & T-WAVE ABNORMALITY Compared to ECG 03/28/2022 14:43:49 Supraventricular rhythm no longer present Possible ischemia no longer present T-wave abnormality still present Electronically Signed On 04-09-2022 18:22:19 DIRECTOR OF CASEWORK by Cody Velasquez M.D. [email or web address]
[2022-04-07 15:36] LABS: Basophils % 0.3 %; Eosinophils # 0.3 10^3/uL (0.0-0.8); Hematocrit 29.1 % (42.0-52.0); Hemoglobin 8.4 g/dL (11.7-16.6); Lymphocytes # 0.9 10^3/uL (0.8-4.8); Lymphocytes % 6.8 %; Mean Corpuscular HGB Conc 28.9 g/dL (30.0-36.0); Mean Corpuscular Hemoglobin 29.3 pg (28.0-34.0); Mean Corpuscular Volume 101.4 fl (80-94); Mean Platelet Volume 9.4 fL (7.4-10.4); Monocytes # 1.2 10^3/uL (0.2-0.9); Monocytes % 8.7 %; Neutrophils # 11.06 10^3/uL (1.8-7.7); Neutrophils % 79.7 %; Nucleated Red Blood Cells % 0 %; Platelet Count 268 10^3/cmm (130-400); Red Blood Count 2.87 10^6/uL (4.1-5.3); Red Cell Distribution Width 18.2 % (12.1-15.1); White Blood Count 13.9 10^3/uL (4.0-10.0)
[2022-04-07 15:42] LABS: Lactate (Lactic Acid level) 0.9 mmol/L (0.5-2.2)
[2022-04-07 15:44] LABS: Troponin(5th) Baseline 15 ng/L (0-15)
[2022-04-07 15:53] LABS: Blood Urea Nitrogen 16 mg/dL (8-23); Carbon Dioxide 37 mmol/L (22-29); Chloride 94 mmol/L (98-107); Glucose 90 mg/dL (65-115); NT Pro B Type Natriuretic Pept 560 pg/mL (0-450); Osmolality Calculated 289 mOsm/kg (285-295); Sodium 139 mmol/L (136-145)
[2022-04-07 15:54] LABS: Anion Gap 12.8 (5-19); Potassium 4.8 mmol/L (3.5-5.1)
--- NOTE | 2022-04-07 16:30 | ECG_ITS ---
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 Measurements Intervals [place] Rate: 89 P: 69 MT: 185 QRS: 71 QRSD: 102 T: 71 QT: 339 QTc: 414 Interpretive Statements SINUS RHYTHM NONSPECIFIC T-WAVE ABNORMALITY Compared to ECG 04/07/2022 14:35:55 No significant changes Electronically Signed On 04-09-2022 18:30:23 ITALIAN TEACHER by Cody Velasquez M.D. [id number]
[2022-04-07] MEDS: cefTRIAXone 1,000 MG in sodium chloride 0.9% (plus) 50 ML 100 MG IV (16:34)
[2022-04-07 17:03] LABS: Adenovirus Not Detected (NOT DETECT); Chlamydia Pneumoniae Not Detected (NOT DETECT); Coronavirus 229E,HKU1,NL63,OC4 Not Detected (NOT DETECT); Human Metapneumovirus Not Detected (NOT DETECT); Human Rhinovirus/Enterovirus Not Detected (NOT DETECT); Influenza A Not Detected (NOT DETECT); Influenza A H1 Not Detected (NOT DETECT); Influenza A H1-2009 Not Detected (NOT DETECT); Influenza A H3 Not Detected (NOT DETECT); Influenza B Not Detected (NOT DETECT); Mycoplasma Pneumoniae Not Detected (NOT DETECT); Parainfluenza Virus Type 1 Not Detected (NOT DETECT); Parainfluenza Virus Type 2 Not Detected (NOT DETECT); Parainfluenza Virus Type 3 Not Detected (NOT DETECT); Parainfluenza Virus Type 4 Not Detected (NOT DETECT); Respiratory Syncytial Virus A Not Detected (NOT DETECT); Respiratory Syncytial Virus B Not Detected (NOT DETECT); SARS-COV-2 Not Detected (NOT DETECT)
[2022-04-07 17:15] LABS: Results from Genmark
== END 2022-04-07 18:00 | disposition home or self-care (01) ==
PROVIDERS: Emergency Provider Family Medicine; PCP Emergency Medicine Emergency Medical Services
DX: J44.0 Chronic obstructive pulmonary disease with (acute) lower respiratory infection (principal); J18.9 Pneumonia, unspecified organism; R06.02 Shortness of breath; C34.11 Malignant neoplasm of upper lobe, right bronchus or lung; Z79.01 Long term (current) use of anticoagulants; Z20.822 Contact with and (suspected) exposure to COVID-19; Z87.891 Personal history of nicotine dependence; I13.0 Hypertensive heart and chronic kidney disease with heart failure and stage 1 through stage 4 chronic kidney disease, or unspecified chronic kidney disease; N18.9 Chronic kidney disease, unspecified; I50.33 Acute on chronic diastolic (congestive) heart failure; E78.5 Hyperlipidemia, unspecified
CPT/HCPCS: 36415; 71045; 80048; 83605; 83880; 84484; 85025; 86850; 86900; 87040; 87631; 87635; 93005; 96374; 99285; J0696